=== PATIENT | female | born 1940 | race Caucasian/White ===

== ENCOUNTER 2019-03-11 09:30 | Inpatient (IN) | payer MEDICARE, SELFPAY ==
[2019-03-11] VITALS (9 sets, daily range): BP systolic 105–166; BP diastolic 61–98; PULSE 59–101; RESP 16–24; TEMP 36.4–37; O2SAT 90–96; BMI 37.5
--- NOTE | 2019-03-11 10:07 | ECG_ITS ---
Measurements Intervals [place] Rate: 59 P: TN: 0 QRS: -75 QRSD: 154 T: 108 QT: 486 QTc: 485 ELECTRONIC VENTRICULAR PACEMAKER ABNORMAL RHYTHM ECG INTERPRETATION BASED ON A DEFAULT AGE OF 40 YEARS Compared to ECG 12/02/2018 19:50:07 No significant changes Electronically Signed On 03-11-2019 14:29:11 GEOMETRICIAN by Angela Irizarry M.D. [id number]
--- NOTE | 2019-03-11 10:07 | XR_ITS ---
WS: [id number] CHEST XRAY TECHNIQUE: Portable chest. CLINICAL INFORMATION: Shortness of breath and chest pain COMPARISON: FINDINGS: Heart: Normal cardiac silhouette. Single lead cardiac pacer. Lungs: Chronic emphysematous changes. Perihilar interstitial infiltrates likely due to CHF versus pne umonitis. No focal pneumonia. No pleural fluid. Bones: Left rotator cuff anchor. XR/XR chest 1V portable [id number] IMPRESSION: 1. Perihilar interstitial infiltrates either due to CHF versus pneumonitis. 2. No focal pneumonia or pleural fluid.
--- NOTE | 2019-03-11 10:16 | W.ED.CHESTPA ---
HPI - Chest Pain General: Chief Complaint: Chest Pain Stated Complaint: trouble breathing Time Seen by Provider: 03/11/19 10:05 Source: patient and family Mode of arrival: ambulatory Limitations: other History of Present Illness: HPI narrative: 79 yo female presents with L chest pain. pt states this started yesterday. pt has had nausea and vomiting. pt states she has had diarrhea and shortness of breath. pt states this pain is brought on with exertion. pt denies any other symptoms at this time. MD complaint: chest pain Onset (ago): hour(s) Timing of current episode: still present Prior episodes: Yes Onset: during exertion Pain location: left chest Pain radiation: none Severity: moderate Relieving factors: nothing Exacerbating factors: exertion Associated symptoms: Reports nausea, vomiting (Last night) and other (diarrhea) Review of Systems GI: Reports: nausea and vomiting (Last night) PFSH ED PFSH: Statuses (acute, chronic, etc) shown below reflect problem list status as previously entered and may not be historically accurate Social History Smoking and tobacco status: former smoker Course Vital Signs: Vital signs: Vital Signs Temperature 98 F 03/11/19 09:38 Respiratory Rate 24 H 03/11/19 09:38 Blood Pressure 151/98 03/11/19 09:38 Discharge Plan Discharge Prescriptions: No Action Lasix 40 mg Tablet 40 mg PO BID RF: 0 metformin 500 mg Tablet 500 mg PO BID RF: 0 pravastatin 40 mg Tablet 40 mg PO DAILY RF: 0 Plavix 75 mg Tablet 75 mg PO DAILY RF: 0 isosorbide dinitrate 30 mg Tablet 30 mg PO DAILY RF: 0 gabapentin 800 mg Tablet 800 mg PO BID RF: 0 Protonix 40 mg Tablet,Delayed Release (Dr/Ec) 40 mg PO DAILY RF: 0 ferrous sulfate 325 mg (65 mg iron) Tablet 325 mg PO BID RF: 0 Nitrostat 0.4 mg Tablet, Sublingual 0.4 mg SUBLINGUAL Q5M PRN (Reason: Chest Pain) RF: 0 Januvia 50 mg Tablet 50 mg PO DAILY RF: 0 Eliquis 5 mg Tablet 5 mg PO BID RF: 0 Coding Level of Care Code ED Diagnostic Medical Sonographer for Ruth Alfredo
[2019-03-11 10:21] LABS: Add RBC Morph No
[2019-03-11 10:25] LABS: Basophils % 0.4 %; Eosinophils # 0.1 10^3/uL (0.0-0.8); Eosinophils % 1.4 %; Hematocrit 30.5 % (37.0-47.0); Hemoglobin 8.7 g/dL (11.5-15.3); Lymphocytes # 0.8 10^3/uL (0.8-4.8); Lymphocytes % 7.3 %; Mean Corpuscular HGB Conc 28.5 g/dL (30.0-36.0); Mean Corpuscular Hemoglobin 26.9 pg (28.0-34.0); Mean Corpuscular Volume 94.4 fL (81-99); Mean Platelet Volume 9.4 fL (7.4-10.4); Monocytes # 0.4 10^3/uL (0.2-0.9); Monocytes % 3.8 %; Neutrophils # 8.9 10^3/uL (1.8-7.7); Neutrophils % 86.7 %; Nucleated Red Blood Cells % 0 %; Platelet Count 337 10^3/cmm (130-400); Red Blood Count 3.23 10^6/uL (4.1-5.3); Red Cell Distribution Width 16.5 % (12.1-15.1); White Blood Count 10.3 10^3/uL (4.0-10.0)
[2019-03-11 11:02] LABS: Alanine Aminotransferase 5 U/L (0-33); Albumin Level 3.7 g/dL (3.5-5.2); Alkaline Phosphatase 66 IU/L (35-105); Anion Gap 17.8 (5-19); Aspartate Amino Transferase 8 U/L (0-32); Blood Urea Nitrogen 13 mg/dL (8-23); Calcium 9.6 mg/Dl (8.8-10.2); Carbon Dioxide 28 mmol/L (22-29); Chloride 97 mmol/L (98-107); Globulin 3.6 g/dL (1.3-4.6); Glucose 180 mg/dL (74-106); Potassium 3.8 mmol/L (3.5-5.1); Sodium 139 mmol/L (136-145); Total Bilirubin 0.6 mg/dL (0.15-1.2); Total Protein 7.3 g/dL (6.6-8.7)
[2019-03-11 11:03] LABS: Troponin(5th) Baseline 22 ng/mL (0-10)
[2019-03-11] MEDS: cefTRIAXone 1,000 MG in sodium chloride 0.9% (plus) 50 ML 100 MG IV (11:38)
[2019-03-11] MEDS: nitroglycerin 1 gm/inch oint Pkt 0.5 INCH TOPICAL (11:42)
[2019-03-11] MEDS: azithromycin 500 MG in sodium chloride 0.9% 250 ML 250 MG IV (12:02)
--- NOTE | 2019-03-11 12:07 | ECG_ITS ---
Measurements Intervals [place] Rate: 60 P: MT: 0 QRS: -75 QRSD: 145 T: 112 QT: 499 QTc: 499 ELECTRONIC VENTRICULAR PACEMAKER ABNORMAL RHYTHM ECG Compared to ECG 12/02/2018 19:50:07 No significant changes Electronically Signed On 03-11-2019 14:33:52 PLANE TABLEMAN by Angela Irizarry M.D. [id number]
[2019-03-11 12:20] LABS: NT Pro B Type Natriuretic Pept 1569 pg/mL (0-450)
[2019-03-11] MEDS: pantoprazole 40 mg SDV IVP ×2 (12:37→23:45)
[2019-03-11 13:00] LABS: Troponin 5 2HR 19.84 ng/mL (0-10); Troponin 5 2HR Delta -2.16 ABS# (0-10)
--- NOTE | 2019-03-11 14:55 | PM.HP ---
Providers/Chief Complaint Primary Care Provider: Grace Willett Chief Complaint: lower chest pain/trouble breathing History of Present Illness Radha Rose is a 79 year old female with a past medical history of diastolic CHF, chronic atrial fibrillation status post ablation with a pacemaker in place, history of PE on chronic anticoagulation with Eliquis, history of CAD status post stenting x5 on Plavix, history of restrictive lung disease, history of type 2 diabetes mellitus, history of hypertension, diabetic peripheral neuropathy who presents to the emergency room due to complaints of chest pain, shortness of breath, weakness, fatigue, bloody stools. Bloody stools: Patient states that she has a history of bloody stools in the past, had a EGD and a colonoscopy in 2017 which was unremarkable, states that she for the past few days she has been having bloody stools, black stools, has been feeling lightheaded and dizzy at times, is on Plavix for CAD, on Eliquis for atrial fibrillation, denies hemoptysis, denies hematemesis, denies hematuria. Denies history of diverticulosis. Denies a history of peptic ulcer disease. He is on pantoprazole chronically as outpatient. Chest pain: States that this morning she had left-sided chest pain, sharp, lasting 5 minutes, is out of nitroglycerin was unable to take it, nonradiating, associated shortness of breath, no lightheadedness, no dizziness, no nausea, no vomiting, states that she has had chest pain in the past, seems similar, CAD status post ending x5, last stent placed in 2014, by Dr. Mercer, is on Plavix and Imdur. Last follow-up with cardiology was a week ago, by Dr. Booth, developed atrial fibrillation. Shortness of breath: Patient states that she has a chronic history of shortness of breath, shortness of breath at rest and exertion, is chronically on 3 L oxygen at home, recently has been using up to 5 L, recently has been saying that she is short of breath with even minimal exertion, no cough, no fevers, no chills, no nausea, no vomiting, no lightheadedness, no dizziness, no sick contacts, no history of flu exposure, Review of Systems Const: Denies: fever, chills, change in appetite or fatigue Eyes: Denies: change in vision ENMT: Denies: painful swallowing or nasal discharge Card: Reports: chest pain, shortness of breath on exertion and shortness of breath when lying down; Denies: palpitations, lightheadedness or syncope Resp: Reports: shortness of breath; Denies: productive cough, coughing up blood or chest congestion GI: Reports: abdominal pain, blood in stool and black tarry stool; Denies: vomiting blood : Denies: flank pain, difficulty urinating, painful urination, urinary frequency, urinary urgency, urinary hesitancy, urinary dribbling or urinary incontinence Musc: Denies: back pain Skin/Breast: Denies: rash Neuro: Denies: headache Psych: Denies: anxiety or depression Endo: Denies: excessive urination Jaspal/Lymph: Denies: easy bruising or easy bleeding Medications/Allergies Home Medications Medication Instructions Recorded Confirmed Last Taken Type apixaban [Eliquis] 5 mg PO BID 03/11/19 03/11/19 03/11/19 History clopidogrel [Plavix] 75 mg PO DAILY 03/11/19 03/11/19 03/11/19 History ferrous sulfate 325 mg PO BID 03/11/19 03/11/19 03/11/19 History furosemide [Lasix] 40 mg PO BID PRN 03/11/19 03/11/19 03/11/19 History gabapentin 800 mg PO BID 03/11/19 03/11/19 03/11/19 History isosorbide dinitrate 30 mg PO DAILY 03/11/19 03/11/19 03/11/19 History metformin 500 mg PO BID 03/11/19 03/11/19 03/11/19 History nitroglycerin [Nitrostat] 0.4 mg SUBLINGUAL Q5M PRN 03/11/19 03/11/19 Unknown History pantoprazole [Protonix] 40 mg PO DAILY 03/11/19 03/11/19 03/11/19 History pravastatin 40 mg PO DAILY 03/11/19 03/11/19 Unknown History sitagliptin [Januvia] 50 mg PO DAILY 03/11/19 03/11/19 03/11/19 History Allergies Allergy/AdvReac Type Severity Reaction Status Date / Time codeine Allergy ADR-Halluci Verified 03/11/19 09:51 nating Sulfa (Sulfonamide Allergy ALGY-Hives Verified 03/11/19 09:51 Antibiotics) tetanus and diphtheria Allergy ADR-Vomitin Verified 03/11/19 09:51 toxoids g PFSH Acute PFSH: Statuses (acute, chronic, etc) shown below reflect problem list status as previously entered and may not be historically accurate Medical History (Updated 03/11/19 @ 15:02 by Joe Mcgovern MD) Chronic atrial fibrillation (Acute) Diabetic peripheral neuropathy (Acute) Diastolic CHF (Acute) Hypertension (Acute) Pulmonary embolism (Acute) Type 2 diabetes mellitus (Acute) Surgical History (Updated 03/11/19 @ 15:03 by Joe Mcgovern MD) H/O hysterectomy for benign disease (Acute) History of appendectomy (Acute) S/P ablation of atrial fibrillation (Acute) Family History (Updated 03/11/19 @ 15:03 by Joe Mcgovern MD) Mother CAD (coronary artery disease) Social History (Updated 03/11/19 @ 15:04 by Joe Mcgovern MD) Smoking and tobacco status: former smoker Alcohol intake: never Substance/Drug Use: never Household members: family Housing: House Vitals/I&O/Wt Last Vital Signs Temp 98 F 03/11/19 09:38 Pulse 101 H 03/11/19 14:01 Resp 18 03/11/19 14:01 BP 137/92 03/11/19 14:01 Pulse Ox 94 03/11/19 14:01 Weight last 48 hrs Weight 99.337 kg Physical Exam Const: COMMON NORMALS: no apparent distress and no limitations EXAM LIMITATIONS: no altered mental status GENERAL APPEARANCE: cooperative HENMT: COMMON NORMALS: normocephalic HEAD & SCALP: normocephalic MOUTH: oral and palatal mucosa normal Eye: COMMON NORMALS: PERRL and EOMs intact bilaterally Neck/C-Spine: COMMON NORMALS: full ROM THYROID: thyroid normal Lymph: LYMPHATIC: no lymphadenopathy noted Chest: COMMONS NORMALS: inspection of chest normal Resp: COMMON NORMALS: normal respiratory effort, no use of accessory muscles and clear to auscultation bilaterally AUSCULTATION: clear to auscultation bilaterally Cardio: COMMON NORMALS: no JVD, regular rate, regular rhythm, S1 normal heart sound and S2 normal heart sound GI: COMMON NORMALS: normal to inspection, nondistended, normoactive bowel sounds, soft to palpation, no hepatosplenomegaly, no masses and no bruits PALPATION: Yes tender Details: RLQ Back/Pelvis: COMMON NORMALS: no CVA tenderness Extremity: COMMON NORMALS: normal to inspection, full ROM, normal capillary refill, no joint enlargement, no clubbing, cyanosis or edema, no calf tenderness and no pedal edema Neuro: COMMON NORMALS: oriented x3, CN's II-XII intact bilaterally and moves all extremities Psych: COMMON NORMALS: mental status grossly normal and thought process normal Skin: COMMON NORMALS: no rashes or lesions noted Urinary Catheter Management^: Alanis: Cath Placed During This Visit: no Data Labs: Other Labs: All Labs last 24 hrs except CBC/BMP 03/11/19 03/11/19 03/11/19 10:18 10:18 10:18 RBC 3.23 L MCV 94.4 MCH 26.9 L MCHC 28.5 L RDW 16.5 H MPV 9.4 Neut % (Auto) 86.7 Lymph % (Auto) 7.3 [place] % (Auto) 3.8 Eos % (Auto) 1.4 Baso % (Auto) 0.4 Neut # (Auto) 8.9 H Lymph # (Auto) 0.8 [place] # (Auto) 0.4 Eos # (Auto) 0.1 Baso # (Auto) 0.0 Nucleated RBC % (a uto) 0 Nucleated RBCs # 0.0 Calcium 9.6 Total Bilirubin 0.6 AST 8 ALT 5 Alkaline Phosphata se 66 Troponin T Baselin e 22 H Troponin T 120 Min chinik 19.84 H Delta Troponin T -2.16 L NT-Pro-B Natriuret Pep 1569 H Total Protein 7.3 Albumin 3.7 Globulin 3.6 Blood Type Antibody Screen Crossmatch 03/11/19 13:25 RBC MCV MCH MCHC RDW MPV Neut % (Auto) Lymph % (Auto) [place] % (Auto) Eos % (Auto) Baso % (Auto) Neut # (Auto) Lymph # (Auto) [place] # (Auto) Eos # (Auto) Baso # (Auto) Nucleated RBC % (a uto) Nucleated RBCs # Calcium Total Bilirubin AST ALT Alkaline Phosphata se Troponin T Baselin e Troponin T 120 Min [place] Delta Troponin T NT-Pro-B Natriuret Pep Total Protein Albumin Globulin Blood Type O Negative Antibody Screen Negative Crossmatch See Detail A&P Assessment and plan (1) Chest pain: -CAD status post stenting x5 -Initial baseline troponin within normal limits -Initial EKG no acute ST-T wave changes -No active chest pain currently -Telemetry monitoring, unremarkable, paced rhythm Plan: -Monitor EKGs, troponins, telemetry Status: Acute Code(s): R07.9 - Chest pain, unspecified (2) Pneumonia: -Chest x-ray shows bilateral interstitial infiltrates Plan: -Continue azithromycin and Rocephin Status: Acute Code(s): J18.9 - Pneumonia, unspecified organism (3) GI bleed: Hemoglobin today is 8.7, chronic 11-12 Hemoccult positive Having bloody stools Hemodynamic stable Plan: -Monitor hemoglobin, transfuse hemoglobin if less than 8 -Hold anticoagulation and antiplatelet agents -I spoke to Dr. Mitchell, no acute need to do an EGD or colonoscopy, unless acutely bleeding Status: Acute Code(s): K92.2 - Gastrointestinal hemorrhage, unspecified (4) Chronic atrial fibrillation: Status post pacemaker and ablation Plan: -Hold Eliquis Status: Acute Code(s): I48.20 - Chronic atrial fibrillation, unspecified (5) Type 2 diabetes mellitus: Low-dose sliding scale Status: Acute Code(s): E11.9 - Type 2 diabetes mellitus without complications (6) Restrictive lung disease: -Oxygen therapy -Nebulizer treatments Status: Acute Code(s): J98.4 - Other disorders of lung (7) Pulmonary embolism: Discussed risks and benefits of holding Plavix and Eliquis, risk of stroke DC versus risk of GI bleed, currently risk of GI bleed is significantly high, patient is agreeable to hold, understands risks and benefits, agrees to hold and proceed Status: Acute Code(s): I26.99 - Other pulmonary embolism without acute cor pulmonale (8) Diastolic CHF: -Continue Lasix IV 40 twice daily Status: Acute Code(s): I50.30 - Unspecified diastolic (congestive) heart failure (9) Hypertension: Continue home meds Status: Acute Code(s): I10 - Essential (primary) hypertension Attestations Medical Necessity Statement*: Patient requires hospitalization, inpatient, greater than 2 midnights, for pneumonia, diastolic CHF exacerbation, GI bleed Coding Level of Care Code Acute Fibreglass Gun Hand for [facility] Fwd Diagnoses Chest pain R07.9 Pneumonia J18.9 GI bleed K92.2 Chronic atrial fibrillation I48.20 Type 2 diabetes mellitus E11.9 Restrictive lung disease J98.4 Pulmonary embolism I26.99 Diastolic CHF I50.30 Hypertension I10
[2019-03-11 16:48] LABS: Troponin 5 6HR 18.98 ng/L (0-10)
[2019-03-11 16:52] LABS: Troponin 5 6HR Delta 3.02 ng/L (0-12)
[2019-03-11 17:19] LABS: Hematocrit 30.5 % (37.0-47.0); Hemoglobin 8.7 g/dL (11.5-15.3)
[2019-03-11] MEDS: gabapentin 400 mg Capsule 800 MG PO (17:19)
[2019-03-11] MEDS: atorvastatin 40 mg Tablet 20 MG PO (17:20)
[2019-03-11] MEDS: dextrose 5%-sod chloride 0.45% 1,000 ML 50 ML IV (17:20)
[2019-03-11] MEDS: FUROsemide 10 mg/mL SDV 4mL 40 MG IV (17:29)
[2019-03-11 17:42] LABS: Glucose Point of Care 125 mg/dL (70-110)
[2019-03-11] MEDS: morphine 4 mg/mL SDV 1 mL 1 MG IV (18:22)
[2019-03-11 22:16] LABS: Glucose Point of Care 131 mg/dL (70-110)
[2019-03-11 22:29] LABS: Hematocrit 28.6 % (37.0-47.0)
[2019-03-12] VITALS (20 sets, daily range): BP systolic 97–153; BP diastolic 53–74; PULSE 60–75; RESP 15–20; TEMP 36.2–36.7; O2SAT 90–97
[2019-03-12 06:52] LABS: Glucose Point of Care 162 mg/dL (70-110)
[2019-03-12 07:03] LABS: Basophils % 0.3 %; Eosinophils # 0.2 10^3/uL (0.0-0.8); Eosinophils % 1.7 %; Hematocrit 29.4 % (37.0-47.0); Hemoglobin 8.2 g/dL (11.5-15.3); Lymphocytes # 0.9 10^3/uL (0.8-4.8); Lymphocytes % 8.6 %; Mean Corpuscular HGB Conc 27.9 g/dL (30.0-36.0); Mean Corpuscular Hemoglobin 26.5 pg (28.0-34.0); Mean Corpuscular Volume 95.1 fL (81-99); Mean Platelet Volume 9.9 fL (7.4-10.4); Monocytes # 0.6 10^3/uL (0.2-0.9); Monocytes % 5.1 %; Neutrophils # 9.2 10^3/uL (1.8-7.7); Neutrophils % 83.9 %; Nucleated Red Blood Cells % 0 %; Platelet Count 350 10^3/cmm (130-400); Red Blood Count 3.09 10^6/uL (4.1-5.3); Red Cell Distribution Width 16.6 % (12.1-15.1); White Blood Count 10.9 10^3/uL (4.0-10.0)
[2019-03-12 07:13] LABS: Add RBC Morph No; INR 1.56 (0.8-1.2)
[2019-03-12 07:18] LABS: Alanine Aminotransferase 5 U/L (0-33); Alkaline Phosphatase 62 IU/L (35-105); Anion Gap 14.4 (5-19); Aspartate Amino Transferase 10 U/L (0-32); Blood Urea Nitrogen 10 mg/dL (8-23); Calcium 9.5 mg/Dl (8.8-10.2); Carbon Dioxide 29 mmol/L (22-29); Chloride 98 mmol/L (98-107); Globulin 2.4 g/dL (1.3-4.6); Glucose 153 mg/dL (74-106); Magnesium 1.7 mg/dL (1.7-2.3); Phosphorus 3.2 mg/dL (2.5-4.5); Potassium 3.4 mmol/L (3.5-5.1); Sodium 138 mmol/L (136-145); Total Bilirubin 0.6 mg/dL (0.15-1.2); Total Protein 6.4 g/dL (6.6-8.7)
[2019-03-12] MEDS: isosorbide dinitrate 20 mg Tablet 30 MG PO (08:02)
[2019-03-12] MEDS: atorvastatin 40 mg Tablet 20 MG PO (08:02)
[2019-03-12] MEDS: gabapentin 400 mg Capsule 800 MG PO ×2 (08:02→17:17)
[2019-03-12] MEDS: ondansetron 2 mg/ML SDV 2 mL 4 MG IVP ×2 (08:13→17:14)
[2019-03-12] MEDS: FUROsemide 10 mg/mL SDV 4mL 40 MG IV ×2 (08:13→17:13)
[2019-03-12] MEDS: morphine 4 mg/mL SDV 1 mL 1 MG IV ×2 (08:14→17:15)
--- NOTE | 2019-03-12 10:39 | CT_ITS ---
WS: [id number] CT scan of the abdomen and pelvis without Oral and IV contrast. Additional two-dimensional coronal an d sagittal reconstruction was performed. 03/12/2019 Clinical Data: RUQ and RLQ pain Comparison: None. DLP: 1756.[address] scans at [facility] use at least one of these dose optimization techniques: automat ed exposure control; mA and/or kV adjustment per patient size (includes targeted exams where dose is matched to clinical indication); or iterative reconstruction. Findings: The lower lungs show no nodules or masses. There is a moderate right pleural effusion and a very smal l left pleural effusion. Pacemaker wires are within the heart. The liver, spleen, adrenal glands and pancreas are normal. The gallbladder has stones within. The kidneys show no masses or hydronephrosis. There is a 4.61 cm cortical cyst of the left kidney.. The abdominal aorta is dilated to 2.81 cm. This is approximately the same as on the prior study. No a ppendicitis or diverticulitis is seen. No abscess, adenopathy, ascites, mass, obstruction or free air is seen.. The bladder is unremarkable. The uterus is absent. No inguinal hernia is seen. The bones of the lower thorax, lumbar spine, pelvis, and hips show osteoarthritic change of the lower thoracic and all the lumbar vertebral bodies.. CT/CT abdomen pelvis wo con [id number] Impression: 1. Negative for acute abdominal or pelvic abnormalities. 2. Small right pleural effusion and very small left pleural effusion. 3. Cholelithiasis and left renal cyst.. 4. No change in atherosclerotic dilatation of the abdominal aorta.
[2019-03-12] MEDS: cefTRIAXone 1,000 MG in sodium chloride 0.9% (plus) 50 ML 100 MG IV (11:00)
[2019-03-12] MEDS: pantoprazole 40 mg SDV IVP ×2 (11:10→23:55)
[2019-03-12 11:14] LABS: Glucose Point of Care 162 mg/dL (70-110)
--- NOTE | 2019-03-12 12:46 | PC.CHAP ---
Pastoral Care Encounter/Spiritual Assessment Type of Contact [] Declined lens edger visit [] Patient/Family/Request visit [] Outpatient visit [] Follow-up visit [] Physician referral [] Code/Alert [x] Routine visit [] Staff referral [] Actively dying [] Patient sleeping [] Family support [] [] Out of room [] Palliative care [] [] Receiving care in room [] Pre-surgical visit [] Trauma [] Long length of stay [] ICU visit [] Other: Relational/Emotional Strength [x] Patient feels connected with others/family/visitors/staff [] Distress [] Loneliness/isolation [] Abandonment Spirituality of Patient [x] Person of Yolis [] Attends Mandaen of their Yolis [x] Believes in Prayer [] Reads Bible or Zoroastrian materials [] There are Spiritual issues to be addressed Waste [employer]ination Interventions [x] Prayer [x] Active listening [x] Non-anxious presence [x] Spiritual/emotional support [] Crisis/trauma care [] Spiritual counseling [] Bereavement support [] Provided bereavement packet [] Provided Bible/devotional materials [] Provided toy/stuffed animal, coloring book to patient or family member [] Completed spiritual assessment [] Provided Communion [] Anointing/[place] [] Salvation [] Other: Impact on Illness or Injury [] Angry [] Fearful [] Anxious [] Often cries [x] Exhaustion [] Unable to work [] Unable to attend sikh [] Unable to walk/stand [] Unable to read [] Unable to drive [] Unable to eat/drink [] Unable to sleep [] Unable to be with family [] Other: Summary Visited by Waste [employer], patient is waiting for CT Testing and has been here before and is continuing with heart care. Time spent with patient 5 minutes
--- NOTE | 2019-03-12 12:48 | P.PN_ITS ---
Subjective Subjective: Interval history: This morning patient states that her breathing is improved, currently on 4.5 L oxygen, states that she uses 5 L at home, no bloody stools since last night, is quite hungry this morning, no chest pain, no palpitations, no lightheadedness, no dizziness, no nausea, no vomiting, patient got out of bed this morning without assistance, did well according to the , Vitals/I&O/Wt Last Vital Signs Temp 97.8 F 03/12/19 11:18 Pulse 72 03/12/19 11:18 Resp 18 03/12/19 11:18 BP 109/53 03/12/19 11:18 Pulse Ox 93 03/12/19 11:18 03/11/19 03/12/19 03/12/19 22:59 06:59 14:59 Intake Total 104 / 104 664.167 / 768.167 435.833 / 435.833 Output Total 1508 / 1508 550 / 550 Balance -1404 / -1404 664.167 / -739.833 -114.167 / -114.167 Weight last 48 hrs Weight 100.38 kg Weight 103.963 kg Weight 99.337 kg Physical Exam Const: COMMON NORMALS: no apparent distress, oriented x3 and well nourished HENMT: COMMON NORMALS: normocephalic HEAD & SCALP: normocephalic Neck/C-Spine: COMMON NORMALS: no JVD Lymph: LYMPHATIC: no lymphadenopathy noted Resp: COMMON NORMALS: normal respiratory effort, no retractions, no use of accessory muscles, clear to auscultation bilaterally and percussion normal AUSCULTATION: clear to auscultation bilaterally PERCUSSION: percussion normal Cardio: COMMON NORMALS: no JVD, regular rate, regular rhythm, S1 normal heart sound, S2 normal heart sound, no clicks, no murmurs and no rub RATE: regular rate RHYTHM: regular rhythm HEART SOUNDS: S1 normal and S2 normal GI: COMMON NORMALS: normal to inspection, nondistended, normoactive bowel sounds, soft to palpation, no masses and no bruits PALPATION: Yes soft, No firm, No tender, No guarding, No rigid, No hepatosplenomegaly, No splenomegaly and Yes other (Right upper quadrant tenderness, right lower quadrant tenderness to palpation) : COMMON NORMALS: Yes no CVA tenderness BLADDER/KIDNEY EXAM: Yes catheter in place and Yes no CVA tenderness Back/Pelvis: COMMON NORMALS: no CVA tenderness Extremity: COMMON NORMALS: no clubbing, cyanosis or edema and no pedal edema Neuro: COMMON NORMALS: oriented x3 Psych: COMMON NORMALS: mental status grossly normal Urinary Catheter Management^: Alanis: Cath Placed During This Visit: no A&P Assessment and plan (1) Chest pain: -CAD status post stenting x5 -Initial baseline troponin within normal limits -Initial EKG no acute ST-T wave changes -No active chest pain currently -Telemetry monitoring, unremarkable, paced rhythm Plan: -Monitor EKGs, troponins, telemetry Status: Acute Code(s): R07.9 - Chest pain, unspecified (2) Pneumonia: -Chest x-ray shows bilateral interstitial infiltrates Plan: -Continue azithromycin and Rocephin Status: Acute Code(s): J18.9 - Pneumonia, unspecified organism (3) GI bleed: Hemoglobin today is 8.0, chronic 11-12 Hemoccult positive Last bloody stool was last night Hemodynamic stable Plan: -Monitor hemoglobin, will transfuse 1 unit of PRBC, recheck hemoglobin later on tonight -Hold anticoagulation and antiplatelet agents -I spoke to Dr. Mitchell, no acute need to do an EGD or colonoscopy, unless acutely bleeding Status: Acute Code(s): K92.2 - Gastrointestinal hemorrhage, unspecified (4) Hypertension: Continue home meds Status: Acute Code(s): I10 - Essential (primary) hypertension (5) Chronic atrial fibrillation: Status post pacemaker and ablation Plan: -Hold Eliquis Status: Acute Code(s): I48.20 - Chronic atrial fibrillation, unspecified (6) Type 2 diabetes mellitus: Low-dose sliding scale Status: Acute Code(s): E11.9 - Type 2 diabetes mellitus without complications (7) Restrictive lung disease: -Oxygen therapy -Nebulizer treatments Status: Acute Code(s): J98.4 - Other disorders of lung (8) Pulmonary embolism: Discussed risks and benefits of holding Plavix and Eliquis, risk of stroke VT versus risk of GI bleed, currently risk of GI bleed is significantly high, patient is agreeable to hold, understands risks and benefits, agrees to hold and proceed Status: Acute Code(s): I26.99 - Other pulmonary embolism without acute cor pulmonale (9) Diastolic CHF: -Continue Lasix IV 40 twice daily Status: Acute Code(s): I50.30 - Unspecified diastolic (congestive) heart failure Attestations Medical Necessity Statement*: Requires continued mild hospitalization for pneumonia, GI bleed Coding Level of Care Code Acute Offender Employment Specialist for [facility] Fwd Diagnoses Chest pain R07.9 Pneumonia J18.9 GI bleed K92.2 Hypertension I10 Chronic atrial fibrillation I48.20 Type 2 diabetes mellitus E11.9 Restrictive lung disease J98.4 Pulmonary embolism I26.99 Diastolic CHF I50.30
--- NOTE | 2019-03-12 12:50 | PC.NURSE ---
Blood started by Sade Mackay RN
--- NOTE | 2019-03-12 13:46 | PC.NURSE ---
Patient took sponge bath earlier this am.
[2019-03-12 17:00] LABS: Glucose Point of Care 120 mg/dL (70-110)
[2019-03-12] MEDS: azithromycin 500 MG in sodium chloride 0.9% 250 ML 250 MG IV (17:12)
--- NOTE | 2019-03-12 18:49 | PC.PT ---
PT note; patient and spouse declined physical therapy intervention at this time, patient just seen by occupational therapist, and reports patient transfers out of bed and into chair with standby assistance, patient spouse states she helps her as needed, patient declines attempted ambulation or standing activity at this time, and patient and spouse feel they are able to continue independently without PT intervention at this time; occupational therapist did instructed patient in proper breathing techniques and home exercise program appropriate this patient; no further PT attempts to be made at this time, per patient and spouse requests.
[2019-03-12 20:07] LABS: Hematocrit 30.5 % (37.0-47.0); Hemoglobin 8.6 g/dL (11.5-15.3)
[2019-03-12 21:02] LABS: Glucose Point of Care 118 mg/dL (70-110)
[2019-03-12] MEDS: ipratropium-albuterol 3 mL Neb INHALATION (22:43)
[2019-03-13] VITALS (11 sets, daily range): BP systolic 94–156; BP diastolic 51–78; PULSE 60–87; RESP 16–20; TEMP 36.4–36.9; O2SAT 91–97; BMI 39.1
[2019-03-13 06:08] LABS: Basophils % 0.5 %; Eosinophils # 0.3 10^3/uL (0.0-0.8); Eosinophils % 3.2 %; Hemoglobin 9.1 g/dL (11.5-15.3); Lymphocytes % 11.5 %; Mean Corpuscular HGB Conc 28.4 g/dL (30.0-36.0); Mean Corpuscular Hemoglobin 27.7 pg (28.0-34.0); Mean Corpuscular Volume 97.3 fL (81-99); Mean Platelet Volume 9.5 fL (7.4-10.4); Monocytes # 0.6 10^3/uL (0.2-0.9); Monocytes % 6.4 %; Neutrophils # 6.8 10^3/uL (1.8-7.7); Neutrophils % 77.9 %; Nucleated Red Blood Cells % 0 %; Platelet Count 310 10^3/cmm (130-400); Red Blood Count 3.29 10^6/uL (4.1-5.3); Red Cell Distribution Width 17.3 % (12.1-15.1); White Blood Count 8.7 10^3/uL (4.0-10.0)
[2019-03-13 06:40] LABS: Alanine Aminotransferase 5 U/L (0-33); Albumin Level 3.8 g/dL (3.5-5.2); Alkaline Phosphatase 65 IU/L (35-105); Anion Gap 15.4 (5-19); Aspartate Amino Transferase 9 U/L (0-32); Blood Urea Nitrogen 8 mg/dL (8-23); Calcium 9.2 mg/Dl (8.8-10.2); Carbon Dioxide 30 mmol/L (22-29); Chloride 101 mmol/L (98-107); Globulin 2.5 g/dL (1.3-4.6); Glucose 140 mg/dL (74-106); Magnesium 1.8 mg/dL (1.7-2.3); Phosphorus 3.5 mg/dL (2.5-4.5); Potassium 3.4 mmol/L (3.5-5.1); Sodium 143 mmol/L (136-145); Total Bilirubin 0.7 mg/dL (0.15-1.2); Total Protein 6.3 g/dL (6.6-8.7)
[2019-03-13 07:00] LABS: Glucose Point of Care 140 mg/dL (70-110)
[2019-03-13] MEDS: atorvastatin 40 mg Tablet 20 MG PO (08:41)
[2019-03-13] MEDS: gabapentin 400 mg Capsule 800 MG PO ×2 (08:42→18:05)
[2019-03-13] MEDS: isosorbide dinitrate 20 mg Tablet 30 MG PO (08:43)
[2019-03-13] MEDS: FUROsemide 10 mg/mL SDV 4mL 40 MG IV ×2 (08:43→18:05)
[2019-03-13] MEDS: cefTRIAXone 1,000 mg SDV 1000 MG (11:00)
--- NOTE | 2019-03-13 11:34 | PM.PN ---
Subjective Subjective: Interval history: This morning patient states that her breathing has improved, was up into a chair yesterday, was ambulating with a walker without any significant symptomatology, was transfused 1 unit PRBC, states her breathing is improved, but did have one black bowel movement last night, none since then, still on a clear liquid diet, no abdominal pain, her CT of the abdomen had no acute findings Vitals/I&O/Wt Last Vital Signs Temp 97.6 F 03/13/19 07:40 Pulse 62 03/13/19 07:59 Resp 16 03/13/19 07:59 BP 109/64 03/13/19 07:40 Pulse Ox 95 03/13/19 07:59 03/12/19 03/13/19 03/13/19 22:59 06:59 14:59 Intake Total 924 / 2339.833 240 / 240 Output Total 300 / 850 300 / 1150 Balance 624 / 1489.833 -300 / 1189.833 240 / 240 Weight last 48 hrs Weight 100.38 kg Weight 103.963 kg Physical Exam Const: COMMON NORMALS: no apparent distress, oriented x3, no limitations and well nourished EXAM LIMITATIONS: no altered mental status GENERAL APPEARANCE: cooperative Eye: COMMON NORMALS: PERRL and EOMs intact bilaterally PUPIL: Yes PERRL Neck/C-Spine: COMMON NORMALS: no JVD Lymph: LYMPHATIC: no lymphadenopathy noted Chest: COMMONS NORMALS: inspection of chest normal Resp: COMMON NORMALS: normal respiratory effort, no retractions, no use of accessory muscles, clear to auscultation bilaterally and percussion normal AUSCULTATION: clear to auscultation bilaterally PERCUSSION: percussion normal Cardio: COMMON NORMALS: no JVD, regular rate, regular rhythm, S1 normal heart sound, S2 normal heart sound, no clicks, no murmurs and no rub RATE: regular rate RHYTHM: regular rhythm HEART SOUNDS: S1 normal and S2 normal GI: COMMON NORMALS: normal to inspection, nondistended, normoactive bowel sounds, soft to palpation, no hepatosplenomegaly, no masses and no bruits PALPATION: Yes soft, No firm, No tender, No guarding, No rigid, Yes no hepatosplenomegaly, No hepatosplenomegaly, No splenomegaly and Yes other (Right upper quadrant tenderness, right lower quadrant tenderness to palpation) Extremity: COMMON NORMALS: normal to inspection, full ROM, normal capillary refill, no joint enlargement, no clubbing, cyanosis or edema, no calf tenderness and no pedal edema Neuro: COMMON NORMALS: oriented x3 Urinary Catheter Management^: Alanis: Cath Placed During This Visit: no A&P Assessment and plan (1) Chest pain: -CAD status post stenting x5 -Initial baseline troponin within normal limits -Initial EKG no acute ST-T wave changes -No active chest pain currently -Telemetry monitoring, unremarkable, paced rhythm Plan: - telemetry Status: Acute Code(s): R07.9 - Chest pain, unspecified (2) Pneumonia: -Chest x-ray shows bilateral interstitial infiltrates Plan: -Continue azithromycin and Rocephin Status: Acute Code(s): J18.9 - Pneumonia, unspecified organism (3) GI bleed: Hemoglobin today is 9.1, status post 1 unit PRBC, chronic 11-12 Hemoccult positive Last black stool Hemodynamic stable Plan: -Monitor hemoglobin -Hold anticoagulation and antiplatelet agents -I spoke to Dr. Mitchell, no acute need to do an EGD or colonoscopy, unless acutely bleeding -On IV Protonix, 40 twice daily -Will add Carafate Status: Acute Code(s): K92.2 - Gastrointestinal hemorrhage, unspecified (4) Hypertension: Continue home meds Status: Acute Code(s): I10 - Essential (primary) hypertension (5) Chronic atrial fibrillation: Status post pacemaker and ablation Plan: -Hold Eliquis Status: Acute Code(s): I48.20 - Chronic atrial fibrillation, unspecified (6) Type 2 diabetes mellitus: Low-dose sliding scale Status: Acute Code(s): E11.9 - Type 2 diabetes mellitus without complications (7) Restrictive lung disease: -Oxygen therapy -Nebulizer treatments Status: Acute Code(s): J98.4 - Other disorders of lung (8) Pulmonary embolism: Discussed risks and benefits of holding Plavix and Eliquis, risk of stroke [place] versus risk of GI bleed, currently risk of GI bleed is significantly high, patient is agreeable to hold, understands risks and benefits, agrees to hold and proceed Status: Acute Code(s): I26.99 - Other pulmonary embolism without acute cor pulmonale (9) Diastolic CHF: -Continue Lasix IV 40 twice daily Status: Acute Code(s): I50.30 - Unspecified diastolic (congestive) heart failure Attestations Medical Necessity Statement*: Patient requires hospitalization, for GI bleed, pneumonia Coding Level of Care Code Acute 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
[2019-03-13] MEDS: pantoprazole 40 mg SDV IVP (11:55)
[2019-03-13] MEDS: cefTRIAXone 1,000 MG in sodium chloride 0.9% (plus) 50 ML 100 MG IV (12:11)
[2019-03-13 12:12] LABS: Glucose Point of Care 138 mg/dL (70-110)
[2019-03-13] MEDS: azithromycin 500 MG in sodium chloride 0.9% 250 ML 250 MG IV (14:57)
[2019-03-13] MEDS: sucralfate 1 gm Tablet PO (16:44)
[2019-03-13 16:52] LABS: Basophils % 0.2 %; Eosinophils # 0.3 10^3/uL (0.0-0.8); Eosinophils % 3.2 %; Hematocrit 29.1 % (37.0-47.0); Hemoglobin 8.1 g/dL (11.5-15.3); Lymphocytes # 1.2 10^3/uL (0.8-4.8); Mean Corpuscular HGB Conc 27.8 g/dL (30.0-36.0); Mean Corpuscular Hemoglobin 26.5 pg (28.0-34.0); Mean Corpuscular Volume 95.1 fL (81-99); Mean Platelet Volume 9.8 fL (7.4-10.4); Monocytes # 0.7 10^3/uL (0.2-0.9); Monocytes % 8.3 %; Neutrophils % 73.1 %; Nucleated Red Blood Cells % 0 %; Platelet Count 289 10^3/cmm (130-400); Red Blood Count 3.06 10^6/uL (4.1-5.3); Red Cell Distribution Width 16.8 % (12.1-15.1); White Blood Count 8.2 10^3/uL (4.0-10.0)
--- NOTE | 2019-03-13 18:42 | CTR_ITS ---
PROCEDURE INFORMATION: Exam: CT Head Without Contrast Exam date and time: 03/13/2019 8:04 PM Age: 79 years old Clinical indication: Injury or trauma; Fall; Additional info: Fall in bathroom TECHNIQUE: Imaging protocol: Computed tomography of the head without contrast. Total DLP: 785.71 mGy-cm Radiation optimization: All CT scans at this facility use at least one of these dose optimization techniques: automated exposure control; mA and/or kV adjustment per patient size (includes targeted exams where dose is matched to clinical indication); or iterative reconstruction. COMPARISON: CT head wo con* [id number] 12/03/2018 9:01 AM FINDINGS: Brain: Unchanged periventricular low-density compatible with small-vessel disease changes. No hemorrhage. No mass effect. No acute edema. Ventricles: Normal. No ventriculomegaly. Bones/joints: Unremarkable. No acute fracture. Sinuses: Visualized sinuses are unremarkable. No fluid levels. Mastoid air cells: Visualized mastoid air cells are well aerated. Soft tissues: Unremarkable. CT/CT head wo con* [id number] IMPRESSION: No acute intracranial abnormality. Radiation Dose CTDIVOL = (mGy): DLP = 785.71 (mGy-cm)
--- NOTE | 2019-03-13 18:47 | XRR_ITS ---
PROCEDURE INFORMATION: Exam: XR Pelvis Exam date and time: 03/13/2019 8:37 PM Age: 79 years old Clinical indication: Injury or trauma; Fall; Initial encounter; Blunt trauma (contusions or hematomas); Bilateral; Pelvic region; Additional info: Fall in bathroom TECHNIQUE: Imaging protocol: XR pelvis. Views: 1 or 2 view. COMPARISON: CT abdomen pelvis wo con [id number] 03/12/2019 11:54 AM FINDINGS: Bones/joints: Moderate to severe degenerative changes in the lower lumbar spine, sacroiliac joints and hip joints are noted. The bone density is appropriate. No acute fracture or dislocation. No bony destructive changes. Soft tissues: No foreign body. No gas in the soft tissues. Other findings: No periosteal reaction. No osteomyelitis. XR/XR pelvis 1-2V* [id number] IMPRESSION: No acute bony abnormality.
[2019-03-13 19:01] LABS: Glucose Point of Care 120 mg/dL (70-110)
[2019-03-13 19:01] LABS: Glucose Point of Care 158 mg/dL (70-110)
[2019-03-14] VITALS (7 sets, daily range): BP systolic 108–127; BP diastolic 62–70; PULSE 59–87; RESP 16–18; TEMP 36.4–37.1; O2SAT 91–100; BMI 39.1
[2019-03-14] MEDS: pantoprazole 40 mg SDV IVP ×3 (02:46→23:27)
[2019-03-14 05:42] LABS: Glucose Point of Care 144 mg/dL (70-110)
[2019-03-14 05:54] LABS: Basophils # 0.1 10^3/uL (0.0-0.1); Basophils % 0.6 %; Eosinophils # 0.2 10^3/uL (0.0-0.8); Eosinophils % 1.9 %; Hematocrit 30.5 % (37.0-47.0); Hemoglobin 8.7 g/dL (11.5-15.3); Lymphocytes # 1.3 10^3/uL (0.8-4.8); Lymphocytes % 15.5 %; Mean Corpuscular HGB Conc 28.5 g/dL (30.0-36.0); Mean Corpuscular Hemoglobin 26.8 pg (28.0-34.0); Mean Corpuscular Volume 93.8 fL (81-99); Mean Platelet Volume 9.7 fL (7.4-10.4); Monocytes # 0.6 10^3/uL (0.2-0.9); Monocytes % 7.5 %; Neutrophils # 6.2 10^3/uL (1.8-7.7); Neutrophils % 74.3 %; Nucleated Red Blood Cells % 0 %; Platelet Count 318 10^3/cmm (130-400); Red Blood Count 3.25 10^6/uL (4.1-5.3); Red Cell Distribution Width 16.4 % (12.1-15.1); White Blood Count 8.4 10^3/uL (4.0-10.0)
[2019-03-14] MEDS: sucralfate 1 gm Tablet PO ×2 (06:03→17:06)
[2019-03-14 06:51] LABS: Alanine Aminotransferase < 5 U/L (0-33); Albumin Level 3.8 g/dL (3.5-5.2); Alkaline Phosphatase 63 IU/L (35-105); Anion Gap 17.2 (5-19); Aspartate Amino Transferase 10 U/L (0-32); Blood Urea Nitrogen 4 mg/dL (8-23); Carbon Dioxide 29 mmol/L (22-29); Chloride 97 mmol/L (98-107); Globulin 2.4 g/dL (1.3-4.6); Glucose 137 mg/dL (74-106); Magnesium 1.8 mg/dL (1.7-2.3); Potassium 3.2 mmol/L (3.5-5.1); Sodium 140 mmol/L (136-145); Total Bilirubin 0.6 mg/dL (0.15-1.2); Total Protein 6.2 g/dL (6.6-8.7)
[2019-03-14 07:51] LABS: Glucose Point of Care 137 mg/dL (70-110)
[2019-03-14] MEDS: isosorbide dinitrate 20 mg Tablet 30 MG PO (08:12)
[2019-03-14] MEDS: gabapentin 400 mg Capsule 800 MG PO ×2 (08:12→17:06)
[2019-03-14] MEDS: atorvastatin 40 mg Tablet 20 MG PO (08:12)
[2019-03-14] MEDS: FUROsemide 10 mg/mL SDV 4mL 40 MG IV ×2 (08:53→17:19)
--- NOTE | 2019-03-14 10:21 | PC.SOCIAL ---
Pg 2 IMM Explained to pt & family Pg 2 IMM. Pt verbally understands & signed. Provided pt a copy & left on bedside table. Signed, dated, & timed, then placed in chart.
[2019-03-14] MEDS: cefTRIAXone 1,000 MG in sodium chloride 0.9% (plus) 50 ML 100 MG IV (11:24)
[2019-03-14 12:03] LABS: Glucose Point of Care 148 mg/dL (70-110)
[2019-03-14] MEDS: azithromycin 500 MG in sodium chloride 0.9% 250 ML 250 MG IV (14:58)
[2019-03-14 17:03] LABS: Basophils % 0.5 %; Eosinophils # 0.2 10^3/uL (0.0-0.8); Eosinophils % 2.4 %; Hematocrit 29.5 % (37.0-47.0); Hemoglobin 8.2 g/dL (11.5-15.3); Lymphocytes # 1.2 10^3/uL (0.8-4.8); Lymphocytes % 14.5 %; Mean Corpuscular HGB Conc 27.8 g/dL (30.0-36.0); Mean Corpuscular Hemoglobin 26.6 pg (28.0-34.0); Mean Corpuscular Volume 95.8 fL (81-99); Mean Platelet Volume 10.1 fL (7.4-10.4); Monocytes # 0.7 10^3/uL (0.2-0.9); Monocytes % 8.6 %; Neutrophils # 5.9 10^3/uL (1.8-7.7); Neutrophils % 73.6 %; Nucleated Red Blood Cells % 0 %; Platelet Count 239 10^3/cmm (130-400); Red Blood Count 3.08 10^6/uL (4.1-5.3); Red Cell Distribution Width 16.3 % (12.1-15.1)
[2019-03-14] MEDS: magnesium citrate Btl 296 mL PO ×2 (17:06→23:27)
--- NOTE | 2019-03-14 17:18 | PM.PN ---
Subjective Subjective: Interval history: Yesterday evening, patient fell off the toilet, no head trauma, CT head negative, pelvic x-ray unremarkable, patient has no episodes of confusion overnight, has no pain complaints overnight, no bruising, patient does state that she had 2 black bowel movements, her hemoglobin is 8.7, no lightheadedness, no dizziness, no pain with ambulation, her breathing has improved with her pneumonia, patient is fearful of going home given her hemoglobin being this low and having black bowel movements Vitals/I&O/Wt Last Vital Signs Temp 98.4 F 03/14/19 15:28 Pulse 71 03/14/19 15:28 Resp 18 03/14/19 15:28 BP 110/62 03/14/19 15:28 Pulse Ox 100 03/14/19 15:28 03/14/19 03/14/19 03/14/19 06:59 14:59 22:59 Intake Total 240 / 240 Output Total 575 / 1575 200 / 200 Balance -575 / -135 240 / 240 -200 / 40 Weight last 48 hrs Weight 103.419 kg Weight 103.419 kg Physical Exam Const: COMMON NORMALS: no apparent distress, oriented x3, no limitations and well nourished EXAM LIMITATIONS: no altered mental status GENERAL APPEARANCE: cooperative Neck/C-Spine: COMMON NORMALS: no JVD Chest: COMMONS NORMALS: inspection of chest normal Resp: COMMON NORMALS: normal respiratory effort, no retractions, no use of accessory muscles, clear to auscultation bilaterally and percussion normal AUSCULTATION: clear to auscultation bilaterally PERCUSSION: percussion normal Cardio: COMMON NORMALS: no JVD, regular rate, regular rhythm, S1 normal heart sound, S2 normal heart sound, no clicks, no murmurs and no rub RATE: regular rate RHYTHM: regular rhythm HEART SOUNDS: S1 normal and S2 normal GI: COMMON NORMALS: normal to inspection, nondistended, normoactive bowel sounds, soft to palpation, no hepatosplenomegaly, no masses and no bruits PALPATION: Yes soft, No firm, No tender, No guarding, No rigid, Yes no hepatosplenomegaly, No hepatosplenomegaly, No splenomegaly and Yes other (Right upper quadrant tenderness, right lower quadrant tenderness to palpation) Extremity: COMMON NORMALS: normal to inspection, full ROM, normal capillary refill, no joint enlargement, no clubbing, cyanosis or edema, no calf tenderness and no pedal edema Neuro: COMMON NORMALS: oriented x3 Urinary Catheter Management^: Alanis: Cath Placed During This Visit: no A&P Assessment and plan (1) GI bleed: Hemoglobin today is 8.7, status post 1 unit PRBC, chronic 11-12 Hemoccult positive Continues to have black stools Hemodynamic stable Plan: -Monitor hemoglobin -Hold anticoagulation and antiplatelet agents -I spoke to Dr. Mitchell, n.p.o. midnight, EGD tomorrow morning -On IV Protonix, 40 twice daily - Carafate Status: Acute Code(s): K92.2 - Gastrointestinal hemorrhage, unspecified (2) Pneumonia: -Chest x-ray shows bilateral interstitial infiltrates Plan: -Continue azithromycin and Rocephin Status: Acute Code(s): J18.9 - Pneumonia, unspecified organism (3) Chest pain: -CAD status post stenting x5 -Initial baseline troponin within normal limits -Initial EKG no acute ST-T wave changes -No active chest pain currently -Telemetry monitoring, unremarkable, paced rhythm Plan: - telemetry Status: Acute Code(s): R07.9 - Chest pain, unspecified (4) Hypertension: Continue home meds Status: Acute Code(s): I10 - Essential (primary) hypertension (5) Chronic atrial fibrillation: Status post pacemaker and ablation Plan: -Hold Eliquis Status: Acute Code(s): I48.20 - Chronic atrial fibrillation, unspecified (6) Type 2 diabetes mellitus: Low-dose sliding scale Status: Acute Code(s): E11.9 - Type 2 diabetes mellitus without complications (7) Restrictive lung disease: -Oxygen therapy -Nebulizer treatments Status: Acute Code(s): J98.4 - Other disorders of lung (8) Pulmonary embolism: Discussed risks and benefits of holding Plavix and Eliquis, risk of stroke [place] versus risk of GI bleed, currently risk of GI bleed is significantly high, patient is agreeable to hold, understands risks and benefits, agrees to hold and proceed Status: Acute Code(s): I26.99 - Other pulmonary embolism without acute cor pulmonale (9) Diastolic CHF: -Continue Lasix IV 40 twice daily Status: Acute Code(s): I50.30 - Unspecified diastolic (congestive) heart failure Attestations Medical Necessity Statement*: Patient requires continued hospitalization for GI bleed, pneumonia Coding Level of Care Code Acute 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
[2019-03-14 17:24] LABS: Glucose Point of Care 136 mg/dL (70-110)
[2019-03-14] MEDS: bisacodyl 5 mg Tablet 40 MG PO (19:44)
[2019-03-14 20:12] LABS: Slide Review Slide Review Perform
[2019-03-14 21:48] LABS: Glucose Point of Care 134 mg/dL (70-110)
[2019-03-15] VITALS (16 sets, daily range): BP systolic 108–141; BP diastolic 58–73; PULSE 67–102; RESP 16–22; TEMP 36.2–37.6; O2SAT 92–100
[2019-03-15] MEDS: sodium chloride 0.9% 100 ML 150 ML (01:47)
[2019-03-15 05:49] LABS: Basophils % 0.4 %; Eosinophils # 0.1 10^3/uL (0.0-0.8); Eosinophils % 1.1 %; Hematocrit 34.5 % (37.0-47.0); Lymphocytes # 1.2 10^3/uL (0.8-4.8); Lymphocytes % 10.7 %; Mean Corpuscular Hemoglobin 26.8 pg (28.0-34.0); Mean Corpuscular Volume 92.5 fL (81-99); Mean Platelet Volume 9.3 fL (7.4-10.4); Monocytes # 0.9 10^3/uL (0.2-0.9); Monocytes % 8.1 %; Neutrophils # 8.7 10^3/uL (1.8-7.7); Neutrophils % 79.4 %; Nucleated Red Blood Cells % 0 %; Platelet Count 282 10^3/cmm (130-400); Red Blood Count 3.73 10^6/uL (4.1-5.3); Red Cell Distribution Width 15.9 % (12.1-15.1); White Blood Count 10.9 10^3/uL (4.0-10.0)
[2019-03-15 06:05] LABS: Alanine Aminotransferase 6 U/L (0-33); Albumin Level 3.5 g/dL (3.5-5.2); Alkaline Phosphatase 70 IU/L (35-105); Anion Gap 10.7 (5-19); Aspartate Amino Transferase 11 U/L (0-32); Blood Urea Nitrogen 4 mg/dL (8-23); Carbon Dioxide 35 mmol/L (22-29); Chloride 97 mmol/L (98-107); Globulin 3.3 g/dL (1.3-4.6); Glucose 148 mg/dL (74-106); Sodium 140 mmol/L (136-145); Total Bilirubin 0.8 mg/dL (0.15-1.2); Total Protein 6.8 g/dL (6.6-8.7)
[2019-03-15 06:08] LABS: Potassium 2.7 mmol/L (3.5-5.1)
[2019-03-15] MEDS: sucralfate 1 gm Tablet PO ×2 (06:44→17:37)
[2019-03-15 06:55] LABS: Glucose Point of Care 143 mg/dL (70-110)
[2019-03-15] MEDS: potassium chloride premix 40 MEQ/100 ML PREMIX 25 MEQ IV (07:30)
[2019-03-15] MEDS: lidocaine 1% INJ 20 mL 5 ML IV (07:30)
--- NOTE | 2019-03-15 07:51 | ANES.PREANES ---
Pre-Anesthetic Assessment Pre-Anesthetic Assessment: Height/Weight: Height 1.63 m Weight 103.419 kg Temp Pulse Resp BP Pulse Ox 98.0 F 67 17 133/73 97 03/15/19 04:29 03/15/19 04:29 03/15/19 04:29 03/15/19 04:29 03/15/19 04:29 Proposed Procedure: Operation Date: 03/15/19 08:00 Proposed Procedures p EGD(Not Applicable) - Darryl Mitchell MD s Colonoscopy(Not Applicable) - Darryl Mitchell MD Operation Date: 03/15/19 08:40 Proposed Procedures p EGD(Not Applicable) - aDrryl Mitchell MD s Colonoscopy(Not Applicable) - Darryl Mitchell MD Social: Social History: Tobacco and No alcohol Exam: Pre-Anes Outpt Exam: alert, oriented x 3, clear to auscultation bilaterally and regular rate & rhythm Airway: Submandibular: WNL Cervical ROM: WNL MP: 2 Dentition: False Pulmonary: Pulmonary: COPD CV/HEM: CV/HEM: Afib, Arrythmia, CAD, CHF, HTN and NV Comments: pacemaker Metabolic: Metabolic: DM Anesthetic Plan: ASA status: IV Anesthesia: Anesthesia Evaluation and MAC Meds/Allergies Current Medications: Current Medications Generic Name Dose Route Start Last Admin Trade Name Freq PRN Reason Stop Dose Admin Albuterol/Ipratrop ium 3 ml 03/11/19 18:43 03/12/19 22:43 Duoneb INHALATION 3 ml Q6H.RESPIRATORY P RN Administration SHORTNESS OF MEE TH Atorvastatin Calci um 20 mg 03/11/19 17:00 03/14/19 08:12 Lipitor PO 20 mg DAILY UZAIR Administration Furosemide 40 mg 03/11/19 18:00 03/14/19 17:19 Lasix IV 40 mg BID UZAIR Administration Gabapentin 800 mg 03/11/19 18:00 03/14/19 17:06 Neurontin PO 800 mg BID UZAIR Administration Ceftriaxone Sodium 1,000 mg/ 50 mls @ 100 mls/ hr 03/11/19 11:30 03/14/19 11:54 Sodium Chloride IV Infused Q24H UZAIR Infusion Protocol Azithromycin 500 m g/ Sodium 250 mls @ 250 mls /hr 03/12/19 15:00 03/14/19 15:58 Chloride IV Infused Q24H UZAIR Infusion Protocol Potassium Chloride 40 meq in 100 mls @ 25 mls/hr 03/15/19 06:45 03/15/19 07:30 K-Garcia IV 03/15/19 14:44 25 mls/hr Q4H UZAIR Administration Insulin Aspart 0 unit 03/11/19 18:00 03/15/19 07:26 Novolog SUBCUT Not Given TIDWM UZAIR Protocol Isosorbide Dinitra te 30 mg 03/12/19 09:00 03/14/19 08:12 Isordil PO 30 mg DAILY UZAIR Administration Morphine Sulfate 1 mg 03/11/19 16:25 03/12/19 17:15 Morphine IV 1 mg Q4H PRN Administration SEVERE PAIN Ondansetron HCl 4 mg 03/11/19 16:25 03/12/19 17:14 Zofran IVP 4 mg Q8H PRN Administration vomiting, or N/V if npo Pantoprazole Sodiu m 40 mg 03/11/19 23:00 03/14/19 23:27 Protonix IVP 40 mg Q12H UZAIR Administration Sucralfate 1 gm 03/13/19 17:00 03/15/19 06:44 Carafate PO 1 gm BIDAC UZAIR Administration PFSH Anesthesia PFSH: Medical History (Updated 03/15/19 @ 08:06 by Darryl Mitchell MD) Chronic atrial fibrillation (Acute) Congestive heart failure (Acute) Diabetes (Acute) Diabetic peripheral neuropathy (Acute) Diastolic CHF (Acute) Hypertension (Acute) Pulmonary embolism (Acute) Type 2 diabetes mellitus (Acute) Surgical History (Updated 03/15/19 @ 08:06 by Darryl Mitchell MD) H/O hysterectomy for benign disease (Acute) H/O: hysterectomy (Acute) History of appendectomy (Acute) History of coronary artery stent placement (Acute) History of thoracentesis (Acute) S/P ablation of atrial fibrillation (Acute) Family History Mother CAD (coronary artery disease) Social History Smoking and tobacco status: former smoker Alcohol intake: never Substance/Drug Use: never Household members: family Housing: House Data Anesthesia Labs: Other Labs: Laboratory Results - last 48 hr 03/11/19 03/13/19 03/13/19 13:25 11:48 14:10 WBC RBC Hgb Hct MCV MCH MCHC RDW Plt Count MPV Neut % (Auto) Lymph % (Auto) [place] % (Auto) Eos % (Auto) Baso % (Auto) Neut # (Auto) Lymph # (Auto) [place] # (Auto) Eos # (Auto) Baso # (Auto) Nucleated RBC % (a uto) Nucleated RBCs # Sodium Potassium Chloride Carbon Dioxide Anion Gap BUN Creatinine Glucose POC Glucose 138 158 Calcium Phosphorus Magnesium Total Bilirubin AST ALT Alkaline Phosphata se Total Protein Albumin Globulin Blood Type Antibody Screen Crossmatch See Detail 03/13/19 03/13/19 03/14/19 15:40 17:05 05:17 WBC 8.2 RBC 3.06 L Hgb 8.1 L Hct 29.1 L MCV 95.1 MCH 26.5 L MCHC 27.8 L RDW 16.8 H Plt Count 289 MPV 9.8 Neut % (Auto) 73.1 Lymph % (Auto) 15.0 [place] % (Auto) 8.3 Eos % (Auto) 3.2 Baso % (Auto) 0.2 Neut # (Auto) 6.0 Lymph # (Auto) 1.2 [place] # (Auto) 0.7 Eos # (Auto) 0.3 Baso # (Auto) 0.0 Nucleated RBC % (a uto) 0 Nucleated RBCs # 0.0 Sodium Potassium Chloride Carbon Dioxide Anion Gap BUN Creatinine Glucose POC Glucose 120 144 Calcium Phosphorus Magnesium Total Bilirubin AST ALT Alkaline Phosphata se Total Protein Albumin Globulin Blood Type Antibody Screen Crossmatch 03/14/19 03/14/19 03/14/19 05:29 05:29 06:53 WBC 8.4 RBC 3.25 L Hgb 8.7 L Hct 30.5 L MCV 93.8 MCH 26.8 L MCHC 28.5 L RDW 16.4 H Plt Count 318 MPV 9.7 Neut % (Auto) 74.3 Lymph % (Auto) 15.5 [place] % (Auto) 7.5 Eos % (Auto) 1.9 Baso % (Auto) 0.6 Neut # (Auto) 6.2 Lymph # (Auto) 1.3 [place] # (Auto) 0.6 Eos # (Auto) 0.2 Baso # (Auto) 0.1 Nucleated RBC % (a uto) 0 Nucleated RBCs # 0.0 Sodium 140 Potassium 3.2 L Chloride 97 L Carbon Dioxide 29 Anion Gap 17.2 BUN 4 L Creatinine 0.7 Glucose 137 H POC Glucose 137 Calcium 9.0 Phosphorus 3.0 Magnesium 1.8 Total Bilirubin 0.6 AST 10 ALT < 5 Alkaline Phosphata se 63 Total Protein 6.2 L Albumin 3.8 Globulin 2.4 Blood Type Antibody Screen Crossmatch 03/14/19 03/14/19 03/14/19 11:18 16:53 17:15 WBC 8.0 RBC 3.08 L Hgb 8.2 L Hct 29.5 L MCV 95.8 MCH 26.6 L MCHC 27.8 L RDW 16.3 H Plt Count 239 MPV 10.1 Neut % (Auto) 73.6 Lymph % (Auto) 14.5 [place] % (Auto) 8.6 Eos % (Auto) 2.4 Baso % (Auto) 0.5 Neut # (Auto) 5.9 Lymph # (Auto) 1.2 [place] # (Auto) 0.7 Eos # (Auto) 0.2 Baso # (Auto) 0.0 Nucleated RBC % (a uto) 0 Nucleated RBCs # 0.0 Sodium Potassium Chloride Carbon Dioxide Anion Gap BUN Creatinine Glucose POC Glucose 148 136 Calcium Phosphorus Magnesium Total Bilirubin AST ALT Alkaline Phosphata se Total Protein Albumin Globulin Blood Type Antibody Screen Crossmatch 03/14/19 03/14/19 03/15/19 21:43 22:20 05:36 WBC 10.9 H RBC 3.73 L Hgb 10.0 L Hct 34.5 L MCV 92.5 MCH 26.8 L MCHC 29.0 L RDW 15.9 H Plt Count 282 MPV 9.3 Neut % (Auto) 79.4 Lymph % (Auto) 10.7 [place] % (Auto) 8.1 Eos % (Auto) 1.1 Baso % (Auto) 0.4 Neut # (Auto) 8.7 H Lymph # (Auto) 1.2 [place] # (Auto) 0.9 Eos # (Auto) 0.1 Baso # (Auto) 0.0 Nucleated RBC % (a uto) 0 Nucleated RBCs # 0.0 Sodium Potassium Chloride Carbon Dioxide Anion Gap BUN Creatinine Glucose POC Glucose 134 Calcium Phosphorus Magnesium Total Bilirubin AST ALT Alkaline Phosphata se Total Protein Albumin Globulin Blood Type O Negative Antibody Screen Negative Crossmatch See Detail 03/15/19 03/15/19 05:36 06:38 WBC RBC Hgb Hct MCV MCH MCHC RDW Plt Count MPV Neut % (Auto) Lymph % (Auto) [place] % (Auto) Eos % (Auto) Baso % (Auto) Neut # (Auto) Lymph # (Auto) [place] # (Auto) Eos # (Auto) Baso # (Auto) Nucleated RBC % (a uto) Nucleated RBCs # Sodium 140 Potassium 2.7 L* Chloride 97 L Carbon Dioxide 35 H Anion Gap 10.7 BUN 4 L Creatinine 0.6 Glucose 148 H POC Glucose 143 Calcium 9.0 Phosphorus Magnesium Total Bilirubin 0.8 AST 11 ALT 6 Alkaline Phosphata se 70 Total Protein 6.8 Albumin 3.5 Globulin 3.3 Blood Type Antibody Screen Crossmatch Cardiac Studies: No Data to Display
--- NOTE | 2019-03-15 08:01 | P.CONIM_ITS ---
Providers/Reason For Consult Consulting Physican/Specialty*: Dr Mcgovern Reason for Consult*: Melena anemia Attending Physician: Joe Mcgovern MD Primary Care Provider: Grace Willett History of Present Illness History of Present Illness Radha Rose is a 79 year old female with multiple comorbidities who was recently admitted to the hospital with shortness of breath and bloody stools. Patient states that she has had intermittent episodes of black stools but over the last few days she has had persistent black stools. Patient denies any abdominal pain, nausea vomiting or constipation. No fresh blood per rectum. She had an EGD and colonoscopy in 2017 which was apparently normal. Patient is on Protonix. Patient was diagnosed with pneumonia and she is now back to her 4 L of oxygen but she continues to have black stools and drop in hemoglobin requiring transfusion. Patient is on Eliquis and Plavix Review of Systems Const: Denies: fever, chills, change in weight or fatigue Eyes: Denies: change in vision ENMT: Denies: painful swallowing Card: Denies: chest pain Resp: Denies: shortness of breath GI: Denies: abdominal pain : Denies: painful urination Skin/Breast: Denies: rash Neuro: Denies: seizure-like activity Jaspal/Lymph: Denies: easy bruising Meds/Allergies Home Medications and Allergies Home Medications Medication Instructions Recorded Confirmed Type apixaban [Eliquis] 5 mg PO BID 03/11/19 03/11/19 History clopidogrel [Plavix] 75 mg PO DAILY 03/11/19 03/11/19 History ferrous sulfate 325 mg PO BID 03/11/19 03/11/19 History furosemide [Lasix] 40 mg PO BID PRN 03/11/19 03/11/19 History gabapentin 800 mg PO BID 03/11/19 03/11/19 History isosorbide dinitrate 30 mg PO DAILY 03/11/19 03/11/19 History metformin 500 mg PO BID 03/11/19 03/11/19 History nitroglycerin [Nitrostat] 0.4 mg SUBLINGUAL Q5M PRN 03/11/19 03/11/19 History pantoprazole [Protonix] 40 mg PO DAILY 03/11/19 03/11/19 History pravastatin 40 mg PO DAILY 03/11/19 03/11/19 History sitagliptin [Januvia] 50 mg PO DAILY 03/11/19 03/11/19 History Allergies Allergy/AdvReac Type Severity Reaction Status Date / Time codeine Allergy ADR-Halluci Verified 03/11/19 09:51 nating Sulfa (Sulfonamide Allergy ALGY-Hives Verified 03/11/19 09:51 Antibiotics) tetanus and diphtheria Allergy ADR-Vomitin Verified 03/11/19 09:51 toxoids g Current Medications Current Medications Generic Name Dose Route Start Last Admin Trade Name Freq PRN Reason Stop Dose Admin Albuterol/Ipratropium 3 ml 03/11/19 18:43 03/12/19 22:43 Duoneb INHALATION 3 ml Q6H.RESPIRATORY PRN Administration SHORTNESS OF BREATH Atorvastatin Calcium 20 mg 03/11/19 17:00 03/14/19 08:12 Lipitor PO 20 mg DAILY UZAIR Administration Furosemide 40 mg 03/11/19 18:00 03/14/19 17:19 Lasix IV 40 mg BID UZAIR Administration Gabapentin 800 mg 03/11/19 18:00 03/14/19 17:06 Neurontin PO 800 mg BID UZAIR Administration Ceftriaxone Sodium 1,000 mg/ 50 mls @ 100 mls/hr 03/11/19 11:30 03/14/19 11:54 Sodium Chloride IV Infused Q24H UZAIR Infusion Protocol Azithromycin 500 mg/ Sodium 250 mls @ 250 mls/hr 03/12/19 15:00 03/14/19 15:58 Chloride IV Infused Q24H UZAIR Infusion Protocol Potassium Chloride 40 meq in 100 mls @ 25 mls/hr 03/15/19 06:45 03/15/19 07:30 K-Garcia IV 03/15/19 14:44 25 mls/hr Q4H UZAIR Administration Insulin Aspart 0 unit 03/11/19 18:00 03/15/19 07:26 Novolog SUBCUT Not Given TID[facility] Protocol Isosorbide Dinitrate 30 mg 03/12/19 09:00 03/14/19 08:12 Isordil PO 30 mg DAILY UZAIR Administration Morphine Sulfate 1 mg 03/11/19 16:25 03/12/19 17:15 Morphine IV 1 mg Q4H PRN Administration SEVERE PAIN Ondansetron HCl 4 mg 03/11/19 16:25 03/12/19 17:14 Zofran IVP 4 mg Q8H PRN Administration vomiting, or N/V if npo Pantoprazole Sodium 40 mg 03/11/19 23:00 03/14/19 23:27 Protonix IVP 40 mg Q12H UZAIR Administration Sucralfate 1 gm 03/13/19 17:00 03/15/19 06:44 Carafate PO 1 gm BIDAC UZAIR Administration PFSH Acute PFSH: Statuses (acute, chronic, etc) shown below reflect problem list status as previously entered and may not be historically accurate Medical History Chronic atrial fibrillation (Acute) Diabetic peripheral neuropathy (Acute) Diastolic CHF (Acute) Hypertension (Acute) Pulmonary embolism (Acute) Type 2 diabetes mellitus (Acute) Surgical History H/O hysterectomy for benign disease (Acute) History of appendectomy (Acute) S/P ablation of atrial fibrillation (Acute) Family History Mother CAD (coronary artery disease) Social History Smoking and tobacco status: former smoker Alcohol intake: never Substance/Drug Use: never Household members: family Housing: House Vitals/I&O/Wt Last Vital Signs Temp 97.7 F 03/15/19 07:54 Pulse 72 03/15/19 07:54 Resp 18 03/15/19 07:54 BP 125/60 03/15/19 07:54 Pulse Ox 97 03/15/19 07:54 03/14/19 03/15/19 03/15/19 22:59 06:59 14:59 Intake Total 970 / 2070 810 / 2070 Output Total 800 / 800 Balance 170 / 1270 810 / 1270 Weight last 48 hrs Weight 228 lb Weight 228 lb Physical Exam Narrative: EXAM NARRATIVE: HEENT: Normocephalic Eye: Sclera /conjunctiva normal Respiratory and chest: Bilateral clear breath sounds on auscultation, patient is on oxygen Cardiovascular: Normal S1 and S2 heart sounds Abdomen: Soft to palpation Neurological: Oriented to place person and time Skin: Intact, no lesions appreciated on gross exam Urinary Catheter Management^: Alanis: Cath Placed During This Visit: no A&P Assessment and plan (1) GI bleed: 79-year-old female with black stools and anemia currently on Eliquis and Plavix requiring blood transfusion. Patient is currently hemodynamically stable Plan for EGD/colonoscopy under [facility] Procedure, risks, benefits and alternatives have been discussed with the patient who wishes to proceed with surgery. Status: Acute Code(s): K92.2 - Gastrointestinal hemorrhage, unspecified Consult Attestations Medical Necessity Statement: Anemia requiring blood transfusions and planned EGD and colonoscopy Coding Level of Care Code Acute Returned Telephone Equipment Appraiser for [facility] Fwd Diagnoses GI bleed K92.2
--- NOTE | 2019-03-15 10:03 | PC.NURSE ---
K Garcia Second bag of KCL ordered in error. Physician gave verbal order to only administer 40 MeQ, RBVO. Second K Garcia non-administered.
[2019-03-15] MEDS: sodium chloride 0.9% 1,000 ML 30 ML IV (11:11)
--- NOTE | 2019-03-15 12:49 | SUR.OPER ---
DISPOSABLE PENTAX BUTTONS X 2 ITEM #[id number] WITH ONE TIME USE ADAPTORS ON BOTH
[2019-03-15 12:50] LABS: Glucose Point of Care 137 mg/dL (70-110)
[2019-03-15] MEDS: pantoprazole 40 mg SDV IVP ×2 (13:13→23:43)
--- NOTE | 2019-03-15 13:18 | XRR_ITS ---
PROCEDURE INFORMATION: Exam: XR Left Foot Exam date and time: 03/15/2019 1:20 PM Age: 79 years old Clinical indication: Injury or trauma; Fall; Initial encounter; Abrasion; Foot; Left TECHNIQUE: Imaging protocol: XR Left foot. Views: 1 or 2 views. COMPARISON: No relevant prior studies available. FINDINGS: Bones/joints: No acute fracture evident. Mild osteoarthritis first MTP joint. Small heel spurs. Soft tissues: Normal. XR/XR foot LT 2V [id number] IMPRESSION: No acute findings.
--- NOTE | 2019-03-15 13:18 | XRR_ITS ---
PROCEDURE INFORMATION: Exam: XR Right Foot Exam date and time: 03/15/2019 1:20 PM Age: 79 years old Clinical indication: Injury or trauma; Fall; Initial encounter; Blunt trauma; Foot; Right TECHNIQUE: Imaging protocol: XR Right foot. Views: 1 or 2 views. COMPARISON: No relevant prior studies available. FINDINGS: Bones/joints: Bones display areas of patchy demineralization. No acute fracture evident. Osteoarthritis, most pronounced big toe. Posterior heel spur. Soft tissues: Normal. XR/XR foot RT 2V [id number] IMPRESSION: No acute findings. Degenerative changes.
--- NOTE | 2019-03-15 15:00 | PM.PN ---
Subjective Subjective: Interval history: This morning, patient states that she had 1 black bowel movement yesterday evening, is ready for EGD, has no significant complaints Vitals/I&O/Wt Last Vital Signs Temp 98.6 F 03/15/19 12:41 Pulse 102 H 03/15/19 12:41 Resp 22 H 03/15/19 12:41 BP 108/68 03/15/19 12:41 Pulse Ox 98 03/15/19 12:41 03/15/19 03/15/19 03/15/19 06:59 14:59 22:59 Intake Total 810 / 2070 329.167 / 329.167 Balance 810 / 1270 329.167 / 329.167 Weight last 48 hrs Weight 104.19 kg Weight 103.419 kg Physical Exam Const: COMMON NORMALS: no apparent distress, oriented x3, no limitations and well nourished EXAM LIMITATIONS: no altered mental status GENERAL APPEARANCE: cooperative Neck/C-Spine: COMMON NORMALS: no JVD Lymph: LYMPHATIC: no lymphadenopathy noted Chest: COMMONS NORMALS: inspection of chest normal Resp: COMMON NORMALS: normal respiratory effort, no retractions, no use of accessory muscles, clear to auscultation bilaterally and percussion normal AUSCULTATION: clear to auscultation bilaterally PERCUSSION: percussion normal Cardio: COMMON NORMALS: no JVD, regular rate, regular rhythm, S1 normal heart sound, S2 normal heart sound, no clicks, no murmurs and no rub RATE: regular rate RHYTHM: regular rhythm HEART SOUNDS: S1 normal and S2 normal Neuro: COMMON NORMALS: oriented x3, CN's II-XII intact bilaterally and moves all extremities Urinary Catheter Management^: Alanis: Cath Placed During This Visit: no A&P Assessment and plan (1) GI bleed: Hemoglobin today is 10, status post 2 unit PRBC, chronic 11-12 Hemoccult positive Continues to have black stools Hemodynamic stable Plan: -Monitor hemoglobin -Hold anticoagulation and antiplatelet agents -Will have EGD today -On IV Protonix, 40 twice daily - Carafate Status: Acute Code(s): K92.2 - Gastrointestinal hemorrhage, unspecified (2) Pneumonia: -Chest x-ray shows bilateral interstitial infiltrates Plan: -Continue azithromycin and Rocephin Status: Acute Code(s): J18.9 - Pneumonia, unspecified organism (3) Chest pain: -CAD status post stenting x5 -Initial baseline troponin within normal limits -Initial EKG no acute ST-T wave changes -No active chest pain currently -Telemetry monitoring, unremarkable, paced rhythm Plan: - telemetry Status: Acute Code(s): R07.9 - Chest pain, unspecified (4) Hypertension: Continue home meds Status: Acute Code(s): I10 - Essential (primary) hypertension (5) Chronic atrial fibrillation: Status post pacemaker and ablation Plan: -Hold Eliquis Status: Acute Code(s): I48.20 - Chronic atrial fibrillation, unspecified (6) Type 2 diabetes mellitus: Low-dose sliding scale Status: Acute Code(s): E11.9 - Type 2 diabetes mellitus without complications (7) Restrictive lung disease: -Oxygen therapy -Nebulizer treatments Status: Acute Code(s): J98.4 - Other disorders of lung (8) Pulmonary embolism: Discussed risks and benefits of holding Plavix and Eliquis, risk of stroke CA versus risk of GI bleed, currently risk of GI bleed is significantly high, patient is agreeable to hold, understands risks and benefits, agrees to hold and proceed Status: Acute Code(s): I26.99 - Other pulmonary embolism without acute cor pulmonale (9) Diastolic CHF: -Continue Lasix IV 40 twice daily Status: Acute Code(s): I50.30 - Unspecified diastolic (congestive) heart failure Attestations Medical Necessity Statement*: Patient requires continued hospitalization, for GI bleed Coding Level of Care Code Acute Title Curator for [facility] Fw Diagnoses GI bleed K92.2 Pneumonia J18.9 Chest pain R07.9 Hypertension I10 Chronic atrial fibrillation I48.20 Type 2 diabetes mellitus E11.9 Restrictive lung disease J98.4 Pulmonary embolism I26.99 Diastolic CHF I50.30
[2019-03-15] MEDS: azithromycin 500 MG in sodium chloride 0.9% 250 ML 250 MG IV (15:29)
[2019-03-15 16:18] LABS: Glucose Point of Care 159 mg/dL (70-110)
[2019-03-15] MEDS: gabapentin 400 mg Capsule 800 MG PO (17:37)
[2019-03-15 21:48] LABS: Glucose Point of Care 124 mg/dL (70-110)
[2019-03-16] VITALS (10 sets, daily range): BP systolic 96–125; BP diastolic 54–75; PULSE 61–81; RESP 16–18; TEMP 36.3–37.3; O2SAT 95–99
[2019-03-16 06:10] LABS: Basophils % 0.2 %; Eosinophils # 0.2 10^3/uL (0.0-0.8); Eosinophils % 1.7 %; Hematocrit 34.2 % (37.0-47.0); Lymphocytes # 0.8 10^3/uL (0.8-4.8); Lymphocytes % 6.2 %; Mean Corpuscular HGB Conc 29.2 g/dL (30.0-36.0); Mean Corpuscular Hemoglobin 27.2 pg (28.0-34.0); Mean Corpuscular Volume 93.2 fL (81-99); Mean Platelet Volume 9.8 fL (7.4-10.4); Monocytes % 8.5 %; Neutrophils # 10.1 10^3/uL (1.8-7.7); Neutrophils % 83.2 %; Nucleated Red Blood Cells % 0 %; Platelet Count 262 10^3/cmm (130-400); Red Blood Count 3.67 10^6/uL (4.1-5.3); Red Cell Distribution Width 15.9 % (12.1-15.1); White Blood Count 12.2 10^3/uL (4.0-10.0)
[2019-03-16 06:32] LABS: Alanine Aminotransferase < 5 U/L (0-33); Albumin Level 3.4 g/dL (3.5-5.2); Alkaline Phosphatase 71 IU/L (35-105); Anion Gap 13.1 (5-19); Aspartate Amino Transferase 8 U/L (0-32); Blood Urea Nitrogen 7 mg/dL (8-23); Calcium 9.5 mg/Dl (8.8-10.2); Carbon Dioxide 33 mmol/L (22-29); Chloride 97 mmol/L (98-107); Globulin 3.3 g/dL (1.3-4.6); Glucose 152 mg/dL (74-106); Potassium 3.1 mmol/L (3.5-5.1); Sodium 140 mmol/L (136-145); Total Protein 6.7 g/dL (6.6-8.7)
[2019-03-16] MEDS: sucralfate 1 gm Tablet PO ×2 (06:40→18:05)
[2019-03-16] MEDS: ipratropium-albuterol 3 mL Neb INHALATION (07:29)
[2019-03-16 07:48] LABS: Glucose Point of Care 143 mg/dL (70-110)
[2019-03-16] MEDS: gabapentin 400 mg Capsule 800 MG PO ×2 (08:11→18:05)
[2019-03-16] MEDS: isosorbide dinitrate 20 mg Tablet 30 MG PO (08:11)
[2019-03-16] MEDS: atorvastatin 40 mg Tablet 20 MG PO (08:12)
--- NOTE | 2019-03-16 10:30 | PC.SOCIAL ---
IMM Updated Page 2 of IMM updated and given to patient. Initialed, dated, and timed a placed back in chart.
[2019-03-16] MEDS: pantoprazole 40 mg SDV IVP (11:43)
[2019-03-16 11:46] LABS: Glucose Point of Care 154 mg/dL (70-110)
[2019-03-16] MEDS: cefTRIAXone 1,000 MG in sodium chloride 0.9% (plus) 50 ML 100 MG IV (11:50)
--- NOTE | 2019-03-16 14:12 | PC.NURSE ---
ot will be helping the patient with her bathing needs today
--- NOTE | 2019-03-16 14:34 | PC.CHAP ---
Addendum entered by Genaro Sy 03/16/19 14:44: Visited by Dam Worker Genaro Sy Original Note: Pastoral Care Encounter/Spiritual Assessment Type of Contact [] Declined terrazzo worker visit [] Patient/Family/Request visit [] Outpatient visit [] Follow-up visit [] Physician referral [] Code/Alert [x] Routine visit [] Staff referral [] Actively dying [] Patient sleeping [] Family support [] [] Out of room [] Palliative care [] [] Receiving care in room [] Pre-surgical visit [] Trauma [x] Long length of stay [] ICU visit [] Other: Relational/Emotional Strength [x] Patient feels connected with others/family/visitors/staff [] Distress [] Loneliness/isolation [] Abandonment Spirituality of Patient [x] Person of Yolis [] Attends Oriental Orthodox of their Yolis [x] Believes in Prayer [] Reads Bible or Jew materials [] There are Spiritual issues to be addressed Dam Worker Interventions [x] Prayer [x] Active listening [x] Non-anxious presence [x] Spiritual/emotional support [] Crisis/trauma care [] Spiritual counseling [] Bereavement support [] Provided bereavement packet [] Provided Bible/devotional materials [] Provided toy/stuffed animal, coloring book to patient or family member [x] Completed spiritual assessment [] Provided Communion [] Anointing/[place] [] Salvation [] Other: Impact on Illness or Injury [] Angry [] Fearful [] Anxious [] Often cries [] Exhaustion [] Unable to work [] Unable to attend buddhist [] Unable to walk/stand [] Unable to read [] Unable to drive [] Unable to eat/drink [] Unable to sleep [] Unable to be with family [] Other: Summary Dam Worker visited with patient and then prayed with her. Time spent with patient 6 minutes
[2019-03-16 17:03] LABS: Glucose Point of Care 134 mg/dL (70-110)
[2019-03-16] MEDS: FUROsemide 40 mg Tablet PO (18:04)
[2019-03-16] MEDS: pantoprazole DR 40 mg Tablet PO (18:05)
--- NOTE | 2019-03-16 19:54 | P.PN_ITS ---
Subjective Subjective: Interval history: Patient states that she is working better with physical therapy, wants to go to long term, denies black stools, denies bloody stools, no lightheadedness, no dizziness, did get out of bed this morning, denies shortness of breath Vitals/I&O/Wt Last Vital Signs Temp 99.1 F 03/16/19 19:46 Pulse 78 03/16/19 19:46 Resp 18 03/16/19 19:46 BP 105/54 03/16/19 19:46 Pulse Ox 99 03/16/19 19:46 03/16/19 03/16/19 03/16/19 06:59 14:59 22:59 Intake Total 360 / 360 240 / 600 Balance 360 / 360 240 / 600 Weight last 48 hrs Weight 104.184 kg Weight 104.19 kg Physical Exam Const: COMMON NORMALS: no apparent distress, oriented x3, no limitations and well nourished EXAM LIMITATIONS: no altered mental status GENERAL ALFONSO EARANCE: cooperative Neck/C-Spine: COMMON NORMALS: no JVD Lymph: LYMPHATIC: no lymphadenopathy noted Resp: COMMON NORMALS: normal respiratory effort, no retractions, no use of accessory muscles, clear to auscultation bilaterally and percussion normal AUSCULTATION: clear to auscultation bilaterally PERCUSSION: percussion normal Cardio: COMMON NORMALS: no JVD, regular rate, regular rhythm, S1 normal heart sound, S2 normal heart sound, no clicks, no murmurs and no rub RATE: regular rate RHYTHM: regular rhythm HEART SOUNDS: S1 normal and S2 normal GI: COMMON NORMALS: normal to inspection, nondistended, normoactive bowel sounds, soft to palpation, no hepatosplenomegaly, no masses and no bruits PALPATION: Yes soft, No firm, No tender, No guarding, No rigid, Yes no hepatosplenomegaly, No hepatosplenomegaly and No splenomegaly Extremity: COMMON NORMALS: normal to inspection, full ROM, normal capillary refill, no joint enlargement, no clubbing, cyanosis or edema, no calf tenderness and no pedal edema Neuro: COMMON NORMALS: oriented x3, CN's II-XII intact bilaterally and moves all extremities Urinary Catheter Management^: Alanis: Cath Placed During This Visit: no A&P Assessment and plan (1) GI bleed: Hemoglobin today is 10, status post 2 unit PRBC, chronic 11-12 Hemoccult positive EGD showed a duodenal ulcer, biopsies taken, Dr. Mitchell recommends no anticoagulation or antiplatelet therapy Hemodynamic stable Plan: -Monitor hemoglobin -Hold anticoagulation and antiplatelet agents -On Protonix, 40 twice daily - Carafate Status: Acute Code(s): K92.2 - Gastrointestinal hemorrhage, unspecified (2) Pneumonia: Clinically doing well, on her home 4 to 5 L, off antibiotics Status: Acute Code(s): J18.9 - Pneumonia, unspecified organism (3) Chest pain: -CAD status post stenting x5 -Initial baseline troponin within normal limits -Initial EKG no acute ST-T wave changes -No active chest pain currently -Telemetry monitoring, unremarkable, paced rhythm Plan: - telemetry Status: Acute Code(s): R07.9 - Chest pain, unspecified (4) Hypertension: Continue home meds Status: Acute Code(s): I10 - Essential (primary) hypertension (5) Chronic atrial fibrillation: Status post pacemaker and ablation Plan: -Hold Eliquis Status: Acute Code(s): I48.20 - Chronic atrial fibrillation, unspecified (6) Type 2 diabetes mellitus: Low-dose sliding scale Status: Acute Code(s): E11.9 - Type 2 diabetes mellitus without complications (7) Restrictive lung disease: -Oxygen therapy -Nebulizer treatments Status: Acute Code(s): J98.4 - Other disorders of lung (8) Pulmonary embolism: Discussed risks and benefits of holding Plavix and Eliquis, risk of stroke [place] versus risk of GI bleed, currently risk of GI bleed is significantly high, patient is agreeable to hold, understands risks and benefits, agrees to hold and proceed Status: Acute Code(s): I26.99 - Other pulmonary embolism without acute cor pulmonale (9) Diastolic CHF: -Continue Lasix IV 40 twice daily Status: Acute Code(s): I50.30 - Unspecified diastolic (congestive) heart failure Attestations Medical Necessity Statement*: Patient requires continued hospitalization, for GI bleed, awaiting long term placement Coding Level of Care Code Acute Outside Property Agent for [facility] Fw Diagnoses GI bleed K92.2 Pneumonia J18.9 Chest pain R07.9 Hypertension I10 Chronic atrial fibrillation I48.20 Type 2 diabetes mellitus E11.9 Restrictive lung disease J98.4 Pulmonary embolism I26.99 Diastolic CHF I50.30
[2019-03-16 21:21] LABS: Glucose Point of Care 179 mg/dL (70-110)
[2019-03-17] VITALS (9 sets, daily range): BP systolic 122–133; BP diastolic 60–76; PULSE 74–80; RESP 16–20; TEMP 36.4–36.8; O2SAT 93–99; BMI 39.4
[2019-03-17 05:34] LABS: Basophils % 0.2 %; Eosinophils # 0.3 10^3/uL (0.0-0.8); Eosinophils % 2.7 %; Hematocrit 33.4 % (37.0-47.0); Hemoglobin 9.6 g/dL (11.5-15.3); Lymphocytes # 0.7 10^3/uL (0.8-4.8); Lymphocytes % 7.4 %; Mean Corpuscular HGB Conc 28.7 g/dL (30.0-36.0); Mean Corpuscular Hemoglobin 27.7 pg (28.0-34.0); Mean Corpuscular Volume 96.5 fL (81-99); Monocytes # 0.7 10^3/uL (0.2-0.9); Monocytes % 7.2 %; Neutrophils # 7.7 10^3/uL (1.8-7.7); Neutrophils % 82.1 %; Nucleated Red Blood Cells % 0 %; Platelet Count 234 10^3/cmm (130-400); Red Blood Count 3.46 10^6/uL (4.1-5.3); Red Cell Distribution Width 15.5 % (12.1-15.1); White Blood Count 9.3 10^3/uL (4.0-10.0)
[2019-03-17 05:54] LABS: Alanine Aminotransferase < 5 U/L (0-33); Alkaline Phosphatase 59 IU/L (35-105); Anion Gap 12.5 (5-19); Aspartate Amino Transferase 8 U/L (0-32); Blood Urea Nitrogen 9 mg/dL (8-23); Calcium 9.3 mg/Dl (8.8-10.2); Carbon Dioxide 33 mmol/L (22-29); Chloride 98 mmol/L (98-107); Glucose 163 mg/dL (74-106); Potassium 3.5 mmol/L (3.5-5.1); Sodium 140 mmol/L (136-145); Total Bilirubin 0.7 mg/dL (0.15-1.2)
[2019-03-17] MEDS: sucralfate 1 gm Tablet PO (06:22)
[2019-03-17 07:15] LABS: Glucose Point of Care 133 mg/dL (70-110)
[2019-03-17] MEDS: FUROsemide 40 mg Tablet PO (08:23)
[2019-03-17] MEDS: gabapentin 400 mg Capsule 800 MG PO (08:23)
[2019-03-17] MEDS: pantoprazole DR 40 mg Tablet PO (08:23)
[2019-03-17] MEDS: atorvastatin 40 mg Tablet 20 MG PO (08:23)
[2019-03-17] MEDS: isosorbide dinitrate 20 mg Tablet 30 MG PO (08:23)
[2019-03-17] MEDS: ipratropium-albuterol 3 mL Neb INHALATION (08:29)
[2019-03-17 11:37] LABS: Glucose Point of Care 211 mg/dL (70-110)
--- NOTE | 2019-03-17 12:19 | PC.OT ---
OT note: Pt reported she is discharging today and is waiting on discharge paperwork. She declined OT at this time.
--- NOTE | 2019-03-17 13:43 | PM.DCS ---
Discharge Providers Date of Admission: 03/11/19 15:31 Date of Discharge: 03/17/19 Attending Provider at Admission: Joe Mcgovern MD Attending Provider at Discharge: Joe Mcgovern MD Primary Care Provider: Grace Willett Diagnoses at Discharge Discharge Diagnosis (1) GI bleed: Status: Acute (2) Pneumonia: Status: Acute (3) Chest pain: Status: Acute (4) Hypertension: Status: Acute (5) Chronic atrial fibrillation: Status: Acute (6) Type 2 diabetes mellitus: Status: Acute (7) Restrictive lung disease: Status: Acute (8) Pulmonary embolism: Status: Acute (9) Diastolic CHF: Status: Acute Reason for Visit Reason for Visit: Reason For Visit: lower chest pain/trouble breathing Hospital Course Discharge Summary: Radha Rose is a 79 year old female with a past medical history of diastolic CHF, chronic atrial fibrillation status post ablation with a pacemaker in place, history of PE on chronic anticoagulation with Eliquis, history of CAD status post stenting x5 on Plavix, history of restrictive lung disease, history of type 2 diabetes mellitus, history of hypertension, diabetic peripheral neuropathy who presents to the emergency room due to complaints of chest pain, shortness of breath, weakness, fatigue, bloody stools. Patient was admitted for GI bleed, started on IV fluids, IV Protonix, bowel rest, Eliquis and Plavix were held, hemoglobin as low as 8, status post 2 units PRBC, had a EGD with Dr. Mitchell which showed a duodenal ulcer. Colonoscopy by Dr. Mitchell showed a colonic polyp. Patient is to follow-up with Dr. Mitchell in 2 weeks for biopsy results. Given patient's high risk of bleeding, on Eliquis and Plavix were held. I had an extensive discussion with patient and about the risks and benefits of anticoagulation antiplatelet therapy with GI bleeds. Risk of continuing medication includes life-threatening GI bleed. Risk of holding medications include myocardial infarct and stroke and pulmonary embolism. However, given her duodenal ulcer, and that she is status post units PRBC, and her chronic weakness fatigue and tiredness, and low hemoglobin she has a high risk of recurrent GI bleed. Patient voiced understanding, all questions answered, understands risks and benefits, agrees to hold Eliquis and Plavix. I advised patient that she will have to have a discussion with her primary care provider and cardiology in 1 to 2 weeks about reinstituting the medications. I would definitely not recommend Plavix. Aspirin 81 mg would be a good long-term option. However, reinstituting Eliquis with her low hemoglobins, fatigue, makes me very worried about hemorrhagic GI bleed. Can consider IVC filter placement to decrease the risk of pulmonary embolism. Patient was also admitted for pneumonia, received antibiotics, did clinically well, resumed her home 4 to 5 L oxygen, was discharged home with home health care. Patient also had respiratory failure secondary to CHF exacerbation, received Lasix therapy as inpatient, her respiratory status significantly improved, was discharged on Lasix po 40 twice daily,with repeat blood work for monitoring renal function in 1 week. Physical Exam Const: COMMON NORMALS: no apparent distress, oriented x3, no limitations and well nourished EXAM LIMITATIONS: no altered mental status GENERAL APPEARANCE: cooperative Neck/C-Spine: COMMON NORMALS: no JVD Chest: COMMONS NORMALS: inspection of chest normal Resp: COMMON NORMALS: normal respiratory effort, no retractions, no use of accessory muscles, clear to auscultation bilaterally and percussion normal AUSCULTATION: clear to auscultation bilaterally PERCUSSION: percussion normal Cardio: COMMON NORMALS: no JVD, regular rate, regular rhythm, S1 normal heart sound, S2 normal heart sound, no clicks, no murmurs and no rub RATE: regular rate RHYTHM: regular rhythm HEART SOUNDS: S1 normal and S2 normal GI: COMMON NORMALS: normal to inspection, nondistended, normoactive bowel sounds, soft to palpation, no hepatosplenomegaly, no masses and no bruits PALPATION: Yes soft, No firm, No tender, No guarding, No rigid, Yes no hepatosplenomegaly, No hepatosplenomegaly and No splenomegaly Neuro: COMMON NORMALS: oriented x3 Urinary Catheter Management^: Alanis: Cath Placed During This Visit: no Discharge Data Data Completed and Pending: Completed Studies During Hospitalization Category Date Time Status CT abdomen pelvis wo con 70746 Rout ine Cat Scan 03/12/19 10:[address] head wo con* 7 0450 Routine Cat Scan 03/13/19 18:42 Completed XR chest 1V antony ble 53226 Urgent Exams 03/11/19 10:07 Completed XR foot LT 2V 736 20 Stat Exams 03/15/19 13:18 Completed XR foot RT 2V 736 20 Stat Exams 03/15/19 13:18 Completed XR pelvis 1-2V* 7 2170 Routine Exams 03/13/19 18:47 Completed Pathology: Surgic al [PTH] Routine Pth 03/15/19 12:35 Completed Pending at discharge Category Date Time Status Occult Blood Stoo l Stat Lab 03/11/19 11:34 Ordered Labs from last 24 hours 03/17/19 03/17/19 03/17/19 11:22 06:41 05:03 WBC RBC Hgb Hct MCV MCH MCHC RDW Plt Count MPV Neut % (Auto) Lymph % (Auto) [place] % (Auto) Eos % (Auto) Baso % (Auto) Neut # (Auto) Lymph # (Auto) [place] # (Auto) Eos # (Auto) Baso # (Auto) Nucleated RBC % (a uto) Nucleated RBCs # Sodium 140 Potassium 3.5 Chloride 98 Carbon Dioxide 33 H Anion Gap 12.5 BUN 9 Creatinine 0.6 Glucose 163 H POC Glucose 211 133 Calcium 9.3 Total Bilirubin 0.7 AST 8 ALT < 5 Alkaline Phosphata se 59 Total Protein 6.0 L Albumin 3.0 L Globulin 3.0 03/17/19 03/16/19 03/16/19 05:03 21:17 16:54 WBC 9.3 RBC 3.46 L Hgb 9.6 L Hct 33.4 L MCV 96.5 MCH 27.7 L MCHC 28.7 L RDW 15.5 H Plt Count 234 MPV 10.0 Neut % (Auto) 82.1 Lymph % (Auto) 7.4 [place] % (Auto) 7.2 Eos % (Auto) 2.7 Baso % (Auto) 0.2 Neut # (Auto) 7.7 Lymph # (Auto) 0.7 L [place] # (Auto) 0.7 Eos # (Auto) 0.3 Baso # (Auto) 0.0 Nucleated RBC % (a uto) 0 Nucleated RBCs # 0.0 Sodium Potassium Chloride Carbon Dioxide Anion Gap BUN Creatinine Glucose POC Glucose 179 134 Calcium Total Bilirubin AST ALT Alkaline Phosphata se Total Protein Albumin Globulin Vitals: Last Vital Signs Temp 97.9 F 03/17/19 12:00 Pulse 74 03/17/19 12:00 Resp 20 H 03/17/19 12:00 BP 129/68 03/17/19 12:00 Pulse Ox 99 03/17/19 12:00 Discharge Plan Discharge Patient Disposition: Home Health Service Condition: Stable Prescriptions: New sucralfate 1 gram Tablet 1 g PO BIDAC 30 Days Qty: 60 RF: 0 potassium chloride 20 mEq tablet extended release 40 meq PO DAILY 30 Days Qty: 60 RF: 0 Continued pravastatin 40 mg Tablet 40 mg PO DAILY 30 Days Qty: 30 RF: 0 isosorbide dinitrate 30 mg Tablet 30 mg PO DAILY 30 Days Qty: 30 RF: 0 gabapentin 800 mg Tablet 800 mg PO BID 30 Days Qty: 60 RF: 0 ferrous sulfate 325 mg (65 mg iron) Tablet 325 mg PO BID 30 Days Qty: 60 RF: 0 Nitrostat 0.4 mg Tablet, Sublingual 0.4 mg SUBLINGUAL Q5M PRN (Reason: Chest Pain) 5 Days Qty: 3 RF: 0 Januvia 50 mg Tablet 50 mg PO DAILY 30 Days Qty: 30 RF: 0 metformin 500 mg Tablet 500 mg PO BID 30 Days Qty: 60 RF: 0 Changed Lasix 40 mg Tablet 40 mg PO BID 30 Days Qty: 60 RF: 0 pantoprazole [Protonix] 40 mg Tablet,Delayed Release (Dr/Ec) 40 mg PO BIDWM 30 Days Qty: 60 RF: 0 Discontinued clopidogrel [Plavix] 75 mg Tablet 75 mg PO DAILY RF: 0 Eliquis 5 mg Tablet 5 mg PO BID RF: 0 Discharge Orders: Discharge Order (Routine); Ordered 03/17/19 Ordered By: Joe Mcgovern Other Ambulatory Orders: Complete Blood Count w/Auto (Routine) Timeframe: 1 Week Location: Determined by Patient Ordered By: Joe Mcgovern Referrals: MICAH [Other] Grace Willett [Primary Care Provider] - Darryl Mitchell MD [Physician] - 2 weeks Van Law MD [Physician] - (follow up 1-2 weeks) Discharge Diet: Cardiac Discharge Activity: Resume usual activity Patient Instructions: Sucralfate (By mouth), Potassium Chloride (By mouth), Peptic Ulcer (DC), Peptic Ulcer (GEN) Activity Restrictions/Additional Instructions: -For your GI bleed and duodenal ulcer, avoid NSAIDs and anti-inflammatory medications -Please continue to hold Eliquis and Plavix, follow-up with cardiology and primary care in 1 to 2 weeks for decisions to resume. I would definitely not recommend Plavix, potentially aspirin 81 mg -If you have worsening shortness of breath please come back to the emergency room -Please monitor for black stools, recheck hemoglobin in 1 week, if you have worsening black stools, bloody stools, lightheadedness, dizziness, come back to the emergency room Discharge Attestations Time Spent in Discharge Care*: greater than 30 min Quality Metrics Clinical Quality Measures During this hospital stay, did patient experience: None Coding Level of Care Code Acute Tailor Apprentice for g Fwd Diagnoses GI bleed K92.2 Pneumonia J18.9 Chest pain R07.9 Hypertension I10 Chronic atrial fibrillation I48.20 Type 2 diabetes mellitus E11.9 Restrictive lung disease J98.4 Pulmonary embolism I26.99 Diastolic CHF I50.30
== END 2019-03-17 16:09 | disposition home health service (06) | DRG 193 ==
LOC: ER 11:16 → MEDSURG 15:58
PROVIDERS: Physician Assistant; Surgery; Admitting Provider Family Medicine; Emergency Provider Family Medicine; PCP Nurse Practitioner Family; Visit Provider Family Medicine
PROC: 0DJ08ZZ Inspection of Upper Intestinal Tract, Via Natural or Artificial Opening Endoscopic (ICD-10-PCS; CPT 43235; principal; 2019-03-15 11:00)
PROC: 0DJD8ZZ Inspection of Lower Intestinal Tract, Via Natural or Artificial Opening Endoscopic (ICD-10-PCS; CPT 45378; 2019-03-15 11:00)
DX: J18.9 Pneumonia, unspecified organism (principal); I50.31 Acute diastolic (congestive) heart failure; I26.99 Other pulmonary embolism without acute cor pulmonale; K92.2 Gastrointestinal hemorrhage, unspecified; I48.20 Chronic atrial fibrillation, unspecified; I27.82 Chronic pulmonary embolism; I11.0 Hypertensive heart disease with heart failure; Z95.0 Presence of cardiac pacemaker; Z86.711 Personal history of pulmonary embolism; Z79.01 Long term (current) use of anticoagulants; I25.10 Atherosclerotic heart disease of native coronary artery without angina pectoris; Z95.5 Presence of coronary angioplasty implant and graft; E11.42 Type 2 diabetes mellitus with diabetic polyneuropathy; Z79.02 Long term (current) use of antithrombotics/antiplatelets; Z79.84 Long term (current) use of oral hypoglycemic drugs
CPT/HCPCS: 36415; 36416; 51702; 70450; 71045; 72170; 73620; 74176; 80053; 82270; 82962; 83735; 83880; 84100; 84484; 85014; 85018; 85025; 85610; 86850; 86900; 88305; 93005; 94640; 94664; 96372; 96375; 97110; 97116; 97161; 97166; 97530; 97535; 99282; C9113; J0456; J0696; J1815; J1940; J2001; J2270; J2405; J2704; J3480; J7030; J7050; J7799; P9016; P9058

== ENCOUNTER → 2019-04-07 14:07 | Outpatient (BNVA) | payer MEDICARE, SELFPAY | PROVIDERS: PCP Nurse Practitioner Family; Visit Provider Nurse Practitioner Family | DX: I50.32 Chronic diastolic (congestive) heart failure (principal); D50.0 Iron deficiency anemia secondary to blood loss (chronic); I48.20 Chronic atrial fibrillation, unspecified | CPT/HCPCS: 80048; 85025 ==

== ENCOUNTER 2019-07-27 06:00 | Outpatient (RCR) | payer MEDICARE, SELFPAY | END 2019-08-09 23:59 | disposition home or self-care (01) | LOC: SPT 06:00 | PROVIDERS: PCP Nurse Practitioner Family; Referring Provider Internal Medicine Critical Care Medicine; Visit Provider Internal Medicine Critical Care Medicine | DX: R26.89 Other abnormalities of gait and mobility (principal) | CPT/HCPCS: 97110; 97162 ==

== ENCOUNTER 2019-08-10 06:00 | Outpatient (RCR) | payer MEDICARE, SELFPAY | END 2019-09-08 23:59 | disposition home or self-care (01) | LOC: SPT 06:00 | PROVIDERS: PCP Nurse Practitioner Family; Visit Provider Internal Medicine Critical Care Medicine | DX: R26.89 Other abnormalities of gait and mobility (principal) | CPT/HCPCS: 97110; 97530 ==

== ENCOUNTER 2019-08-31 09:43 | Emergency (ER) | payer MEDICARE, SELFPAY ==
[2019-08-31 09:47] VITALS: BP 128/65; PULSE 61; RESP 18; TEMP 36.2; O2SAT 96; BMI 35.2
--- NOTE | 2019-08-31 09:58 | XR_ITS ---
WS: [id number] PORTABLE CHEST HISTORY: dyspnea/cough COMPARISON: 03/11/2019 LEFT subclavian pacer. Chronic emphysema with no pneumonia. Normal vasculature. No pleural effusion or pneumothorax. Cardiac size: Normal. Mediastinum/Aorta: Mild atherosclerosis aorta. Prior LEFT rotator cuff repair, single anchor. XR/XR chest 1V portable [id number] IMPRESSION: Chronic emphysema with no acute cardiopulmonary disease.
--- NOTE | 2019-08-31 09:58 | ECG_ITS ---
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 Measurements Intervals [place] Rate: 63 P: [place]: -1 QRS: -73 QRSD: 151 T: 92 QT: 509 QTc: 524 Interpretive Statements ELECTRONIC VENTRICULAR PACEMAKER Compared to ECG 03/11/2019 12:33:23 No significant changes Electronically Signed On 08-31-2019 18:28:19 CDT by Angela Irizarry M.D. [id number]
[2019-08-31 10:01] LABS: Glucose Point of Care 432 mg/dL (70-110)
[2019-08-31 10:09] LABS: Basophils # 0.1 10^3/uL (0.0-0.1); Basophils % 0.3 %; Eosinophils # 0.1 10^3/uL (0.0-0.8); Eosinophils % 0.8 %; Hematocrit 38.1 % (37.0-47.0); Hemoglobin 11.6 g/dL (11.5-15.3); Lymphocytes # 1.2 10^3/uL (0.8-4.8); Lymphocytes % 7.8 %; Mean Corpuscular HGB Conc 30.4 g/dL (30.0-36.0); Mean Corpuscular Hemoglobin 29.3 pg (28.0-34.0); Mean Corpuscular Volume 96.2 fL (81-99); Mean Platelet Volume 10.1 fL (7.4-10.4); Monocytes # 0.7 10^3/uL (0.2-0.9); Monocytes % 4.7 %; Neutrophils # 13.6 10^3/uL (1.8-7.7); Neutrophils % 85.9 %; Nucleated Red Blood Cells % 0 %; Platelet Count 329 10^3/cmm (130-400); Red Blood Count 3.96 10^6/uL (4.1-5.3); White Blood Count 15.8 10^3/uL (4.0-10.0)
[2019-08-31 10:14] LABS: Ketone (Acetest) Serum Negative (Negative)
[2019-08-31 10:22] VITALS: BP 99/53; PULSE 63; RESP 16; O2SAT 98
[2019-08-31 10:30] VITALS: BP 106/64; PULSE 61; RESP 16; O2SAT 97
--- NOTE | 2019-08-31 10:31 | W.ED.GENADLT ---
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 She denies having any chest pain through any of this. She was previously on Eliquis but she has been changed to just taking aspirin now. Onset (ago): day(s) Relieving factors: none Exacerbating factors: none Associated symptoms: Reports nausea and palpitations; Deny chest pain, dyspnea, malaise, rash or vomiting Review of Systems Const: Denies: fever(s), chills, body aches, change in appetite, fatigue or malaise ENMT: Denies: throat pain, ear or mastoid pain, nasal discharge or nasal congestion Card: Reports: palpitations, irregular heart rhythm and orthopnea; Denies: chest pain, edema or dyspnea on exertion Resp: Denies: dyspnea, productive cough or non-productive cough GI: Reports: nausea; Denies: abdominal pain, vomiting, hematemesis, coffee ground emesis, diarrhea, constipation, bloating, hematochezia or melena : Denies: flank pain, difficulty voiding, dysuria, urinary frequency or urinary urgency Skin/Breast: Denies: rash or pruritus PFSH ED PFSH: Medical History Chronic atrial fibrillation Diabetic peripheral neuropathy Diastolic CHF History of colon polyps Pulmonary embolism Type 2 diabetes mellitus without use of insulin Surgical History H/O hysterectomy for benign disease H/O: hysterectomy History of appendectomy History of coronary artery stent placement History of esophagogastroduodenoscopy (EGD) 03/15/2019: EGD with biopsy Findings: Duodenal ulceration, most likely source of her bleed History of thoracentesis S/P ablation of atrial fibrillation Status post colonoscopy with polypectomy 03/15/2019: Colonoscopy with polypectomy Findings: 2 cm sessile polyp in ascending colon removed with cold biopsy forceps Moderate diverticulosis sigmoid colon Grade 4 hemorrhoids Family History Mother CAD (coronary artery disease) Family/Other Cancer Father Chronic kidney disease (CKD) Brother Dementia Diabetes Family history of premature coronary artery disease Hypertension Sister Hypertension Social History Smoking and tobacco status: former smoker Quit status (tobacco): has quit using tobacco Year quit tobacco: 2013 - PPD x 55 Years Alcohol intake: never Lives independently: Yes Household members: spouse Housing: House Marital status: Current occupational status: retired History of recent travel: No Current gender identity: Female Physical Exam Const: COMMON NORMALS: no acute distress GENERAL APPEARANCE: cooperative and comfortable ORIENTATION/CONSCIOUSNESS: Yes awake, Yes oriented to person, Yes oriented to place and Yes oriented to time HENMT: COMMON NORMALS: normocephalic, atraumatic, hearing grossly normal bilaterally, external ears normal, EAC's normal, TM's normal bilaterally, Normal nasal mucous membranes and turbinates present, moist oral mucous membranes and oropharynx normal HEAD & SCALP: normocephalic and atraumatic NOSE: Normal nasal mucous membranes and turbinates present EXTERNAL EAR: Yes external ears normal EXTERNAL AUDITORY CANAL: EAC's normal TYMPANIC MEMBRANE: TM's normal bilaterally Eye: COMMON NORMALS: Equal, round and reactive pupils present, EOMs intact bilaterally, conjunctivae normal and no scleral icterus CONJUNCTIVA: Yes conjunctivae normal PUPIL: Yes Equal, round and reactive pupils present Neck/C-Spine: COMMON NORMALS: full ROM, no lymphadenopathy, supple and no JVD Lymph: LYMPHATIC: no lymphadenopathy noted and no lymphedema noted Resp: COMMON NORMALS: normal respiratory effort, No retractions, No use of accessory muscles and clear to auscultation bilaterally AUSCULTATION: clear to auscultation bilaterally Cardio: COMMON NORMALS: no JVD, regular rhythm (paced) and No murmurs present (Cardio) RATE: bradycardic RHYTHM: regular rhythm (paced) GI: COMMON NORMALS: Soft to palpation and No hepatosplenomegaly present AUSCULTATION: Yes normoactive bowel sounds PALPATION: Yes Soft to palpation, No Tenderness to palpation present (GI), No Guarding due to palpation present (GI) and Yes No hepatosplenomegaly present Extremity: COMMON NORMALS: normal to inspection, capillary refill normal, no clubbing, cyanosis or edema, no calf tenderness and no pedal edema Neuro: SENSORIUM/ORIENTATION: Yes oriented to person, Yes oriented to place and Yes oriented to time Skin: COMMON NORMALS: no rashes or lesions noted GENERAL SKIN EXAM: no rashes or lesions noted Course Vital Signs: Vital signs: Vital Signs Temperature 97.2 F L 08/31/19 09:47 Pulse Rate 60 08/31/19 11:00 Respiratory Rate 16 08/31/19 11:00 Blood Pressure 102/63 08/31/19 11:00 Pulse Oximetry 96 08/31/19 11:00 MDM - General Adult MDM Narrative: Medical decision making narrative: Patient is feeling much better blood sugar has improved we will can go ahead and discharge her home with plans to get a Holter monitor to monitor for breakthrough on her A. fib with aVR she should follow-up with her primary care doctor sometime within the next week to reevaluate her blood sugar control Lab Data: Labs: Lab Results 08/31/19 08/31/19 08/31/19 Range/Units 09:53 09:57 09:57 WBC 15.8 H (4.0-10.0) 10^3/ uL RBC 3.96 L (4.1-5.3) 10^6/u L Hgb 11.6 (11.5-15.3) g/dL Hct 38.1 (37.0-47.0) % MCV 96.2 (81-99) fL MCH 29.3 (28.0-34.0) pg MCHC 30.4 (30.0-36.0) g/dL RDW 15.0 (12.1-15.1) % Plt Count 329 (130-400) 10^3/c mm MPV 10.1 (7.4-10.4) fL Neut % (Auto) 85.9 % Lymph % (Auto) 7.8 % [place] % (Auto) 4.7 % Eos % (Auto) 0.8 % Baso % (Auto) 0.3 % Neut # (Auto) 13.6 H (1.8-7.7) 10^3/u L Lymph # (Auto) 1.2 (0.8-4.8) 10^3/u L [place] # (Auto) 0.7 (0.2-0.9) 10^3/u L Eos # (Auto) 0.1 (0.0-0.8) 10^3/u L Baso # (Auto) 0.1 (0.0-0.1) 10^3/u L Nucleated RBC % (a uto) 0 % Nucleated RBCs # 0.0 /100WBC Sodium 133 L (136-145) mmol/L Potassium 4.7 (3.5-5.1) mmol/L Chloride 95 L (98-107) mmol/L Carbon Dioxide 23 (22-29) mmol/L Anion Gap 19.7 H (5-19) BUN 19 (8-23) mg/dL Creatinine 0.8 (0.5-0.9) mg/dL Glucose 469 H (65-115) mg/dL POC Glucose 432 (70-110) mg/dL Calculated Osmolal ity 293 (285-295) mOsm/k g Calcium 9.6 (8.5-10.5) mg/dL Total Bilirubin 0.5 (0.15-1.2) mg/dL AST 14 (0-32) U/L ALT 9 (0-33) U/L Alkaline Phosphata se 69 (35-105) IU/L Creatine Kinase 19 L (26-192) U/L Troponin T Baselin e (0-10) ng/L Troponin T 120 Min [place] (0-10) ng/L Delta Troponin T (0-10) ABS# Total Protein 7.0 (6.6-8.7) g/dL Albumin 3.8 (3.5-5.2) g/dL Globulin 3.2 (1.3-4.6) g/dL Urine Color (Yellow) Urine Appearance (CLEAR) Urine pH (5-7) Ur Specific Gravit y (1.005-1.030) Urine Protein (Negative) Urine Glucose (UA) (Normal) Urine Ketones (Negative) Urine Blood (Negative) Urine Nitrate (Negative) Urine Bilirubin (NEGATIVE) Urine Urobilinogen (Negative) mg/dL Ur Leukocyte Grace ase (Negative) Serum Ketones (Negative) 08/31/19 08/31/19 08/31/19 Range/Units 09:57 09:57 10:53 WBC (4.0-10.0) 10^3/ uL RBC (4.1-5.3) 10^6/u L Hgb (11.5-15.3) g/dL Hct (37.0-47.0) % MCV (81-99) fL MCH (28.0-34.0) pg MCHC (30.0-36.0) g/dL RDW (12.1-15.1) % Plt Count (130-400) 10^3/c mm MPV (7.4-10.4) fL Neut % (Auto) % Lymph % (Auto) % [place] % (Auto) % Eos % (Auto) % Baso % (Auto) % Neut # (Auto) (1.8-7.7) 10^3/u L Lymph # (Auto) (0.8-4.8) 10^3/u L [place] # (Auto) (0.2-0.9) 10^3/u L Eos # (Auto) (0.0-0.8) 10^3/u L Baso # (Auto) (0.0-0.1) 10^3/u L Nucleated RBC % (a uto) % Nucleated RBCs # /100WBC Sodium (136-145) mmol/L Potassium (3.5-5.1) mmol/L Chloride (98-107) mmol/L Carbon Dioxide (22-29) mmol/L Anion Gap (5-19) BUN (8-23) mg/dL Creatinine (0.5-0.9) mg/dL Glucose (65-115) mg/dL POC Glucose (70-110) mg/dL Calculated Osmolal ity (285-295) mOsm/k g Calcium (8.5-10.5) mg/dL Total Bilirubin (0.15-1.2) mg/dL AST (0-32) U/L ALT (0-33) U/L Alkaline Phosphata se (35-105) IU/L Creatine Kinase (26-192) U/L Troponin T Baselin e 18 H (0-10) ng/L Troponin T 120 Min [place] (0-10) ng/L Delta Troponin T (0-10) ABS# Total Protein (6.6-8.7) g/dL Albumin (3.5-5.2) g/dL Globulin (1.3-4.6) g/dL Urine Color Yellow (Yellow) Urine Appearance Clear (CLEAR) Urine pH 5 (5-7) Ur Specific Gravit y 1.020 (1.005-1.030) Urine Protein Neg (Negative) Urine Glucose (UA) 4+ H (Normal) Urine Ketones Negative (Negative) Urine Blood Neg (Negative) Urine Nitrate Negative (Negative) Urine Bilirubin Neg (NEGATIVE) Urine Urobilinogen Neg (Negative) mg/dL Ur Leukocyte Grace ase Negative (Negative) Serum Ketones Negative (Negative) 08/31/19 08/31/19 08/31/19 Range/Units 11:27 11:59 13:30 WBC (4.0-10.0) 10^3/ uL RBC (4.1-5.3) 10^6/u L Hgb (11.5-15.3) g/dL Hct (37.0-47.0) % MCV (81-99) fL MCH (28.0-34.0) pg MCHC (30.0-36.0) g/dL RDW (12.1-15.1) % Plt Count (130-400) 10^3/c mm MPV (7.4-10.4) fL Neut % (Auto) % Lymph % (Auto) % [place] % (Auto) % Eos % (Auto) % Baso % (Auto) % Neut # (Auto) (1.8-7.7) 10^3/u L Lymph # (Auto) (0.8-4.8) 10^3/u L [place] # (Auto) (0.2-0.9) 10^3/u L Eos # (Auto) (0.0-0.8) 10^3/u L Baso # (Auto) (0.0-0.1) 10^3/u L Nucleated RBC % (a uto) % Nucleated RBCs # /100WBC Sodium (136-145) mmol/L Potassium (3.5-5.1) mmol/L Chloride (98-107) mmol/L Carbon Dioxide (22-29) mmol/L Anion Gap (5-19) BUN (8-23) mg/dL Creatinine (0.5-0.9) mg/dL Glucose (65-115) mg/dL POC Glucose 349 253 (70-110) mg/dL Calculated Osmolal ity (285-295) mOsm/k g Calcium (8.5-10.5) mg/dL Total Bilirubin (0.15-1.2) mg/dL AST (0-32) U/L ALT (0-33) U/L Alkaline Phosphata se (35-105) IU/L Creatine Kinase (26-192) U/L Troponin T Baselin e (0-10) ng/L Troponin T 120 Min [place] 16.66 H (0-10) ng/L Delta Troponin T -1.34 L (0-10) ABS# Total Protein (6.6-8.7) g/dL Albumin (3.5-5.2) g/dL Globulin (1.3-4.6) g/dL Urine Color (Yellow) Urine Appearance (CLEAR) Urine pH (5-7) Ur Specific Gravit y (1.005-1.030) Urine Protein (Negative) Urine Glucose (UA) (Normal) Urine Ketones (Negative) Urine Blood (Negative) Urine Nitrate (Negative) Urine Bilirubin (NEGATIVE) Urine Urobilinogen (Negative) mg/dL Ur Leukocyte Grace ase (Negative) Serum Ketones (Negative) EKG Data^: EKG 1: EKG interpretation date: 08/31/19 Interpretation: Paced Computer generated interpretation: Chest X-Ray 08/31/19 09:58 IMPRESSION: Chronic emphysema with no acute cardiopulmonary disease. Pacemaker function: normal pacer function Discharge Plan Discharge Patient Disposition: Home, Self-Care Clinical Impression: Chronic atrial fibrillation, Diastolic CHF, Restrictive lung disease, Type 2 diabetes mellitus Condition: Stable Prescriptions: No Action gabapentin 800 mg tablet 600 mg PO BID RF: 0 ferrous sulfate 325 mg (65 mg iron) tablet 325 mg PO BID RF: 0 Protonix 40 mg tablet,delayed release (DR/EC) 40 mg PO BID RF: 0 potassium chloride 10 mEq capsule, extended release 10 meq PO DAILY RF: 0 ascorbate calcium (vitamin C) 500 mg tablet 500 mg PO BID RF: 0 Anoro Ellipta 62.5-25 mcg/actuation blister with device 1 inh INHALATION Q24H 90 Days Qty: 60 RF: 3 sotalol 120 mg tablet 120 mg PO BID RF: 0 Lasix 40 mg tablet 40 mg PO BID 90 Days Qty: 180 RF: 3 isosorbide dinitrate 30 mg tablet 30 mg PO DAILY Qty: 30 RF: 6 metformin 500 mg Tablet 500 mg PO BID 30 Days Qty: 60 RF: 0 pravastatin 40 mg Tablet 40 mg PO DAILY 30 Days Qty: 30 RF: 0 nitroglycerin [Nitrostat] 0.4 mg Tablet, Sublingual 0.4 mg SUBLINGUAL Q5M PRN (Reason: Chest Pain) 5 Days Qty: 3 RF: 0 Januvia 50 mg Tablet 50 mg PO DAILY 30 Days Qty: 30 RF: 0 aspirin 81 mg Tablet,Chewable 81 mg PO BID RF: 0 Vitamin D3 25 mcg (1,000 unit) Capsule 25 mcg PO DAILY RF: 0 Aldactone 25 mg tablet 12.5 mg PO DAILY RF: 0 Referrals: Grace Willett FNP [Primary Care Provider] - Discharge Diet: Usual diet Discharge Activity: Resume usual activity Activity Restrictions/Additional Instructions: Follow-up with your primary care doctor within 1 week. Case management will call to put you on a 24-hour Holter monitor Discharge Date/Time: 08/31/19 14:14 Coding Level of Care Code ED Dividend Deposit Voucher Clerk for Ruth Fwstephanie Exam Comprehensive
[2019-08-31 10:33] LABS: Alanine Aminotransferase 9 U/L (0-33); Albumin Level 3.8 g/dL (3.5-5.2); Alkaline Phosphatase 69 IU/L (35-105); Anion Gap 19.7 (5-19); Aspartate Amino Transferase 14 U/L (0-32); Blood Urea Nitrogen 19 mg/dL (8-23); Calcium 9.6 mg/dL (8.5-10.5); Carbon Dioxide 23 mmol/L (22-29); Chloride 95 mmol/L (98-107); Creatine Phosphokinase 19 U/L (26-192); Globulin 3.2 g/dL (1.3-4.6); Glucose 469 mg/dL (65-115); Osmolality Calculated 293 mOsm/kg (285-295); Potassium 4.7 mmol/L (3.5-5.1); Sodium 133 mmol/L (136-145); Total Bilirubin 0.5 mg/dL (0.15-1.2)
--- NOTE | 2019-08-31 10:33 | PC.NURSE ---
Patient up to bedside commode for urine collection. Patient unable to urinate. MD aware.
[2019-08-31 10:35] LABS: Troponin(5th) Baseline 18 ng/L (0-10)
[2019-08-31] MEDS: insulin regular-human 100 units/1 mL 10 UNIT IVP ×2 (10:41→12:24)
[2019-08-31 11:00] VITALS: BP 102/63; PULSE 60; RESP 16; O2SAT 96
[2019-08-31 11:30] LABS: Glucose Point of Care 349 mg/dL (70-110)
[2019-08-31 12:23] LABS: Troponin 5 2HR 16.66 ng/L (0-10)
[2019-08-31 12:46] LABS: Troponin 5 2HR Delta -1.34 ABS# (0-10)
[2019-08-31 13:14] LABS: Add Urine Microscopic? NO
[2019-08-31] MEDS: sodium chloride 0.9% 500 ML 999 ML IV (13:18)
[2019-08-31 13:21] LABS: Bilirubin Urine Neg (NEGATIVE); Blood Urine Neg (Negative); Glucose Urine UA 4+ (Normal); Ketones Urine Negative (Negative); Leukocyte Esterase Urine Negative (Negative); Nitrate Urine Negative (Negative); Protein Urine Neg (Negative); Urine Appearance Clear (CLEAR); Urine Color Yellow (Yellow); Urobilinogen Urine Neg (Negative); pH Urine 5 (5-7)
[2019-08-31 13:45] LABS: Glucose Point of Care 253 mg/dL (70-110)
[2019-08-31 14:13] VITALS: BP 109/56; PULSE 62; RESP 16; O2SAT 96
--- NOTE | 2019-08-31 15:58 | ECG_ITS ---
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 Measurements Intervals [place] Rate: 61 P: [place]: -1 QRS: -76 QRSD: 150 T: 89 QT: 509 QTc: 515 Interpretive Statements ELECTRONIC VENTRICULAR PACEMAKER WITH OCCASIONAL PVC'S Compared to ECG 08/31/2019 10:15:22 No significant changes Electronically Signed On 08-31-2019 18:37:37 CDT by Angela Irizarry M.D. [id number]
--- NOTE | 2019-09-01 15:33 | DCPLANNER ---
crm campaign manager had message to schedule a follow up appointment for a 24 hour halter monitor. crm campaign manager faxed order to [facility], will call for appointment information.
--- NOTE | 2019-09-03 08:44 | DCPLANNER ---
Patient has a follow up appointment for Saturday, September 07, 2019 at 1:00 with [facility] for a halter monitor. Clinic will call patient with appointment information.
--- NOTE | 2019-09-09 14:53 | DCPLANNER ---
Patient did attend appointment scheduled for 09.07.19 with [facility].
== END 2019-08-31 14:14 | disposition home or self-care (01) ==
PROVIDERS: Emergency Provider Family Medicine; PCP Nurse Practitioner Family
DX: E11.42 Type 2 diabetes mellitus with diabetic polyneuropathy (principal); I48.20 Chronic atrial fibrillation, unspecified; I11.0 Hypertensive heart disease with heart failure; I50.30 Unspecified diastolic (congestive) heart failure; J98.4 Other disorders of lung; Z79.82 Long term (current) use of aspirin; Z87.891 Personal history of nicotine dependence
CPT/HCPCS: 12345; 36415; 36416; 51701; 71045; 80053; 81003; 82009; 82550; 82962; 84484; 85025; 93005; 96361; 96374; 96375; 96376; 99283; 99284; J1815; J7040

== ENCOUNTER 2019-08-31 18:23 | Observation (INO) | payer MEDICARE, SELFPAY ==
[2019-08-31 18:35] VITALS: BP 141/52; PULSE 61; RESP 16; TEMP 36.4; O2SAT 95; BMI 35.0
--- NOTE | 2019-08-31 18:39 | XR_ITS ---
WS: [id number] PORTABLE CHEST HISTORY: Elevated blood sugar COMPARISON: 08/31/2019 Mild hyperinflation of the lungs. Increasing interstitial thickening over the lower lung hernandez is pr obably artifactual and related to soft tissue. No pneumonia. No pleural effusion or pneumothorax. Cardiac size: Moderately enlarged cardiac silhouette. Mediastinum/Aorta: Mild atherosclerosis aorta. Single lead LEFT subclavian pacer. Single anchor LEFT humeral head. XR/XR chest 1V portable [id number] IMPRESSION: Chronic emphysema and mild cardiomegaly. No pneumonia.
--- NOTE | 2019-08-31 18:39 | CTR_ITS ---
PROCEDURE INFORMATION: Exam: CT Abdomen And Pelvis With Contrast Exam date and time: 08/31/2019 7:31 PM Age: 79 years old Clinical indication: Abdominal pain; Localized; Left lower quadrant (llq); Prior surgery; Surgery type: Hyst, appy TECHNIQUE: Imaging protocol: Computed tomography of the abdomen and pelvis with intravenous contrast. Radiation optimization: All CT scans at this facility use at least one of these dose optimization techniques: automated exposure control; mA and/or kV adjustment per patient size (includes targeted exams where dose is matched to clinical indication); or iterative reconstruction. Contrast material: OMNI 300; Contrast volume: 95 ml; Contrast route: INTRAVENOUS (IV); COMPARISON: No relevant prior studies available. RADIATION DOSE METRICS: Total DLP (mGy-cm): 1572.28 FINDINGS: Lungs: The Limited assessment lung bases reveals pulmonary fibrosis. Coronary artery disease. Pacemaker. Liver: Rare hepatic calcified granuloma. Mild hepatomegaly. Liver otherwise unremarkable. Gallbladder and bile ducts: Cholelithiasis with at least 2 gallstones identified the largest measuring 22 mm maximum diameter. No visible intra or extrahepatic biliary ectasia. Pancreas: Unremarkable. No ductal dilation. Spleen: Rare splenic calcified granuloma. Small splenic cyst inferior segment measuring 11 mm probable old injury site. Doubt of clinical significance. Adrenals: Unremarkable. No mass. Kidneys and ureters: Simple cortical cyst equator left kidney measuring 46 mm in maximum diameter noted on CT report of 03/12/2019. Second smaller cortical cyst inferior pole left kidney cyst measuring 7 mm. No follow-up recommended. No hydronephrosis or perinephric fluid bilaterally. Right kidney unremarkable. No visible nephrolithiasis. Stomach and bowel: Diverticulosis coli without visible evidence for acute diverticulitis. Nonobstructive bowel pattern. No visible evidence of adynamic or reactive ileus. Appendix: Status post appendectomy. Intraperitoneal space: Unremarkable. No free air. No significant fluid collection. 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 Advanced arterial sclerotic disease. Lymph nodes: Unremarkable. No enlarged lymph nodes. Bladder: Unremarkable as visualized. Reproductive: Status post hysterectomy. Bones/joints: Age-appropriate degenerative disease of the spine. Degenerative disc disease most advanced L5/S1. Osteopenia. Soft tissues: Unremarkable. Other findings: Obesity. CT/CT abdomen pelvis w con* [id number] IMPRESSION: 1. Currently no visible evidence of acute abdominal or pelvic pathologic process. 2. Cholelithiasis. 3. Diverticulosis coli without visible evidence of acute diverticulitis. 4. 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 Radiation Dose CTDIVOL = (mGy): DLP = 1572.28 (mGy-cm)
--- NOTE | 2019-08-31 18:40 | ECG_ITS ---
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 Measurements Intervals [place] Rate: 61 P: MO: -1 QRS: -74 QRSD: 154 T: 91 QT: 497 QTc: 503 Interpretive Statements ELECTRONIC VENTRICULAR PACEMAKER WITH OCCASIONAL PVC Compared to ECG 08/31/2019 11:58:53 No significant changes Electronically Signed On 08-31-2019 19:02:06 CDT by Angela Irizarry M.D. [id number]
[2019-08-31 18:48] LABS: Glucose Point of Care 327 mg/dL (70-110)
--- NOTE | 2019-08-31 19:10 | W.ED.GENADLT ---
HPI - General Adult General: Chief complaint: General Medical Stated complaint: high bs Time Seen by Provider: 08/31/19 18:33 Source: patient Mode of arrival: ambulatory Limitations: no limitations History of Present Illness: HPI narrative: Ms. Rose is a nice 79-year-old female who comes in secondary to her blood sugar being high. The patient was here earlier in the day for a complaint of generalized weakness, please see that note for her findings from her earlier visit. Patient states since going home her blood sugar has gone high again. The only associated symptom she has with this is generalized weakness and nausea. Patient denies any chest pain, shortness of breath, fever or other complaints. Patient does have a history of melanotic stool is being worked up as an outpatient. She was taken off Eliquis for her chronic atrial fibrillation and placed on aspirin only. Associated symptoms: Reports nausea; Deny chest pain, confusion, diaphoresis, dyspnea, headache(s), malaise, rash, palpitations, syncope or vomiting Review of Systems Const: Denies: fever(s), chills, body aches, fatigue, malaise or diaphoresis Eyes: Denies: change in vision, blurry vision, blind spots, photophobia, eye discharge or eye redness ENMT: Denies: throat pain, odynophagia, hoarseness, swelling of lips/tongue, oral sores, ear or mastoid pain, ear discharge, change in hearing or nasal discharge Card: Denies: chest pain, palpitations, irregular heart rhythm, edema, lightheadedness, syncope, pre-syncope, dyspnea on exertion or orthopnea Resp: Denies: dyspnea, productive cough, non-productive cough, wheezing, hemoptysis or chest congestion GI: Reports: abdominal pain and nausea; Denies: vomiting, hematemesis, coffee ground emesis, heartburn, diarrhea, constipation, GI cramping, hematochezia or melena : Denies: flank pain, dysuria, urinary frequency, urinary urgency or hematuria Musc: Denies: neck pain, back pain, extremity pain, extremity swelling, joint pain, joint swelling, joint redness, joint warmth or joint stiffness Skin/Breast: Denies: rash, pruritus, erythema, skin tenderness or jaundice Neuro: Denies: headache(s), numbness in extremities, weakness in extremities, sensory changes, lack of coordination, difficulty walking, dizziness, vertigo, confusion, Slurred speech present or seizure-like activity Jaspal/Lymph: Denies: easy bruising, easy bleeding, petechiae, purpura or enlarged lymph nodes All/Imm: Denies: urticaria, throat swelling, tongue swelling, facial swelling or acute wheezing PFSH ED PFSH: Medical History (Updated 08/31/19 @ 21:12 by Emma Jim) Chronic atrial fibrillation Diabetic peripheral neuropathy Diastolic CHF History of colon polyps Pulmonary embolism Type 2 diabetes mellitus without use of insulin Surgical History H/O hysterectomy for benign disease H/O: hysterectomy History of appendectomy History of coronary artery stent placement History of esophagogastroduodenoscopy (EGD) 03/15/2019: EGD with biopsy Findings: Duodenal ulceration, most likely source of her bleed History of thoracentesis S/P ablation of atrial fibrillation Status post colonoscopy with polypectomy 03/15/2019: Colonoscopy with polypectomy Findings: 2 cm sessile polyp in ascending colon removed with cold biopsy forceps Moderate diverticulosis sigmoid colon Grade 4 hemorrhoids Family History Mother CAD (coronary artery disease) Family/Other Cancer Father Chronic kidney disease (CKD) Brother Dementia Diabetes Family history of premature coronary artery disease Hypertension Sister Hypertension Social History Smoking and tobacco status: former smoker Quit status (tobacco): has quit using tobacco Year quit tobacco: 2013 PPD x 55 Years Alcohol intake: never Lives independently: Yes Household members: spouse Housing: House Marital status: Current occupational status: retired History of recent travel: No Current gender identity: Female Physical Exam Const: COMMON NORMALS: no acute distress, patient oriented x3, no limitations, healthy appearing and well nourished GENERAL APPEARANCE: cooperative, well kempt and well developed HENMT: COMMON NORMALS: normocephalic, atraumatic, external ears normal, EAC's normal and Normal external nose present HEAD & SCALP: normal to inspection, normocephalic and atraumatic FACE & SINUS: normal facial exam and face symmetric NOSE: Normal external nose present and Normal nares present EXTERNAL EAR: Yes external ears normal EXTERNAL AUDITORY CANAL: EAC's normal MOUTH: Normal oral and palatal mucosa present, lip normal and tongue normal Eye: COMMON NORMALS: Equal, round and reactive pupils present and conjunctivae normal GENERAL EYE: appearance normal, both eyes and all related structures ALIGNMENT: Yes alignment normal PERIORBITAL: periorbital findings normal EYELID: eyelids normal CONJUNCTIVA: Yes conjunctivae normal SCLERA: sclerae normal PUPIL: Yes Equal, round and reactive pupils present Neck/C-Spine: COMMON NORMALS: full ROM, no lymphadenopathy, supple, no meningeal signs and no JVD GENERAL: Yes normal visual inspection and Yes trachea midline Chest: COMMONS NORMALS: normal inspection of the chest and normal palpation of entire chest wall Resp: COMMON NORMALS: normal respiratory effort, No retractions and No use of accessory muscles EFFORT & INSPECTION: Yes able to speak in complete sentences and Yes symmetric chest movement AUSCULTATION: no crackles, no rales, no rhonchi and no wheezes Cardio: COMMON NORMALS: no JVD, regular rate, regular rhythm, S1 normal heart sound present and S2 normal heart sound present RATE: regular rate RHYTHM: regular rhythm HEART SOUNDS: S1 normal heart sound present, S2 normal heart sound present, no click, no gallops, no murmurs, no rubs and abnormal split S2 GI: COMMON NORMALS: Soft to palpation and No hepatosplenomegaly present PALPATION: Yes Soft to palpation, Yes Tenderness to palpation present (GI) Details: RLQ and RUQ, No Guarding due to palpation present (GI), No Rigid due to palpation, Yes No hepatosplenomegaly present, No Hernia present, No Palpable mass present and No Pulsatile mass present : COMMON NORMALS: Yes no CVA tenderness BLADDER/KIDNEY EXAM: Yes no CVA tenderness EXTERNAL FEMALE EXAM: No Hernia present Back/Pelvis: COMMON NORMALS: no CVA tenderness, thoracic and lumbar spine normal to inspection, no thoracic nor lumbar tenderness and thoraco-lumbar ROM normal Extremity: COMMON NORMALS: normal to inspection, full ROM, capillary refill normal, no joint enlargement, no clubbing, cyanosis or edema and no calf tenderness Neuro: COMMON NORMALS: patient oriented x3, CN's II-XII intact bilaterally, moves all extremities, no focal motor deficits and no sensory deficits noted MENINGEAL SIGNS: Yes no meningeal signs SPEECH: speech normal Psych: COMMON NORMALS: mental status grossly normal, Normal thought process present, cooperative, normal affect, speech normal and activity/motor behavior normal APPEARANCE: Yes well kempt SPEECH: Yes normal speech THOUGHT PROCESS: Normal thought process present Skin: COMMON NORMALS: no rashes or lesions noted, turgor normal, no jaundice, no petechiae and no mottling GENERAL SKIN EXAM: no rashes or lesions noted and turgor normal Course Vital Signs: Vital signs: Vital Signs Temperature 97.5 F L 08/31/19 18:35 Pulse Rate 58 L 08/31/19 20:35 Respiratory Rate 18 08/31/19 20:35 Blood Pressure 124/58 08/31/19 20:35 Pulse Oximetry 95 08/31/19 20:35 MDM - General Adult MDM Narrative: Medical decision making narrative: Arrival -patient arrives with elevated blood sugar. She has on exam some right-sided abdominal pain. I will go and image her abdomen and work her up for her generalized weakness. I will compare her values from earlier today as well. Differential is considerable including infectious etiologies, cardiac etiologies, intra-abdominal problems, electrolyte problems as well as many others. Patient is currently stable but we will initiate a broad work-up as the patient is a return visit to the ER. Admission -the patient is not orthostatic and is not vomited here. Nonetheless she feels too weak and nauseated to go home as she is scared that her blood sugar will elevate again. As she is a return visit with continued symptoms I have reviewed the case with Dr. Jain, he is agreeable to admission for pancreatitis, intractable nausea and dehydration. Lab Data: Labs: Lab Results 08/31/19 08/31/19 08/31/19 Range/Units 18:40 19:00 19:30 WBC 13.5 H (4.0-10.0) 10^3/ uL RBC 3.88 L (4.1-5.3) 10^6/u L Hgb 11.5 (11.5-15.3) g/dL Hct 36.5 L (37.0-47.0) % MCV 94.1 (81-99) fL MCH 29.6 (28.0-34.0) pg MCHC 31.5 (30.0-36.0) g/dL RDW 15.0 (12.1-15.1) % Plt Count 315 (130-400) 10^3/c mm MPV 9.8 (7.4-10.4) fL Neut % (Auto) 82.7 % Lymph % (Auto) 10.4 % Bremer % (Auto) 5.7 % Eos % (Auto) 0.6 % Baso % (Auto) 0.3 % Neut # (Auto) 11.1 H (1.8-7.7) 10^3/u L Lymph # (Auto) 1.4 (0.8-4.8) 10^3/u L Bremer # (Auto) 0.8 (0.2-0.9) 10^3/u L Eos # (Auto) 0.1 (0.0-0.8) 10^3/u L Baso # (Auto) 0.0 (0.0-0.1) 10^3/u L Nucleated RBC % (a uto) 0 % Nucleated RBCs # 0.0 /100WBC Specimen Type Arterial Sample Site Radial, left ABG pH 7.50 H (7.35-7.45) ABG pCO2 34.3 L (35-45) mmHg ABG pO2 98.3 (80.0-100.0) mmH g ABG HCO3 26.6 H (22-26) mmol/L ABG Base Excess 3.5 H (-2.0-2.0) mmol/ L Mitchell Test Pos Hematocrit 37.4 (37-47) % O2 Delivery Device Nc O2 Liters/Min 4.0 % Extension Work Director ID ellpe Sodium (136-145) mmol/L Potassium (3.5-5.1) mmol/L Chloride (98-107) mmol/L Carbon Dioxide (22-29) mmol/L Anion Gap (5-19) BUN (8-23) mg/dL Creatinine (0.5-0.9) mg/dL Glucose (65-115) mg/dL POC Glucose 327 (70-110) mg/dL Calculated Osmolal ity (285-295) mOsm/k g Calcium (8.5-10.5) mg/dL Magnesium (1.7-2.3) mg/dL Total Bilirubin (0.15-1.2) mg/dL AST (0-32) U/L ALT (0-33) U/L Alkaline Phosphata se (35-105) IU/L Troponin T Baselin e (0-10) ng/L Total Protein (6.6-8.7) g/dL Albumin (3.5-5.2) g/dL Globulin (1.3-4.6) g/dL Lipase (13-60) U/L Serum Ketones (Negative) 08/31/19 08/31/19 08/31/19 Range/Units 19:30 19:30 19:30 WBC (4.0-10.0) 10^3/ uL RBC (4.1-5.3) 10^6/u L Hgb (11.5-15.3) g/dL Hct (37.0-47.0) % MCV (81-99) fL MCH (28.0-34.0) pg MCHC (30.0-36.0) g/dL RDW (12.1-15.1) % Plt Count (130-400) 10^3/c mm MPV (7.4-10.4) fL Neut % (Auto) % Lymph % (Auto) % Bremer % (Auto) % Eos % (Auto) % Baso % (Auto) % Neut # (Auto) (1.8-7.7) 10^3/u L Lymph # (Auto) (0.8-4.8) 10^3/u L Bremer # (Auto) (0.2-0.9) 10^3/u L Eos # (Auto) (0.0-0.8) 10^3/u L Baso # (Auto) (0.0-0.1) 10^3/u L Nucleated RBC % (a uto) % Nucleated RBCs # /100WBC Specimen Type Sample Site ABG pH (7.35-7.45) ABG pCO2 (35-45) mmHg ABG pO2 (80.0-100.0) mmH g ABG HCO3 (22-26) mmol/L ABG Base Excess (-2.0-2.0) mmol/ L Mitchell Test Hematocrit (37-47) % O2 Delivery Device O2 Liters/Min % Extension Work Director ID Sodium 137 (136-145) mmol/L Potassium 4.4 (3.5-5.1) mmol/L Chloride 98 (98-107) mmol/L Carbon Dioxide 25 (22-29) mmol/L Anion Gap 18.4 (5-19) BUN 18 (8-23) mg/dL Creatinine 0.9 (0.5-0.9) mg/dL Glucose 317 H (65-115) mg/dL POC Glucose (70-110) mg/dL Calculated Osmolal ity 293 (285-295) mOsm/k g Calcium 9.7 (8.5-10.5) mg/dL Magnesium 1.6 L (1.7-2.3) mg/dL Total Bilirubin 0.4 (0.15-1.2) mg/dL AST 14 (0-32) U/L ALT 9 (0-33) U/L Alkaline Phosphata se 65 (35-105) IU/L Troponin T Baselin e 19 H (0-10) ng/L Total Protein 7.0 (6.6-8.7) g/dL Albumin 3.9 (3.5-5.2) g/dL Globulin 3.1 (1.3-4.6) g/dL Lipase 618 H (13-60) U/L Serum Ketones Negative (Negative) 08/31/19 Range/Units 20:42 WBC (4.0-10.0) 10^3/ uL RBC (4.1-5.3) 10^6/u L Hgb (11.5-15.3) g/dL Hct (37.0-47.0) % MCV (81-99) fL MCH (28.0-34.0) pg MCHC (30.0-36.0) g/dL RDW (12.1-15.1) % Plt Count (130-400) 10^3/c mm MPV (7.4-10.4) fL Neut % (Auto) % Lymph % (Auto) % Bremer % (Auto) % Eos % (Auto) % Baso % (Auto) % Neut # (Auto) (1.8-7.7) 10^3/u L Lymph # (Auto) (0.8-4.8) 10^3/u L Bremer # (Auto) (0.2-0.9) 10^3/u L Eos # (Auto) (0.0-0.8) 10^3/u L Baso # (Auto) (0.0-0.1) 10^3/u L Nucleated RBC % (a uto) % Nucleated RBCs # /100WBC Specimen Type Sample Site ABG pH (7.35-7.45) ABG pCO2 (35-45) mmHg ABG pO2 (80.0-100.0) mmH g ABG HCO3 (22-26) mmol/L ABG Base Excess (-2.0-2.0) mmol/ L Mitchell Test Hematocrit (37-47) % O2 Delivery Device O2 Liters/Min % Extension Work Director ID Sodium (136-145) mmol/L Potassium (3.5-5.1) mmol/L Chloride (98-107) mmol/L Carbon Dioxide (22-29) mmol/L Anion Gap (5-19) BUN (8-23) mg/dL Creatinine (0.5-0.9) mg/dL Glucose (65-115) mg/dL POC Glucose 286 (70-110) mg/dL Calculated Osmolal ity (285-295) mOsm/k g Calcium (8.5-10.5) mg/dL Magnesium (1.7-2.3) mg/dL Total Bilirubin (0.15-1.2) mg/dL AST (0-32) U/L ALT (0-33) U/L Alkaline Phosphata se (35-105) IU/L Troponin T Baselin e (0-10) ng/L Total Protein (6.6-8.7) g/dL Albumin (3.5-5.2) g/dL Globulin (1.3-4.6) g/dL Lipase (13-60) U/L Serum Ketones (Negative) Imaging Data^: CXR: Attestation: I personally reviewed and interpreted this imaging study as follows: My impression: Cardiomegaly with bilateral pleural effusions left greater than right. EKG Data^: EKG 1: Attestation: I personally reviewed and interpreted this EKG as follows: EKG interpretation date: 08/31/19 EKG interpretation time: 19:07 Interpretation: Ventricular paced rhythm at 61 beats a minute, 100% capture, PVCs. Computer generated interpretation: Abdomen/Pelvis CT 08/31/19 18:39 IMPRESSION: 1. Currently no visible evidence of acute abdominal or pelvic pathologic process. 2. Cholelithiasis. 3. Diverticulosis coli without visible evidence of acute diverticulitis. 4. 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 Radiation Dose CTDIVOL = (mGy): DLP = 1572.28 (mGy-cm) Discharge Plan Discharge Patient Disposition: Placed in Observation Clinical Impression: Acute pancreatitis, Acute hyperglycemia Condition: Stable Prescriptions: No Action gabapentin 800 mg tablet 600 mg PO BID RF: 0 ferrous sulfate 325 mg (65 mg iron) tablet 325 mg PO BID RF: 0 Protonix 40 mg tablet,delayed release (DR/EC) 40 mg PO BID RF: 0 potassium chloride 10 mEq capsule, extended release 10 meq PO DAILY RF: 0 ascorbate calcium (vitamin C) 500 mg tablet 500 mg PO BID RF: 0 sotalol 120 mg tablet 120 mg PO BID RF: 0 Lasix 40 mg tablet 40 mg PO BID 90 Days Qty: 180 RF: 3 isosorbide dinitrate 30 mg tablet 30 mg PO DAILY Qty: 30 RF: 6 metformin 500 mg Tablet 500 mg PO BID 30 Days Qty: 60 RF: 0 pravastatin 40 mg Tablet 40 mg PO DAILY 30 Days Qty: 30 RF: 0 nitroglycerin [Nitrostat] 0.4 mg Tablet, Sublingual 0.4 mg SUBLINGUAL Q5M PRN (Reason: Chest Pain) 5 Days Qty: 3 RF: 0 Januvia 50 mg Tablet 50 mg PO DAILY 30 Days Qty: 30 RF: 0 aspirin 81 mg Tablet,Chewable 81 mg PO BID RF: 0 cholecalciferol (vitamin D3) [Vitamin D3] 25 mcg (1,000 unit) Capsule 25 mcg PO DAILY RF: 0 spironolactone [Aldactone] 25 mg tablet 12.5 mg PO DAILY RF: 0 Eliquis 5 mg Tablet 5 mg PO BID RF: 0 Referrals: Grace Willett FNP [Primary Care Provider] - Coding Level of Care Code ED Tester Armature Or Fields for Jollyg Fwd Exam Comprehensive
[2019-08-31 19:12] LABS: ABG PCO2 34.3 mmHg (35-45); Arterial Blood Gas Hematocrit 37.4 % (37-47); Base Excess ABG 3.5 mmol/L (-2.0-2.0); Blood Gas Allen Test Pos; Blood Gas Sample Site Radial, left; Blood Gas Sample Type Arterial; HCO3 ABG 26.6 mmol/L (22-26); Oxygen Device NC; PO2 ABG 98.3 mmHg (80.0-100.0)
[2019-08-31] MEDS: sodium chloride 0.9% 1,000 ML 999 ML IV (19:13)
[2019-08-31 19:19] VITALS: BP 141/52; PULSE 60; RESP 16; O2SAT 96
[2019-08-31 19:35] LABS: Basophils % 0.3 %; Eosinophils # 0.1 10^3/uL (0.0-0.8); Eosinophils % 0.6 %; Hematocrit 36.5 % (37.0-47.0); Hemoglobin 11.5 g/dL (11.5-15.3); Lymphocytes # 1.4 10^3/uL (0.8-4.8); Lymphocytes % 10.4 %; Mean Corpuscular HGB Conc 31.5 g/dL (30.0-36.0); Mean Corpuscular Hemoglobin 29.6 pg (28.0-34.0); Mean Corpuscular Volume 94.1 fL (81-99); Mean Platelet Volume 9.8 fL (7.4-10.4); Monocytes # 0.8 10^3/uL (0.2-0.9); Monocytes % 5.7 %; Neutrophils # 11.1 10^3/uL (1.8-7.7); Neutrophils % 82.7 %; Nucleated Red Blood Cells % 0 %; Platelet Count 315 10^3/cmm (130-400); Red Blood Count 3.88 10^6/uL (4.1-5.3); White Blood Count 13.5 10^3/uL (4.0-10.0)
[2019-08-31] MEDS: iohexol 300 mg/mL 100 mL Btl IV (19:37)
[2019-08-31 19:49] LABS: Ketone (Acetest) Serum Negative (Negative)
[2019-08-31 19:57] LABS: Alanine Aminotransferase 9 U/L (0-33); Albumin Level 3.9 g/dL (3.5-5.2); Alkaline Phosphatase 65 IU/L (35-105); Anion Gap 18.4 (5-19); Aspartate Amino Transferase 14 U/L (0-32); Blood Urea Nitrogen 18 mg/dL (8-23); Calcium 9.7 mg/dL (8.5-10.5); Carbon Dioxide 25 mmol/L (22-29); Chloride 98 mmol/L (98-107); Globulin 3.1 g/dL (1.3-4.6); Glucose 317 mg/dL (65-115); Magnesium 1.6 mg/dL (1.7-2.3); Osmolality Calculated 293 mOsm/kg (285-295); Potassium 4.4 mmol/L (3.5-5.1); Sodium 137 mmol/L (136-145); Total Bilirubin 0.4 mg/dL (0.15-1.2)
[2019-08-31 20:13] LABS: Troponin(5th) Baseline 19 ng/L (0-10)
[2019-08-31] MEDS: magnesium sulfate premix 2 GM/50 ML PIGGYBACK IV (20:32)
[2019-08-31 20:33] LABS: Lipase 618 U/L (13-60)
[2019-08-31 20:35] VITALS: BP 124/58; PULSE 58; RESP 18; O2SAT 95
--- NOTE | 2019-08-31 20:40 | ECG_ITS ---
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 Measurements Intervals [place] Rate: 62 P: ID: -1 QRS: -75 QRSD: 153 T: 91 QT: 501 QTc: 510 Interpretive Statements ELECTRONIC VENTRICULAR PACEMAKER ABNORMAL RHYTHM ECG Compared to ECG 08/31/2019 19:07:49 Ventricular premature complex(es) no longer present Electronically Signed On 09-02-2019 0:03:05 CDT by Kiki Mercer M.D. [id number]
[2019-08-31 20:46] LABS: Glucose Point of Care 286 mg/dL (70-110)
--- NOTE | 2019-08-31 21:21 | P.HP_ITS ---
Providers/Chief Complaint Primary Care Provider: BÁRBARA Ruvalcaba Chief Complaint: high bs History of Present Illness Radha Rose is a 79 year old female who carries history of oxygen dependent restrictive lung disease, uses 4 L of oxygen [id number] with CPAP at night, coronary disease status post 5 stents, chronic atrial fibrillation status post ablation and pacemaker placement, history of PE was on Eliquis until GI bleed currently using aspirin 81 mg twice a day, restrictive lung disease pattern, type 2 diabetes, diastolic congestive heart failure, coming in today with chief complaint of not feeling well. Patient is stating that she is compliant with her medications, she has been taking of Eliquis because of GI bleed now she is on aspirin twice a day, she was in her usual state of health until 2 days ago when she started feeling sick to her stomach. She has been feeling nauseous without any episodes of vomiting. She does not know her last A1c level but her blood sugar level has been high. She does not use insulin. She is denying polyphagia. She has not eaten well in last 48 hours, her sugar has been ranging between 300-400. Today she was seen in the ER and was discharged home once her blood sugar was in low 250s. She went home and rechecked her sugar it kept going up, it was around 400, because of high blood sugar and nausea she decided to come back to the ED for further evaluation. In the ER she was given normal saline, 2 g of magnesium, she complained of right lower quadrant pain, CT abdomen was obtained which was negative for acute pathology, lipase is around 618 without any signs of pancreatitis on CT abdomen, magnesium 1.6 EKG showing paced rhythm, Chest x-ray without acute pathology Review of Systems Const: Reports: chills, body aches, change in appetite, change in weight and fatigue; Denies: fever(s) Eyes: Denies: change in vision ENMT: Denies: throat pain Card: Denies: chest pain or swelling of feet/ankles Resp: Reports: dyspnea; Denies: productive cough or non-productive cough GI: Reports: abdominal pain, nausea and heartburn; Denies: vomiting, diarrhea or constipation : Denies: flank pain Musc: Denies: neck pain Skin/Breast: Denies: rash Neuro: Denies: headache(s) Psych: Reports: anxiety Endo: Reports: polyuria and polydipsia; Denies: cold intolerance Jaspal/Lymph: Denies: easy bruising All/Imm: Denies: urticaria Medications/Allergies Home Medications Medication Instructions Recorded Confirmed Last Taken Type Januvia 50 mg PO DAILY 30 Days #30 tab 03/17/19 08/31/19 08/31/19 Rx metformin 500 mg PO BID 30 Days #60 tab 03/17/19 08/31/19 08/31/19 Rx nitroglycerin [Nitrostat] 0.4 mg SUBLINGUAL Q5M PRN 5 Days 03/17/19 08/31/19 Unknown Rx #3 tab pravastatin 40 mg PO DAILY 30 Days #30 tab 03/17/19 08/31/19 08/31/19 Rx furosemide 40 mg tablet 40 mg PO BID 90 Days #180 tab 06/02/19 08/31/19 08/31/19 Rx ascorbate calcium (vitamin C) 500 500 mg PO BID 06/09/19 08/31/19 08/31/19 History mg tablet ferrous sulfate 325 mg (65 mg 325 mg PO BID 06/17/19 08/31/19 08/31/19 History iron) tablet gabapentin 800 mg tablet 600 mg PO BID tab 06/17/19 08/31/19 08/31/19 History pantoprazole 40 mg tablet,delayed 40 mg PO BID tab 06/17/19 08/31/19 08/31/19 History release potassium chloride 10 mEq 10 meq PO DAILY 06/17/19 08/31/19 08/31/19 History capsule,extended release sotalol 120 mg tablet 120 mg PO BID 07/14/19 08/31/19 08/31/19 History isosorbide dinitrate 30 mg tablet 30 mg PO DAILY #30 tab 07/28/19 08/31/19 08/31/19 Rx apixaban [Eliquis] 5 mg PO BID 08/31/19 08/31/19 08/31/19 History aspirin 81 mg PO BID 08/31/19 08/31/19 08/31/19 History cholecalciferol (vitamin D3) 25 mcg PO DAILY 08/31/19 08/31/19 08/31/19 History [Vitamin D3] spironolactone [Aldactone] 12.5 mg PO DAILY 08/31/19 08/31/19 08/31/19 History Allergies Allergy/AdvReac Type Severity Reaction Status Date / Time aspirin Allergy Stomach Verified 08/31/19 20:09 Cramps codeine Allergy ADR-Halluci Verified 08/31/19 20:09 nating digoxin Allergy BLISERS IN Verified 08/31/19 20:09 MOUTH Sulfa (Sulfonamide Allergy ALGY-Hives Verified 08/31/19 20:09 Antibiotics) tetanus and diphtheria Allergy ADR-Vomitin Verified 08/31/19 20:09 toxoids g PFSH Acute PFSH: Medical History Chronic atrial fibrillation Diabetic peripheral neuropathy Diastolic CHF History of colon polyps Pulmonary embolism Type 2 diabetes mellitus without use of insulin Surgical History H/O hysterectomy for benign disease H/O: hysterectomy History of appendectomy History of coronary artery stent placement History of esophagogastroduodenoscopy (EGD) 03/15/2019: EGD with biopsy Findings: Duodenal ulceration, most likely source of her bleed History of thoracentesis S/P ablation of atrial fibrillation Status post colonoscopy with polypectomy 03/15/2019: Colonoscopy with polypectomy Findings: 2 cm sessile polyp in ascending colon removed with cold biopsy forceps Moderate diverticulosis sigmoid colon Grade 4 hemorrhoids Family History Mother CAD (coronary artery disease) Family/Other Cancer Father Chronic kidney disease (CKD) Brother Dementia Diabetes Family history of premature coronary artery disease Hypertension Sister Hypertension Social History Smoking and tobacco status: former smoker Quit status (tobacco): has quit using tobacco Year quit tobacco: 2013 - PPD x 55 Years Alcohol intake: never Lives independently: Yes Household members: spouse Housing: House Marital status: Current occupational status: retired History of recent travel: No Current gender identity: Female Vitals/I&O/Wt Last Vital Signs Temp 97.5 F L 08/31/19 18:35 Pulse 58 L 08/31/19 20:35 Resp 18 08/31/19 20:35 BP 124/58 08/31/19 20:35 Pulse Ox 95 08/31/19 20:35 Weight last 48 hrs Weight 92.533 kg Physical Exam Narrative: EXAM NARRATIVE: Head to toe examination Obese female in semi-dougherty position saturating well on 4 L nasal cannula Paced rhythm on telemetry No active respiratory Variable S1-S2, paced rhythm Compensated heart failure Abdomen soft nontender mild tenderness on deep palpation right lower quadrant otherwise no rigidity or signs of peritonitis Lungs are clear to auscultation without adventitious sounds Neurologically nonfocal exam Awake alert oriented x3 GCS 15 EOMI, PERRLA Appropriate mood and affect Lower extremity no signs of edema Data : 08/31/19 19:30 08/31/19 19:30 A&P Assessment and plan (1) Poorly controlled type 2 diabetes mellitus: Status: Acute (2) Acute hyperglycemia: Status: Acute (3) Restrictive lung disease: Status: Acute (4) Diastolic CHF: Status: Chronic (5) Sleep apnea: Status: Acute (6) Abnormal serum lipase level: Status: Acute (7) Hypomagnesemia: Status: Acute Additional A&P Information Poorly controlled type 2 diabetes Hyperglycemia without DKA or neurological status change She is [id number] Obtain A1c level Hold metformin and Januvia for at least 48 hours after the contrast Moderate sliding scale with consistent carb diet Continue normal saline just for tonight for her hyperglycemia No active chest pain, no signs of UTI, she is afebrile, Abnormal serum lipase without evidence of pancreatitis on CT abdomen Repeat lipase level in the morning, will check triglyceride levels because of poorly controlled diabetes Restrictive lung disease Currently following up with Dr. Scanlon, will keep her on auto CPAP at night Diastolic congestive heart failure without acute exacerbation Continue home dose of Lasix 40 mg twice a day Hypomagnesemia: Magnesium repleted in the ER Coronary disease status post 5 stents, no active chest pain Chronic A. fib (off anticoagulation) Patient is not using Eliquis because of history of GI bleed currently on aspirin 81 mg twice a day, currently rate controlled DVT prophylaxis: Would use SCDs because of history of GI bleed would avoid anticoagulation Consistent carb Full code Attestations Medical Necessity Statement*: Anticipating discharge in less than 48 hours currently he did admission because of her nausea hyperglycemia and not being able to manage her blood sugar at home This is her second visit to the ED today Time Spent in Patient Care: (>than 50% of time spent in counselling and/or direct pt care on unit) . 60mins Coding Level of Care Code Acute Fitness Club Manager for Chg Fwd Diagnoses Poorly controlled type 2 diabetes mellitus E11.65 Acute hyperglycemia R73.9 Restrictive lung disease J98.4 Diastolic CHF I50.30 Sleep apnea G47.30 Abnormal serum lipase level R74.8 Hypomagnesemia E83.42
[2019-08-31 21:37] LABS: Troponin 5 2HR 17.78 ng/L (0-10)
[2019-08-31 21:39] LABS: Troponin 5 2HR Delta -1.22 ABS# (0-10)
[2019-08-31 22:21] VITALS: BP 123/63; PULSE 59; RESP 18; O2SAT 97
[2019-08-31 22:34] LABS: Glucose Point of Care 275 mg/dL (70-110)
[2019-08-31 23:13] LABS: Glucose Point of Care 261 mg/dL (70-110)
[2019-09-01] VITALS (8 sets, daily range): BP systolic 97–125; BP diastolic 56–81; PULSE 51–78; RESP 18–20; TEMP 36.3–36.8; O2SAT 94–100
[2019-09-01 00:22] LABS: Estmated Average Glucose 212
[2019-09-01 00:23] LABS: Triglycerides 115 mg/dL (0-150)
--- NOTE | 2019-09-01 00:40 | ECG_ITS ---
[facility] Test Date: 2019-09-01 Pat Name: Radha Rose Department: Room: 279 Gender: Female Dianetic Counselor: : 1940 Requested By: Emma Patel Order Number: [id number] Galloway MD: Kiki Merecr M.D. Measurements Intervals Richardson Rate: 64 P: IN: -1 QRS: -70 QRSD: 158 T: 124 QT: 513 QTc: 530 Interpretive Statements ELECTRONIC VENTRICULAR PACEMAKER ABNORMAL RHYTHM ECG Compared to ECG 08/31/2019 20:42:05 No significant changes Electronically Signed On 09-02-2019 0:07:02 CDT by Kiki Mercer M.D. [email or web address]
[2019-09-01 02:46] LABS: Basophils % 0.3 %; Eosinophils # 0.2 10^3/uL (0.0-0.8); Eosinophils % 1.3 %; Lymphocytes # 1.3 10^3/uL (0.8-4.8); Lymphocytes % 10.9 %; Mean Corpuscular HGB Conc 31.4 g/dL (30.0-36.0); Mean Corpuscular Hemoglobin 30.2 pg (28.0-34.0); Mean Corpuscular Volume 96.2 fL (81-99); Mean Platelet Volume 9.8 fL (7.4-10.4); Monocytes # 0.7 10^3/uL (0.2-0.9); Monocytes % 5.6 %; Neutrophils % 81.6 %; Nucleated Red Blood Cells % 0 %; Platelet Count 268 10^3/cmm (130-400); Red Blood Count 3.64 10^6/uL (4.1-5.3); Red Cell Distribution Width 15.1 % (12.1-15.1); White Blood Count 12.2 10^3/uL (4.0-10.0)
[2019-09-01 03:02] LABS: Alanine Aminotransferase 6 U/L (0-33); Albumin Level 3.5 g/dL (3.5-5.2); Alkaline Phosphatase 62 IU/L (35-105); Aspartate Amino Transferase 12 U/L (0-32); Blood Urea Nitrogen 14 mg/dL (8-23); Calcium 8.9 mg/dL (8.5-10.5); Carbon Dioxide 25 mmol/L (22-29); Chloride 97 mmol/L (98-107); Globulin 3.2 g/dL (1.3-4.6); Glucose 299 mg/dL (65-115); Osmolality Calculated 289 mOsm/kg (285-295); Sodium 136 mmol/L (136-145); Total Bilirubin 0.4 mg/dL (0.15-1.2); Total Protein 6.7 g/dL (6.6-8.7)
[2019-09-01 03:38] LABS: Lipase 735 U/L (13-60)
[2019-09-01 06:16] LABS: Glucose Point of Care 318 mg/dL (70-110)
[2019-09-01] MEDS: atorvastatin 40 mg Tablet 20 MG PO (07:34)
[2019-09-01] MEDS: aspirin 81 mg Chew Tablet PO ×2 (07:34→16:59)
[2019-09-01] MEDS: gabapentin 300 mg Capsule 600 MG PO ×2 (07:35→16:59)
[2019-09-01] MEDS: FUROsemide 40 mg Tablet PO ×2 (07:35→16:59)
[2019-09-01] MEDS: pantoprazole DR 40 mg Tablet PO ×2 (07:37→16:59)
[2019-09-01] MEDS: spironolactone 25 mg Tablet 12.5 MG PO (07:37)
[2019-09-01] MEDS: sotalol 80 mg Tablet 120 MG PO ×2 (07:37→16:57)
[2019-09-01] MEDS: potassium chloride ER 10 mEq Tablet PO (07:37)
[2019-09-01] MEDS: isosorbide dinitrate 20 mg Tablet 30 MG PO (07:43)
[2019-09-01 10:39] LABS: Glucose Point of Care 274 mg/dL (70-110)
--- NOTE | 2019-09-01 15:55 | P.PN_ITS ---
Subjective Subjective: Interval history: History and physical reviewed. Patient reports that she feels better than she did. Still some upper abdominal discomfort. However, she is very hungry and wants to eat. Medications: Reviewed: Yes Vitals/I&O/Wt Last Vital Signs Temp 98.0 F 09/01/19 15:45 Pulse 63 09/01/19 15:45 Resp 18 09/01/19 15:45 BP 109/81 09/01/19 15:45 Pulse Ox 97 09/01/19 15:45 09/01/19 09/01/19 09/01/19 06:59 14:59 22:59 Output Total 300 / 300 Balance -300 / -300 Weight last 48 hrs Weight 92.533 kg Physical Exam Narrative: EXAM NARRATIVE: General exam no apparent distress Cardiovascular regular rate and rhythm without murmur Lungs clear no wheezing or crackles Abdomen is soft, tenderness slight in the left upper quadrant. Extremities no cyanosis clubbing or edema Data : 09/01/19 02:30 09/01/19 02:30 A&P Assessment and plan (1) Poorly controlled type 2 diabetes mellitus: Continue Lantus Continue sliding-scale Increase Lantus to 20 units tonight Januvia will be discontinued secondary to episode of pancreatitis Status: Acute (2) Acute hyperglycemia: See above Status: Acute (3) Restrictive lung disease: Followed by pulmonary Status: Acute (4) Diastolic CHF: Compensated currently Status: Chronic (5) Sleep apnea: Status: Acute (6) Abnormal serum lipase level: Repeat tomorrow. No evidence on CT of pancreatitis. Patient may have mild pancreatitis but hungry without nausea or vomiting, so clear liquids will be started Status: Acute (7) Hypomagnesemia: Supplemented Status: Acute Additional A&P Information History of atrial fibrillation. No anticoagulation currently. On aspirin. Past history of GI bleed. DVT prophylaxis with SCDs Full code Attestations Medical Necessity Statement*: Needs continued hospitalization secondary to mild pancreatitis and need to reinstitute diet and close monitoring until tomorrow. Coding Level of Care Code Acute Forest Products Teacher for Chg Fwd Diagnoses Poorly controlled type 2 diabetes mellitus E11.65 Acute hyperglycemia R73.9 Restrictive lung disease J98.4 Diastolic CHF I50.30 Sleep apnea G47.30 Abnormal serum lipase level R74.8 Hypomagnesemia E83.42
[2019-09-01 16:45] LABS: Glucose Point of Care 235 mg/dL (70-110)
[2019-09-01 21:06] LABS: Glucose Point of Care 257 mg/dL (70-110)
[2019-09-01] MEDS: insulin glargine 100 units/1 mL 20 UNIT SUBCUT (21:43)
[2019-09-02 04:00] VITALS: BP 120/65; PULSE 61; RESP 18; TEMP 36.6; O2SAT 95
[2019-09-02 06:11] LABS: Basophils # 0.1 10^3/uL (0.0-0.1); Basophils % 0.5 %; Eosinophils # 0.3 10^3/uL (0.0-0.8); Eosinophils % 2.7 %; Hematocrit 36.1 % (37.0-47.0); Hemoglobin 11.4 g/dL (11.5-15.3); Lymphocytes # 1.3 10^3/uL (0.8-4.8); Lymphocytes % 12.1 %; Mean Corpuscular HGB Conc 31.6 g/dL (30.0-36.0); Mean Corpuscular Hemoglobin 30.6 pg (28.0-34.0); Monocytes # 0.7 10^3/uL (0.2-0.9); Monocytes % 6.8 %; Neutrophils # 8.3 10^3/uL (1.8-7.7); Neutrophils % 77.5 %; Nucleated Red Blood Cells % 0 %; Platelet Count 295 10^3/cmm (130-400); Red Blood Count 3.72 10^6/uL (4.1-5.3); Red Cell Distribution Width 15.3 % (12.1-15.1); White Blood Count 10.7 10^3/uL (4.0-10.0)
[2019-09-02 06:29] LABS: Alanine Aminotransferase 9 U/L (0-33); Albumin Level 3.7 g/dL (3.5-5.2); Alkaline Phosphatase 60 IU/L (35-105); Anion Gap 17.8 (5-19); Aspartate Amino Transferase 16 U/L (0-32); Blood Urea Nitrogen 14 mg/dL (8-23); Calcium 9.1 mg/dL (8.5-10.5); Carbon Dioxide 25 mmol/L (22-29); Chloride 101 mmol/L (98-107); Globulin 2.8 g/dL (1.3-4.6); Glucose 241 mg/dL (65-115); Lipase 297 U/L (13-60); Osmolality Calculated 294 mOsm/kg (285-295); Potassium 3.8 mmol/L (3.5-5.1); Sodium 140 mmol/L (136-145); Total Bilirubin 0.5 mg/dL (0.15-1.2); Total Protein 6.5 g/dL (6.6-8.7)
[2019-09-02 06:42] LABS: Glucose Point of Care 268 mg/dL (70-110)
[2019-09-02 07:57] VITALS: BP 120/74; PULSE 61; RESP 20; O2SAT 91
[2019-09-02] MEDS: aspirin 81 mg Chew Tablet PO (08:44)
[2019-09-02] MEDS: gabapentin 300 mg Capsule 600 MG PO (08:44)
[2019-09-02] MEDS: potassium chloride ER 10 mEq Tablet PO (08:44)
[2019-09-02] MEDS: isosorbide dinitrate 20 mg Tablet 30 MG PO (08:44)
[2019-09-02] MEDS: atorvastatin 40 mg Tablet 20 MG PO (08:45)
[2019-09-02] MEDS: pantoprazole DR 40 mg Tablet PO (08:45)
[2019-09-02] MEDS: FUROsemide 40 mg Tablet PO (08:45)
[2019-09-02] MEDS: spironolactone 25 mg Tablet 12.5 MG PO (08:45)
[2019-09-02] MEDS: sotalol 80 mg Tablet 120 MG PO (08:45)
--- NOTE | 2019-09-02 10:30 | P.DS_ITS ---
Discharge Providers Date of Admission: 08/31/19 21:07 Date of Discharge: September 02, 2019 Attending Provider at Admission: Van Jain MD Attending Provider at Discharge: Hung Sargent MD Primary Care Provider: BÁRBARA Ruvalcaba Diagnoses at Discharge Discharge Diagnosis (1) Poorly controlled type 2 diabetes mellitus: Status: Acute Problem details: Lantus, Humalog initiated (2) Acute hyperglycemia: Status: Acute Problem details: Improved (3) Restrictive lung disease: Status: Acute (4) Diastolic CHF: Status: Chronic (5) Sleep apnea: Status: Acute (6) Abnormal serum lipase level: Status: Acute Problem details: Consistent with mild pancreatitis. Januvia discontinued (7) Hypomagnesemia: Status: Acute Reason for Visit Reason for Visit: high Hospital Course Hospital Course: Radha is a 79-year-old white female who presented to the hospital with nausea, abdominal pain, elevated glucose. She was found to have a elevated lipase, but no evidence of pancreatitis on CT scan. Sliding scale insulin was started, she was made n.p.o., and followed closely. During the time of her hospitalization Lantus was initiated. She required approximately 8 to 10 units on sliding scale with every meal. Lipase decreased during her hospital stay and nausea and abdominal discomfort went away. At discharge she was feeling much better. I will discharge her on Lantus 20 units, 5 units of Humalog with each meal. She will start her metformin tomorrow. Januvia will not be restarted as she likely had mild pancreatitis. She had not been taking her Eliquis, so we will not restart at this time. She will follow-up with her primary care provider in 3 to 5 days. Physical Exam Narrative: EXAM NARRATIVE: General exam no apparent distress Cardiovascular regular in rhythm without murmur Lungs clear Abdomen is soft, positive bowel sounds Extremities no cyanosis clubbing or edema Discharge Data Data Completed and Pending: Completed Studies During Hospitalization Category Date Time Status CT abdomen pelvis w con* [id number] Stat Cat Scan 08/31/19 18:39 Completed XR chest 1V antony ble [id number] Stat Exams 08/31/19 18:39 Completed Labs from last 24 hours 09/02/19 09/02/19 09/02/19 06:37 05:32 05:32 WBC 10.7 H RBC 3.72 L Hgb 11.4 L Hct 36.1 L MCV 97.0 MCH 30.6 MCHC 31.6 RDW 15.3 H Plt Count 295 MPV 10.0 Neut % (Auto) 77.5 Lymph % (Auto) 12.1 [place] % (Auto) 6.8 Eos % (Auto) 2.7 Baso % (Auto) 0.5 Neut # (Auto) 8.3 H Lymph # (Auto) 1.3 [place] # (Auto) 0.7 Eos # (Auto) 0.3 Baso # (Auto) 0.1 Nucleated RBC % (a uto) 0 Nucleated RBCs # 0.0 Sodium 140 Potassium 3.8 Chloride 101 Carbon Dioxide 25 Anion Gap 17.8 BUN 14 Creatinine 0.8 Glucose 241 H POC Glucose 268 Calculated Osmolal ity 294 Calcium 9.1 Total Bilirubin 0.5 AST 16 ALT 9 Alkaline Phosphata se 60 Total Protein 6.5 L Albumin 3.7 Globulin 2.8 Lipase 297 H 09/01/19 09/01/19 09/01/19 21:03 16:38 10:36 WBC RBC Hgb Hct MCV MCH MCHC RDW Plt Count MPV Neut % (Auto) Lymph % (Auto) [place] % (Auto) Eos % (Auto) Baso % (Auto) Neut # (Auto) Lymph # (Auto) [place] # (Auto) Eos # (Auto) Baso # (Auto) Nucleated RBC % (a uto) Nucleated RBCs # Sodium Potassium Chloride Carbon Dioxide Anion Gap BUN Creatinine Glucose POC Glucose 257 235 274 Calculated Osmolal ity Calcium Total Bilirubin AST ALT Alkaline Phosphata se Total Protein Albumin Globulin Lipase Vitals: Last Vital Signs Temp 97.8 F 09/02/19 04:00 Pulse 61 09/02/19 07:57 Resp 20 H 09/02/19 07:57 BP 120/74 09/02/19 07:57 Pulse Ox 91 09/02/19 07:57 Discharge Plan Discharge Patient Disposition: Home, Self-Care Condition: Stable Prescriptions: New Lantus U-100 Insulin 100 unit/mL Solution 20 unit SUBCUT BEDTIME Qty: 1 RF: 0 Humalog KwikPen Insulin 100 unit/mL insulin pen 5 unit SUBCUT TID Qty: 15 RF: 0 Continued gabapentin 800 mg tablet 600 mg PO BID RF: 0 ferrous sulfate 325 mg (65 mg iron) tablet 325 mg PO BID RF: 0 Protonix 40 mg tablet,delayed release (DR/EC) 40 mg PO BID RF: 0 potassium chloride 10 mEq capsule, extended release 10 meq PO DAILY RF: 0 ascorbate calcium (vitamin C) 500 mg tablet 500 mg PO BID RF: 0 sotalol 120 mg tablet 120 mg PO BID RF: 0 Lasix 40 mg tablet 40 mg PO BID 90 Days Qty: 180 RF: 3 isosorbide dinitrate 30 mg tablet 30 mg PO DAILY Qty: 30 RF: 6 metformin 500 mg Tablet 500 mg PO BID 30 Days Qty: 60 RF: 0 pravastatin 40 mg Tablet 40 mg PO DAILY 30 Days Qty: 30 RF: 0 nitroglycerin [Nitrostat] 0.4 mg Tablet, Sublingual 0.4 mg SUBLINGUAL Q5M PRN (Reason: Chest Pain) 5 Days Qty: 3 RF: 0 aspirin 81 mg Tablet,Chewable 81 mg PO BID RF: 0 cholecalciferol (vitamin D3) [Vitamin D3] 25 mcg (1,000 unit) Capsule 25 mcg PO DAILY RF: 0 spironolactone [Aldactone] 25 mg tablet 12.5 mg PO DAILY RF: 0 Discontinued Januvia 50 mg Tablet 50 mg PO DAILY 30 Days Qty: 30 RF: 0 Eliquis 5 mg Tablet 5 mg PO BID RF: 0 Discharge Orders: Discharge Order (Routine); Ordered 09/02/19 Ordered By: Hung Sargent Referrals: Grace Willett FNP [Primary Care Provider] - 09/08/19 11:00 am (`) Discharge Diet: Diabetic and Low Fat Discharge Activity: Increase activity as tolerated Patient Instructions: Type 2 Diabetes, Insulin Glargine (Injection), Pancreatitis (DC), Low Fat Diet (DC), Basic Carbohydrate Counting (DC) Activity Restrictions/Additional Instructions: Do not restart metformin until tomorrow. Take blood sugar 3 times daily before meals and report to your primary care provider Do not restart Januvia Your Eliquis was previously discontinued. Do not restart at this time. Resume your home oxygen Discharge Attestations Time Spent in Discharge Care*: greater than 30 min Quality Metrics Clinical Quality Measures During this hospital stay, did patient experience: None Coding Level of Care Code Acute Power Crane Operator for Chg Fwd Diagnoses Poorly controlled type 2 diabetes mellitus E11.65 Acute hyperglycemia R73.9 Restrictive lung disease J98.4 Diastolic CHF I50.30 Sleep apnea G47.30 Abnormal serum lipase level R74.8 Hypomagnesemia E83.42
[2019-09-02 10:50] LABS: Glucose Point of Care 372 mg/dL (70-110)
[2019-09-02 11:12] VITALS: BP 124/64; PULSE 59; RESP 18; TEMP 36.5; O2SAT 97
[2019-09-02 16:03] VITALS: BP 124/64; PULSE 59; RESP 18; TEMP 36.5; O2SAT 97
== END 2019-09-02 16:04 | disposition home or self-care (01) ==
LOC: ER 21:12 → MEDSURG 21:31
PROVIDERS: Emergency Medicine; Admitting Provider Internal Medicine; PCP Nurse Practitioner Family; Visit Provider Internal Medicine
DX: E11.65 Type 2 diabetes mellitus with hyperglycemia (principal); J98.4 Other disorders of lung; I50.30 Unspecified diastolic (congestive) heart failure; G47.30 Sleep apnea, unspecified; R74.8 Abnormal levels of other serum enzymes; E83.42 Hypomagnesemia; I25.10 Atherosclerotic heart disease of native coronary artery without angina pectoris; Z95.5 Presence of coronary angioplasty implant and graft; I48.91 Unspecified atrial fibrillation; Z79.01 Long term (current) use of anticoagulants; Z99.81 Dependence on supplemental oxygen; Z79.82 Long term (current) use of aspirin; Z79.4 Long term (current) use of insulin; I48.20 Chronic atrial fibrillation, unspecified; Z86.711 Personal history of pulmonary embolism; Z87.891 Personal history of nicotine dependence; E11.42 Type 2 diabetes mellitus with diabetic polyneuropathy; I11.0 Hypertensive heart disease with heart failure
CPT/HCPCS: 12345; 36415; 36416; 36600; 51701; 71045; 74177; 80053; 81003; 82009; 82550; 82803; 82962; 83036; 83690; 83735; 84478; 84484; 85025; 93005; 96361; 96365; 96372; 96374; 96375; 96376; 99283; 99284; 99285; G0378; J1815; J3475; J7030; J7040; Q9967

== ENCOUNTER 2019-09-09 02:43 | Outpatient (RCR) | payer MEDICARE, SELFPAY | END 2019-10-09 23:59 | disposition home or self-care (01) | LOC: SPT 02:43 | PROVIDERS: PCP Nurse Practitioner Family; Visit Provider Internal Medicine Critical Care Medicine | DX: R26.89 Other abnormalities of gait and mobility (principal) | CPT/HCPCS: 97110; 97530 ==

== ENCOUNTER 2019-10-10 06:00 | Outpatient (RCR) | payer MEDICARE, SELFPAY | END 2019-11-09 23:59 | disposition home or self-care (01) | LOC: SPT 06:00 | PROVIDERS: PCP Nurse Practitioner Family; Visit Provider Internal Medicine Critical Care Medicine | DX: R26.89 Other abnormalities of gait and mobility (principal) | CPT/HCPCS: 97110 ==

== ENCOUNTER → 2019-10-16 09:52 | Outpatient (BNVA) | payer MEDICARE, SELFPAY | PROVIDERS: PCP Nurse Practitioner Family; Visit Provider Internal Medicine | DX: E11.65 Type 2 diabetes mellitus with hyperglycemia (principal); E11.59 Type 2 diabetes mellitus with other circulatory complications; I25.10 Atherosclerotic heart disease of native coronary artery without angina pectoris; G47.30 Sleep apnea, unspecified; R74.8 Abnormal levels of other serum enzymes; R10.9 Unspecified abdominal pain | CPT/HCPCS: 82044; 83036; 83690; 99203 ==

== ENCOUNTER 2019-10-16 11:27 | Outpatient (CLI) | payer MEDICARE, SELFPAY ==
[2019-10-16 12:42] LABS: Creatinine Urine, Random 72 mg/dL (28-217)
[2019-10-16 12:43] LABS: Estmated Average Glucose 275; Hemoglobin A1C 11.2 % (4.0-6.0)
[2019-10-16 12:45] LABS: Microalbum Creatinine Ratio Ur 14 mg/dL (0-20); Microalbumin Random Urine < 1 ug/dL (0-20)
[2019-10-16 12:49] LABS: Lipase 1553 U/L (13-60)
== END 2019-10-16 11:28 | disposition home or self-care (01) ==
LOC: LAB 11:33
PROVIDERS: PCP Nurse Practitioner Family; Visit Provider Internal Medicine
DX: E11.59 Type 2 diabetes mellitus with other circulatory complications (principal); E11.65 Type 2 diabetes mellitus with hyperglycemia; G47.30 Sleep apnea, unspecified; I25.10 Atherosclerotic heart disease of native coronary artery without angina pectoris; R74.8 Abnormal levels of other serum enzymes
CPT/HCPCS: 82044; 83036; 83690

== ENCOUNTER 2019-10-16 14:28 | Emergency (ER) | payer MEDICARE, SELFPAY ==
[2019-10-16] VITALS (8 sets, daily range): BP systolic 104–158; BP diastolic 59–88; PULSE 57–78; RESP 14–18; TEMP 36.5; O2SAT 95–98; BMI 35.0
--- NOTE | 2019-10-16 14:40 | W.ED.ABDPA2 ---
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 Patient tells me in August she was hospitalized with a diagnosis of pancreatitis thought to be related to her diabetes. Patient tells me pain afterwards seem to improve however states over the past 3 weeks she has had intermittent abdominal pains worsening over the past week. She describes feelings of nausea without vomiting. She has been seen Dr. Ayala for management of her diabetes. She was taken off of her Januvia and started on Lantus and Humalog. Patient tells me she is still having trouble controlling her sugars and states they often run in the 300s. MD elicited complaint: abdominal pain Pertinent past history: other (pancreatitis ) Onset (ago): week(s) Pain Consistency: intermittent Location: Epigastric, LUQ and RUQ Severity: moderate Quality: cramping and aching Radiation: none Migration to: no migration Associated Symptoms: Reports nausea; Denies change in bowel habits, chills, diarrhea, dysuria, fever(s) and vomiting Review of Systems Const: Denies: fever(s), chills, body aches or fatigue Card: Denies: chest pain Resp: Denies: dyspnea GI: Reports: abdominal pain and nausea; Denies: vomiting, diarrhea or change in bowel habits : Denies: flank pain, difficulty voiding, dysuria, urinary frequency or urinary urgency Musc: Denies: neck pain or back pain Skin/Breast: Denies: rash Neuro: Denies: headache(s) PFS ED PFSH: Medical History (Updated 10/16/19 @ 18:11 by BÁRBARA Francis) Chronic atrial fibrillation Diabetic peripheral neuropathy Diastolic CHF History of colon polyps Pulmonary embolism Type 2 diabetes mellitus without use of insulin Surgical History H/O hysterectomy for benign disease H/O: hysterectomy History of appendectomy History of coronary artery stent placement History of esophagogastroduodenoscopy (EGD) 03/15/2019: EGD with biopsy Findings: Duodenal ulceration, most likely source of her bleed History of thoracentesis S/P ablation of atrial fibrillation Status post colonoscopy with polypectomy 03/15/2019: Colonoscopy with polypectomy Findings: 2 cm sessile polyp in ascending colon removed with cold biopsy forceps Moderate diverticulosis sigmoid colon Grade 4 hemorrhoids Family History Mother CAD (coronary artery disease) Family/Other Cancer Father Chronic kidney disease (CKD) Brother Dementia Diabetes Family history of premature coronary artery disease Hypertension Sister Hypertension Social History Smoking and tobacco status: former smoker Quit status (tobacco): has quit using tobacco Year quit tobacco: 2013 PPD x 55 Years Second hand smoke exposure: No Alcohol intake: never Lives independently: Yes Household members: spouse Housing: House Marital status: Current occupational status: retired History of recent travel: No Current gender identity: Female Physical Exam Const: COMMON NORMALS: no acute distress, patient oriented x3, no limitations and alert HENMT: COMMON NORMALS: normocephalic and atraumatic HEAD & SCALP: normocephalic and atraumatic Resp: COMMON NORMALS: normal respiratory effort and clear to auscultation bilaterally AUSCULTATION: clear to auscultation bilaterally Cardio: COMMON NORMALS: regular rate and regular rhythm RATE: regular rate RHYTHM: regular rhythm GI: COMMON NORMALS: Normal to inspection, nondistended, normoactive bowel sounds present, Soft to palpation, No hepatosplenomegaly present and no masses PALPATION: Yes Soft to palpation, Yes Tenderness to palpation present (GI) (throughout upper abdomen ) and Yes No hepatosplenomegaly present : COMMON NORMALS: Yes no CVA tenderness BLADDER/KIDNEY EXAM: Yes no CVA tenderness Back/Pelvis: COMMON NORMALS: no CVA tenderness Extremity: COMMON NORMALS: normal to inspection Neuro: COMMON NORMALS: patient oriented x3 SENSORIUM/ORIENTATION: Yes alert Skin: COMMON NORMALS: no rashes or lesions noted GENERAL SKIN EXAM: no rashes or lesions noted Course Vital Signs: Vital signs: Vital Signs Temperature 97.7 F 10/16/19 14:35 Pulse Rate 65 10/16/19 20:41 Respiratory Rate 14 10/16/19 20:41 Blood Pressure 150/67 08/07/20 20:41 Pulse Oximetry 96 10/16/19 20:41 MDM - Abdominal Pain MDM Narrative: Medical decision making narrative: Care transferred to BÁRBARA Francis pending results of her gallbladder US and CT abd/pelvis Lab Data: Labs: Lab Results 10/16/19 10/16/19 10/16/19 Range/Units 15:00 15:12 15:12 WBC 13.9 H (4.0-10.0) 10^3/ uL RBC 4.69 (4.1-5.3) 10^6/u L Hgb 13.5 (11.5-15.3) g/dL Hct 43.9 (37.0-47.0) % MCV 93.6 (81-99) fL MCH 28.8 (28.0-34.0) pg MCHC 30.8 (30.0-36.0) g/dL RDW 13.7 (12.1-15.1) % Plt Count 314 (130-400) 10^3/c mm MPV 9.9 (7.4-10.4) fL Neut % (Auto) 75.1 % Lymph % (Auto) 14.8 % Ford % (Auto) 7.0 % Eos % (Auto) 1.9 % Baso % (Auto) 0.6 % Neut # (Auto) 10.44 H (1.8-7.7) 10^3/u L Lymph # (Auto) 2.1 (0.8-4.8) 10^3/u L Ford # (Auto) 1.0 H (0.2-0.9) 10^3/u L Eos # (Auto) 0.3 (0.0-0.8) 10^3/u L Baso # (Auto) 0.1 (0.0-0.1) 10^3/u L Nucleated RBC % (a uto) 0 % Nucleated RBCs # 0.0 /100WBC Specimen Type Sample Site ABG pH (7.35-7.45) ABG pCO2 (35-45) mmHg ABG pO2 (80.0-100.0) mmH g ABG HCO3 (22-26) mmol/L ABG O2 Saturation ABG Base Excess (-2.0-2.0) mmol/ L Mitchell Test A-a O2 Gradient (5-10) mmHg Hematocrit (37-47) % Hgb O2 Saturation (95-100) % Carboxyhemoglobin (0.4-20.1) %THgb Methemoglobin (0.4-1.5) % Total Hemoglobin (12-16) g/dL Ionized Calcium (1.1-1.4) mmol/L O2 Delivery Device O2 Liters/Min % FiO2 % Medical Front Desk Specialist ID Sodium 137 (136-145) mmol/L Potassium 4.2 (3.5-5.1) mmol/L Chloride 99 (98-107) mmol/L Carbon Dioxide 25 (22-29) mmol/L Anion Gap 17.2 (5-19) BUN 20 (8-23) mg/dL Creatinine 1.1 H (0.5-0.9) mg/dL GFR Calculation Not Reportable Glucose 176 H (65-115) mg/dL Calculated Osmolal ity 285 (285-295) mOsm/k g Calcium 9.7 (8.5-10.5) mg/dL Total Bilirubin 0.3 (0.15-1.2) mg/dL AST 15 (0-32) U/L ALT 10 (0-33) U/L Alkaline Phosphata se 85 (35-105) IU/L Total Protein 7.7 (6.6-8.7) g/dL Albumin 4.2 (3.5-5.2) g/dL Globulin 3.5 (1.3-4.6) g/dL Lipase 2793 H (13-60) U/L Urine Color Yellow (Yellow) Urine Appearance Sl hazy (CLEAR) Urine pH 5 (5-7) Ur Specific Gravit y 1.010 (1.005-1.030) Urine Protein Neg (Negative) Urine Glucose (UA) 1+ (Normal) Urine Ketones Negative (Negative) Urine Blood Neg (Negative) Urine Nitrate Negative (Negative) Urine Bilirubin Neg (NEGATIVE) Urine Urobilinogen Norm (Negative) mg/dL Ur Leukocyte Grace ase Trace H (Negative) Urine RBC 0-4 H (0-2) /hpf Urine WBC 25-40 H (0-5) /hpf Ur Squamous Epith Cells 10-15 H (0-5) Amorphous Sediment Not Reportable Urine Bacteria 2+ H (NONE) Urine Yeast 3+ H Serum Ketones (Negative) 08/07/20 08/07/20 Range/Units 15:12 15:39 WBC (4.0-10.0) 10^3/ uL RBC (4.1-5.3) 10^6/u L Hgb (11.5-15.3) g/dL Hct (37.0-47.0) % MCV (81-99) fL MCH (28.0-34.0) pg MCHC (30.0-36.0) g/dL RDW (12.1-15.1) % Plt Count (130-400) 10^3/c mm MPV (7.4-10.4) fL Neut % (Auto) % Lymph % (Auto) % Ford % (Auto) % Eos % (Auto) % Baso % (Auto) % Neut # (Auto) (1.8-7.7) 10^3/u L Lymph # (Auto) (0.8-4.8) 10^3/u L Ford # (Auto) (0.2-0.9) 10^3/u L Eos # (Auto) (0.0-0.8) 10^3/u L Baso # (Auto) (0.0-0.1) 10^3/u L Nucleated RBC % (a uto) % Nucleated RBCs # /100WBC Specimen Type Arterial Sample Site Radial, left ABG pH 7.43 (7.35-7.45) ABG pCO2 35.8 (35-45) mmHg ABG pO2 78.9 L (80.0-100.0) mmH g ABG HCO3 23.8 (22-26) mmol/L ABG O2 Saturation 96.8 ABG Base Excess -0.1 (-2.0-2.0) mmol/ L Mitchell Test Pos A-a O2 Gradient 13.6 H (5-10) mmHg Hematocrit 38.8 (37-47) % Hgb O2 Saturation 94.8 L (95-100) % Carboxyhemoglobin 1.1 (0.4-20.1) %THgb Methemoglobin 0.9 (0.4-1.5) % Total Hemoglobin 12.6 (12-16) g/dL Ionized Calcium 1.2 (1.1-1.4) mmol/L O2 Delivery Device Nc O2 Liters/Min 3.0 % FiO2 32.0 % Medical Front Desk Specialist ID glc Sodium 140.0 (136-145) mmol/L Potassium 3.9 (3.5-5.1) mmol/L Chloride (98-107) mmol/L Carbon Dioxide (22-29) mmol/L Anion Gap (5-19) BUN (8-23) mg/dL Creatinine (0.5-0.9) mg/dL GFR Calculation Glucose 173.0 H (65-115) mg/dL Calculated Osmolal ity (285-295) mOsm/k g Calcium (8.5-10.5) mg/dL Total Bilirubin (0.15-1.2) mg/dL AST (0-32) U/L ALT (0-33) U/L Alkaline Phosphata se (35-105) IU/L Total Protein (6.6-8.7) g/dL Albumin (3.5-5.2) g/dL Globulin (1.3-4.6) g/dL Lipase (13-60) U/L Urine Color (Yellow) Urine Appearance (CLEAR) Urine pH (5-7) Ur Specific Gravit y (1.005-1.030) Urine Protein (Negative) Urine Glucose (UA) (Normal) Urine Ketones (Negative) Urine Blood (Negative) Urine Nitrate (Negative) Urine Bilirubin (NEGATIVE) Urine Urobilinogen (Negative) mg/dL Ur Leukocyte Grace ase (Negative) Urine RBC (0-2) /hpf Urine WBC (0-5) /hpf Ur Squamous Epith Cells (0-5) Amorphous Sediment Urine Bacteria (NONE) Urine Yeast Serum Ketones Negative (Negative) Discharge Plan Discharge Patient Disposition: Xfer Short-Term Hosp Clinical Impression: Common bile duct (CBD) obstruction Condition: Stable Referrals: Grace Willett FNP [Primary Care Provider] - Discharge Date/Time: 10/16/19 20:30 Coding Level of Care Code 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 Fwd Exam Comprehensive Documented by User: BÁRBARA Francis 10/16/19 18:10 HPI - Abdominal Pain General: Chief Complaint: Abdominal Pain Stated Complaint: abd pain Time Seen by Provider: 10/16/19 14:33 PFSH ED PFSH: Medical History (Updated 10/16/19 @ 18:11 by BÁRBARA Francis) Chronic atrial fibrillation Diabetic peripheral neuropathy Diastolic CHF History of colon polyps Pulmonary embolism Type 2 diabetes mellitus without use of insulin Surgical History H/O hysterectomy for benign disease H/O: hysterectomy History of appendectomy History of coronary artery stent placement History of esophagogastroduodenoscopy (EGD) 03/15/2019: EGD with biopsy Findings: Duodenal ulceration, most likely source of her bleed History of thoracentesis S/P ablation of atrial fibrillation Status post colonoscopy with polypectomy 03/15/2019: Colonoscopy with polypectomy Findings: 2 cm sessile polyp in ascending colon removed with cold biopsy forceps Moderate diverticulosis sigmoid colon Grade 4 hemorrhoids Family History Mother CAD (coronary artery disease) Family/Other Cancer Father Chronic kidney disease (CKD) Brother Dementia Diabetes Family history of premature coronary artery disease Hypertension Sister Hypertension Social History Smoking and tobacco status: former smoker Quit status (tobacco): has quit using tobacco Year quit tobacco: 2013 - PPD x 55 Years Second hand smoke exposure: No Alcohol intake: never Lives independently: Yes Household members: spouse Housing: House Marital status: Current occupational status: retired History of recent travel: No Current gender identity: Female Course Vital Signs: Vital signs: Vital Signs Temperature 97.7 F 10/16/19 14:35 Pulse Rate 65 10/16/19 20:41 Respiratory Rate 14 10/16/19 20:41 Blood Pressure 150/67 10/16/19 20:41 Pulse Oximetry 96 10/16/19 20:41 MDM - Abdominal Pain MDM Narrative: Medical decision making narrative: Spoke to [facility] and he said that Dr. Colby a surgeon has accepted the patient on transfer they are waiting for telemetry bed opened up and they will call us and let us know then. Lab Data: Labs: Lab Results 10/16/19 10/16/19 10/16/19 Range/Units 15:00 15:12 15:12 WBC 13.9 H (4.0-10.0) 10^3/ uL RBC 4.69 (4.1-5.3) 10^6/u L Hgb 13.5 (11.5-15.3) g/dL Hct 43.9 (37.0-47.0) % MCV 93.6 (81-99) fL MCH 28.8 (28.0-34.0) pg MCHC 30.8 (30.0-36.0) g/dL RDW 13.7 (12.1-15.1) % Plt Count 314 (130-400) 10^3/c mm MPV 9.9 (7.4-10.4) fL Neut % (Auto) 75.1 % Lymph % (Auto) 14.8 % Ford % (Auto) 7.0 % Eos % (Auto) 1.9 % Baso % (Auto) 0.6 % Neut # (Auto) 10.44 H (1.8-7.7) 10^3/u L Lymph # (Auto) 2.1 (0.8-4.8) 10^3/u L Ford # (Auto) 1.0 H (0.2-0.9) 10^3/u L Eos # (Auto) 0.3 (0.0-0.8) 10^3/u L Baso # (Auto) 0.1 (0.0-0.1) 10^3/u L Nucleated RBC % (a uto) 0 % Nucleated RBCs # 0.0 /100WBC Specimen Type Sample Site ABG pH (7.35-7.45) ABG pCO2 (35-45) mmHg ABG pO2 (80.0-100.0) mmH g ABG HCO3 (22-26) mmol/L ABG O2 Saturation ABG Base Excess (-2.0-2.0) mmol/ L Mitchell Test A-a O2 Gradient (5-10) mmHg Hematocrit (37-47) % Hgb O2 Saturation (95-100) % Carboxyhemoglobin (0.4-20.1) %THgb Methemoglobin (0.4-1.5) % Total Hemoglobin (12-16) g/dL Ionized Calcium (1.1-1.4) mmol/L O2 Delivery Device O2 Liters/Min % FiO2 % Medical Front Desk Specialist ID Sodium 137 (136-145) mmol/L Potassium 4.2 (3.5-5.1) mmol/L Chloride 99 (98-107) mmol/L Carbon Dioxide 25 (22-29) mmol/L Anion Gap 17.2 (5-19) BUN 20 (8-23) mg/dL Creatinine 1.1 H (0.5-0.9) mg/dL GFR Calculation Not Reportable Glucose 176 H (65-115) mg/dL Calculated Osmolal ity 285 (285-295) mOsm/k g Calcium 9.7 (8.5-10.5) mg/dL Total Bilirubin 0.3 (0.15-1.2) mg/dL AST 15 (0-32) U/L ALT 10 (0-33) U/L Alkaline Phosphata se 85 (35-105) IU/L Total Protein 7.7 (6.6-8.7) g/dL Albumin 4.2 (3.5-5.2) g/dL Globulin 3.5 (1.3-4.6) g/dL Lipase 2793 H (13-60) U/L Urine Color Yellow (Yellow) Urine Appearance Sl hazy (CLEAR) Urine pH 5 (5-7) Ur Specific Gravit y 1.010 (1.005-1.030) Urine Protein Neg (Negative) Urine Glucose (UA) 1+ (Normal) Urine Ketones Negative (Negative) Urine Blood Neg (Negative) Urine Nitrate Negative (Negative) Urine Bilirubin Neg (NEGATIVE) Urine Urobilinogen Norm (Negative) mg/dL Ur Leukocyte Grace ase Trace H (Negative) Urine RBC 0-4 H (0-2) /hpf Urine WBC 25-40 H (0-5) /hpf Ur Squamous Epith Cells 10-15 H (0-5) Amorphous Sediment Not Reportable Urine Bacteria 2+ H (NONE) Urine Yeast 3+ H Serum Ketones (Negative) 10/16/19 10/16/19 Range/Units 15:12 15:39 WBC (4.0-10.0) 10^3/ uL RBC (4.1-5.3) 10^6/u L Hgb (11.5-15.3) g/dL Hct (37.0-47.0) % MCV (81-99) fL MCH (28.0-34.0) pg MCHC (30.0-36.0) g/dL RDW (12.1-15.1) % Plt Count (130-400) 10^3/c mm MPV (7.4-10.4) fL Neut % (Auto) % Lymph % (Auto) % Ford % (Auto) % Eos % (Auto) % Baso % (Auto) % Neut # (Auto) (1.8-7.7) 10^3/u L Lymph # (Auto) (0.8-4.8) 10^3/u L Ford # (Auto) (0.2-0.9) 10^3/u L Eos # (Auto) (0.0-0.8) 10^3/u L Baso # (Auto) (0.0-0.1) 10^3/u L Nucleated RBC % (a uto) % Nucleated RBCs # /100WBC Specimen Type Arterial Sample Site Radial, left ABG pH 7.43 (7.35-7.45) ABG pCO2 35.8 (35-45) mmHg ABG pO2 78.9 L (80.0-100.0) mmH g ABG HCO3 23.8 (22-26) mmol/L ABG O2 Saturation 96.8 ABG Base Excess -0.1 (-2.0-2.0) mmol/ L Mitchell Test Pos A-a O2 Gradient 13.6 H (5-10) mmHg Hematocrit 38.8 (37-47) % Hgb O2 Saturation 94.8 L (95-100) % Carboxyhemoglobin 1.1 (0.4-20.1) %THgb Methemoglobin 0.9 (0.4-1.5) % Total Hemoglobin 12.6 (12-16) g/dL Ionized Calcium 1.2 (1.1-1.4) mmol/L O2 Delivery Device Nc O2 Liters/Min 3.0 % FiO2 32.0 % Medical Front Desk Specialist ID glc Sodium 140.0 (136-145) mmol/L Potassium 3.9 (3.5-5.1) mmol/L Chloride (98-107) mmol/L Carbon Dioxide (22-29) mmol/L Anion Gap (5-19) BUN (8-23) mg/dL Creatinine (0.5-0.9) mg/dL GFR Calculation Glucose 173.0 H (65-115) mg/dL Calculated Osmolal ity (285-295) mOsm/k g Calcium (8.5-10.5) mg/dL Total Bilirubin (0.15-1.2) mg/dL AST (0-32) U/L ALT (0-33) U/L Alkaline Phosphata se (35-105) IU/L Total Protein (6.6-8.7) g/dL Albumin (3.5-5.2) g/dL Globulin (1.3-4.6) g/dL Lipase (13-60) U/L Urine Color (Yellow) Urine Appearance (CLEAR) Urine pH (5-7) Ur Specific Gravit y (1.005-1.030) Urine Protein (Negative) Urine Glucose (UA) (Normal) Urine Ketones (Negative) Urine Blood (Negative) Urine Nitrate (Negative) Urine Bilirubin (NEGATIVE) Urine Urobilinogen (Negative) mg/dL Ur Leukocyte Grace ase (Negative) Urine RBC (0-2) /hpf Urine WBC (0-5) /hpf Ur Squamous Epith Cells (0-5) Amorphous Sediment Urine Bacteria (NONE) Urine Yeast Serum Ketones Negative (Negative) Discharge Plan Discharge Patient Disposition: Xfer Short-Term Hosp Clinical Impression: Common bile duct (CBD) obstruction Condition: Stable Referrals: Grace Willett FNP [Primary Care Provider] - Discharge Date/Time: 10/16/19 20:30 Coding Level of Care Code ED Hot Metal Mixer Operator for Chg Fwd Exam Comprehensive
--- NOTE | 2019-10-16 14:52 | CTR_ITS ---
PROCEDURE INFORMATION: Exam: CT Abdomen And Pelvis With Contrast Exam date and time: 10/16/2019 4:03 PM Age: 79 years old Clinical indication: Abdominal pain; Generalized; Prior surgery; Surgery type: Appy, hyst; Additional info: Pain, nausea x 3 weeks, elevated lipase TECHNIQUE: Imaging protocol: Computed tomography of the abdomen and pelvis with intravenous contrast. Radiation optimization: All CT scans at this facility use at least one of these dose optimization techniques: automated exposure control; mA and/or kV adjustment per patient size (includes targeted exams where dose is matched to clinical indication); or iterative reconstruction. Contrast material: VISIPAQUE; Contrast volume: 95 ml; Contrast route: INTRAVENOUS (IV); COMPARISON: CT abdomen pelvis w con* [id number] 08/31/2019 7:28 PM RADIATION DOSE METRICS: Total DLP (mGy-cm): 1518.33 FINDINGS: Lungs: There are mild fibrotic changes at the lung bases. Liver: There is no focal abnormality within the liver. Gallbladder and bile ducts: Multiple calcified gallstones are present. Common bile duct is mildly dilated to 10 mm. Pancreas: The pancreas is normal. The pancreas is normal. Spleen: There is a simple splenic cyst. Adrenals: The adrenal glands are normal. Kidneys and ureters: There is a simple 4.8 cm cyst in the left kidney. The right kidney is normal. There is no evidence of hydronephrosis. There is no evidence of renal or ureteral calcifications. Stomach and bowel: Mild diverticulosis is present in the distal colon. There is no evidence of colitis/diverticulitis. There is no evidence of intestinal obstruction. Appendix: Not identified Intraperitoneal space: There is no evidence of free intraperitoneal fluid. Vasculature: The aorta demonstrates severe atherosclerotic calcification and ectasia. 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 Aneurysm is not changed from 08/31/2019, this is slightly larger than on 04/07/2013 when it measured 27 mm. Lymph nodes: Unremarkable. No enlarged lymph nodes. Bladder: Unremarkable as visualized. Reproductive: There has been a hysterectomy. Bones/joints: There is moderate degenerative change at L5-S1. Soft tissues: Unremarkable. CT/CT abdomen pelvis w con* [id number] IMPRESSION: 1. Cholelithiasis. 2. Abdominal aortic aneurysm as described. 3. No acute finding. 4. No significant change from 08/31/2019 COMMENTS: Consistent with the [employer]'s Incidental Findings Committee white paper (J Am Skye Radiol 2018): Any incidental renal lesion less than 1.0 cm or classified as too small to characterize, or any incidental cystic renal lesion characterized as simple-appearing, is likely benign. No follow-up imaging is recommended for these lesions per consensus recommendations based on imaging criteria. Radiation Dose CTDIVOL = (mGy): DLP = 1518.33 (mGy-cm)
[2019-10-16] MEDS: sodium chloride 0.9% 1,000 ML 500 ML IV (15:18)
[2019-10-16 15:21] LABS: Basophils # 0.1 10^3/uL (0.0-0.1); Basophils % 0.6 %; Eosinophils # 0.3 10^3/uL (0.0-0.8); Eosinophils % 1.9 %; Hematocrit 43.9 % (37.0-47.0); Hemoglobin 13.5 g/dL (11.5-15.3); Lymphocytes # 2.1 10^3/uL (0.8-4.8); Lymphocytes % 14.8 %; Mean Corpuscular HGB Conc 30.8 g/dL (30.0-36.0); Mean Corpuscular Hemoglobin 28.8 pg (28.0-34.0); Mean Corpuscular Volume 93.6 fL (81-99); Mean Platelet Volume 9.9 fL (7.4-10.4); Neutrophils # 10.44 10^3/uL (1.8-7.7); Neutrophils % 75.1 %; Nucleated Red Blood Cells % 0 %; Platelet Count 314 10^3/cmm (130-400); Red Blood Count 4.69 10^6/uL (4.1-5.3); Red Cell Distribution Width 13.7 % (12.1-15.1); White Blood Count 13.9 10^3/uL (4.0-10.0)
[2019-10-16 15:38] LABS: Add Urine Microscopic? YES; Bilirubin Urine Neg (NEGATIVE); Blood Urine Neg (Negative); Glucose Urine UA 1+ (Normal); Ketones Urine Negative (Negative); Leukocyte Esterase Urine Trace (Negative); Nitrate Urine Negative (Negative); Protein Urine Neg (Negative); Urine Appearance SL Hazy (CLEAR); Urine Color Yellow (Yellow); Urobilinogen Urine Norm (Negative); pH Urine 5 (5-7)
[2019-10-16 15:43] LABS: Ketone (Acetest) Serum Negative (Negative)
[2019-10-16 15:51] LABS: Alanine Aminotransferase 10 U/L (0-33); Albumin Level 4.2 g/dL (3.5-5.2); Alkaline Phosphatase 85 IU/L (35-105); Anion Gap 17.2 (5-19); Aspartate Amino Transferase 15 U/L (0-32); Blood Urea Nitrogen 20 mg/dL (8-23); Calcium 9.7 mg/dL (8.5-10.5); Carbon Dioxide 25 mmol/L (22-29); Chloride 99 mmol/L (98-107); Globulin 3.5 g/dL (1.3-4.6); Glucose 176 mg/dL (65-115); Osmolality Calculated 285 mOsm/kg (285-295); Potassium 4.2 mmol/L (3.5-5.1); Sodium 137 mmol/L (136-145); Total Bilirubin 0.3 mg/dL (0.15-1.2); Total Protein 7.7 g/dL (6.6-8.7)
[2019-10-16 15:54] LABS: ABG PCO2 35.8 mmHg (35-45); ABG PH Result 7.43 (7.35-7.45); Alveolar-Arterial Oxygen Gradi 13.6 mmHg (5-10); Arterial Blood Gas Hematocrit 38.8 % (37-47); Base Excess ABG -0.1 mmol/L (-2.0-2.0); Blood Gas Allen Test Pos; Blood Gas Operator Identificat glc; Blood Gas Sample Site Radial, left; Blood Gas Sample Type Arterial; Carboxyhemoglobin 1.1 %THgb (0.4-20.1); HCO3 ABG 23.8 mmol/L (22-26); HGB O2 Sat 94.8 % (95-100); Ionized Calcium Level - ABG 1.2 mmol/L (1.1-1.4); Methemoglobin 0.9 % (0.4-1.5); Oxygen Device NC; Oxygen Saturation ABG 96.8; PO2 ABG 78.9 mmHg (80.0-100.0); Potassium Level - ABG 3.9 mmol/L (3.5-5.0); Total Hemoglobin 12.6 g/dL (12-16)
[2019-10-16 16:00] LABS: Lipase 2793 U/L (13-60)
[2019-10-16 16:07] LABS: Add Urine Culture? No; Bacteria Urine 2+; RBC Urine 0-4 /hpf (0-2); WBC Urine 25-40 /hpf (0-5)
--- NOTE | 2019-10-16 16:14 | USR_ITS ---
PROCEDURE INFORMATION: Exam: US Abdomen; Limited Exam date and time: 10/16/2019 4:46 PM Age: 79 years old Clinical indication: Abdominal pain; Additional info: Upper abdominal pain; Elevated lipase; Known gallstones TECHNIQUE: Imaging protocol: US abdomen. Real time ultrasound with image documentation. Limited exam focused on the region of clinical interest. COMPARISON: CT abdomen pelvis w con* [id number] 10/16/2019 4:13 PM FINDINGS: Liver: Liver is normal size and shows normal uniform echogenicity. There is no focal abnormality within the liver. Gallbladder: There are several gallstones within the gallbladder seen on CT scan. There is no gallbladder wall thickening or pericholecystic fluid. Common bile duct: Distal common bile duct is dilated to 1.3 cm at the level of the pancreatic head. Pancreas: No focal abnormality is seen within the pancreas. Right kidney: No hydronephrosis Aorta: Aorta has a normal diameter. Inferior vena cava: IVC has a normal diameter. US/US gall bladder [id number] IMPRESSION: 1. Cholelithiasis. 2. Mildly dilated common bile duct.
[2019-10-16] MEDS: iodixanol 320 mg/mL 100mL Btl IV (16:20)
--- NOTE | 2019-10-16 19:14 | PC.NURSE ---
pt and spouse informed of updates of care
== END 2019-10-16 20:30 | disposition short-term general hospital (02) ==
PROVIDERS: Physician Assistant; Emergency Provider Nurse Practitioner Family; PCP Nurse Practitioner Family
DX: K83.1 Obstruction of bile duct (principal); Z87.891 Personal history of nicotine dependence; I48.20 Chronic atrial fibrillation, unspecified; E11.42 Type 2 diabetes mellitus with diabetic polyneuropathy; I50.30 Unspecified diastolic (congestive) heart failure
CPT/HCPCS: 12345; 36600; 74177; 76705; 80051; 80053; 81001; 82009; 82810; 83690; 83986; 85025; 96360; 96361; 99283; 99285; J7030; Q9967

== ENCOUNTER → 2019-11-17 13:21 | Outpatient (BNVA) | payer MEDICARE, SELFPAY | PROVIDERS: PCP Nurse Practitioner Family; Visit Provider Internal Medicine | DX: E11.59 Type 2 diabetes mellitus with other circulatory complications (principal); E11.65 Type 2 diabetes mellitus with hyperglycemia; I25.10 Atherosclerotic heart disease of native coronary artery without angina pectoris; K86.1 Other chronic pancreatitis; R10.9 Unspecified abdominal pain | CPT/HCPCS: 99214 ==

== ENCOUNTER 2019-11-18 15:21 | Outpatient (CLI) | payer MEDICARE, SELFPAY ==
--- NOTE | 2019-11-19 07:20 | ONC CON_ITS ---
Dr. Leal New Patient Note Patient: Radha Rose Unit #: [id number]: 1940 Dicatated By: Paul Leal M.D.Date of Visit: Nov 18, 2019 Onc MED New Patient/Consult Referring Physician: Dr. Paul Muñoz Iii, M.D. Chief Complaint: Ampullary carcinoma. History of Present Illness: This is a 79-year-old woman with recently diagnosed ampullary adenocarcinoma. She has multiple medical illnesses including type 2 diabetes, coronary artery disease, and restrictive lung disease. She has associated atrial fibrillation and diastolic congestive heart failure. In August 2019 she was admitted to the hospital, serum lipase greater than 600 U/L. Her CT abdomen/pelvis showed evidence of cholelithiasis but with no evidence of acute abdominal pathologic process. She improved with conservative management. On an outpatient follow-up visit with Dr. Ayala on 10/16/2019 she had continued to complain of abdominal pain. On further evaluation in the emergency room her serum lipase was significantly elevated 2793 U/L. Her CT findings were unchanged. Gallbladder ultrasound showed cholelithiasis with mildly dilated common bile duct. She was transferred to [facility] for admission. On 10/18/2019 she underwent laparoscopic cholecystectomy. Her intraoperative cholangiogram showed evidence of bile duct obstruction due to stone impaction at the ampulla. She then underwent ERCP with biliary sphincterotomy, stone extraction, and placement of a fully covered metal stent. Her duodenoscopy also showed a polypoid nature papilla in the second portion of the duodenum which was estimated 2 cm in diameter. Distal to the major papilla the mucosa appeared ulcerated with adherent mucoid bilious fluid. The ulceration was noted to extend for approximately 2 to 3 cm. The procedure also included biopsies of the ulcerated area and the adenomatous appearing major papilloma. Pathology showed at least focally invasive adenocarcinoma arising in an adenoma. It was noted in the report that there was insufficient material remaining for additional studies. She had consultation with Dr. Muñoz on 11/04/2019. It had previously been noted by Dr. Omer that the lesion was not amenable to endoscopic resection, and the patient was deemed medically unsuitable for a Whipple procedure by Dr. Muñoz. As such, she is seen now to discuss other treatment options. She says she feels pretty good, though she does complain that she has no energy and her activity is very limited. Her ECOG score is 3. She has not had good appetite, and she still gets pain in the right lower quadrant area after eating specific foods come particularly spicy foods. Her weight is down 33 pounds. Her blood sugars are still running high, and she recently had her Levemir dosage increased. She does not have fever or night sweats. She has shortness of breath, and she is on continuous oxygen during the daytime and she is on oxygen and CPAP at night. She does not complain of cough and she has not been having chest pain. She has no other GI or complaints at this time. Both bowel and bladder function are normal. She has some chronic back pain. She does not complain of headache. She has lightheadedness occasionally when she gets up. She does not complain of numbness or tingling, though her records indicate that she does have diabetic neuropathy. She has some depression, but she does not feel that she requires medication for it. Past Medical History: Her medical history includes atrial fibrillation, coronary artery disease, diastolic congestive heart failure, history of colonic polyps, history of GI bleed on Eliquis, history of pulmonary embolism, peripheral neuropathy, restrictive lung disease, and type II diabetes. Past Surgical History: She underwent laparoscopic cholecystectomy followed by ERCP with biliary sphincterotomy, stone extraction, and placement of biliary stent on 10/18/2019. Her other surgical/procedural history includes ablation of atrial fibrillation, appendectomy, carpal tunnel release, coronary angioplasty/stent placement on 3 occasions, hysterectomy/bilateral salpingectomy-oophorectomy, pacemaker placement, repair of diaz injury to the right foot, rotator cuff repair, and EGD and colonoscopy in 2019. Medications: Cholecalciferol 1 Tablet (of 25 mcg ) Oral at bedtime, Clopidogrel Bisulfate 1 Tablet (of 75 mg) Oral daily, Ferrous Sulfate 1 Tablet (of 325 (65 fe) mg) Oral b.i.d., Furosemide 1 Tablet (of 40 mg) Oral b.i.d., Gabapentin (600 mg) Tablet Oral b.i.d., Isosorbide Dinitrate 1 Tablet (of 30 mg) Oral daily, Levemir FlexTouch 34 Units (of 100 Units/mL) Subcutaneous daily, metFORMIN HCl 1 Tablet (of 500 mg) Oral b.i.d., Pantoprazole Sodium 1 Tablet (of 40 mg) Tablet, enteric coated Oral daily, Potassium Chloride ER 1 Tablet (of 10 meq) Capsule, controlled release Oral daily, Pravastatin Sodium 1 Tablet (of 40 mg) Oral at bedtime, Sotalol HCl 1 Tablet (of 120 mg) Oral b.i.d., Spironolactone 0.5 Tablet (of 25 mg) Oral daily, Vitamin C 1 Tablet (of 500 mg) Capsule Oral b.i.d. Allergies: Aspirin Adult, Codeine Sulfate, Digoxin, Sulfa Antibiotics, and Tetanus-Diphtheria Toxoids Td. Social History: Ms. Rose is . She has a history of smoking 1 to 2 packs of cigarettes daily for 55 years. She quit smoking about 10 years ago. She does not drink alcohol. Family History: Father with some type of kidney disease at age 37. Mother with heart disease at age 80. One brother also of heart disease. Two other brothers have diabetes. Review Of Symptoms: Constitutional - She is generally feeling pretty good, though she has no energy and she is mainly sedentary at home. Her appetite is not good. Her weight is down 30+ pounds. No fever, night sweats, or hot flashes. ECOG score is 3, Eyes - No change in vision, ENMT - No hearing loss or tinnitus. No sinus congestion/drainage. She has dry mouth. No mouth sores. No sore throat or difficulty swallowing, Endocrine - Her blood glucose levels have been very high, she is seeing Dr. Ayala. She reports that she increased her insulin yesterday, Hematologic/Lymphatic - She bruises easily, Respiratory - She has shortness of breath with any activity. She was continuous oxygen and uses a CPAP at night. No cough. No pleuritic pain or hemoptysis, Cardiovascular - No angina pain. No palpitations, Gastrointestinal - She still has some pain in the right lower quadrant area, mainly after eating specific foods. No nausea or vomiting. No heartburn or acid reflux. No diarrhea or constipation. No blood in the stool or black stools, Genitourinary (F) - No dysuria or hematuria. No urinary frequency. No urgency or incontinence, Musculoskeletal - She has chronic back pain, Integumentary - No skin complications, Neurologic - No headache. She has occasional dizziness with positional changes. No numbness or tingling. No other focal neurologic symptoms, Psychiatric - No anxiety. She has some depression. No insomnia. Vital Signs: Performed on Nov 18, 2019 16:19: 0, 35.39 (HIGH), 1.98 sq.m, 64 in, 94 % (LOW), 80 /min, 18 /min, 149/79 mm(hg) (HIGH), 98.4 F, and 206.2 lbs (HIGH). Physical Examination: Constitutional - She appears somewhat weak generally but not acutely ill, Eyes - Sclerae nonicteric. Conjunctivae clear, ENMT - No lesions noted in the oral cavity, Neck - No mass or thyromegaly, Hematologic/Lymphatic - No cervical, clavicular, or axillary adenopathy, Respiratory - Lungs are clear with diminished air movement bilaterally, Cardiovascular - Heart rhythm appears to be regular. There is no murmur, gallop, or rub noted, Abdomen - Soft and non-tender. Her incisions appear well healed. Liver and spleen are not enlarged. There is no abdominal mass or ascites noted and there is no inguinal adenopathy, Back/Spine - No spine or CVA tenderness noted, Extremities - Slight edema. Dorsalis pedis pulses are palpable bilaterally, Integumentary - No rashes. No suspicious skin lesions noted, Neurologic - No focal neurologic deficits noted. Impression: 1. 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 She appears to have early stage disease, by clinical evaluation stage IA (T1a, N0, M0), but she was deemed medically unsuitable for resection. 2. She presented with recurrent pancreatitis in association with choledocholithiasis for which she underwent laparoscopic cholecystectomy followed by ERCP with sphincterotomy, stone extraction, and placement of biliary stent on 10/18/2019. Her other medical illnesses include: 3. Type 2 diabetes with peripheral neuropathy. 4. Coronary artery disease with previous angioplasty/stent placement. 5. Atrial fibrillation with prior ablation procedure. 6. She has permanent pacemaker for complete heart block. 7. Diastolic congestive heart failure. 8. Restrictive lung disease, oxygen dependent. 9. History of pulmonary embolism. 10. History of GI bleeding on Eliquis, reportedly due to duodenal ulcer. 11. History of colonic polyps. Plan: The ERCP findings and pathology results were reviewed with the patient. 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 I reviewed other treatment options, which are limited. I would first like to see if she may be a candidate for either SBRT or chemoradiation, though localizing the tumor may be an issue, as it was not identifiable by imaging. The only other options would be palliative chemotherapy alone or symptomatic/supportive care. At this point she is still showing recovery from the pancreatitis and surgery, and at least initially I would like to see if her performance status may improve somewhat with additional time for further recovery. I will check baseline labs tomorrow to include CBC, comprehensive metabolic profile, repeat lipase, and CEA/CA-19-9 levels. I will review the case with the radiation oncologist and will plan follow-up sometime within the next 2 to 4 weeks. In the meantime, she will start additional nutritional support with [employer]. Signed By: Paul Leal M.D. <<Signature on File>>
== END 2019-11-18 15:22 | disposition home or self-care (01) ==
LOC: ONCMED 15:27
PROVIDERS: PCP Nurse Practitioner Family; Visit Provider Internal Medicine Medical Oncology
DX: C24.1 Malignant neoplasm of ampulla of Vater (principal); R63.4 Abnormal weight loss; E11.42 Type 2 diabetes mellitus with diabetic polyneuropathy; I44.2 Atrioventricular block, complete; I25.10 Atherosclerotic heart disease of native coronary artery without angina pectoris; Z95.5 Presence of coronary angioplasty implant and graft; Z95.1 Presence of aortocoronary bypass graft; I50.30 Unspecified diastolic (congestive) heart failure; K85.90 Acute pancreatitis without necrosis or infection, unspecified; Z95.0 Presence of cardiac pacemaker; J98.4 Other disorders of lung; Z99.81 Dependence on supplemental oxygen; Z87.891 Personal history of nicotine dependence; Z86.711 Personal history of pulmonary embolism; Z79.02 Long term (current) use of antithrombotics/antiplatelets; Z79.4 Long term (current) use of insulin
CPT/HCPCS: 99205

== ENCOUNTER 2019-11-19 08:15 | Outpatient (CLI) | payer MEDICARE, SELFPAY ==
[2019-11-19 09:13] LABS: Basophils # 0.1 10^3/uL (0.0-0.1); Basophils % 0.6 %; Eosinophils # 0.3 10^3/uL (0.0-0.8); Eosinophils % 2.1 %; Hematocrit 43.9 % (37.0-47.0); Hemoglobin 13.5 g/dL (11.5-15.3); Lymphocytes # 1.8 10^3/uL (0.8-4.8); Lymphocytes % 14.3 %; Mean Corpuscular HGB Conc 30.8 g/dL (30.0-36.0); Mean Corpuscular Hemoglobin 28.7 pg (28.0-34.0); Mean Corpuscular Volume 93.2 fL (81-99); Mean Platelet Volume 10.5 fL (7.4-10.4); Monocytes # 0.8 10^3/uL (0.2-0.9); Monocytes % 6.5 %; Neutrophils # 9.62 10^3/uL (1.8-7.7); Nucleated Red Blood Cells % 0 %; Platelet Count 255 10^3/cmm (130-400); Red Blood Count 4.71 10^6/uL (4.1-5.3); Red Cell Distribution Width 14.1 % (12.1-15.1); White Blood Count 12.6 10^3/uL (4.0-10.0)
[2019-11-19 09:40] LABS: Cancer Antigen 19 9 26.79 U/mL (0-35); Carcinoembryonic Antigen 1.2 ng/mL (0.0-4.7)
[2019-11-19 09:51] LABS: Alanine Aminotransferase 9 U/L (0-33); Albumin Level 4.1 g/dL (3.5-5.2); Alkaline Phosphatase 73 IU/L (35-105); Anion Gap 18.2 (5-19); Aspartate Amino Transferase 11 U/L (0-32); Blood Urea Nitrogen 21 mg/dL (8-23); Calcium 9.3 mg/dL (8.5-10.5); Carbon Dioxide 27 mmol/L (22-29); Chloride 98 mmol/L (98-107); Globulin 3.7 g/dL (1.3-4.6); Glucose 183 mg/dL (65-115); Osmolality Calculated 289 mOsm/kg (285-295); Potassium 4.2 mmol/L (3.5-5.1); Sodium 139 mmol/L (136-145); Total Bilirubin 0.4 mg/dL (0.15-1.2); Total Protein 7.8 g/dL (6.6-8.7)
[2019-11-19 09:58] LABS: Lipase 1189 U/L (13-60)
== END 2019-11-19 08:16 | disposition home or self-care (01) ==
LOC: ONCMED 09:34
PROVIDERS: PCP Nurse Practitioner Family; Visit Provider Internal Medicine Medical Oncology
DX: C24.1 Malignant neoplasm of ampulla of Vater (principal); K85.90 Acute pancreatitis without necrosis or infection, unspecified
CPT/HCPCS: 80053; 82378; 83690; 85025; 86301

== ENCOUNTER 2019-11-22 08:49 | Outpatient (RCR) | payer MEDICARE, SELFPAY ==
[2019-11-21 09:53] VITALS: BP 103/56; PULSE 67; RESP 18; TEMP 36.3; O2SAT 91
[2019-11-21] MEDS: sodium chloride 0.9% 1,000 ML 999 ML IV (09:59)
[2019-11-22] MEDS: sodium chloride 0.9% 1,000 ML 999 ML IV (09:04)
[2019-11-22 09:05] VITALS: BP 105/57; PULSE 68; RESP 18; TEMP 36.4; O2SAT 93
== END 2019-12-09 23:59 | disposition home or self-care (01) ==
LOC: OPS 08:49
PROVIDERS: PCP Nurse Practitioner Family; Visit Provider Internal Medicine Medical Oncology
DX: C24.1 Malignant neoplasm of ampulla of Vater (principal)
CPT/HCPCS: 96360; J7030

== ENCOUNTER 2019-12-01 05:40 | Outpatient (RCR) | payer MEDICARE, SELFPAY ==
[2019-11-20] MEDS: sodium chloride 0.9% 1,000 ML 999 ML IV (08:30)
--- NOTE | 2019-11-20 09:25 | CT_ITS ---
WS: [id number] CT ABDOMEN PELVIS TECHNIQUE: Contrast-enhanced CT of the abdomen and pelvis with coronal and sagittal reformatted image s. CLINICAL INFORMATION: PANCREATITIS/ELEVATED LIPASE/RE-EVALUATION COMPARISON: CT October 16, 2019 DLP: 1442.[address] scans at [facility] use at least one of these dose optimization techniques: automat ed exposure control; mA and/or kV adjustment per patient size (includes targeted exams where dose is matched to clinical indication); or iterative reconstruction. FINDINGS: Interval postoperative changes cholecystectomy.. Common bile duct stent is new from previous with pne umobilia. No evidence of acute pancreatitis. No peripancreatic inflammatory stranding or edema. No fl uid collections. Left renal cyst measuring 4.6 x 4.0 CCM. Lobulated infrarenal abdominal aortic aneurysm measuring 3.1 x 2.7 cm AP by transverse with left eccentric outpouching unchanged. Small esophageal hiatal hernia. Lung bases are well aerated. Adrenal glands are normal. Renal cortical atrophy. No hydronephrosis. Sigmoid constipation. No periaortic lymphadenopathy. No inguinal or pelvic sidewall lymphadenopathy. CT/CT abdomen pelvis w con* [id number] IMPRESSION: 1. Cholecystectomy changes are new from previous. New common bile duct stent w ith pneumobilia. 2. Pancreas is normal in appearance. No evidence of pancreatitis. No peripancr eatic inflammatory stranding or edema. Minimal prominence of the pancreatic jason t. 3. Left renal cyst 4.6 x 4.0 cm. 4. Lobulated infrarenal abdominal aortic aneurysm measuring 3.1 x 2.7 cm uncha nged. 5. Mild sigmoid constipation.
[2019-11-20] MEDS: iohexol 300 mg/mL 50 mL Btl PO (09:32)
[2019-11-20] MEDS: iohexol 300 mg/mL 100 mL Btl IV (11:10)
[2019-11-23] MEDS: sodium chloride 0.9% 1,000 ML 999 ML IV (10:00)
[2019-11-23 10:12] LABS: Basophils # 0.1 10^3/uL (0.0-0.1); Basophils % 0.4 %; Eosinophils # 0.2 10^3/uL (0.0-0.8); Hematocrit 39.6 % (37.0-47.0); Lymphocytes # 1.4 10^3/uL (0.8-4.8); Lymphocytes % 11.7 %; Mean Corpuscular HGB Conc 30.3 g/dL (30.0-36.0); Mean Corpuscular Hemoglobin 28.9 pg (28.0-34.0); Mean Corpuscular Volume 95.4 fL (81-99); Mean Platelet Volume 10.3 fL (7.4-10.4); Monocytes # 0.6 10^3/uL (0.2-0.9); Monocytes % 4.8 %; Neutrophils # 9.86 10^3/uL (1.8-7.7); Neutrophils % 80.7 %; Nucleated Red Blood Cells % 0 %; Platelet Count 250 10^3/cmm (130-400); Red Blood Count 4.15 10^6/uL (4.1-5.3); Red Cell Distribution Width 14.3 % (12.1-15.1); White Blood Count 12.2 10^3/uL (4.0-10.0)
[2019-11-23 10:28] LABS: Alanine Aminotransferase 8 U/L (0-33); Albumin Level 3.8 g/dL (3.5-5.2); Alkaline Phosphatase 60 IU/L (35-105); Anion Gap 17.3 (5-19); Aspartate Amino Transferase 12 U/L (0-32); Blood Urea Nitrogen 12 mg/dL (8-23); Calcium 8.4 mg/dL (8.5-10.5); Carbon Dioxide 23 mmol/L (22-29); Chloride 105 mmol/L (98-107); Globulin 3.3 g/dL (1.3-4.6); Glucose 153 mg/dL (65-115); Osmolality Calculated 291 mOsm/kg (285-295); Potassium 4.3 mmol/L (3.5-5.1); Sodium 141 mmol/L (136-145); Total Bilirubin 0.6 mg/dL (0.15-1.2); Total Protein 7.1 g/dL (6.6-8.7)
[2019-11-23 10:45] LABS: Lipase 680 U/L (13-60)
--- NOTE | 2019-11-30 13:26 | N.ONRAD NP_ITS ---
Radiation Oncology New Patient Visit Patient: Radha Rose MR#: [id number] : 1940> Age: 79> Sex: Female> Account #: Dictated by: Dr. Carl Gonzalez Date of Service: 11/25/2019 Referring Physician(s) : Dr. Paul Muñoz Iii Diagnosis: T1 ampullary adenocarcinoma arising in the setting of an adenoma vs locally advanced periampullary adenocarcinoma. The patient is not a surgical candidate Purpose of Visit: Discuss the role of radiotherapy with palliative intent. History of Present Illness: The patient is a 79-year-old female with a history of CT imaging demonstrating evidence of cholelithiasis coupled with complaints of abdominal pain. Upon emergency room evaluation, serum lipase was noted to be 2793 U/L and ultrasound of the gallbladder revealed cholelithiasis with a dilated common bile duct. On 10/18/2019 she underwent laparoscopic cholecystectomy and intraoperative cholangiogram revealed evidence of bile duct obstruction due to stone impaction at the ampulla. The patient then underwent ERCP with biliary sphincterotomy, stone extraction and placement of a fully covered metal stent (10/16/2019). Per the operative note, ???the second portion of the duodenum was abnormal with regard to a polypoid major papilla that was approximately 2 cm in diameter. Distal to the major papilla, the mucosa appeared ulcerated with adherent mucoid bilious fluid. This ulceration extended for approximately 2 to 3 cm. Biopsies were obtained of the ulcerated area and the adenomatous appearing major papilla prior to terminating the procedure. [. . . ] A 1 x 6 cm fully covered metal stent was deployed and it was noted that a small black pigmented stone emanated from the biliary tree through the stent. [ . . .] Ulceration distal to this lesion is somewhat concerning for potential neoplasm given the close proximity to the polypoid lesion??? Pathology from the above biopsy revealed focal invasive adenocarcinoma arising in an adenoma. The most recent CT of the abdomen pelvis (11/20/2019) revealed: -) A 5 x 5 hypoattenuating mass at the distal end of the fully covered bile duct metal stent (personally reviewed with Dr. Ang); -) A small subcentimeter indeterminant neighboring lymph node (axial images page 33 of 92) -) Cholecystectomy changes -) A 4.6 x 4 cm left renal cyst -) A 3.1 x 2.7 cm lobulated infrarenal abdominal aortic aneurysm -) Mild sigmoid constipation. It was explained to the patient by Dr Muñoz that she was not a candidate for a Whipple procedure or any definitive surgical resection. In consultation today, the patient reports no current nausea, or abdominal pain. Current Medications: Cholecalciferol, clopidogrel Bisulfate, ferrous Sulfate, furosemide, gabapentin, isosorbide Dinitrate, levemir FlexTouch, metFORMIN HCl, pantoprazole Sodium, potassium Chloride ER, pravastatin Sodium, sotalol HCl, spironolactone, vitamin C. Allergies: Aspirin Adult, Codeine Sulfate, Digoxin, Sulfa Antibiotics and Tetanus-Diphtheria Toxoids Td. Medical History: - Atrial fibrillation, - coronary artery disease, - diastolic congestive heart failure, - history of colonic polyps, - history of GI bleed on Eliquis, - history of pulmonary embolism, - peripheral neuropathy, - restrictive lung disease, - type II diabetes. No history of collagen vascular disease. No previous radiation therapy. Surgical History: Ablation of atrial fibrillation, appendectomy, carpal tunnel release, colon resection, coronary angioplasty/stent placement on 3 occasions, eGD and colonoscopy on 03/15/2019, eRCP with biliary sphincterotomy, stone extraction, and placement of biliary stent on 10/18/2019, hysterectomy/bilateral salpingectomy-oophorectomy, laparoscopic cholecystectomy on 10/18/2019, pacemaker placement in 2007, repair of diaz injury to the right foot and rotator cuff repair. Family History: Father is at age 37. Mother is at age 80 having experienced heart disease. Father with some type of kidney disease at age 37. Mother with heart disease at age 80. One brother also of heart disease. Two other brothers have diabetes. Social History: Last screened on 11/25/2019 - Yes - but has quit for 10 years. Smoked 1.0 pack/day for 51 years (51 pack years). Last screened on 11/18/2019 - Never drank. Patient indicated access to the following support systems: Adequate transportation available for expected visits, Lives in own house, Lives with spouse, significant other, family, or friends, and Supportive family/friends willing to assist with needs. Patient indicated the following nutritional habits: Regular meals. Patient indicated participation in the following forms of activity: Regular exercise. Current Complaints / Review of Systems: Constitutional - Complains of a poor appetite and is on a clear diet. Complains of rigors / chills. Complains of change in weight in which she has lost about 30 lbs. in the last 6 months. Denies fatigue, fever and night sweats. Eyes - Denies blurred vision and double vision. ENMT - Complains of mouth dryness and altered taste. Denies dysphagia, ear pain and stomatitis. Neck - Denies neck pain. Integumentary - Complains of rash on the face and neck that started about a week ago. Breasts - Denies pain. Cardiovascular - Complains of arrhythmias and has history of A-Fib. Has a pacemaker. Denies chest pain and edema. Respiratory - Complains of dyspnea on . Denies cough and wheezing. Gastrointestinal - Complains of intermittent diarrhea. Complains of satiety. Denies abdominal pain, constipation, heartburn / dyspepsia, nausea and vomiting. Genitourinary (F) - Complains of urgency gets up about 2 to 4 times per night. Denies dysuria, frequency, hematuria, vaginal discharge / bleeding and vaginal spotting. Musculoskeletal - Denies bone pain, joint pain and muscle weakness. Neurologic - Complains of intermittent dizziness that occurs upon sitting to standing. Denies headaches. Endocrine - Complains of Type 2 diabetes. Denies thyroid disease. Hematologic/Lymphatic - Denies tender or enlarged lymph nodes.. Vital Signs: Performed on 11/25/2019 2:12 PM BMI - 35.223 kg/m2 (high), Height - 64.00 in, Weight - 205.2 lbs, Temperature - 98.0 f, Pulse - 62, Respiration - 20, O2 Sat - 97 %, Pain - 0 and BP - 104/ 65 mm(hg). Physical Exam: GENERAL:??? The patient is alert, and in no acute distress. HEENT:??? Head is normocephalic. Face is symmetric. External ocular movements are intact. Sclera and conjunctivae are non erythematous. NECK:??? Trachea is midline.??? Thyroid is not enlarged by palpation.??? LYMPH NODES:??? There is no cervical or supraclavicular adenopathy bilaterally. LUNGS:??? Clear to auscultation bilaterally. Respiratory movement is unlabored. HEART:??? Regular rate and rhythm. EXTREMITIES:??? No deformities. NEUROLOGIC:??? Gait and station are normal.??? The patient is well coordinated and strength is equal bilaterally. LEPIDOPTERIST:??? Cranial nerves II-XII are intact and without focal deficits.??? Psych: Affect is normal. Skin: Cursory review of the skin reveals no obvious lesions concerning for malignancy. Performance Status: 2 - Ambulatory/capable of all self-care, unable to perform any work activities. Up and about more than 50% of waking hours. (ECOG) Pathology: Primary, c24.1 - malignant neoplasm of ampulla of vater, Diagnosed 11/18/2019 (active) stage ia, t1a, n0, m0. Lab: Test performed on 11/19/2019 8:15 AM Lipase - 1189 u/l (high), Test performed on 11/23/2019 10:35 AM WBC - 12.2 10^9/l (high), MCHC - 30.3 g/dl (low), Neutrophils (Gran) - 9.86 10^9/l (high), Lymphocytes - 0.1708 10^9/l (low), Monocytes - 0.0732 10^9/l (low) and Calcium - 8.4 mg/dl (low). Imaging: See HPI Impression: The patient is a 79-year-old female with recently diagnosed early stage adenocarcinoma of the ampulla of [place] arising in an adenoma vs a more advanced stage of periampullary adenocarcinoma. The primary treatment for this malignancy is surgical resection. Unfortunately, the patient is not medically suitable for a Whipple procedure or endoscopic resection. I personally reviewed the CT imaging with staff radiologist, Dr Ang, and the tumor is simply too large to be considered for SBRT due to small bowel tolerance. Radiographically, the abnormality measures 5 x 5 cm. Therefore a reasonable palliative radiation therapy regimen would be 45-50.4 Gy in 1.8 Gy fractions. I will discuss this case with Dr. Leal to see if concurrent chemotherapy is appropriate. The evidence for the role of adjuvant concurrent chemoradiation therapy for this malignancy is retrospective at best. And in a retrospective setting, it appears that a survival benefit may be limited to those tumors which have adverse risk factors (advanced T stage, lymph node involvement, grade etc). Since the patient is not an appropriate surgical candidate, palliative treatment options are limited to either chemotherapy alone, concurrent chemoradiation therapy, or lastly radiation therapy alone (questionable benefit). It was explained to the patient that the benefit of radiation therapy would only be for ???potential??? local control and no overall survival benefit. The patient expressed understanding, and desired to proceed with radiation therapy planning. Upon subsequent discussions with Dr. Leal, the patient will be considered for concurrent Xeloda as tolerated. Plan: We will begin palliative radiotherapy planning early next week. Signed by: 11/30/2019 1:26:18 PM <<Signature on File>> Time spent with patient: CPT Code: CPT Code:
--- NOTE | 2019-12-01 | CT_ITS ---
Radiation Therapy Planning CT images; total exam DLP:1389.06 mGy-cm MTDD
== END 2019-12-09 23:59 | disposition home or self-care (01) ==
LOC: ONCMED 05:40
PROVIDERS: Internal Medicine Medical Oncology; PCP Nurse Practitioner Family; Visit Provider Radiology Radiation Oncology
DX: C24.1 Malignant neoplasm of ampulla of Vater (principal); K85.90 Acute pancreatitis without necrosis or infection, unspecified; N28.1 Cyst of kidney, acquired; I71.4 Abdominal aortic aneurysm, without rupture; K59.00 Constipation, unspecified; Z87.891 Personal history of nicotine dependence
CPT/HCPCS: 74177; 77300; 77301; 77334; 77338; 77470; 80053; 83690; 85025; 96360; 99215; J7030; Q9967

== ENCOUNTER 2020-01-08 05:47 | Outpatient (RCR) | payer MEDICARE, SELFPAY ==
[2019-12-16 11:56] LABS: Basophils # 0.1 10^3/uL (0.0-0.1); Basophils % 0.3 %; Eosinophils # 0.3 10^3/uL (0.0-0.8); Hematocrit 43.6 % (37.0-47.0); Hemoglobin 13.3 g/dL (11.5-15.3); Lymphocytes # 2.1 10^3/uL (0.8-4.8); Lymphocytes % 14.4 %; Mean Corpuscular HGB Conc 30.5 g/dL (30.0-36.0); Mean Corpuscular Hemoglobin 29.4 pg (28.0-34.0); Mean Corpuscular Volume 96.2 fL (81-99); Mean Platelet Volume 9.7 fL (7.4-10.4); Monocytes # 0.9 10^3/uL (0.2-0.9); Monocytes % 5.9 %; Neutrophils # 11.27 10^3/uL (1.8-7.7); Neutrophils % 76.9 %; Nucleated Red Blood Cells % 0 %; Platelet Count 295 10^3/cmm (130-400); Red Blood Count 4.53 10^6/uL (4.1-5.3); Red Cell Distribution Width 14.6 % (12.1-15.1); White Blood Count 14.7 10^3/uL (4.0-10.0)
[2019-12-16 12:29] LABS: Alanine Aminotransferase 8 U/L (0-33); Alkaline Phosphatase 87 IU/L (35-105); Anion Gap 16.2 (5-19); Aspartate Amino Transferase 10 U/L (0-32); Blood Urea Nitrogen 17 mg/dL (8-23); Carbon Dioxide 29 mmol/L (22-29); Chloride 102 mmol/L (98-107); Globulin 3.6 g/dL (1.3-4.6); Glucose 69 mg/dL (65-115); Osmolality Calculated 296 mOsm/kg (285-295); Potassium 4.2 mmol/L (3.5-5.1); Sodium 143 mmol/L (136-145); Thyroid Stimulating Hormone 4.39 uIU/mL (0.27-4.20); Total Bilirubin 0.3 mg/dL (0.15-1.2); Total Protein 7.6 g/dL (6.6-8.7)
[2019-12-16 12:53] LABS: Cancer Antigen 19 9 21.12 U/mL (0-35); Carcinoembryonic Antigen 1.9 ng/mL (0.0-4.7)
--- NOTE | 2019-12-20 14:01 | ONC FU_ITS ---
[facility] Patient Note Patient: Radha Rose Unit #: [id number]: 1940 Dictated By: Leatha DubonDate of Visit: Dec 16, 2019 Onc MED Follow-Up/Prog Note Chief Complaint: Ampullary carcinoma. History of Present Illness: Ms Rose is a 79-year-old woman with recently diagnosed ampullary adenocarcinoma. She has multiple medical illnesses including type 2 diabetes, coronary artery disease, and restrictive lung disease. She has associated atrial fibrillation and diastolic congestive heart failure. In August 2019 she was admitted to the hospital, serum lipase greater than 600 U/L. Her CT abdomen/pelvis showed evidence of cholelithiasis but with no evidence of acute abdominal pathologic process. She improved with conservative management. On an outpatient follow-up visit with Dr. Ayala on 10/16/2019 she had continued to complain of abdominal pain. On further evaluation in the emergency room her serum lipase was significantly elevated 2793 U/L. Her CT findings were unchanged. Gallbladder ultrasound showed cholelithiasis with mildly dilated common bile duct. She was transferred to [facility] for admission. On 10/18/2019 she underwent laparoscopic cholecystectomy. Her intraoperative cholangiogram showed evidence of bile duct obstruction due to stone impaction at the ampulla. She then underwent ERCP with biliary sphincterotomy, stone extraction, and placement of a fully covered metal stent. Her duodenoscopy also showed a polypoid nature papilla in the second portion of the duodenum which was estimated 2 cm in diameter. Distal to the major papilla the mucosa appeared ulcerated with adherent mucoid bilious fluid. The ulceration was noted to extend for approximately 2 to 3 cm. The procedure also included biopsies of the ulcerated area and the adenomatous appearing major papilloma. Pathology showed at least focally invasive adenocarcinoma arising in an adenoma. It was noted in the report that there was insufficient material remaining for additional studies. She had consultation with Dr. Muñoz on 11/04/2019. It had previously been noted by Dr. Omer that the lesion was not amenable to endoscopic resection, and the patient was deemed medically unsuitable for a Whipple procedure by Dr. Muñoz. As such, she was seen by Dr Leal to discuss other treatment options. The ERCP findings and pathology results were reviewed with the patient. 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 Dr Leal reviewed other treatment options, which are limited. After consulting with Dr. Gonzalez in radiation oncology, it was felt that she was a candidate for combined chemoradiation. She is here today to begin her treatment with Xeloda and radiation therapy. She has no new concerns today. She denies any fever chills or any signs of infection. Has had no known COVID exposure, symptoms or personal testing since surgery. Overall performance status is unchanged. Remains at a 3. She continues to have intermittent abdominal pain but states is controlled with her pain medication when she takes them. She is also had some intermittent nausea which when she takes nausea medicine that is controlled as well. Her appetite is some better but not great. She is eating and is using Ensure for nutritional supplementation. Past Medical History: Atrial fibrillation Coronary artery disease Diastolic congestive heart failure History of colonic polyps History of GI bleed on Eliquis History of pulmonary embolism Peripheral neuropathy Restrictive lung disease Type II diabetes Past Surgical History: Ablation of atrial fibrillation Appendectomy Carpal tunnel release Colon resection Coronary angioplasty/stent placement on 3 occasions Hysterectomy/bilateral salpingectomy-oophorectomy Repair of diaz injury to the right foot Rotator cuff repair ERCP with biliary sphincterotomy, stone extraction, and placement of biliary stent in 2019 Laparoscopic cholecystectomy in 2019 EGD and colonoscopy in 2019 Pacemaker placement in 2007 Allergies: Aspirin Adult, Codeine Sulfate, Digoxin, Sulfa Antibiotics, and Tetanus-Diphtheria Toxoids Td. Medications: Cholecalciferol 1 Tablet (of 25 mcg ) Oral at bedtime Clopidogrel Bisulfate 1 Tablet (of 75 mg) Oral daily Ferrous Sulfate 1 Tablet (of 325 (65 fe) mg) Oral b.i.d. Furosemide 1 Tablet (of 40 mg) Oral b.i.d. Gabapentin (600 mg) Tablet Oral b.i.d. Isosorbide Dinitrate 1 Tablet (of 30 mg) Oral daily Levemir FlexTouch 34 Units (of 100 Units/mL) Subcutaneous daily metFORMIN HCl 1 Tablet (of 500 mg) Oral b.i.d. Pantoprazole Sodium 1 Tablet (of 40 mg) Tablet, enteric coated Oral daily Potassium Chloride ER 1 Tablet (of 10 meq) Capsule, controlled release Oral daily Pravastatin Sodium 1 Tablet (of 40 mg) Oral at bedtime Sotalol HCl 1 Tablet (of 120 mg) Oral b.i.d. Spironolactone 0.5 Tablet (of 25 mg) Oral daily Vitamin C 1 Tablet (of 500 mg) Capsule Oral b.i.d. Family History: Ms. Rose's mother at age 80: heart disease. Ms. Rose's father at age 37. Father with some type of kidney disease at age 37. Mother with heart disease at age 80. One brother also of heart disease. Two other brothers have diabetes. Social History: Ms. Rose is and she is an unknown. Ms. Rose quit smoking 10 years ago but had smoked 1.0 pack/day for 51 years. She has no history of drinking. Ms. Rose reports the following support systems: lives with spouse, significant other, family, or friends, lives in own house, supportive family/friends willing to assist with needs, and adequate transportation available for expected visits. Her diet consists of regular meals. She indicates her activity level as: regular exercise. She has a history of smoking 1 to 2 packs of cigarettes daily for 55 years. She quit smoking about 10 years ago. She does not drink alcohol. Review Of Symptoms: Constitutional Denies fevers, chills, night sweats. Allergic/Immunologic No reactions. Eyes Denies significant visual changes. No diplopia. No amaurosis. ENMT Denies changes in hearing, sore throat, mouth sores, difficulty or changes in swallowing ability, and/or sinus drainage. Endocrine No diabetes, thyroid disease or hormone replacement. Denies hot flashes or night sweats. Hematologic/Lymphatic Denies easy bruising or bleeding. The patient denies any tender or palpable lymph nodes. Respiratory Denies new or worsening dyspnea on exertion, chest pain, cough or hemoptysis. Denies orthopnea. Cardiovascular Denies anginal chest pain, palpitations or orthopnea. Gastrointestinal Denies worsening nausea. Denies vomiting, diarrhea, GI bleeding, or constipation. Denies change in bowel habits and/or stool color, no heartburn or early satiety. Genitourinary (F) No hematuria, hesitancy, incontinence, vaginal bleeding, discharge or other problems with urination. Musculoskeletal Denies joint pain, swelling or redness. No decreased range of motion. Integumentary Denies chronic rashes, inflammation, ulcerations or skin changes. Neurologic Denies headache, blurred vision, and no areas of focal weakness or numbness. Normal gait. No sensory problems. Psychiatric Denies insomnia, depression, edna or mood swings. Vital Signs: Performed on Dec 16, 2019 09:52 Height - 64.00 in Weight - 206.6 lbs (HIGH) BSA - 1.98 sq.m BMI - 35.46 (HIGH) Temperature - 98.5 F Pulse - 66 /min Respiration - 66 /min (HIGH) BP - 108/64 mm(hg) O2 Sat - 92 % (LOW) Pain - 0,3 - Capable of only limited self-care, confined to bed or chair more than 50% of waking hours. (ECOG) Physical Examination: Constitutional Alert, oriented, no acute distress. Skin pink, warm and dry. Generalized weakness. Head Normocephalic; atraumatic. Eyes Conjunctivae and sclerae are clear and without icterus. Pupils are reactive and equal. ENMT No oral exudates, ulcers, masses, thrush or mucositis. Oropharynx clear. Tongue normal. Hematologic/Lymphatic No petechiae or purpura. No tender or palpable lymph nodes in the cervical or supraclavicular areas. Respiratory Lungs are clear to auscultation without rhonchi or wheezing. Cardiovascular Regular rate and rhythm of heart without murmurs,clicks, gallops or rubs. Abdomen Non-tender, non-distended, no masses or ascites. Good bowel sounds noted in all quads. No guarding or rebound tenderness. No pulsatile masses. Back/Spine Non-tender to palpation. Extremities No visible deformities, no cyanosis, clubbing or edema. Musculoskeletal No tenderness or swelling, normal range of motion without obvious weakness. Integumentary No rashes or lesions. Neurologic No sensory or motor deficits, normal cerebellar function, normal gait. Psychiatric Alert and oriented times three. Coherent speech. Verbalizes understanding of our discussions today. Laboratory:Test performed on Dec 16, 2019 11:42 Sodium 143 mmol/L TSH 4.39 uIU/mL Potassium 4.2 mmol/L Chloride 102 mmol/L CO2 29 mmol/L Anion Gap 16.2 BUN 17 mg/dL Creatinine 0.9 mg/dL Cr Clearance (Est) 77.4400 mL/min Glucose 69 mg/dL Osmolality - Calculated 296 mOsm/kg Calcium 10.0 mg/dL Protein, Total 7.6 g/dL Albumin 4.0 g/dL Globulin 3.6 g/dL Bilirubin, Total 0.3 mg/dL ALT (SGPT) 8 U/L AST (SGOT) 10 U/L Alkaline Phosphatase 87 IU/L WBC 14.7 10 3/uL RBC 4.53 10 6/uL HGB 13.3 g/dL HCT 43.6 % MCV 96.2 fL MCH 29.4 pg MCHC 30.5 g/dL RDW 14.6 % Platelet Count 295 10 3/cmm MPV 9.7 fL Neutrophils 11.27 10 3/uL Lymphocytes 2.1 10 3/uL Monocytes 0.9 10 3/uL Eosinophils 0.3 10 3/uL Basophils 0.1 10 3/uL Neutrophil % 76.9 % Lymphocyte % 14.4 % Monocyte % 5.9 % Eosinophil % 2.0 % Basophils % 0.3 % NRBC % 0 % CA 19-9 21.12 U/mL CEA 1.9 ng/mL Test performed on Nov 23, 2019 09:32 Lipase 680 U/L Impression: 1. 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 She appears to have early stage disease, by clinical evaluation stage IA (T1a, N0, M0), but she was deemed medically unsuitable for resection. 2. She presented with recurrent pancreatitis in association with choledocholithiasis for which she underwent laparoscopic cholecystectomy followed by ERCP with sphincterotomy, stone extraction, and placement of biliary stent on 10/18/2019. Her other medical illnesses include: 3. Type 2 diabetes with peripheral neuropathy. 4. Coronary artery disease with previous angioplasty/stent placement. 5. Atrial fibrillation with prior ablation procedure. 6. She has permanent pacemaker for complete heart block. 7. Diastolic congestive heart failure. 8. Restrictive lung disease, oxygen dependent. 9. History of pulmonary embolism. 10. History of GI bleeding on Eliquis, reportedly due to duodenal ulcer. 11. History of colonic polyps. The ERCP findings and pathology results were reviewed with the patient. 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 Dr Leal reviewed other treatment options, which are limited. After consulting with Dr. Gonzalez in radiation oncology, it was felt that she was a candidate for combined chemoradiation. She is here today to begin her treatment with Xeloda and radiation therapy. Plan: 1. Proceed with Xeloda 1600 mg twice daily Saturday through Saturday with radiation only. 2. Compazine and Ativan as needed at home for antiemetics. 3. Continue nutritional supplementation with Ensure. 4. AVOID GRAPEFRUIT PRODUCTS WITH XELODA. 5. Baseline CBC CMP today. Labs from November 23, 2019 were reviewed in detail discussed with Ms. Rose and her family and a copy was given to them. WBC 12.2, hemoglobin 12 platelets 250,000 creatinine was 0.8 and her LFTs were normal. Her random glucose at that time was 291. 6. We will plan for weekly visits and CBC CMP for Xeloda monitoring. 7. The patient and family were informed of chemotherapy plan and specific drugs were discussed. We also discussed how chemotherapy works and identified common side effects including alopecia; myelosuppression-including neutropenia, anemia, thrombocytopenia; peripheral neuropathy; fatigue; nausea; diarrhea; constipation; bleeding or bruising; skin changes-rash/dryness; mouth sores; drug hypersensitivity/allergic reactions or anaphylaxis and increased risk of blood clots. They have also been informed how to contact the clinic with side effects or symptoms, including but not limited to fever greater than 100.4???, chills, sore throat, bleeding or bruising that is not explained or mouth sores, cough, nasal discharge, diarrhea, constipation, nausea and/or vomiting not relieved with medications on hand at home, as well as any other concern or question they may have. Our hours are 8:00 a.m. to 4:30 p.m. on Saturday through and 8-12:00 on Saturday. However, someone is hospital nurse liaison 24 hours per day and they have been advised to contact the [facility] at if it is after hours. We have also discussed potential long-term side effects of chemotherapy including secondary cancers, infertility, pulmonary complications, cardiac complications, and again peripheral neuropathy. We have discussed that they certainly need to let us know before taking any antioxidants or herbal or further dietary supplements, as we are unsure of how these agents react with chemotherapy and we request that they avoid these products for now. They were informed that it is okay to take multivitamins at normal doses. They verbally state that they understand to take all medications as directed by their healthcare provider unless otherwise indicated. Instructions for oral care with baking soda and salt water rinses as well as a guide for use of [id number] medication were provided with the treatment plan. They have been given a written patient treatment plan, of which a copy is in the chart, as well as specific drug information. They have no questions and verbalized understanding and are willing to proceed with chemotherapy at this time. The majority of this visit was spent in face to face communication with this patient and/or his/her family in regards to plan of care, side effect identification and management. Signed By: Leatha Dubon-, CNP Paul Leal MD <<Signature on File>>
[2019-12-22 12:10] LABS: Basophils # 0.1 10^3/uL (0.0-0.1); Basophils % 0.4 %; Eosinophils # 0.2 10^3/uL (0.0-0.8); Eosinophils % 1.9 %; Hematocrit 41.6 % (37.0-47.0); Hemoglobin 12.7 g/dL (11.5-15.3); Lymphocytes # 1.2 10^3/uL (0.8-4.8); Lymphocytes % 9.4 %; Mean Corpuscular HGB Conc 30.5 g/dL (30.0-36.0); Mean Corpuscular Hemoglobin 29.2 pg (28.0-34.0); Mean Corpuscular Volume 95.6 fL (81-99); Mean Platelet Volume 10.2 fL (7.4-10.4); Monocytes # 0.6 10^3/uL (0.2-0.9); Monocytes % 4.5 %; Neutrophils # 10.41 10^3/uL (1.8-7.7); Neutrophils % 83.3 %; Nucleated Red Blood Cells % 0 %; Platelet Count 302 10^3/cmm (130-400); Red Blood Count 4.35 10^6/uL (4.1-5.3); Red Cell Distribution Width 14.2 % (12.1-15.1); White Blood Count 12.5 10^3/uL (4.0-10.0)
[2019-12-22 12:24] LABS: Alanine Aminotransferase 7 U/L (0-33); Alkaline Phosphatase 68 IU/L (35-105); Anion Gap 18.5 (5-19); Aspartate Amino Transferase 11 U/L (0-32); Blood Urea Nitrogen 20 mg/dL (8-23); Calcium 9.4 mg/dL (8.5-10.5); Carbon Dioxide 25 mmol/L (22-29); Chloride 101 mmol/L (98-107); Globulin 3.4 g/dL (1.3-4.6); Glucose 190 mg/dL (65-115); Osmolality Calculated 298 mOsm/kg (285-295); Potassium 4.5 mmol/L (3.5-5.1); Sodium 140 mmol/L (136-145); Total Bilirubin 0.5 mg/dL (0.15-1.2); Total Protein 7.4 g/dL (6.6-8.7)
--- NOTE | 2019-12-22 15:21 | ONCRAD TMN_ITS ---
Radiation Oncology Weekly Treatment Management Patient: Milton Garcia MR#: [id number] : 1940 Age: 79 Sex: Female Dictated by: Carl Gonzalez Date of Service: 12/22/2019 Referring Physician(s) : Dr. Paul Muñoz Iii Diagnosis: C24.1 - Malignant neoplasm of ampulla of Vater, Diagnosed 11/18/2019 (Active) Stage IA, T1a, N0, M0 Early stage adenocarcinoma of the ampulla of [place] arising in an adenoma vs a more advanced stage of periampullary adenocarcinoma. The primary treatment for this malignancy is surgical resection. Unfortunately, the patient is not medically suitable for a Whipple procedure or endoscopic resection. Treatment Plan: Palliative radiation therapy concurrent with Xeloda to an aggregate dose of 45 Gy/25 fractions. Radi[facility] to date: [facility] Ref. ID: [id number], Energy: 15X, dose/Fx (cGy): 180, #Fx: 5 / 25, Dose Correction (cGy): 0, Total Dose (cGy): 900, Start Date: 12/16/2019, Elapsed Days: 6 Reason for visit: The patient is being seen today as part of their regularly scheduled weekly on treatment visits to assess for acute toxicities from radiotherapy. Interim History: The patient reports persistent abdominal pain unrelieved by [id number] medication. In addition, she has persistent watery diarrhea that is unresponsive to 2 tablets of Imodium per day. Current Medications: Cholecalciferol, clopidogrel Bisulfate, ferrous Sulfate, furosemide, gabapentin, isosorbide Dinitrate, levemir FlexTouch, metFORMIN HCl, pantoprazole Sodium, potassium Chloride ER, pravastatin Sodium, prochlorperazine Maleate, sotalol HCl, spironolactone, vitamin C. Allergies: Aspirin Adult, Codeine Sulfate, Digoxin, Sulfa Antibiotics and Tetanus-Diphtheria Toxoids Td. Current Complaints/Review of Systems: Vital Signs: Physical Exam: Appears stable, no skin erythema or desquamation. Performance Status: 3 - Capable of only limited self-care, confined to bed or chair more than 50% of waking hours. (ECOG) Lab: None pending in Radiation Oncology. Test performed on 11/23/2019 9:32 AM Lipase - 680 u/l (high), Test performed on 12/16/2019 11:42 AM WBC - 14.7 10 3/ul (high), Neutrophils - 11.27 10 3/ul (high), Osmolality - Calculated - 296 mosm/kg (high) and TSH - 4.39 uiu/ml (high). Imaging: Radiation therapy imaging related to accurate target localization (i.e. KV, MV and CBCT) was reviewed. Appropriate changes, if any, were made to ensure treatment accuracy. Plan: The patient is tolerating therapy reasonably well. Radiotherapy will continue as planned. The patient was prescribed [place] 5/325 to be taken every 4 to 6 hours as needed pain. She was also instructed to increase loperamide up to an aggregate of 8 tablets/day as needed to control watery diarrhea. CPT: 35130 Signed by: Dr. Carl Gonzalez 12/22/2019 3:19:23 PM
--- NOTE | 2019-12-27 22:55 | ONC FU_ITS ---
[facility] Patient Note Patient: Radha Rose Unit #: [id number]: 1940 Dictated By: Leatha DubonDate of Visit: Dec 23, 2019 Onc MED Follow-Up/Prog Note Chief Complaint: Ampullary carcinoma. History of Present Illness: Ms Rose is a 79-year-old woman with recently diagnosed ampullary adenocarcinoma. She has multiple medical illnesses including type 2 diabetes, coronary artery disease, and restrictive lung disease. She has associated atrial fibrillation and diastolic congestive heart failure. In August 2019 she was admitted to the hospital, serum lipase greater than 600 U/L. Her CT abdomen/pelvis showed evidence of cholelithiasis but with no evidence of acute abdominal pathologic process. She improved with conservative management. On an outpatient follow-up visit with Dr. Ayala on 10/16/2019 she had continued to complain of abdominal pain. On further evaluation in the emergency room her serum lipase was significantly elevated 2793 U/L. Her CT findings were unchanged. Gallbladder ultrasound showed cholelithiasis with mildly dilated common bile duct. She was transferred to [facility] for admission. On 10/18/2019 she underwent laparoscopic cholecystectomy. Her intraoperative cholangiogram showed evidence of bile duct obstruction due to stone impaction at the ampulla. She then underwent ERCP with biliary sphincterotomy, stone extraction, and placement of a fully covered metal stent. Her duodenoscopy also showed a polypoid nature papilla in the second portion of the duodenum which was estimated 2 cm in diameter. Distal to the major papilla the mucosa appeared ulcerated with adherent mucoid bilious fluid. The ulceration was noted to extend for approximately 2 to 3 cm. The procedure also included biopsies of the ulcerated area and the adenomatous appearing major papilloma. Pathology showed at least focally invasive adenocarcinoma arising in an adenoma. It was noted in the report that there was insufficient material remaining for additional studies. She had consultation with Dr. Muñoz on 11/04/2019. It had previously been noted by Dr. Omer that the lesion was not amenable to endoscopic resection, and the patient was deemed medically unsuitable for a Whipple procedure by Dr. Muñoz. As such, she was seen by Dr Leal to discuss other treatment options. The ERCP findings and pathology results were reviewed with the patient. 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 Dr Leal reviewed other treatment options, which are limited. After consulting with Dr. Gonzalez in radiation oncology, it was felt that she was a candidate for combined chemoradiation. Mrs Rose began her treatment with Xeloda and radiation therapy on 12/15/2019. She has tolerated it well thus far. She has no new concerns today. She denies any fever chills or any signs of infection. She has had no known COVID exposure, symptoms or personal testing since surgery. She continues to have intermittent abdominal pain but states is controlled with her pain medication when she takes them. She states the intermittent nausea is controlled well when she takes nausea medicine. Her appetite is some better but not great. She is eating and is using Ensure for nutritional supplementation. She denies any diarrhea or recurrent abdominal pain. She denies any urinary symptoms. She has had no skin changes. She denies any mouth sores, sore throat or difficulty swallowing. She denies any hand-foot symptoms. Her ECOG is 2. Past Medical History: Atrial fibrillation Coronary artery disease Diastolic congestive heart failure History of colonic polyps History of GI bleed on Eliquis History of pulmonary embolism Peripheral neuropathy Restrictive lung disease Type II diabetes Past Surgical History: Ablation of atrial fibrillation Appendectomy Carpal tunnel release Colon resection Coronary angioplasty/stent placement on 3 occasions Hysterectomy/bilateral salpingectomy-oophorectomy Repair of diaz injury to the right foot Rotator cuff repair ERCP with biliary sphincterotomy, stone extraction, and placement of biliary stent in 2019 Laparoscopic cholecystectomy in 2019 EGD and colonoscopy in 2019 Pacemaker placement in 2007 Allergies: Aspirin Adult, Codeine Sulfate, Digoxin, Sulfa Antibiotics, and Tetanus-Diphtheria Toxoids Td. Medications: Cholecalciferol 1 Tablet (of 25 mcg ) Oral at bedtime Clopidogrel Bisulfate 1 Tablet (of 75 mg) Oral daily Ferrous Sulfate 1 Tablet (of 325 (65 fe) mg) Oral b.i.d. Furosemide 1 Tablet (of 40 mg) Oral b.i.d. Gabapentin (600 mg) Tablet Oral b.i.d. HYDROcodone-Acetaminophen 1 Tablet (of 5-325 mg) Oral q 4 to 6 hours PRN Isosorbide Dinitrate 1 Tablet (of 30 mg) Oral daily Levemir FlexTouch 34 Units (of 100 Units/mL) Subcutaneous daily metFORMIN HCl 1 Tablet (of 500 mg) Oral b.i.d. Pantoprazole Sodium 1 Tablet (of 40 mg) Tablet, enteric coated Oral daily Potassium Chloride ER 1 Tablet (of 10 meq) Capsule, controlled release Oral daily Pravastatin Sodium 1 Tablet (of 40 mg) Oral at bedtime Sotalol HCl 1 Tablet (of 120 mg) Oral b.i.d. Spironolactone 0.5 Tablet (of 25 mg) Oral daily Vitamin C 1 Tablet (of 500 mg) Capsule Oral b.i.d. Family History: Ms. Rose's mother at age 80: heart disease. Ms. Rose's father at age 37. Father with some type of kidney disease at age 37. Mother with heart disease at age 80. One brother also of heart disease. Two other brothers have diabetes. Social History: Ms. Rose is and she is an unknown. Ms. Rose quit smoking 10 years ago but had smoked 1.0 pack/day for 51 years. She has no history of drinking. Ms. Rose reports the following support systems: lives with spouse, significant other, family, or friends, lives in own house, supportive family/friends willing to assist with needs, and adequate transportation available for expected visits. Her diet consists of regular meals. She indicates her activity level as: regular exercise. She has a history of smoking 1 to 2 packs of cigarettes daily for 55 years. She quit smoking about 10 years ago. She does not drink alcohol. Review Of Symptoms: Constitutional Denies fevers, chills, night sweats. Allergic/Immunologic No reactions. Eyes Denies significant visual changes. No diplopia. No amaurosis. ENMT Denies changes in hearing, sore throat, mouth sores, difficulty or changes in swallowing ability, and/or sinus drainage. Endocrine No diabetes, thyroid disease or hormone replacement. Denies hot flashes or night sweats. Hematologic/Lymphatic Denies easy bruising or bleeding. The patient denies any tender or palpable lymph nodes. Respiratory Denies new or worsening dyspnea on exertion, chest pain, cough or hemoptysis. Denies orthopnea. Cardiovascular Denies anginal chest pain, palpitations or orthopnea. Gastrointestinal Denies worsening nausea. Denies vomiting, diarrhea, GI bleeding, or constipation. Denies change in bowel habits and/or stool color, no heartburn or early satiety. Genitourinary (F) No hematuria, hesitancy, incontinence, vaginal bleeding, discharge or other problems with urination. Musculoskeletal Denies joint pain, swelling or redness. No decreased range of motion. Integumentary Denies chronic rashes, inflammation, ulcerations or skin changes. Neurologic Denies headache, blurred vision, and no areas of focal weakness or numbness. Normal gait. No sensory problems. Psychiatric Denies insomnia, depression, edna or mood swings. Vital Signs: Performed on Dec 23, 2019 14:21 Height - 64.00 in Weight - 203.6 lbs (LOW) BSA - 1.97 sq.m BMI - 34.95 (HIGH) Temperature - 97.3 F (LOW) Pulse - 70 /min Respiration - 19 /min BP - 116/78 mm(hg) O2 Sat - 94 % (LOW),2 - Ambulatory/capable of all self-care, unable to perform any work activities. Up and about more than 50% of waking hours. (ECOG) Physical Examination: Constitutional Alert, oriented, no acute distress. Skin pink, warm and dry. Generalized weakness. Head Normocephalic; atraumatic. Eyes Conjunctivae and sclerae are clear and without icterus. Pupils are reactive and equal. ENMT No oral exudates, ulcers, masses, thrush or mucositis. Oropharynx clear. Tongue normal. Hematologic/Lymphatic No petechiae or purpura. No tender or palpable lymph nodes in the cervical or supraclavicular areas. Respiratory Lungs are clear to auscultation without rhonchi or wheezing. Cardiovascular Regular rate and rhythm of heart without murmurs,clicks, gallops or rubs. Abdomen Non-tender, non-distended, no masses or ascites. Good bowel sounds noted in all quads. No guarding or rebound tenderness. No pulsatile masses. Back/Spine Non-tender to palpation. Extremities No visible deformities, no cyanosis, clubbing or edema. Musculoskeletal No tenderness or swelling, normal range of motion without obvious weakness. Integumentary No rashes or lesions. Neurologic No sensory or motor deficits, normal cerebellar function, normal gait. Psychiatric Alert and oriented times three. Coherent speech. Verbalizes understanding of our discussions today. Laboratory:Test performed on Dec 22, 2019 09:30 Glucose 190 mg/dL BUN 20 mg/dL Creatinine 0.8 mg/dL Cr Clearance (Est) 85.86 mL/min Sodium 140 mmol/L Potassium 4.5 mmol/L Chloride 101 mmol/L CO2 25 mmol/L Calcium 9.4 mg/dL Protein, Total 7.4 g/dL Albumin 4.0 g/dL Globulin 3.4 g/dL Bilirubin, Total 0.5 mg/dL Alkaline Phosphatase 68 IU/L AST (SGOT) 11 IU/L ALT (SGPT) 7 IU/L WBC 12.5 10^9/L RBC 4.35 10^12/L HGB 12.7 g/dL HCT 41.6 % MCV 95.6 fl MCH 29.2 pg MCHC 30.5 g/dL RDW 14.2 % Platelet Count 302 10^9/L MPV 10.2 fL Neutrophils (Gran) 10.41 10^9/L Lymphocytes 1.2 10^9/L Monocytes 0.6 10^9/L Eosinophils 0.2 10^9/L Basophils 0.1 10^9/L Manual Lymphocytes 9.4 % Manual Monocytes 4.5 % Manual Eosinophils 1.9 % Manual Basophils 0.4 % NRBCs 0.0 /100 WBC Impression: 1. 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 She appears to have early stage disease, by clinical evaluation stage IA (T1a, N0, M0), but she was deemed medically unsuitable for resection. 2. She presented with recurrent pancreatitis in association with choledocholithiasis for which she underwent laparoscopic cholecystectomy followed by ERCP with sphincterotomy, stone extraction, and placement of biliary stent on 10/18/2019. Her other medical illnesses include: 3. Type 2 diabetes with peripheral neuropathy. 4. Coronary artery disease with previous angioplasty/stent placement. 5. Atrial fibrillation with prior ablation procedure. 6. She has permanent pacemaker for complete heart block. 7. Diastolic congestive heart failure. 8. Restrictive lung disease, oxygen dependent. 9. History of pulmonary embolism. 10. History of GI bleeding on Eliquis, reportedly due to duodenal ulcer. 11. History of colonic polyps. The ERCP findings and pathology results were reviewed with the patient. 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 Dr Leal reviewed other treatment options, which are limited. After consulting with Dr. Gonzalez in radiation oncology, it was felt that she was a candidate for combined chemoradiation. She began her treatment with Xeloda and radiation therapy on 12/15/2019. Plan: 1. Proceed with week 2 Xeloda 1600 mg twice daily Saturday through Saturday with radiation only. 2. Compazine and Ativan as needed at home for antiemetics. 3. Continue nutritional supplementation with Ensure. 4. AVOID GRAPEFRUIT PRODUCTS WITH XELODA. 5. Labs from 12/22/2019 were reviewed in detail and a copy was given to her. WBC 12.5, hemoglobin 12.7, platelets 302,000 ANC is 10,400. Creatinine 0.8 potassium 4.5 random glucose 190 nonfasting. LFTs are normal. 6. We will plan for weekly visits and CBC CMP for Xeloda monitoring. 7. Ms. Rose was encouraged to contact us in interim should questions or problems arise. Signed By: Leatha Dubon-, [facility] Paul Leal MD <<Signature on File>>
--- NOTE | 2019-12-29 16:21 | ONCRAD TMN_ITS ---
Radiation Oncology Weekly Treatment Management Patient: Milton Garcia MR#: [id number] : 1940 Age: 79 Sex: Female Dictated by: Dr. Carl Gonzalez Date of Service: 12/29/2019 Referring Physician(s) : Dr. 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 The primary treatment for this malignancy is surgical resection. Unfortunately, the patient is not medically suitable for a Whipple procedure or endoscopic resection. Treatment Plan: Palliative radiation therapy concurrent with Xeloda to an aggregate dose of 45 Gy/25 fractions. Radiotherapy to date: [facility], [facility], Ref. ID: [id number], Energy: 15X, Dose/Fx (cGy): 180, #Fx: , Dose Correction (cGy): 0, Total Dose (cGy): 1,800, Start Date: 12/16/2019, Elapsed Days: 13 Reason for visit: The patient is being seen today as part of their regularly scheduled weekly on treatment visits to assess for acute toxicities from radiotherapy. Interim History: The patient reports 3 episodes of diarrhea which were ultimately controlled with loperamide. Aside from that, she has no significant complaints. Current Medications: Cholecalciferol, clopidogrel Bisulfate, ferrous Sulfate, furosemide, gabapentin, hYDROcodone-Acetaminophen, isosorbide Dinitrate, levemir FlexTouch, metFORMIN HCl, norco, ondansetron HCl, pantoprazole Sodium, potassium Chloride ER, pravastatin Sodium, prochlorperazine Maleate, sotalol HCl, spironolactone, vitamin C. Allergies: Aspirin Adult, Codeine Sulfate, Digoxin, Sulfa Antibiotics and Tetanus-Diphtheria Toxoids Td. Current Complaints/Review of Systems: Constitutional - Complains of moderate fatigue. Denies lack of appetite, fever, night sweats and change in weight. Gastrointestinal - Complains of abdominal pain that is intermittent located in the right lower quadrant. Complains of intermittent diarrhea which is characterized as loose, watery. Complains of nausea. Complains of vomiting had one epidsode yesterday.. Denies constipation and heartburn / dyspepsia. Genitourinary (F) - Complains of nocturia gets up 3 to 4 times per night. Denies dysuria, frequency and urgency. Vital Signs: Performed on 12/29/2019 2:50 PM BMI - 34.982 kg/m2 (high), Height - 64.00 in, Weight - 203.8 lbs, Temperature - 98.1 f, Pulse - 63, Respiration - 20, O2 Sat - 91 % (low), Pain - 0 and BP - 87/ 57 mm(hg)(low). Physical Exam: Appears stable, no skin erythema or desquamation. Performance Status: 2 - Ambulatory/capable of all self-care, unable to perform any work activities. Up and about more than 50% of waking hours. (ECOG) Lab: None pending in Radiation Oncology. Imaging: Radiation therapy imaging related to accurate target localization (i.e. KV, MV and CBCT) was reviewed. Appropriate changes, if any, were made to ensure treatment accuracy. Plan: The patient is tolerating therapy reasonably well. Radiotherapy will continue as planned. CPT: 55398 Signed by: Dr. Carl Gonzalez 12/29/2019 4:19:10 PM
[2019-12-31 12:40] VITALS: RESP 18
[2019-12-31] MEDS: morphine 4 mg/mL SDV 1 mL IVP (12:40)
[2019-12-31] MEDS: sodium chloride 0.9% 1,000 ML 500 ML IV (12:40)
[2019-12-31 12:57] LABS: Basophils % 0.3 %; Eosinophils # 0.2 10^3/uL (0.0-0.8); Eosinophils % 2.3 %; Hematocrit 39.7 % (37.0-47.0); Hemoglobin 12.3 g/dL (11.5-15.3); Lymphocytes # 1.3 10^3/uL (0.8-4.8); Lymphocytes % 12.2 %; Mean Corpuscular Hemoglobin 29.9 pg (28.0-34.0); Mean Corpuscular Volume 96.4 fL (81-99); Mean Platelet Volume 10.1 fL (7.4-10.4); Monocytes # 0.7 10^3/uL (0.2-0.9); Monocytes % 6.9 %; Neutrophils # 8.01 10^3/uL (1.8-7.7); Nucleated Red Blood Cells % 0 %; Platelet Count 296 10^3/cmm (130-400); Red Blood Count 4.12 10^6/uL (4.1-5.3); Red Cell Distribution Width 15.2 % (12.1-15.1); White Blood Count 10.3 10^3/uL (4.0-10.0)
[2019-12-31 13:53] LABS: Basophils % 0.3 %; Eosinophils # 0.3 10^3/uL (0.0-0.8); Eosinophils % 2.7 %; Hematocrit 36.3 % (37.0-47.0); Hemoglobin 11.4 g/dL (11.5-15.3); Lymphocytes # 1.4 10^3/uL (0.8-4.8); Lymphocytes % 14.7 %; Mean Corpuscular HGB Conc 31.4 g/dL (30.0-36.0); Mean Corpuscular Hemoglobin 30.2 pg (28.0-34.0); Mean Corpuscular Volume 96.3 fL (81-99); Mean Platelet Volume 9.6 fL (7.4-10.4); Monocytes # 0.7 10^3/uL (0.2-0.9); Monocytes % 7.7 %; Neutrophils # 6.97 10^3/uL (1.8-7.7); Neutrophils % 74.1 %; Nucleated Red Blood Cells % 0 %; Platelet Count 254 10^3/cmm (130-400); Red Blood Count 3.77 10^6/uL (4.1-5.3); Red Cell Distribution Width 15.1 % (12.1-15.1); White Blood Count 9.4 10^3/uL (4.0-10.0)
[2019-12-31 14:21] LABS: Alanine Aminotransferase 9 U/L (0-33); Albumin Level 3.6 g/dL (3.5-5.2); Alkaline Phosphatase 58 IU/L (35-105); Anion Gap 13.6 (5-19); Aspartate Amino Transferase 12 U/L (0-32); Blood Urea Nitrogen 23 mg/dL (8-23); Calcium 8.8 mg/dL (8.5-10.5); Carbon Dioxide 30 mmol/L (22-29); Chloride 99 mmol/L (98-107); Glucose 123 mg/dL (65-115); Osmolality Calculated 291 mOsm/kg (285-295); Potassium 4.6 mmol/L (3.5-5.1); Sodium 138 mmol/L (136-145); Total Bilirubin 0.4 mg/dL (0.15-1.2); Total Protein 6.6 g/dL (6.6-8.7)
--- NOTE | 2020-01-02 16:18 | ONC FU_ITS ---
[facility] Patient Note Patient: Radha Rose Unit #: [id number]: 1940 Dictated By: Leatha DubonDate of Visit: Dec 31, 2019 Onc MED Follow-Up/Prog Note Chief Complaint: Ampullary carcinoma. History of Present Illness: Ms Rose is a 79-year-old woman with recently diagnosed ampullary adenocarcinoma. She has multiple medical illnesses including type 2 diabetes, coronary artery disease, and restrictive lung disease. She has associated atrial fibrillation and diastolic congestive heart failure. In August 2019 she was admitted to the hospital, serum lipase greater than 600 U/L. Her CT abdomen/pelvis showed evidence of cholelithiasis but with no evidence of acute abdominal pathologic process. She improved with conservative management. On an outpatient follow-up visit with Dr. Ayala on 10/16/2019 she had continued to complain of abdominal pain. On further evaluation in the emergency room her serum lipase was significantly elevated 2793 U/L. Her CT findings were unchanged. Gallbladder ultrasound showed cholelithiasis with mildly dilated common bile duct. She was transferred to [facility] for admission. On 10/18/2019 she underwent laparoscopic cholecystectomy. Her intraoperative cholangiogram showed evidence of bile duct obstruction due to stone impaction at the ampulla. She then underwent ERCP with biliary sphincterotomy, stone extraction, and placement of a fully covered metal stent. Her duodenoscopy also showed a polypoid nature papilla in the second portion of the duodenum which was estimated 2 cm in diameter. Distal to the major papilla the mucosa appeared ulcerated with adherent mucoid bilious fluid. The ulceration was noted to extend for approximately 2 to 3 cm. The procedure also included biopsies of the ulcerated area and the adenomatous appearing major papilloma. Pathology showed at least focally invasive adenocarcinoma arising in an adenoma. It was noted in the report that there was insufficient material remaining for additional studies. She had consultation with Dr. Muñoz on 11/04/2019. It had previously been noted by Dr. Omer that the lesion was not amenable to endoscopic resection, and the patient was deemed medically unsuitable for a Whipple procedure by Dr. Muñoz. As such, she was seen by Dr Leal to discuss other treatment options. The ERCP findings and pathology results were reviewed with the patient. 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 Dr Leal reviewed other treatment options, which are limited. After consulting with Dr. Gonzalez in radiation oncology, it was felt that she was a candidate for combined chemoradiation. Mrs Rose began her treatment with Xeloda and radiation therapy on 12/15/2019. She has tolerated it well thus far. She denies any fever chills or any signs of infection. She has had no known COVID exposure, symptoms or personal testing since surgery. She presents today with worsening chronic back pain. She states that laying on the radiation table has exacerbated her chronic back pain. She states now she is having pain to the point where her current pain medication is not helping. She is waking up with pain. And the pain medicine seems to be causing some intermittent nausea. She denies any numbness or tingling. She has had no bowel or bladder dysfunction. She denies headaches or vision changes. She states the intermittent abdominal pain is better. Her appetite has declined this week. . She is eating small amounts and is using Ensure for nutritional supplementation. She denies any diarrhea or recurrent abdominal pain. She denies any urinary symptoms. She has had no skin changes. She denies any mouth sores, sore throat or difficulty swallowing. She denies any hand-foot symptoms. Her ECOG is 2. Past Medical History: Atrial fibrillation Coronary artery disease Diastolic congestive heart failure History of colonic polyps History of GI bleed on Eliquis History of pulmonary embolism Peripheral neuropathy Restrictive lung disease Type II diabetes Past Surgical History: Ablation of atrial fibrillation Appendectomy Carpal tunnel release Colon resection Coronary angioplasty/stent placement on 3 occasions Hysterectomy/bilateral salpingectomy-oophorectomy Repair of diaz injury to the right foot Rotator cuff repair ERCP with biliary sphincterotomy, stone extraction, and placement of biliary stent in 2020 Laparoscopic cholecystectomy in 2020 EGD and colonoscopy in 2020 Pacemaker placement in 2007 Allergies: Aspirin Adult, Codeine Sulfate, Digoxin, Sulfa Antibiotics, and Tetanus-Diphtheria Toxoids Td. Medications: Cholecalciferol 1 Tablet (of 25 mcg ) Oral at bedtime Clopidogrel Bisulfate 1 Tablet (of 75 mg) Oral daily Ferrous Sulfate 1 Tablet (of 325 (65 fe) mg) Oral b.i.d. Furosemide 1 Tablet (of 40 mg) Oral b.i.d. Gabapentin (600 mg) Tablet Oral b.i.d. HYDROcodone-Acetaminophen 1 Tablet (of 5-325 mg) Oral q 4 to 6 hours PRN Isosorbide Dinitrate 1 Tablet (of 30 mg) Oral daily Levemir FlexTouch 34 Units (of 100 Units/mL) Subcutaneous daily metFORMIN HCl 1 Tablet (of 500 mg) Oral b.i.d. Pantoprazole Sodium 1 Tablet (of 40 mg) Tablet, enteric coated Oral daily Potassium Chloride ER 1 Tablet (of 10 meq) Capsule, controlled release Oral daily Pravastatin Sodium 1 Tablet (of 40 mg) Oral at bedtime Sotalol HCl 1 Tablet (of 120 mg) Oral b.i.d. Spironolactone 0.5 Tablet (of 25 mg) Oral daily Vitamin C 1 Tablet (of 500 mg) Capsule Oral b.i.d. Family History: Ms. Rose's mother at age 80: heart disease. Ms. Rose's father at age 37. Father with some type of kidney disease at age 37. Mother with heart disease at age 80. One brother also of heart disease. Two other brothers have diabetes. Social History: Ms. Rose is and she is an unknown. Ms. Rose quit smoking 10 years ago but had smoked 1.0 pack/day for 51 years. She has no history of drinking. Ms. Rose reports the following support systems: lives with spouse, significant other, family, or friends, lives in own house, supportive family/friends willing to assist with needs, and adequate transportation available for expected visits. Her diet consists of regular meals. She indicates her activity level as: regular exercise. She has a history of smoking 1 to 2 packs of cigarettes daily for 55 years. She quit smoking about 10 years ago. She does not drink alcohol. Review Of Symptoms: Constitutional Denies fevers, chills, night sweats. Allergic/Immunologic No reactions. Eyes Denies significant visual changes. No diplopia. No amaurosis. ENMT Denies changes in hearing, sore throat, mouth sores, difficulty or changes in swallowing ability, and/or sinus drainage. Endocrine No diabetes, thyroid disease or hormone replacement. Denies hot flashes or night sweats. Hematologic/Lymphatic Denies easy bruising or bleeding. The patient denies any tender or palpable lymph nodes. Respiratory Denies new or worsening dyspnea on exertion, chest pain, cough or hemoptysis. Denies orthopnea. Cardiovascular Denies anginal chest pain, palpitations or orthopnea. Gastrointestinal Denies worsening nausea. Denies vomiting, diarrhea, GI bleeding, or constipation. Denies change in bowel habits and/or stool color, no heartburn or early satiety. Genitourinary (F) No hematuria, hesitancy, incontinence, vaginal bleeding, discharge or other problems with urination. Musculoskeletal pain 10/10 in back from laying on RT table. Integumentary Denies chronic rashes, inflammation, ulcerations or skin changes. Neurologic Denies headache, blurred vision, and no areas of focal weakness or numbness. No sensory problems. States gait is slow due to back pain. Psychiatric Denies insomnia, depression, edna or mood swings. Vital Signs: Performed on Dec 31, 2019 14:10 Height - 64.00 in Temperature - 98.3 F (LOW) Pulse - 62 /min BP - 94/43 mm(hg) O2 Sat - 95 % (LOW) Pain - 8,2 - Ambulatory/capable of all self-care, unable to perform any work activities. Up and about more than 50% of waking hours. (ECOG) Physical Examination: Constitutional Alert, oriented, no acute distress but in obvious pain. Skin pink, warm and dry. Generalized weakness. Head Normocephalic; atraumatic. Eyes Conjunctivae and sclerae are clear and without icterus. Pupils are reactive and equal. ENMT No oral exudates, ulcers, masses, thrush or mucositis. Oropharynx clear. Tongue normal. Hematologic/Lymphatic No petechiae or purpura. No tender or palpable lymph nodes in the cervical or supraclavicular areas. Respiratory Lungs are clear to auscultation without rhonchi or wheezing. Cardiovascular Regular rate and rhythm of heart without murmurs,clicks, gallops or rubs. Abdomen Non-tender, non-distended, no masses or ascites. Good bowel sounds noted in all quads. No guarding or rebound tenderness. No pulsatile masses. Back/Spine Non-tender to palpation. Extremities No visible deformities, no cyanosis, clubbing or edema. Musculoskeletal No tenderness or swelling, normal range of motion without obvious weakness. Integumentary No rashes or lesions. Neurologic No sensory or motor deficits, normal cerebellar function. In wheelchair due to back pain. Psychiatric Alert and oriented times three. Coherent speech. Verbalizes understanding of our discussions today. Laboratory:Test performed on Dec 31, 2019 13:35 Sodium 138 mmol/L Potassium 4.6 mmol/L Chloride 99 mmol/L CO2 30 mmol/L Anion Gap 13.6 BUN 23 mg/dL Creatinine 0.9 mg/dL Cr Clearance (Est) 76.3900 mL/min Glucose 123 mg/dL Osmolality - Calculated 291 mOsm/kg Calcium 8.8 mg/dL Protein, Total 6.6 g/dL Albumin 3.6 g/dL Globulin 3.0 g/dL Bilirubin, Total 0.4 mg/dL ALT (SGPT) 9 U/L AST (SGOT) 12 U/L Alkaline Phosphatase 58 IU/L WBC 9.4 10 3/uL RBC 3.77 10 6/uL HGB 11.4 g/dL HCT 36.3 % MCV 96.3 fL MCH 30.2 pg MCHC 31.4 g/dL RDW 15.1 % Platelet Count 254 10 3/cmm MPV 9.6 fL Neutrophils 6.97 10 3/uL Lymphocytes 1.4 10 3/uL Monocytes 0.7 10 3/uL Eosinophils 0.3 10 3/uL Basophils 0.0 10 3/uL Neutrophil % 74.1 % Lymphocyte % 14.7 % Monocyte % 7.7 % Eosinophil % 2.7 % Basophils % 0.3 % NRBC % 0 % Test performed on Dec 22, 2019 09:30 Manual Lymphocytes 9.4 % Manual Monocytes 4.5 % Manual Eosinophils 1.9 % Manual Basophils 0.4 % NRBCs 0.0 /100 WBC Test performed on Dec 16, 2019 11:42 TSH 4.39 uIU/mL CA 19-9 21.12 U/mL CEA 1.9 ng/mL Test performed on Nov 23, 2019 09:32 Lipase 680 U/L Impression: 1. 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 She appears to have early stage disease, by clinical evaluation stage IA (T1a, N0, M0), but she was deemed medically unsuitable for resection. 2. She presented with recurrent pancreatitis in association with choledocholithiasis for which she underwent laparoscopic cholecystectomy followed by ERCP with sphincterotomy, stone extraction, and placement of biliary stent on 10/18/2019. Her other medical illnesses include: 3. Type 2 diabetes with peripheral neuropathy. 4. Coronary artery disease with previous angioplasty/stent placement. 5. Atrial fibrillation with prior ablation procedure. 6. She has permanent pacemaker for complete heart block. 7. Diastolic congestive heart failure. 8. Restrictive lung disease, oxygen dependent. 9. History of pulmonary embolism. 10. History of GI bleeding on Eliquis, reportedly due to duodenal ulcer. 11. History of colonic polyps. The ERCP findings and pathology results were reviewed with the patient. 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 Dr Leal reviewed other treatment options, which are limited. After consulting with Dr. Gonzalez in radiation oncology, it was felt that she was a candidate for combined chemoradiation. She began her treatment with Xeloda and radiation therapy on 12/15/2019. Ms. Rose presents today in acute pain???exacerbated chronic back pain. She is also dehydrated from lack of sufficient oral intake. Some of this is related to nausea associated with the pain and pain medication. Plan: 1. Proceed with week 2 Xeloda 1600 mg twice daily Saturday through Saturday with radiation only. Hold if diarrhea develops (due to current dehydration). 2. She will have supportive care today with hydration and antiemetics as well as morphine IV for pain alleviation. We will also change her pain medication to MSIR 15 mg 1 or 2 every 6 hours as needed for pain. We will have her try this over the weekend and see how she does. We did discuss side effects of the morphine to include confusion, disorientation, constipation, sedation, respiratory distress, rash amongst others. She denies any allergy to morphine and states that she has had in the past and tolerated it well to her recall 3. Continue nutritional supplementation with Ensure. 4. AVOID GRAPEFRUIT PRODUCTS WITH XELODA. 5. Labs were drawn today as she was being set up for hydration/supportive care. 6. We will plan for weekly visits and CBC CMP for Xeloda monitoring. 7. Ms. Rose was encouraged to contact us in interim should questions or problems arise. Signed By: Leatha Dubon-, [facility] Paul Leal MD <<Signature on File>>
--- NOTE | 2020-01-06 19:35 | ONCRAD TMN_ITS ---
Radiation Oncology Weekly Treatment Management Patient: Radha Rose MR#: [id number] : 1940 Age: 79 Sex: Female Dictated by: Dr. Carl Gonzalez Date of Service: 01/05/2020 Referring Physician(s) : Dr. 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 The primary treatment for this malignancy is surgical resection. Unfortunately, the patient is not medically suitable for a Whipple procedure or endoscopic resection. Treatment Plan: Palliative radiation therapy concurrent with Xeloda to an aggregate dose of 45 Gy/25 fractions. Radiotherapy to date: Course: [facility], Treatment Site: Ampulla 25FX, Ref. ID: [id number], Energy: 15X, Dose/Fx (cGy): 180, #Fx: 15 / 25, Dose Correction (cGy): 0, Total Dose (cGy): 2,700, Start Date: 12/16/2019, Elapsed Days: 20 Reason for visit: The patient is being seen today as part of their regularly scheduled weekly on treatment visits to assess for acute toxicities from radiotherapy. Interim History: The patient reports nausea vomiting and diarrhea, and this is responsive to Imodium and antiemetics. Current Medications: Cholecalciferol, clopidogrel Bisulfate, ferrous Sulfate, furosemide, gabapentin, hYDROcodone-Acetaminophen, isosorbide Dinitrate, levemir FlexTouch, metFORMIN HCl, morphine Sulfate, norco, ondansetron HCl, pantoprazole Sodium, potassium Chloride ER, pravastatin Sodium, prochlorperazine Maleate, sotalol HCl, spironolactone, vitamin C. Allergies: Aspirin Adult, Codeine Sulfate, Digoxin, Sulfa Antibiotics and Tetanus-Diphtheria Toxoids Td. Current Complaints/Review of Systems: Constitutional - Complains of a poor appetite. Complains of moderate fatigue. Denies fever and night sweats. Gastrointestinal - Complains of abdominal pain located in the right lower quadrant. Complains of intermittent diarrhea which is characterized as loose. Complains of nausea. Complains of vomiting. Denies constipation, heartburn / dyspepsia and melena / GI bleeding. Genitourinary (F) - Complains of nocturia gets up about 2 to 6 times per night. Denies dysuria, frequency, hematuria, urgency, vaginal discharge / bleeding and vaginal spotting. Vital Signs: Performed on 01/05/2020 2:22 PM BMI - 34.519 kg/m2 (high), Height - 64.00 in, Weight - 201.1 lbs, Temperature - 98.1 f, Pulse - 60, Respiration - 20, O2 Sat - 90 % (low), Pain - 0 and BP - 114/ 66 mm(hg). Physical Exam: Appears stable, no skin erythema or desquamation. Performance Status: 2 - Ambulatory/capable of all self-care, unable to perform any work activities. Up and about more than 50% of waking hours. (ECOG) Lab: None pending in Radiation Oncology. Test performed on 11/23/2019 9:32 AM Lipase - 680 u/l (high), Test performed on 12/16/2019 11:42 AM TSH - 4.39 uiu/ml (high), Test performed on 12/22/2019 9:30 AM Manual Lymphocytes - 9.4 % (low), Test performed on 12/31/2019 1:35 PM RBC - 3.77 10 6/ul (low), HGB - 11.4 g/dl (low), HCT - 36.3 % (low), CO2 - 30 mmol/l (high) and Glucose - 123 mg/dl (high). Imaging: Radiation therapy imaging related to accurate target localization (i.e. KV, MV and CBCT) was reviewed. Appropriate changes, if any, were made to ensure treatment accuracy. Plan: The patient is tolerating therapy reasonably well. Radiotherapy will continue as planned. CPT: 84436 Signed by: Dr. Carl Gonzalez 01/06/2020 7:34:11 PM
[2020-01-07 12:09] LABS: Basophils % 0.2 %; Eosinophils # 0.2 10^3/uL (0.0-0.8); Eosinophils % 1.7 %; Hemoglobin 11.9 g/dL (11.5-15.3); Lymphocytes % 7.8 %; Mean Corpuscular HGB Conc 31.3 g/dL (30.0-36.0); Mean Corpuscular Hemoglobin 30.3 pg (28.0-34.0); Mean Corpuscular Volume 96.7 fL (81-99); Mean Platelet Volume 9.5 fL (7.4-10.4); Monocytes # 0.8 10^3/uL (0.2-0.9); Monocytes % 6.8 %; Neutrophils # 10.12 10^3/uL (1.8-7.7); Neutrophils % 82.9 %; Nucleated Red Blood Cells % 0.2 %; Platelet Count 184 10^3/cmm (130-400); Red Blood Count 3.93 10^6/uL (4.1-5.3); Red Cell Distribution Width 16.4 % (12.1-15.1); White Blood Count 12.2 10^3/uL (4.0-10.0)
[2020-01-07 12:27] LABS: Alanine Aminotransferase 10 U/L (0-33); Albumin Level 3.6 g/dL (3.5-5.2); Alkaline Phosphatase 65 IU/L (35-105); Anion Gap 15.5 (5-19); Aspartate Amino Transferase 11 U/L (0-32); Blood Urea Nitrogen 16 mg/dL (8-23); Calcium 8.7 mg/dL (8.5-10.5); Carbon Dioxide 26 mmol/L (22-29); Chloride 101 mmol/L (98-107); Globulin 2.7 g/dL (1.3-4.6); Glucose 188 mg/dL (65-115); Osmolality Calculated 292 mOsm/kg (285-295); Potassium 4.5 mmol/L (3.5-5.1); Sodium 138 mmol/L (136-145); Total Bilirubin 0.7 mg/dL (0.15-1.2); Total Protein 6.3 g/dL (6.6-8.7)
[2020-01-07] MEDS: sodium chloride 0.9% 1,000 ML 1000 ML IV (12:39)
--- NOTE | 2020-01-10 10:18 | ONC FU_ITS ---
Dr. Leal Patient Follow-Up Note Patient: Radha Rose Unit #: [id number]: 1940 Dicatated By: Paul Leal M.D.Date of Visit:Jan 07, 2020 Onc Med Follow-up/Prog Note Chief Complaint: Ampullary carcinoma. History of Present Illness: This is a 79-year-old woman with recently diagnosed ampullary adenocarcinoma. In August 2019 she was admitted to the hospital, serum lipase greater than 600 U/L. Her CT abdomen/pelvis showed evidence of cholelithiasis but with no evidence of acute abdominal pathologic process. She improved with conservative management. On an outpatient follow-up visit with Dr. Ayala on 10/16/2019 she had continued to complain of abdominal pain. On further evaluation in the emergency room her serum lipase was significantly elevated 2793 U/L. Her CT findings were unchanged. Gallbladder ultrasound showed cholelithiasis with mildly dilated common bile duct. She was transferred to [facility] for admission. On 10/18/2019 she underwent laparoscopic cholecystectomy. Her intraoperative cholangiogram showed evidence of bile duct obstruction due to stone impaction at the ampulla. She then underwent ERCP with biliary sphincterotomy, stone extraction, and placement of a fully covered metal stent. Her duodenoscopy also showed a polypoid nature papilla in the second portion of the duodenum which was estimated 2 cm in diameter. Distal to the major papilla the mucosa appeared ulcerated with adherent mucoid bilious fluid. The ulceration was noted to extend for approximately 2 to 3 cm. The procedure also included biopsies of the ulcerated area and the adenomatous appearing major papilloma. Pathology showed at least focally invasive adenocarcinoma arising in an adenoma. It was noted in the report that there was insufficient material remaining for additional studies. She had consultation with Dr. Muñoz on 11/04/2019. It had previously been noted by Dr. Omer that the lesion was not amenable to endoscopic resection, and the patient was deemed medically unsuitable for a Whipple procedure by Dr. Muñoz. I had seen her initially on 11/18/2019 for consideration of other treatment options. After reviewing the images with the radiation oncologist, it appeared that the lesion was not amenable to SBRT, but as has her disease did appear to be localized, she was offered the option of undergoing chemoradiation. Her other medical illnesses include type 2 diabetes, coronary artery disease, and restrictive lung disease. She has associated atrial fibrillation and diastolic congestive heart failure. She is oxygen dependent. She has undergone coronary angioplasty/stent placement. She has undergone an ablation procedure for the atrial fibrillation, and she had a permanent pacemaker placed for complete heart block. She has a history of pulmonary embolism, management of which was complicated by development of a bleeding duodenal ulcer while on anticoagulation with apixaban. She has a history of smoking 1 to 2 packs of cigarettes daily for 55 years, but she quit smoking about 10 years ago. INTERIM HISTORY: On 12/16/2019 she began radiation concurrently with Xeloda for chemosensitization. She is seen for a follow-up visit. She has not have much energy, and her activity is limited. ECOG score is 2. She complains that she has no appetite. She has been having a lot of nausea with the treatment, and she has had some vomiting. Her stools are loose, but she is not having actual diarrhea. She does not have fever or night sweats. She has shortness of breath, and she is on continuous oxygen. She does not complain of cough and she has not been having chest pain. She has no complaints. She does complain of back pain. She does not have headache. She has had some dizziness. She has no numbness/paresthesia or other focal neurologic symptoms. She says her face has looked a little red lately. She has had no other skin changes. Medications: Cholecalciferol 1 Tablet (of 25 mcg ) Oral at bedtime, Clopidogrel Bisulfate 1 Tablet (of 75 mg) Oral daily, Ferrous Sulfate 1 Tablet (of 325 (65 fe) mg) Oral b.i.d., Furosemide 1 Tablet (of 40 mg) Oral b.i.d., Gabapentin (600 mg) Tablet Oral b.i.d., HYDROcodone-Acetaminophen 1 Tablet (of 5-325 mg) Oral q 4 to 6 hours PRN, Isosorbide Dinitrate 1 Tablet (of 30 mg) Oral daily, Levemir FlexTouch 34 Units (of 100 Units/mL) Subcutaneous daily, metFORMIN HCl 1 Tablet (of 500 mg) Oral b.i.d., Pantoprazole Sodium 1 Tablet (of 40 mg) Tablet, enteric coated Oral daily, Potassium Chloride ER 1 Tablet (of 10 meq) Capsule, controlled release Oral daily, Pravastatin Sodium 1 Tablet (of 40 mg) Oral at bedtime, Sotalol HCl 1 Tablet (of 120 mg) Oral b.i.d., Spironolactone 0.5 Tablet (of 25 mg) Oral daily, Vitamin C 1 Tablet (of 500 mg) Capsule Oral b.i.d. Allergies: Aspirin Adult, Codeine Sulfate, Digoxin, Sulfa Antibiotics, and Tetanus-Diphtheria Toxoids Td. Review of Systems: Constitutional - She has fatigue and she has limited activity. She complains that she has no appetite. She does not have fever or night sweats. ECOG score is 2, ENMT - No sinus congestion/drainage. She has dry mouth. No sore throat or difficulty swallowing, Hematologic/Lymphatic - She has easy bruising, Respiratory - She has shortness of breath. She is on oxygen. No cough. No pleuritic pain or hemoptysis, Cardiovascular - No angina pain. No palpitations, Gastrointestinal - She is having nausea and she has had some vomiting. No heartburn or acid reflux. Her bowels are loose, which she does not have actual diarrhea. No blood in the stool or black stools, Genitourinary (F) - No dysuria or hematuria. No urinary frequency. No urgency or incontinence, Musculoskeletal - She has back pain, Integumentary - She has noticed that her face has been a little red lately. She has had no other skin changes, Neurologic - No headache. She has had some dizziness. No numbness or tingling. No other focal neurologic symptoms, Psychiatric - No anxiety or depression. No insomnia. Vital Signs: Performed on Jan 07, 2020 11:18 Height - 64.00 in Weight - lbs Temperature - 98.3 F (LOW) Pulse - 61 /min Respiration - 24 /min BP - 99/59 mm(hg) O2 Sat - 92 % (LOW) Pain - 8 Physical Examination: Constitutional - She appears somewhat weak generally, Eyes - Sclerae nonicteric. Conjunctivae clear, ENMT - Her mouth is very dry. There are no lesions noted in the oral cavity, Hematologic/Lymphatic - No cervical, clavicular, or axillary adenopathy, Respiratory - Lungs sound clear with diminished air movement bilaterally, Cardiovascular - Heart rhythm is regular. There is no murmur, gallop, or rub noted, Abdomen - Soft. Liver and spleen are not enlarged. There is no abdominal mass or ascites noted and there is no inguinal adenopathy, Extremities - No edema, Integumentary - There are no changes of hand/foot syndrome, Neurologic - No focal neurologic deficits noted. Lab/Imaging: Test performed on Jan 07, 2020 12:02 Sodium 138 mmol/L Potassium 4.5 mmol/L Chloride 101 mmol/L CO2 26 mmol/L Anion Gap 15.5 BUN 16 mg/dL Creatinine 1.0 mg/dL Cr Clearance (Est) 68.7600 mL/min Glucose 188 mg/dL Osmolality - Calculated 292 mOsm/kg Calcium 8.7 mg/dL Protein, Total 6.3 g/dL Albumin 3.6 g/dL Globulin 2.7 g/dL Bilirubin, Total 0.7 mg/dL ALT (SGPT) 10 U/L AST (SGOT) 11 U/L Alkaline Phosphatase 65 IU/L WBC 12.2 10 3/uL RBC 3.93 10 6/uL HGB 11.9 g/dL HCT 38.0 % MCV 96.7 fL MCH 30.3 pg MCHC 31.3 g/dL RDW 16.4 % Platelet Count 184 10 3/cmm MPV 9.5 fL Neutrophils 10.12 10 3/uL Lymphocytes 1.0 10 3/uL Monocytes 0.8 10 3/uL Eosinophils 0.2 10 3/uL Basophils 0.0 10 3/uL Neutrophil % 82.9 % Lymphocyte % 7.8 % Monocyte % 6.8 % Eosinophil % 1.7 % Basophils % 0.2 % NRBC % 0.2 % Impression: 1. 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 She appears to have early stage disease, by clinical evaluation stage IA (T1a, N0, M0), but she was deemed medically unsuitable for resection. 2. She presented with recurrent pancreatitis in association with choledocholithiasis for which she underwent laparoscopic cholecystectomy followed by ERCP with sphincterotomy, stone extraction, and placement of biliary stent on 10/18/2019. Her other medical illnesses include: 3. Type 2 diabetes with peripheral neuropathy. 4. Coronary artery disease with previous angioplasty/stent placement. 5. Atrial fibrillation with prior ablation procedure. 6. She has permanent pacemaker for complete heart block. 7. Diastolic congestive heart failure. 8. Restrictive lung disease, oxygen dependent. 9. History of pulmonary embolism. 10. History of GI bleeding on Eliquis, reportedly due to duodenal ulcer. 11. History of colonic polyps. With localized unresectable disease, she was offered the option to undergo chemoradiation. On 12/16/2019 she began radiation concurrently with Xeloda for chemosensitization. Thus far the treatment has been tolerable, but she has been having quite a bit of nausea and she also is having loose stools. Her blood counts remain adequate. Plan: She continues Xeloda 1600 mg twice daily on days of radiation. She will be given IV hydration and IV antiemetics today, and I will have her come in for scheduled hydration twice weekly. In addition, I will have her start Compazine 10 mg together with Marinol 5 mg twice daily for the nausea, but that will be subject to verification of insurance coverage. Her blood counts and chemistries will be checked weekly. I will see her for a follow-up visit in 2 weeks, or sooner as needed. Signed By: Paul Leal M.D. <<Signature on File>>
== END 2020-01-09 23:59 | disposition home or self-care (01) ==
LOC: ONCMED 05:47
PROVIDERS: Internal Medicine Medical Oncology; Nurse Practitioner; Absent Provider Radiology Radiation Oncology; PCP Nurse Practitioner Family; Visit Provider Radiology Radiation Oncology
DX: Z51.0 Encounter for antineoplastic radiation therapy (principal); C24.1 Malignant neoplasm of ampulla of Vater; E11.9 Type 2 diabetes mellitus without complications; I25.10 Atherosclerotic heart disease of native coronary artery without angina pectoris; I48.91 Unspecified atrial fibrillation; E11.42 Type 2 diabetes mellitus with diabetic polyneuropathy; I50.9 Heart failure, unspecified; L65.9 Nonscarring hair loss, unspecified; Z51.81 Encounter for therapeutic drug level monitoring; Z79.899 Other long term (current) drug therapy; Z99.81 Dependence on supplemental oxygen; Z86.711 Personal history of pulmonary embolism; Z95.5 Presence of coronary angioplasty implant and graft; Z95.0 Presence of cardiac pacemaker; Z79.02 Long term (current) use of antithrombotics/antiplatelets; Z79.84 Long term (current) use of oral hypoglycemic drugs
CPT/HCPCS: 36415; 77336; 77386; 80053; 82378; 84443; 85025; 86301; 96361; 96365; 96367; 96375; 99214; 99215; J1100; J2270; J2405; J3490; J7030

== ENCOUNTER 2020-02-08 05:16 | Outpatient (RCR) | payer MEDICARE, SELFPAY ==
[2020-01-11] MEDS: sodium chloride 0.9% 1,000 ML 999 ML IV (15:56)
[2020-01-11 15:57] VITALS: RESP 16
[2020-01-11] MEDS: HYDROmorphone 1 mg/mL INJ 1 mL 2 MG IV (15:57)
--- NOTE | 2020-01-12 15:04 | ONCRAD TMN_ITS ---
Radiation Oncology Weekly Treatment Management Patient: Milton Garcia MR#: [id number] : 1940 Age: 79 Sex: Female Dictated by: Dr. Carl Gonzalez Date of Service: 01/12/2020 Referring Physician(s) : Dr. 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 The primary treatment for this malignancy is surgical resection. Unfortunately, the patient is not medically suitable for a Whipple procedure or endoscopic resection. Treatment Plan: Palliative radiation therapy concurrent with Xeloda to an aggregate dose of 45 Gy/25 fractions. [facility]: [facility] Amp[facility], Ref. ID: [id number], Energy: 15X, Dose/Fx (cGy): 180, #Fx: 20 / 25, Dose Correction (cGy): 0, Total Dose (cGy): 3,600, Start Date: 12/16/2019, Elapsed Days: 27 Reason for visit: The patient is being seen today as part of their regularly scheduled weekly on treatment visits to assess for acute toxicities from radiotherapy. Interim History: The patient reports mild fatigue, nausea controlled with existing antiemetics, and early satiety. Current Medications: Cholecalciferol, clopidogrel Bisulfate, ferrous Sulfate, furosemide, gabapentin, hYDROcodone-Acetaminophen, isosorbide Dinitrate, levemir FlexTouch, metFORMIN HCl, morphine Sulfate, norco, oLANZapine, ondansetron HCl, pantoprazole Sodium, potassium Chloride ER, pravastatin Sodium, sotalol HCl, spironolactone, vitamin C. Allergies: Aspirin Adult, Codeine Sulfate, Digoxin, Sulfa Antibiotics and Tetanus-Diphtheria Toxoids Td. Vital Signs: Performed on 01/12/2020 2:27 PM BMI - 35.36 kg/m2 (high), Height - 64.00 in, Weight - 206.0 lbs, Temperature - 98.3 f, Pulse - 60, Respiration - 20, O2 Sat - 94 % (low), Pain - 0 and BP - 119/ 58 mm(hg)(/low). Physical Exam: Lungs are clear to auscultation bilaterally. Performance Status: 2 - Ambulatory/capable of all self-care, unable to perform any work activities. Up and about more than 50% of waking hours. (ECOG) Lab: None pending in Radiation Oncology. Test performed on 11/23/2019 9:32 AM Lipase - 680 u/l (high), Test performed on 12/16/2019 11:42 AM TSH - 4.39 uiu/ml (high), Test performed on 12/22/2019 9:30 AM Manual Lymphocytes - 9.4 % (low), Test performed on 01/07/2020 12:02 PM WBC - 12.2 10 3/ul (high), RBC - 3.93 10 6/ul (low), RDW - 16.4 % (high), Neutrophils - 10.12 10 3/ul (high), Creatinine - 1.0 mg/dl (high), Cr Clearance (Est) - 68.7600 ml/min (low), Glucose - 188 mg/dl (high) and Protein, Total - 6.3 g/dl (low). Imaging: Radiation therapy imaging related to accurate target localization (i.e. KV, MV and CBCT) was reviewed. Appropriate changes, if any, were made to ensure treatment accuracy. Plan: The patient is tolerating therapy reasonably well. Radiotherapy will continue as planned. CPT: 05933 Signed by: Dr. Carl Gonzalez 01/12/2020 3:02:35 PM
[2020-01-13 14:38] LABS: Basophils % 0.2 %; Eosinophils % 0.1 %; Hematocrit 38.6 % (37.0-47.0); Hemoglobin 12.3 g/dL (11.5-15.3); Lymphocytes % 7.5 %; Mean Corpuscular HGB Conc 31.9 g/dL (30.0-36.0); Mean Corpuscular Hemoglobin 31.4 pg (28.0-34.0); Mean Corpuscular Volume 98.5 fL (81-99); Mean Platelet Volume 9.8 fL (7.4-10.4); Monocytes # 0.8 10^3/uL (0.2-0.9); Monocytes % 6.6 %; Neutrophils # 10.84 10^3/uL (1.8-7.7); Neutrophils % 84.9 %; Nucleated Red Blood Cells % 0.2 %; Platelet Count 200 10^3/cmm (130-400); Red Blood Count 3.92 10^6/uL (4.1-5.3); Red Cell Distribution Width 18.3 % (12.1-15.1); White Blood Count 12.8 10^3/uL (4.0-10.0)
[2020-01-13 15:00] LABS: Alanine Aminotransferase 9 U/L (0-33); Albumin Level 3.8 g/dL (3.5-5.2); Alkaline Phosphatase 68 IU/L (35-105); Anion Gap 15.4 (5-19); Aspartate Amino Transferase 11 U/L (0-32); Blood Urea Nitrogen 30 mg/dL (8-23); Calcium 9.6 mg/dL (8.5-10.5); Carbon Dioxide 27 mmol/L (22-29); Chloride 100 mmol/L (98-107); Globulin 2.8 g/dL (1.3-4.6); Glucose 215 mg/dL (65-115); Osmolality Calculated 299 mOsm/kg (285-295); Potassium 4.4 mmol/L (3.5-5.1); Sodium 138 mmol/L (136-145); Total Bilirubin 0.6 mg/dL (0.15-1.2); Total Protein 6.6 g/dL (6.6-8.7)
[2020-01-14] MEDS: sodium chloride 0.9% 1,000 ML 999 ML IV (11:46)
[2020-01-19 15:05] LABS: Basophils % 0.4 %; Eosinophils # 0.3 10^3/uL (0.0-0.8); Eosinophils % 2.8 %; Hematocrit 35.4 % (37.0-47.0); Hemoglobin 11.2 g/dL (11.5-15.3); Lymphocytes # 0.9 10^3/uL (0.8-4.8); Lymphocytes % 8.1 %; Mean Corpuscular HGB Conc 31.6 g/dL (30.0-36.0); Mean Corpuscular Hemoglobin 32.1 pg (28.0-34.0); Mean Corpuscular Volume 101.4 fL (81-99); Mean Platelet Volume 9.7 fL (7.4-10.4); Monocytes # 0.9 10^3/uL (0.2-0.9); Monocytes % 8.2 %; Neutrophils # 8.44 10^3/uL (1.8-7.7); Neutrophils % 79.7 %; Nucleated Red Blood Cells % 0.3 %; Platelet Count 186 10^3/cmm (130-400); Red Blood Count 3.49 10^6/uL (4.1-5.3); Red Cell Distribution Width 19.2 % (12.1-15.1); White Blood Count 10.6 10^3/uL (4.0-10.0)
[2020-01-19] MEDS: sodium chloride 0.9% 500 ML IV (15:15)
[2020-01-19 15:30] LABS: Alanine Aminotransferase 14 U/L (0-33); Albumin Level 3.4 g/dL (3.5-5.2); Alkaline Phosphatase 76 IU/L (35-105); Anion Gap 15.4 (5-19); Aspartate Amino Transferase 17 U/L (0-32); Blood Urea Nitrogen 15 mg/dL (8-23); Calcium 8.3 mg/dL (8.5-10.5); Carbon Dioxide 24 mmol/L (22-29); Chloride 106 mmol/L (98-107); Globulin 2.8 g/dL (1.3-4.6); Glucose 89 mg/dL (65-115); Osmolality Calculated 292 mOsm/kg (285-295); Potassium 4.4 mmol/L (3.5-5.1); Sodium 141 mmol/L (136-145); Total Bilirubin 0.3 mg/dL (0.15-1.2); Total Protein 6.2 g/dL (6.6-8.7)
[2020-01-21 10:26] LABS: Cancer Antigen 19 9 16.65 U/mL (0-35)
[2020-01-21] MEDS: sodium chloride 0.9% 1,000 ML 1000 ML IV (13:15)
[2020-01-25] MEDS: sodium chloride 0.9% 1,000 ML 999 ML IV (11:40)
[2020-01-28] MEDS: sodium chloride 0.9% 1,000 ML 999 ML IV (12:00)
--- NOTE | 2020-01-29 10:32 | ONC FU_ITS ---
[facility] Patient Note Patient: Radha Rose Unit #: [id number]: [id number] Dictated By: Leatha DubonDate of Visit: Jan 21, 2020 Onc MED Follow-Up/Prog Note Chief Complaint: Ampullary carcinoma. History of Present Illness: Mrs Rose is a 79-year-old woman with recently diagnosed ampullary adenocarcinoma. In August 2019 she was admitted to the hospital, serum lipase greater than 600 U/L. Her CT abdomen/pelvis showed evidence of cholelithiasis but with no evidence of acute abdominal pathologic process. She improved with conservative management. On an outpatient follow-up visit with Dr. Ayala on 10/16/2019 she had continued to complain of abdominal pain. On further evaluation in the emergency room her serum lipase was significantly elevated 2793 U/L. Her CT findings were unchanged. Gallbladder ultrasound showed cholelithiasis with mildly dilated common bile duct. She was transferred to [facility] for admission. On 10/18/2019 she underwent laparoscopic cholecystectomy. Her intraoperative cholangiogram showed evidence of bile duct obstruction due to stone impaction at the ampulla. She then underwent ERCP with biliary sphincterotomy, stone extraction, and placement of a fully covered metal stent. Her duodenoscopy also showed a polypoid nature papilla in the second portion of the duodenum which was estimated 2 cm in diameter. Distal to the major papilla the mucosa appeared ulcerated with adherent mucoid bilious fluid. The ulceration was noted to extend for approximately 2 to 3 cm. The procedure also included biopsies of the ulcerated area and the adenomatous appearing major papilloma. Pathology showed at least focally invasive adenocarcinoma arising in an adenoma. It was noted in the report that there was insufficient material remaining for additional studies. She had consultation with Dr. Muñoz on 11/04/2019. It had previously been noted by Dr. Omer that the lesion was not amenable to endoscopic resection, and the patient was deemed medically unsuitable for a Whipple procedure by Dr. Muñoz. I had seen her initially on 11/18/2019 for consideration of other treatment options. After reviewing the images with the radiation oncologist, it appeared that the lesion was not amenable to SBRT, but as has her disease did appear to be localized, she was offered the option of undergoing chemoradiation. Her other medical illnesses include type 2 diabetes, coronary artery disease, and restrictive lung disease. She has associated atrial fibrillation and diastolic congestive heart failure. She is oxygen dependent. She has undergone coronary angioplasty/stent placement. She has undergone an ablation procedure for the atrial fibrillation, and she had a permanent pacemaker placed for complete heart block. She has a history of pulmonary embolism, management of which was complicated by development of a bleeding duodenal ulcer while on anticoagulation with apixaban. She has a history of smoking 1 to 2 packs of cigarettes daily for 55 years, but she quit smoking about 10 years ago. INTERIM HISTORY: On 12/16/2019 she began radiation concurrently with Xeloda for chemosensitization. She is seen for a follow-up visit. She states she is feeling better after finishing radiation on Saturday. She has still been doing IV hydration at least 2 days a week Mondays and we will continue this plan for her recovery. She is aware that she is feeling good and does not feel she needs a fluids that she can cancel her appointments. She denies any fever or chills. She denies any mouth sores, sore throat or difficulty swallowing. She has had no skin changes with the Xeloda. She also completed it when she completed radiation. She states her bowels are normal for her. They have been a little loose at times but overall normal for her. She states her energy is slowly getting better. Her ECOG is 2. Past Medical History: Atrial fibrillation Coronary artery disease Diastolic congestive heart failure History of colonic polyps History of GI bleed on Eliquis History of pulmonary embolism Peripheral neuropathy Restrictive lung disease Type II diabetes Past Surgical History: Ablation of atrial fibrillation Appendectomy Carpal tunnel release Colon resection Coronary angioplasty/stent placement on 3 occasions Hysterectomy/bilateral salpingectomy-oophorectomy Repair of diaz injury to the right foot Rotator cuff repair ERCP with biliary sphincterotomy, stone extraction, and placement of biliary stent in 2020 Laparoscopic cholecystectomy in 2019 EGD and colonoscopy in 2020 Pacemaker placement in 2007 Allergies: Aspirin Adult, Codeine Sulfate, Digoxin, Sulfa Antibiotics, and Tetanus-Diphtheria Toxoids Td. Medications: Cholecalciferol 1 Tablet (of 25 mcg ) Oral at bedtime Clopidogrel Bisulfate 1 Tablet (of 75 mg) Oral daily Ferrous Sulfate 1 Tablet (of 325 (65 fe) mg) Oral b.i.d. Gabapentin (600 mg) Tablet Oral b.i.d. HYDROcodone-Acetaminophen 1 Tablet (of 5-325 mg) Oral q 4 to 6 hours PRN Levemir FlexTouch 34 Units (of 100 Units/mL) Subcutaneous daily metFORMIN HCl 1 Tablet (of 500 mg) Oral b.i.d. Nitroglycerin (0.4 mg) Tablet, sublingual Sublingual Take as Directed Pantoprazole Sodium 1 Tablet (of 40 mg) Tablet, enteric coated Oral daily Potassium Chloride ER 1 Tablet (of 10 meq) Capsule, controlled release Oral daily Pravastatin Sodium 1 Tablet (of 40 mg) Oral at bedtime Sotalol HCl 1 Tablet (of 120 mg) Oral b.i.d. Vitamin C 1 Tablet (of 500 mg) Capsule Oral b.i.d. Family History: Ms. Rose's mother at age 80: heart disease. Ms. Rose's father at age 37. Father with some type of kidney disease at age 37. Mother with heart disease at age 80. One brother also of heart disease. Two other brothers have diabetes. Social History: Ms. Rose is and she is an unknown. Ms. Rose quit smoking 10 years ago but had smoked 1.0 pack/day for 51 years. She has no history of drinking. Ms. Rose reports the following support systems: lives with spouse, significant other, family, or friends, lives in own house, supportive family/friends willing to assist with needs, and adequate transportation available for expected visits. Her diet consists of regular meals. She indicates her activity level as: regular exercise. She has a history of smoking 1 to 2 packs of cigarettes daily for 55 years. She quit smoking about 10 years ago. She does not drink alcohol. Review Of Symptoms: Constitutional Denies fevers, chills, night sweats. Allergic/Immunologic No reactions. Eyes Denies significant visual changes. No diplopia. No amaurosis. ENMT Denies changes in hearing, sore throat, mouth sores, difficulty or changes in swallowing ability, and/or sinus drainage. Endocrine No diabetes, thyroid disease or hormone replacement. Denies hot flashes or night sweats. Hematologic/Lymphatic Denies easy bruising or bleeding. The patient denies any tender or palpable lymph nodes. Respiratory Denies new or worsening dyspnea on exertion, chest pain, cough or hemoptysis. Denies orthopnea. Cardiovascular Denies anginal chest pain, palpitations or orthopnea. Gastrointestinal Denies worsening nausea. Denies vomiting, diarrhea, GI bleeding, or constipation. Denies change in bowel habits and/or stool color, no heartburn or early satiety. Genitourinary (F) No hematuria, hesitancy, incontinence, vaginal bleeding, discharge or other problems with urination. Musculoskeletal Denies joint pain, swelling or redness. No decreased range of motion. Her pain overall is better since completing the radiation. Integumentary Denies chronic rashes, inflammation, ulcerations or skin changes. Neurologic Denies headache, blurred vision, and no areas of focal weakness or numbness. No sensory problems. States gait is slow due to back pain. Psychiatric Denies insomnia, depression, edna or mood swings. Vital Signs: Performed on Jan 21, 2020 12:37 Height - 64.00 in Weight - 204.6 lbs (LOW) BSA - 1.98 sq.m BMI - 35.12 (HIGH) Temperature - 97.9 F (LOW) Pulse - 62 /min Respiration - 20 /min BP - 114/53 mm(hg) O2 Sat - 92 % (LOW) Pain - 0,2 - Ambulatory/capable of all self-care, unable to perform any work activities. Up and about more than 50% of waking hours. (ECOG) Physical Examination: Constitutional Alert, oriented, no acute distress but in obvious pain. Skin pink, warm and dry. Generalized weakness. Head Normocephalic; atraumatic. Eyes Conjunctivae and sclerae are clear and without icterus. Pupils are reactive and equal. Hematologic/Lymphatic No petechiae or purpura. No tender or palpable lymph nodes in the cervical or supraclavicular areas. Respiratory Lungs are clear to auscultation without rhonchi or wheezing. Cardiovascular Regular rate and rhythm of heart without murmurs,clicks, gallops or rubs. Abdomen Non-tender, non-distended, no masses or ascites. Good bowel sounds noted in all quads. No guarding or rebound tenderness. No pulsatile masses. Back/Spine Non-tender to palpation. Extremities No visible deformities, no cyanosis, clubbing or edema. Musculoskeletal No tenderness or swelling, normal range of motion without obvious weakness. Integumentary No rashes or lesions. Neurologic No sensory or motor deficits, normal cerebellar function. Psychiatric Alert and oriented times three. Coherent speech. Verbalizes understanding of our discussions today. Laboratory:Test performed on Jan 07, 2020 12:02 Sodium 138 mmol/L Potassium 4.5 mmol/L Chloride 101 mmol/L CO2 26 mmol/L Anion Gap 15.5 BUN 16 mg/dL Creatinine 1.0 mg/dL Cr Clearance (Est) 68.7600 mL/min Glucose 188 mg/dL Osmolality - Calculated 292 mOsm/kg Calcium 8.7 mg/dL Protein, Total 6.3 g/dL Albumin 3.6 g/dL Globulin 2.7 g/dL Bilirubin, Total 0.7 mg/dL ALT (SGPT) 10 U/L AST (SGOT) 11 U/L Alkaline Phosphatase 65 IU/L WBC 12.2 10 3/uL RBC 3.93 10 6/uL HGB 11.9 g/dL HCT 38.0 % MCV 96.7 fL MCH 30.3 pg MCHC 31.3 g/dL RDW 16.4 % Platelet Count 184 10 3/cmm MPV 9.5 fL Neutrophils 10.12 10 3/uL Lymphocytes 1.0 10 3/uL Monocytes 0.8 10 3/uL Eosinophils 0.2 10 3/uL Basophils 0.0 10 3/uL Neutrophil % 82.9 % Lymphocyte % 7.8 % Monocyte % 6.8 % Eosinophil % 1.7 % Basophils % 0.2 % NRBC % 0.2 % Test performed on Dec 22, 2019 09:30 Manual Lymphocytes 9.4 % Manual Monocytes 4.5 % Manual Eosinophils 1.9 % Manual Basophils 0.4 % NRBCs 0.0 /100 WBC Test performed on Dec 16, 2019 11:42 TSH 4.39 uIU/mL CA 19-9 21.12 U/mL CEA 1.9 ng/mL Test performed on Nov 23, 2019 09:32 Lipase 680 U/L Impression: 1. 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 She appears to have early stage disease, by clinical evaluation stage IA (T1a, N0, M0), but she was deemed medically unsuitable for resection. 2. She presented with recurrent pancreatitis in association with choledocholithiasis for which she underwent laparoscopic cholecystectomy followed by ERCP with sphincterotomy, stone extraction, and placement of biliary stent on 10/18/2019. Her other medical illnesses include: 3. Type 2 diabetes with peripheral neuropathy. 4. Coronary artery disease with previous angioplasty/stent placement. 5. Atrial fibrillation with prior ablation procedure. 6. She has permanent pacemaker for complete heart block. 7. Diastolic congestive heart failure. 8. Restrictive lung disease, oxygen dependent. 9. History of pulmonary embolism. 10. History of GI bleeding on Eliquis, reportedly due to duodenal ulcer. 11. History of colonic polyps. With localized unresectable disease, she was offered the option to undergo chemoradiation. On 12/16/2019 she began radiation concurrently with Xeloda for chemosensitization. Thus far the treatment has been tolerable, but she has been having quite a bit of nausea and she also is having loose stools. Her blood counts remain adequate. Plan: 1. Supportive care as needed continue hydration while recovering. 2. She has now completed her chemoradiation. She is off the Xeloda. 3. She may continue the Compazine and Marinol as needed for nausea and appetite. 4. Labs from 01/19/2020 were reviewed in detail and discussed with Ms. Rose and a copy was given to her. WBC 10.6, hemoglobin 11.2, platelets are 96,000 ANC is 8400. Potassium 4.4 creatinine 1.01 LFTs are normal. Her CA 19 9 is 16.65. 5. We will plan to see her back in 2 weeks with CBC CMP to monitor her recovery. She is due back for follow-up with Dr. Leal in 4 weeks with CBC CMP and CA 19-[address] She will need the CT prior to seeing Dr. Leal. 6. Ms. Rose was encouraged to contact us in interim should questions or problems arise. Signed By: Leatha Dubon-, [facility] Paul Leal MD <<Signature on File>>
[2020-02-01 09:50] LABS: Alanine Aminotransferase 10 U/L (0-33); Albumin Level 3.5 g/dL (3.5-5.2); Alkaline Phosphatase 68 IU/L (35-105); Anion Gap 15.9 (5-19); Aspartate Amino Transferase 14 U/L (0-32); Basophils % 0.4 %; Blood Urea Nitrogen 13 mg/dL (8-23); Calcium 8.7 mg/dL (8.5-10.5); Carbon Dioxide 26 mmol/L (22-29); Chloride 104 mmol/L (98-107); Eosinophils # 0.2 10^3/uL (0.0-0.8); Globulin 2.6 g/dL (1.3-4.6); Glucose 205 mg/dL (65-115); Hematocrit 37.6 % (37.0-47.0); Hemoglobin 11.7 g/dL (11.5-15.3); Lymphocytes # 0.9 10^3/uL (0.8-4.8); Lymphocytes % 8.9 %; Mean Corpuscular HGB Conc 31.1 g/dL (30.0-36.0); Mean Corpuscular Hemoglobin 31.9 pg (28.0-34.0); Mean Corpuscular Volume 102.5 fL (81-99); Mean Platelet Volume 9.9 fL (7.4-10.4); Monocytes # 0.8 10^3/uL (0.2-0.9); Monocytes % 8.8 %; Neutrophils # 7.57 10^3/uL (1.8-7.7); Neutrophils % 79.3 %; Nucleated Red Blood Cells % 0 %; Osmolality Calculated 300 mOsm/kg (285-295); Platelet Count 179 10^3/cmm (130-400); Potassium 3.9 mmol/L (3.5-5.1); Red Blood Count 3.67 10^6/uL (4.1-5.3); Sodium 142 mmol/L (136-145); Total Bilirubin 0.5 mg/dL (0.15-1.2); Total Protein 6.1 g/dL (6.6-8.7); White Blood Count 9.6 10^3/uL (4.0-10.0)
[2020-02-01] MEDS: sodium chloride 0.9% 1,000 ML 999 ML IV (10:47)
--- NOTE | 2020-02-05 14:20 | ONC FU_ITS ---
[facility] Patient Note Patient: Radha Rose Unit #: [id number]: 1940 Dictated By: Leatha DubonDate of Visit: Feb 01, 2020 Onc MED Follow-Up/Prog Note Chief Complaint: Ampullary carcinoma. History of Present Illness: Mrs Rose is a 79-year-old woman with recently diagnosed ampullary adenocarcinoma. In August 2019 she was admitted to the hospital, serum lipase greater than 600 U/L. Her CT abdomen/pelvis showed evidence of cholelithiasis but with no evidence of acute abdominal pathologic process. She improved with conservative management. On an outpatient follow-up visit with Dr. Ayala on 10/16/2019 she had continued to complain of abdominal pain. On further evaluation in the emergency room her serum lipase was significantly elevated 2793 U/L. Her CT findings were unchanged. Gallbladder ultrasound showed cholelithiasis with mildly dilated common bile duct. [facility]. On 10/18/2019 she underwent laparoscopic cholecystectomy. Her intraoperative cholangiogram showed evidence of bile duct obstruction due to stone impaction at the ampulla. She then underwent ERCP with biliary sphincterotomy, stone extraction, and placement of a fully covered metal stent. Her duodenoscopy also showed a polypoid nature papilla in the second portion of the duodenum which was estimated 2 cm in diameter. Distal to the major papilla the mucosa appeared ulcerated with adherent mucoid bilious fluid. The ulceration was noted to extend for approximately 2 to 3 cm. The procedure also included biopsies of the ulcerated area and the adenomatous appearing major papilloma. Pathology showed at least focally invasive adenocarcinoma arising in an adenoma. It was noted in the report that there was insufficient material remaining for additional studies. She had consultation with Dr. Muñoz on 11/04/2019. It had previously been noted by Dr. Omer that the lesion was not amenable to endoscopic resection, and the patient was deemed medically unsuitable for a Whipple procedure by Dr. Muñoz. I had seen her initially on 11/18/2019 for consideration of other treatment options. After reviewing the images with the radiation oncologist, it appeared that the lesion was not amenable to SBRT, but as has her disease did appear to be localized, she was offered the option of undergoing chemoradiation. Her other medical illnesses include type 2 diabetes, coronary artery disease, and restrictive lung disease. She has associated atrial fibrillation and diastolic congestive heart failure. She is oxygen dependent. She has undergone coronary angioplasty/stent placement. She has undergone an ablation procedure for the atrial fibrillation, and she had a permanent pacemaker placed for complete heart block. She has a history of pulmonary embolism, management of which was complicated by development of a bleeding duodenal ulcer while on anticoagulation with apixaban. She has a history of smoking 1 to 2 packs of cigarettes daily for 55 years, but she quit smoking about 10 years ago. INTERIM HISTORY: On 12/16/2019 she began radiation concurrently with Xeloda for chemosensitization. Ms. Rose is here today for follow-up. She states overall she is feeling better she states she is breathing better. Her only complaint is that she is having some right quadrant pain in the lower part of her quadrant. She describes as a sharp poking pain that was bad enough that made me think about calling in . She states this pain has been there since before surgery but is actually a bit worse. She denies any numbness or tingling. She states that her leg does get uncomfortable at times but not consistent. She denies any lower back pain. She denies fever or chills. She states she is eating good. She is accompanied by her . She states her energy has improved as well. She denies any cough. She denies any nausea or vomiting. She has utilize hydration services as needed and is tolerating this well. She states she is eating and drinking better so she hopes to need them less and less. Her ECOG is 2. Past Medical History: Atrial fibrillation Coronary artery disease Diastolic congestive heart failure History of colonic polyps History of GI bleed on Eliquis History of pulmonary embolism Peripheral neuropathy Restrictive lung disease Type II diabetes Past Surgical History: Ablation of atrial fibrillation Appendectomy Carpal tunnel release Colon resection Coronary angioplasty/stent placement on 3 occasions Hysterectomy/bilateral salpingectomy-oophorectomy Repair of diaz injury to the right foot Rotator cuff repair ERCP with biliary sphincterotomy, stone extraction, and placement of biliary stent in 2019 Laparoscopic cholecystectomy in 2019 EGD and colonoscopy in 2019 Pacemaker placement in 2007 Allergies: Aspirin Adult, Codeine Sulfate, Digoxin, Sulfa Antibiotics, and Tetanus-Diphtheria Toxoids Td. Medications: Cholecalciferol 1 Tablet (of 25 mcg ) Oral at bedtime Clopidogrel Bisulfate 1 Tablet (of 75 mg) Oral daily Ferrous Sulfate 1 Tablet (of 325 (65 fe) mg) Oral b.i.d. Gabapentin (600 mg) Tablet Oral b.i.d. HYDROcodone-Acetaminophen 1 Tablet (of 5-325 mg) Oral q 4 to 6 hours PRN Levemir FlexTouch 34 Units (of 100 Units/mL) Subcutaneous daily metFORMIN HCl 1 Tablet (of 500 mg) Oral b.i.d. Nitroglycerin (0.4 mg) Tablet, sublingual Sublingual Take as Directed Pantoprazole Sodium 1 Tablet (of 40 mg) Tablet, enteric coated Oral daily Potassium Chloride ER 1 Tablet (of 10 meq) Capsule, controlled release Oral daily Pravastatin Sodium 1 Tablet (of 40 mg) Oral at bedtime Sotalol HCl 1 Tablet (of 120 mg) Oral b.i.d. Vitamin C 1 Tablet (of 500 mg) Capsule Oral b.i.d. Family History: Ms. Rose's mother at age 80: heart disease. Ms. Rose's father at age 37. Father with some type of kidney disease at age 37. Mother with heart disease at age 80. One brother also of heart disease. Two other brothers have diabetes. Social History: Ms. Rose is and she is an unknown. Ms. Rose quit smoking 10 years ago but had smoked 1.0 pack/day for 51 years. She has no history of drinking. Ms. Rose reports the following support systems: lives with spouse, significant other, family, or friends, lives in own house, supportive family/friends willing to assist with needs, and adequate transportation available for expected visits. Her diet consists of regular meals. She indicates her activity level as: regular exercise. She has a history of smoking 1 to 2 packs of cigarettes daily for 55 years. She quit smoking about 10 years ago. She does not drink alcohol. Review Of Symptoms: Constitutional Denies fevers, chills, night sweats. Allergic/Immunologic No reactions. Eyes Denies significant visual changes. No diplopia. No amaurosis. ENMT Denies changes in hearing, sore throat, mouth sores, difficulty or changes in swallowing ability, and/or sinus drainage. Endocrine No diabetes, thyroid disease or hormone replacement. Denies hot flashes or night sweats. Hematologic/Lymphatic Denies easy bruising or bleeding. The patient denies any tender or palpable lymph nodes. Respiratory Denies new or worsening dyspnea on exertion, chest pain, cough or hemoptysis. Denies orthopnea. Cardiovascular Denies anginal chest pain, palpitations or orthopnea. Gastrointestinal Denies worsening nausea. Denies vomiting, diarrhea, GI bleeding, or constipation. Denies change in bowel habits and/or stool color, no heartburn or early satiety. Genitourinary (F) No hematuria, hesitancy, incontinence, vaginal bleeding, discharge or other problems with urination. Musculoskeletal Denies joint pain, swelling or redness. No decreased range of motion. Her pain overall is better since completing the radiation. Integumentary Denies chronic rashes, inflammation, ulcerations or skin changes. Neurologic Denies headache, blurred vision, and no areas of focal weakness or numbness. No sensory problems. States gait is slow due to back pain. Psychiatric Denies insomnia, depression, edna or mood swings. Vital Signs: Performed on Feb 01, 2020 10:12 Height - 64.00 in Weight - 204.6 lbs BSA - 1.98 sq.m BMI - 35.12 (HIGH) Temperature - 98.2 F (LOW) Pulse - 62 /min Respiration - 20 /min BP - 111/78 mm(hg) O2 Sat - 96 % Pain - 8,2 - Ambulatory/capable of all self-care, unable to perform any work activities. Up and about more than 50% of waking hours. (ECOG) Physical Examination: Constitutional Alert, oriented, no acute distress but in obvious pain. Skin pink, warm and dry. Generalized weakness. Head Normocephalic; atraumatic. Eyes Conjunctivae and sclerae are clear and without icterus. Pupils are reactive and equal. ENMT No oral exudates, ulcers, masses, thrush or mucositis. Oropharynx clear. Tongue normal. Hematologic/Lymphatic No petechiae or purpura. No tender or palpable lymph nodes in the cervical or supraclavicular areas. Respiratory Lungs are clear to auscultation without rhonchi or wheezing. Cardiovascular Regular rate and rhythm of heart without murmurs,clicks, gallops or rubs. Abdomen Right lower quadrant tenderness on light palpation. No masses palpated and no obvious abnormalities. Otherwise non-tender, non-distended, no masses or ascites. Good bowel sounds noted in all quads. No guarding or rebound tenderness. No pulsatile masses. Back/Spine Non-tender to palpation. Extremities No visible deformities, no cyanosis, clubbing or edema. Musculoskeletal No tenderness or swelling, normal range of motion without obvious weakness. Integumentary No rashes or lesions. Neurologic No sensory or motor deficits, normal cerebellar function. Psychiatric Alert and oriented times three. Coherent speech. Verbalizes understanding of our discussions today. Laboratory:Test performed on Feb 01, 2020 09:05 Sodium 142 mmol/L Potassium 3.9 mmol/L Chloride 104 mmol/L CO2 26 mmol/L Anion Gap 15.9 BUN 13 mg/dL Creatinine 0.8 mg/dL Cr Clearance (Est) 86.2800 mL/min Glucose 205 mg/dL Osmolality - Calculated 300 mOsm/kg Calcium 8.7 mg/dL Protein, Total 6.1 g/dL Albumin 3.5 g/dL Globulin 2.6 g/dL Bilirubin, Total 0.5 mg/dL ALT (SGPT) 10 U/L AST (SGOT) 14 U/L Alkaline Phosphatase 68 IU/L WBC 9.6 10 3/uL RBC 3.67 10 6/uL HGB 11.7 g/dL HCT 37.6 % MCV 102.5 fL MCH 31.9 pg MCHC 31.1 g/dL RDW 20.0 % Platelet Count 179 10 3/cmm MPV 9.9 fL Neutrophils 7.57 10 3/uL Lymphocytes 0.9 10 3/uL Monocytes 0.8 10 3/uL Eosinophils 0.2 10 3/uL Basophils 0.0 10 3/uL Neutrophil % 79.3 % Lymphocyte % 8.9 % Monocyte % 8.8 % Eosinophil % 2.0 % Basophils % 0.4 % NRBC % 0 % Test performed on Dec 22, 2019 09:30 Manual Lymphocytes 9.4 % Manual Monocytes 4.5 % Manual Eosinophils 1.9 % Manual Basophils 0.4 % NRBCs 0.0 /100 WBC Test performed on Dec 16, 2019 11:42 TSH 4.39 uIU/mL CA 19-9 21.12 U/mL CEA 1.9 ng/mL Test performed on Nov 23, 2019 09:32 Lipase 680 U/L Impression: 1. 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 She appears to have early stage disease, by clinical evaluation stage IA (T1a, N0, M0), but she was deemed medically unsuitable for resection. 2. She presented with recurrent pancreatitis in association with choledocholithiasis for which she underwent laparoscopic cholecystectomy followed by ERCP with sphincterotomy, stone extraction, and placement of biliary stent on 10/18/2019. Her other medical illnesses include: 3. Type 2 diabetes with peripheral neuropathy. 4. Coronary artery disease with previous angioplasty/stent placement. 5. Atrial fibrillation with prior ablation procedure. 6. She has permanent pacemaker for complete heart block. 7. Diastolic congestive heart failure. 8. Restrictive lung disease, oxygen dependent. 9. History of pulmonary embolism. 10. History of GI bleeding on Eliquis, reportedly due to duodenal ulcer. 11. History of colonic polyps. With localized unresectable disease, she was offered the option to undergo chemoradiation. On 12/16/2019 she began radiation concurrently with Xeloda for chemosensitization. Thus far the treatment has been tolerable, but she had been having quite a bit of nausea and she was having loose stools. Her blood counts remain adequate. She has completed the chemoradiation and she is now off the Xeloda. She is receiving supportive care with IV hydration as needed. Plan: 1. Continue supportive care with hydration as needed. 2. CT of the abdomen pelvis with contrast for follow-up post chemoradiation and new pain in the right lower quadrant. 3. She is utilizing medical marijuana for pain control and she does have MSIR tablets which she states she is taken very few out but they seem to help somewhat with the pain and do not make her as nauseated as [employer] does. 4. Today's labs were reviewed in detail and discussed with Ms. Rose and her and a copy was given to them. WBC 9.6, hemoglobin 11.7 platelets 179,000 ANC is 7570. Potassium 3.9 creatinine 0.8 and LFTs are normal. Her weight is stable at 204.6. 5. We will plan to see her back in 2 weeks as scheduled from 01/21/2020. 6. 6. Ms. Rose was encouraged to contact us in interim should questions or problems arise. Signed By: Leatha Dubon-, AOCNP Paul Leal MD <<Signature on File>>
[2020-02-08] MEDS: sodium chloride 0.9% 1,000 ML 999 ML IV (11:40)
[2020-02-08] MEDS: ondansetron 2 mg/ML SDV 2 mL 8 MG IV (11:50)
== END 2020-02-08 23:59 | disposition home or self-care (01) ==
LOC: ONCMED 05:16
PROVIDERS: Absent Provider Radiology Radiation Oncology; PCP Nurse Practitioner Family; Visit Provider Nurse Practitioner
DX: Z51.0 Encounter for antineoplastic radiation therapy (principal); C24.1 Malignant neoplasm of ampulla of Vater; E11.42 Type 2 diabetes mellitus with diabetic polyneuropathy; I25.10 Atherosclerotic heart disease of native coronary artery without angina pectoris; Z95.5 Presence of coronary angioplasty implant and graft; I48.91 Unspecified atrial fibrillation; Z95.0 Presence of cardiac pacemaker; I50.30 Unspecified diastolic (congestive) heart failure; Z99.81 Dependence on supplemental oxygen; Z86.711 Personal history of pulmonary embolism; Z86.010 Personal history of colon polyps; Z87.11 Personal history of peptic ulcer disease; Z92.21 Personal history of antineoplastic chemotherapy
CPT/HCPCS: 36415; 77336; 77386; 80053; 85025; 86301; 96360; 96361; 96365; 96367; 96375; 99214; J1100; J1170; J2405; J7030; J7040

== ENCOUNTER 2020-02-17 11:40 | Outpatient (CLI) | payer MEDICARE, OTHER, SELFPAY ==
--- NOTE | 2020-02-17 11:54 | XR_ITS ---
WS: [id number] THORACIC SPINE TECHNIQUE: 3 views of the thoracic spine CLINICAL INFORMATION: LOWER BACK PAIN COMPARISON: None. FINDINGS: Osteopenia. Mild thoracic curve. Cholecystectomy clips. Mild thoracic kyphosis. Mild disc space narro wing in the mid thoracic spine. Mild chronic anterior wedging in the mid thoracic spine. No acute faustina earing compression fractures. XR/XR thoracic spine 3V* [id number] IMPRESSION: No acute thoracic spine findings.
--- NOTE | 2020-02-17 11:54 | XR_ITS ---
WS: [id number] LUMBAR SPINE TECHNIQUE: 3 views of the lumbar spine CLINICAL INFORMATION: LOWER BACK PAIN COMPARISON: None. FINDINGS: Osteopenia. Cholecystectomy clips. Biliary stent. Mild spondylitic changes. Pelvic phleboli ths. Mild disc space narrowing throughout the lumbar spine. Advanced facet arthropathy L5-S1. No acut e appearing compression fractures. Aortic calcification. XR/XR lumbar spine 2-3V* [id number] IMPRESSION: Mild spondylitic changes with osteopenia. No acute appearing compression fractu res.
--- NOTE | 2020-02-17 11:54 | XR_ITS ---
WS: [id number] PELVIS TECHNIQUE: 1 view(s) of the pelvis CLINICAL INFORMATION: LOWER BACK PAIN COMPARISON: None. FINDINGS: Osteopenia. Visualized hips are normal in appearance with mild to moderate degenerative arthritis. Pelvic phlebol iths.. Normal acetabulum. Lower lumbar spine is normal. Inferior and superior pubic rami are normal. Normal iliopectineal line. Sacrum is normal in appearance. XR/XR pelvis 1-2V* [id number] IMPRESSION: No acute pelvic findings
--- NOTE | 2020-02-17 11:56 | CT_ITS ---
WS: [id number] CT ABDOMEN PELVIS TECHNIQUE: Contrast-enhanced CT of the abdomen and pelvis with coronal and sagittal reformatted image s. CLINICAL INFORMATION: MALIGNANT NEOPLASM OF AMPULLA OF VATER COMPARISON: CT abdomen pelvis November 20, 2019, 2019, August 31, 2019 DLP: 1176.[address] scans at [facility] use at least one of these dose optimization techniques: automat ed exposure control; mA and/or kV adjustment per patient size (includes targeted exams where dose is matched to clinical indication); or iterative reconstruction. FINDINGS: Mild diffuse fatty infiltration of the liver. Cholecystectomy. Portal vein and splenic vein are patent. Interstitial thickening in the lung bases. Mild fatty atrophy of the pancreas. Common bi le duct stent. Adrenal glands are normal. Stable left renal cyst measuring 4.5 x 4.0 CM. No hydroneph rosis in either kidney. Normal spleen. Small esophageal hiatal hernia. Common bile duct stent is unchanged in position. Small amount of pneumobilia. Increased soft tissue o pacification the proximal and distal aspect of the stent suspicious for partial occlusion. This is ne w from previous. No intrahepatic biliary ductal dilatation. Recommend correlation with liver function tests. Lobulated infrarenal abdominal aortic aneurysm measuring 3.1 x 2.7 Cm. Left eccentric outpouching unc hanged. No abdominal lymphadenopathy. No pelvic or inguinal lymphadenopathy. No evidence of small or large bowel obstruction. No free fluid in the pelvis. CT/CT abdomen pelvis w con* [id number] IMPRESSION: 1. Mild diffuse fatty infiltration liver. Prior cholecystectomy. 2. Increased soft tissue density in the proximal and distal aspect of the comm on bile duct stent suspicious for partial occlusion. Recommend correlation with liver function tests. No intrahepatic biliary ductal dilatation or acute pancr eatitis. 3. Pancreas is normal in appearance. No evidence of acute pancreatitis. 4. Stable left renal cyst. 5. Stable lobulated infrarenal abdominal aortic aneurysm measuring 3.1 x 2.7 c m unchanged.
[2020-02-17] MEDS: iohexol 300 mg/mL 50 mL Btl PO (13:20)
[2020-02-17] MEDS: iohexol 300 mg/mL 100 mL Btl IV (13:50)
== END 2020-02-17 11:41 | disposition home or self-care (01) ==
LOC: RADWPI 11:50
PROVIDERS: PCP Nurse Practitioner Family; Visit Provider Nurse Practitioner
DX: C24.1 Malignant neoplasm of ampulla of Vater (principal); M54.5 Low back pain; K76.0 Fatty (change of) liver, not elsewhere classified; N28.1 Cyst of kidney, acquired; I71.4 Abdominal aortic aneurysm, without rupture
CPT/HCPCS: 72072; 72100; 72170; 74177; Q9967

== ENCOUNTER → 2020-02-29 14:13 | Outpatient (BNVA) | payer MEDICARE, SELFPAY | PROVIDERS: PCP Nurse Practitioner Family; Visit Provider Internal Medicine | DX: E11.59 Type 2 diabetes mellitus with other circulatory complications (principal); I25.10 Atherosclerotic heart disease of native coronary artery without angina pectoris; E11.65 Type 2 diabetes mellitus with hyperglycemia; E78.5 Hyperlipidemia, unspecified; I10 Essential (primary) hypertension; R10.84 Generalized abdominal pain | CPT/HCPCS: 99214 ==

== ENCOUNTER 2020-03-02 14:33 | Outpatient (CLI) | payer MEDICARE, SELFPAY ==
--- NOTE | 2020-03-02 15:00 | USCV_ITS ---
Radha Rose Age: 80 Gender: F : 1940 Exam Date: 03/02/2020 14:57 Ordering Phys: Van Law MD ([email or web address]) Technologist: Ketty Mead [place] [facility] [place]: SOB BP: 130 / 74 HR: 60 Rhythm: Sinus Technical Quality: Adequate MEASUREMENTS (Male / Female) Normal Values 2D ECHO LV Diastolic Diameter PLAX 4.2 cm 4.2 - 5.9 / 3.9 - 5.3 cm LV Systolic Diameter PLAX 3.4 cm LV Chamber Size 3.5 cm IVS Diastolic Thickness 1.5 cm 0.6 - 1.0 / 0.6 - 0.9 cm IVS Systolic Thickness 1.7 cm LVPW Diastolic Thickness 1.3 cm 0.6 - 1.0 / 0.6 - 0.9 cm LVPW Systolic Thickness 1.4 cm RV Chamber Size 3.1 cm LVOT Diameter 2.0 cm LV Ejection Fraction 2D Teich 43.0 % LV Ejection Fraction MOD 2C 69.0 % LV Ejection Fraction 2C AL 69.0 % LA Diameter 4.3 cm LA Width 3.3 cm LA Height 5.5 cm RA Width 4.2 cm RA Height 6.2 cm Aorta at Sinotubular Diameter 2.9 cm M-MODE LV Diastolic Diameter MM 4.6 cm 4.2 - 5.9 / 3.9 - 5.3 cm LV Systolic Diameter MM 2.9 cm LV Ejection Fraction MM Teich 66.5 % IVS Diastolic Thickness MM 0.9 cm 0.6 - 1.0 / 0.6 - 0.9 cm IVS Systolic Thickness MM 1.4 cm LVPW Diastolic Thickness MM 1.3 cm 0.6 - 1.0 / 0.6 - 0.9 cm LVPW Systolic Thickness MM 1.9 cm RV Diastolic Diameter MM 2.1 cm Aortic Annulus Diameter 3.2 cm LA Ao Ratio MM 1.4 MV E Point Septal Separation 0.2 cm DOPPLER AV Peak Velocity 113.0 cm/s LVOT Peak Velocity 90.0 cm/s AV Area Cont Eq vti 2.6 cm squared AV Area Cont Eq pk 2.6 cm squared MV Area PHT 2.5 cm squared MV E' Velocity 63.0 cm/s Mitral E to MV E' Ratio 8.7 Mitral E to LV E' Lateral Ratio 7.7 Mitral E to LV E' Septal Ratio 10.0 TR Peak Velocity 274.4 cm/s TR Peak Gradient 30.1 mmHg TR Mean Velocity 220.8 cm/s TR Mean Gradient 21.5 mmHg TR Velocity Time Integral 80.3 cm TV Peak E Velocity 79.0 cm/s Right Atrial Pressure 3.0 mmHg Pulmonary Artery Systolic Pressu 33.1 mmHg PV Peak Velocity 62.0 cm/s RV Acceleration Time 0.1 s RV Ejection Time 0.3 s RV AcT/ET 0.3 FINDINGS Left Ventricle Normal left ventricular cavity size and systolic function. Increased left ventricular wall thickness. Moderate concentric left ventricular hypertrophy. Left ventricular ejection fraction is estimated at 60 %. No regional wall motion abnormalities. Abnormal diastolic function. Right Ventricle Normal right ventricular size and systolic function. Right ventricular systolic pressure 41 mmHg. Pacemaker wire visualized in the right ventricle. Right Atrium Mildly increased right atrial size. Left Atrium Moderately increased left atrial size. Mitral Valve Mild mitral annular calcification. No mitral valve stenosis. Trace mitral valve regurgitation. Aortic Valve Structurally normal trileaflet aortic valve. No aortic valve stenosis. No aortic valve regurgitation. Tricuspid Valve Structurally normal tricuspid valve. Trace to mild tricuspid valve regurgitation. Pulmonic Valve Pulmonic valve not well visualized. Trace pulmonary valve regurgitation. Pericardium No pericardial effusion. Aorta Normal-sized aortic root. CONCLUSIONS 1. This is a technically difficult study. 2. Normal left ventricular cavity size and systolic function. Moderate concentric left ventricular hypertrophy. Left ventricular ejection fraction is estimated at 60 %. No regional wall motion abnormalities. Abnormal diastolic function. 3. Normal right ventricular size and systolic function. 4. Mild pulmonary hypertension with pulmonary artery pressure estimated at 41 mmHg. 5. Trace to mild tricuspid valve regurgitation. 6. When compared to previous echocardiogram dated 06/25/2018, there has been no significant change. Angela Irizarry MD (Electronically Signed) Final Date: 07 March 2020 17:52 S
== END 2020-03-02 14:34 | disposition home or self-care (01) ==
PROVIDERS: PCP Nurse Practitioner Family; Visit Provider Internal Medicine Cardiovascular Disease
DX: R06.02 Shortness of breath (principal); I27.0 Primary pulmonary hypertension; I07.1 Rheumatic tricuspid insufficiency
CPT/HCPCS: 93306

== ENCOUNTER 2020-03-09 20:00 | Outpatient (CLI) | payer MEDICARE, SELFPAY | END 2020-03-09 20:01 | disposition home or self-care (01) | LOC: SLEEP 03-10 10:19 | PROVIDERS: PCP Nurse Practitioner Family; Visit Provider Internal Medicine Critical Care Medicine | DX: G47.30 Sleep apnea, unspecified (principal) | CPT/HCPCS: 95811 ==

== ENCOUNTER 2020-03-10 14:03 | Outpatient (RCR) | payer MEDICARE, SELFPAY ==
[2020-02-11] MEDS: sodium chloride 0.9% 1,000 mL Bolus 999 ML IV (11:30)
[2020-02-11] MEDS: ondansetron 2 mg/ML SDV 2 mL 8 MG IV (12:00)
[2020-02-15] MEDS: ondansetron 2 mg/ML SDV 2 mL 8 MG IV (11:16)
[2020-02-15] MEDS: sodium chloride 0.9% 500 ML 999 ML IV (11:30)
[2020-02-18] MEDS: sodium chloride 0.9% 500 ML IV (11:50)
--- NOTE | 2020-02-19 09:41 | ONCRAD EPV_ITS ---
Radiation Oncology Established Patient Note Patient: Radha Rose MR#: [id number] : 1940 Attending Physician: Marco Lawson M.D. Date of Service: 02/19/2020 Radha Rose returned to my office this morning for routinely scheduled follow-up appointment. She completed abdominal radiotherapy in January for the management of her clinical stage IA (T1aN0) adenocarcinoma of the ampulla of Vater. Daily radiotherapy was administered between the dates of December 16, 2019 through January 19, 2020. ???A prescribed dose of 45 Gy was delivered in 25 fractions encompassing 34 elapsed days. On review of systems, the patient denied any constitutional complaints including unintentional weight loss or fevers of unknown origin. She did report occasional nausea. On physical examination, the patient weighed 204 pounds. The temperature was 98.1???F. Her blood pressure was 105/63 mmHg. The pulse was 67 bpm and respiratory rate was 20 breaths per minute. There is no erythema within the treatment portal hernandez of the abdomen. There was no tenderness to palpation. In summary, the patient returned for a routine post-radiotherapy follow-up. She will continue follow-up with Paul Leal M.D. as scheduled. Signed by: Dr. Marco Lawson 02/19/2020 9:39:19 AM
[2020-02-19 10:47] LABS: Hematocrit 36.2 % (37.0-47.0); Hemoglobin 11.7 g/dL (11.5-15.3); Mean Corpuscular HGB Conc 32.3 g/dL (30.0-36.0); Mean Corpuscular Volume 98.9 fL (81-99); Mean Platelet Volume 10.1 fL (7.4-10.4); Platelet Count 268 10^3/cmm (130-400); Red Blood Count 3.66 10^6/uL (4.1-5.3); Red Cell Distribution Width 16.4 % (12.1-15.1); White Blood Count 15.6 10^3/uL (4.0-10.0)
[2020-02-19 11:05] LABS: Alanine Aminotransferase 10 U/L (0-33); Albumin Level 3.4 g/dL (3.5-5.2); Alkaline Phosphatase 84 IU/L (35-105); Anion Gap 13.9 (5-19); Aspartate Amino Transferase 9 U/L (0-32); Blood Urea Nitrogen 17 mg/dL (8-23); Calcium 9.2 mg/dL (8.5-10.5); Carbon Dioxide 25 mmol/L (22-29); Chloride 103 mmol/L (98-107); Glucose 280 mg/dL (65-115); Lipase 24 U/L (13-60); Osmolality Calculated 298 mOsm/kg (285-295); Potassium 3.9 mmol/L (3.5-5.1); Sodium 138 mmol/L (136-145); Total Bilirubin 0.5 mg/dL (0.15-1.2); Total Protein 6.4 g/dL (6.6-8.7)
[2020-02-19 11:14] LABS: Absolute Eosinophils 0.1 10^3/cmm (0.0-0.7); Absolute Neutrophil 14.7 10^3/cmm (1.4-6.5); Absolute Segmented Neutrophil 13.9 10/cmm (1.6-7.1); Band Neutrophils Absolute 0.8 10^3/cmm (0.0-1.2); Eosinophils 1 %; Lymphocytes 3 %; Monocytes Absolute 0.3 10^3/cmm (0.1-0.6); Platelet Estimate Normal (Normal); Segmented Neutrophils 89 %; Total Cells Counted 100 (0-100)
[2020-02-19 11:42] LABS: Cancer Antigen 19 9 23.09 U/mL (0-35)
[2020-02-23] MEDS: sodium chloride 0.9% 500 ML IV (13:11)
--- NOTE | 2020-02-26 13:38 | ONC FU_ITS ---
Dr. Leal Patient Follow-Up Note Patient: Radha Rose Unit #: [id number]: 1940 Dicatated By: Paul Leal M.D.Date of Visit:Feb 22, 2020 Onc Med Follow-up/Prog Note Chief Complaint: Ampullary carcinoma. History of Present Illness: This is a 79-year-old woman with recently diagnosed ampullary adenocarcinoma. In August 2019 she was admitted to the hospital, serum lipase greater than 600 U/L. Her CT abdomen/pelvis showed evidence of cholelithiasis but with no evidence of acute abdominal pathologic process. She improved with conservative management. On an outpatient follow-up visit with Dr. Ayala on 10/16/2019 she had continued to complain of abdominal pain. On further evaluation in the emergency room her serum lipase was significantly elevated 2793 U/L. Her CT findings were unchanged. Gallbladder ultrasound showed cholelithiasis with mildly dilated common bile duct. She was transferred to [facility] for admission. On 10/18/2019 she underwent laparoscopic cholecystectomy. Her intraoperative cholangiogram showed evidence of bile duct obstruction due to stone impaction at the ampulla. She then underwent ERCP with biliary sphincterotomy, stone extraction, and placement of a fully covered metal stent. Her duodenoscopy also showed a polypoid nature papilla in the second portion of the duodenum which was estimated 2 cm in diameter. Distal to the major papilla the mucosa appeared ulcerated with adherent mucoid bilious fluid. The ulceration was noted to extend for approximately 2 to 3 cm. The procedure also included biopsies of the ulcerated area and the adenomatous appearing major papilloma. Pathology showed at least focally invasive adenocarcinoma arising in an adenoma. It was noted in the report that there was insufficient material remaining for additional studies. She had consultation with Dr. Muoñz on 11/04/2019. It had previously been noted by Dr. Omer that the lesion was not amenable to endoscopic resection, and the patient was deemed medically unsuitable for a Whipple procedure by Dr. Muñoz. I had seen her initially on 11/18/2019 for consideration of other treatment options. After reviewing the images with the radiation oncologist, it appeared that the lesion was not amenable to SBRT, but as has her disease did appear to be localized, she was offered the option of undergoing chemoradiation. Her other medical illnesses include type 2 diabetes, coronary artery disease, and restrictive lung disease. She has associated atrial fibrillation and diastolic congestive heart failure. She is oxygen dependent. She has undergone coronary angioplasty/stent placement. She has undergone an ablation procedure for the atrial fibrillation, and she had a permanent pacemaker placed for complete heart block. She has a history of pulmonary embolism, management of which was complicated by development of a bleeding duodenal ulcer while on anticoagulation with apixaban. She has a history of smoking 1 to 2 packs of cigarettes daily for 55 years, but she quit smoking about 10 years ago. INTERIM HISTORY: On 12/16/2019 she began radiation concurrently with Xeloda for chemosensitization. Her treatment was complicated by persistent nausea and abdominal pain. She completed radiation on 01/19/2020 to a total dose of [address] abdomen/pelvis on 02/17/2020 showed increased soft tissue density in the proximal and distal aspect of the common bile duct stent, suspicious for partial occlusion. There was no evidence of acute pancreatitis. There was no discrete mass appreciated. She is seen for a follow-up visit. Her main complaint is that she continues to have pain in the right lower quadrant area, which she says feels like gas. It is intermittent, occurring about once a week, but when she has the pain it occurs off and on for about a day or so. Her bowel function has been okay. She is having just occasional nausea now. She has very limited activity, but she says her energy is picking up. ECOG score is 3. Her appetite lately has been okay. Her weight has been stable. Her breathing has been pretty good on oxygen. She does not have cough and she does not complain of chest pain. She has no complaints. She does have some back pain, which is chronic. She has no headache and no focal neurologic symptoms. Medications: Cholecalciferol 1 Tablet (of 25 mcg ) Oral at bedtime, Clopidogrel Bisulfate 1 Tablet (of 75 mg) Oral daily, Ferrous Sulfate 1 Tablet (of 325 (65 fe) mg) Oral b.i.d., Gabapentin (600 mg) Tablet Oral b.i.d., HYDROcodone-Acetaminophen 1 Tablet (of 5-325 mg) Oral q 4 to 6 hours PRN, Levemir FlexTouch 34 Units (of 100 Units/mL) Subcutaneous daily, metFORMIN HCl 1 Tablet (of 500 mg) Oral b.i.d., Nitroglycerin (0.4 mg) Tablet, sublingual Sublingual Take as Directed, Pantoprazole Sodium 1 Tablet (of 40 mg) Tablet, enteric coated Oral daily, Potassium Chloride ER 1 Tablet (of 10 meq) Capsule, controlled release Oral daily, Pravastatin Sodium 1 Tablet (of 40 mg) Oral at bedtime, Sotalol HCl 1 Tablet (of 120 mg) Oral b.i.d., Vitamin C 1 Tablet (of 500 mg) Capsule Oral b.i.d. Allergies: Aspirin Adult, Codeine Sulfate, Digoxin, Sulfa Antibiotics, and Tetanus-Diphtheria Toxoids Td. Review of Systems: Constitutional - She remains weak and her energy is still pretty low, but she does feel it has improved some. She remains in a wheelchair and is able to get up and walk short distances. Her appetite is good and her weight is stable. No fever, night sweats, or hot flashes. ECOG score is 3, ENMT - No sinus congestion/drainage. No mouth sores. Her mouth is dry. No sore throat or difficulty swallowing, Hematologic/Lymphatic - No abnormal bruising or bleeding, Respiratory - She gets short of breath with any activity. No cough. No pleuritic pain or hemoptysis. She was continuous oxygen, Cardiovascular - No angina pain. No palpitations, Gastrointestinal - No nausea or vomiting. No heartburn or acid reflux. No diarrhea or constipation. No blood in the stool or black stools. She's having intermittent episodes of pain in her right lower abdomen, described as severe gas-like pain. This occurs once a week. It is relieved but taking Gas-X, Genitourinary (F) - No dysuria or hematuria. No urinary frequency. No urgency or incontinence, Musculoskeletal - She has pain in her pain, Integumentary - No skin complications, Neurologic - No headache or dizziness. No numbness or tingling. No other focal neurologic symptoms, Psychiatric - No anxiety. She is feeling severely depressed. No insomnia. Vital Signs: Performed on Feb 22, 2020 09:26 Height - 64.00 in Weight - 204.2 lbs (HIGH) BSA - 1.97 sq.m BMI - 35.05 (HIGH) Temperature - 98.3 F (LOW) Pulse - 62 /min Respiration - 24 /min BP - 115/59 mm(hg) O2 Sat - 96 % Pain - 6 Physical Examination: Constitutional - She appears somewhat weak generally, Eyes - Sclerae nonicteric. Conjunctivae clear, ENMT - No lesions noted in the oral cavity, Hematologic/Lymphatic - No cervical, clavicular, or axillary adenopathy, Respiratory - Lungs sound clear with diminished air movement bilaterally, Cardiovascular - Heart rhythm is regular. There is no murmur, gallop, or rub noted, Abdomen - Soft. Liver and spleen are not enlarged. There is no abdominal mass or ascites noted and there is no inguinal adenopathy, Extremities - No edema, Neurologic - No focal neurologic deficits noted. Lab/Imaging: CBC shows hemoglobin 11.7 g, white blood cell count 15,600, and platelet count 268,000. Comprehensive metabolic profile shows normal renal function with BUN 17 and creatinine 0.8 mg/dL. Bilirubin and liver enzymes are normal. The serum lipase is normal at 24 U/L. Impression: 1. 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 She appears to have early stage disease, by clinical evaluation stage IA (T1a, N0, M0), but she was deemed medically unsuitable for resection. 2. She presented with recurrent pancreatitis in association with choledocholithiasis for which she underwent laparoscopic cholecystectomy followed by ERCP with sphincterotomy, stone extraction, and placement of biliary stent on 10/18/2019. Her other medical illnesses include: 3. Type 2 diabetes with peripheral neuropathy. 4. Coronary artery disease with previous angioplasty/stent placement. 5. Atrial fibrillation with prior ablation procedure. 6. She has permanent pacemaker for complete heart block. 7. Diastolic congestive heart failure. 8. Restrictive lung disease, oxygen dependent. 9. History of pulmonary embolism. 10. History of GI bleeding on Eliquis, reportedly due to duodenal ulcer. 11. History of colonic polyps. On 12/16/2019 she began radiation concurrently with Xeloda for chemosensitization. Her treatment was complicated by persistent nausea and abdominal pain. She completed radiation on 01/19/2020 to a total dose of [address] abdomen/pelvis on 02/17/2020 showed increased soft tissue density in the proximal and distal aspect of the common bile duct stent, suspicious for partial occlusion. There was no evidence of acute pancreatitis. There was no discrete mass appreciated. Assessment of response to radiation is problematic, as her ampullary cancer was diagnosed by ERCP and it was not clearly evident on imaging. It is encouraging that her serum lipase has normalized. I am uncertain of the significance of the CT findings pertaining to the biliary stent. Overall, this point she does appear to be doing better clinically and by CT scan there is at least no evidence of disease progression. Plan: She will remain on observation/expectant management for the ampullary cancer. I will arrange for follow-up with Dr. Omer regarding management of her biliary stent. I will tentatively plan a follow-up visit in 3 months. Signed By: Paul Leal M.D. <<Signature on File>>
[2020-03-08] MEDS: sodium chloride 0.9% 500 ML IV (14:30)
[2020-03-08 15:19] LABS: Basophils % 0.4 %; Eosinophils # 0.1 10^3/uL (0.0-0.8); Eosinophils % 0.6 %; Hematocrit 40.4 % (37.0-47.0); Hemoglobin 12.9 g/dL (11.5-15.3); Lymphocytes # 1.3 10^3/uL (0.8-4.8); Lymphocytes % 13.4 %; Mean Corpuscular HGB Conc 31.9 g/dL (30.0-36.0); Mean Corpuscular Hemoglobin 31.8 pg (28.0-34.0); Mean Corpuscular Volume 99.5 fL (81-99); Mean Platelet Volume 9.8 fL (7.4-10.4); Monocytes # 0.6 10^3/uL (0.2-0.9); Neutrophils % 79.3 %; Nucleated Red Blood Cells % 0 %; Platelet Count 284 10^3/cmm (130-400); Red Blood Count 4.06 10^6/uL (4.1-5.3); White Blood Count 9.6 10^3/uL (4.0-10.0)
[2020-03-08 15:46] LABS: Alanine Aminotransferase 7 U/L (0-33); Albumin Level 3.7 g/dL (3.5-5.2); Alkaline Phosphatase 72 IU/L (35-105); Aspartate Amino Transferase 13 U/L (0-32); Blood Urea Nitrogen 12 mg/dL (8-23); Calcium 9.3 mg/dL (8.5-10.5); Carbon Dioxide 30 mmol/L (22-29); Chloride 99 mmol/L (98-107); Globulin 3.4 g/dL (1.3-4.6); Glucose 130 mg/dL (65-115); Lipase 14 U/L (13-60); Osmolality Calculated 296 mOsm/kg (285-295); Sodium 142 mmol/L (136-145); Total Bilirubin 0.5 mg/dL (0.15-1.2); Total Protein 7.1 g/dL (6.6-8.7)
[2020-03-08 16:04] LABS: Anion Gap 16.9 (5-19); Potassium 3.9 mmol/L (3.5-5.1)
[2020-03-10] MEDS: sodium chloride 0.9% 500 ML IV (14:40)
[2020-03-10] MEDS: dexamethasone 10 mg/mL INJ IV (14:40)
== END 2020-03-10 23:59 | disposition home or self-care (01) ==
LOC: ONCMED 14:03
PROVIDERS: Nurse Practitioner; Absent Provider Radiology Radiation Oncology; PCP Nurse Practitioner Family; Visit Provider Internal Medicine Medical Oncology
DX: C24.1 Malignant neoplasm of ampulla of Vater (principal); E11.42 Type 2 diabetes mellitus with diabetic polyneuropathy; I25.10 Atherosclerotic heart disease of native coronary artery without angina pectoris; I48.91 Unspecified atrial fibrillation; I50.30 Unspecified diastolic (congestive) heart failure; J98.4 Other disorders of lung; Z90.49 Acquired absence of other specified parts of digestive tract; Z95.0 Presence of cardiac pacemaker; Z95.5 Presence of coronary angioplasty implant and graft; Z95.1 Presence of aortocoronary bypass graft; Z86.711 Personal history of pulmonary embolism; Z79.01 Long term (current) use of anticoagulants; Z92.3 Personal history of irradiation
CPT/HCPCS: 36415; 80053; 83690; 85007; 85025; 85027; 86301; 96360; 96361; 96365; 96375; 99214; J1100; J2405; J7030; J7040

== ENCOUNTER 2020-04-07 05:36 | Outpatient (RCR) | payer MEDICARE, SELFPAY ==
[2020-03-21] MEDS: sodium chloride 0.9% 500 ML IV (14:00)
[2020-03-24] MEDS: sodium chloride 0.9% 500 ML IV (14:20)
[2020-03-28] MEDS: sodium chloride 0.9% 500 ML IV (14:15)
[2020-03-31] MEDS: sodium chloride 0.9% 1,000 mL Bolus 999 ML IV (14:15)
[2020-04-04] MEDS: sodium chloride 0.9% 500 ML 999 ML IV (14:00)
[2020-04-07] MEDS: sodium chloride 0.9% 500 ML 999 ML IV (14:40)
== END 2020-04-10 23:59 | disposition home or self-care (01) ==
LOC: ONCMED 05:36
PROVIDERS: Absent Provider Radiology Radiation Oncology; PCP Nurse Practitioner Family; Visit Provider Internal Medicine Medical Oncology
DX: C24.1 Malignant neoplasm of ampulla of Vater (principal); E86.0 Dehydration; I95.9 Hypotension, unspecified
CPT/HCPCS: 96360; J7030; J7040

== ENCOUNTER 2020-05-03 05:26 | Outpatient (RCR) | payer MEDICARE, SELFPAY ==
[2020-04-11] MEDS: sodium chloride 0.9% 500 ML 999 ML IV (14:00)
[2020-04-18] MEDS: sodium chloride 0.9% 500 ML 999 ML IV (11:00)
[2020-04-28] MEDS: sodium chloride 0.9% 500 ML 999 ML IV (11:00)
[2020-05-02] MEDS: sodium chloride 0.9% 500 ML 999 ML IV (11:30)
[2020-05-02 11:53] LABS: Basophils # 0.1 10^3/uL (0.0-0.1); Basophils % 0.6 %; Eosinophils # 0.1 10^3/uL (0.0-0.8); Eosinophils % 1.4 %; Hematocrit 36.2 % (37.0-47.0); Hemoglobin 11.2 g/dL (11.5-15.3); Lymphocytes % 10.1 %; Mean Corpuscular HGB Conc 30.9 g/dL (30.0-36.0); Mean Corpuscular Hemoglobin 29.8 pg (28.0-34.0); Mean Corpuscular Volume 96.3 fL (81-99); Mean Platelet Volume 9.6 fL (7.4-10.4); Monocytes # 0.4 10^3/uL (0.2-0.9); Monocytes % 3.9 %; Neutrophils % 83.4 %; Nucleated Red Blood Cells % 0 %; Platelet Count 266 10^3/cmm (130-400); Red Blood Count 3.76 10^6/uL (4.1-5.3); Red Cell Distribution Width 13.2 % (12.1-15.1); White Blood Count 9.8 10^3/uL (4.0-10.0)
[2020-05-02 12:09] LABS: Alanine Aminotransferase < 5 U/L (0-33); Albumin Level 3.4 g/dL (3.5-5.2); Alkaline Phosphatase 70 IU/L (35-105); Anion Gap 15.9 (5-19); Aspartate Amino Transferase 7 U/L (0-32); Blood Urea Nitrogen 12 mg/dL (8-23); Calcium 8.4 mg/dL (8.5-10.5); Carbon Dioxide 27 mmol/L (22-29); Chloride 99 mmol/L (98-107); Globulin 3.5 g/dL (1.3-4.6); Glucose 155 mg/dL (65-115); Lipase 15 U/L (13-60); Osmolality Calculated 289 mOsm/kg (285-295); Potassium 3.9 mmol/L (3.5-5.1); Sodium 138 mmol/L (136-145); Total Bilirubin 0.5 mg/dL (0.15-1.2); Total Protein 6.9 g/dL (6.6-8.7)
--- NOTE | 2020-05-07 09:21 | ONC FU_ITS ---
Dr. Leal Patient Follow-Up Note Patient: Radha Rose Unit #: [id number]: 1940 Dicatated By: Paul Leal M.D.Date of Visit:May 03, 2020 Onc Med Follow-up/Prog Note Chief Complaint: Ampullary carcinoma. History of Present Illness: This is a 80 year-old woman with recently diagnosed ampullary adenocarcinoma. In August 2019 she was admitted to the hospital, serum lipase greater than 600 U/L. Her CT abdomen/pelvis showed evidence of cholelithiasis but with no evidence of acute abdominal pathologic process. She improved with conservative management. On an outpatient follow-up visit with Dr. Ayala on 10/16/2019 she had continued to complain of abdominal pain. On further evaluation in the emergency room her serum lipase was significantly elevated 2793 U/L. Her CT findings were unchanged. Gallbladder ultrasound showed cholelithiasis with mildly dilated common bile duct. She was transferred to [facility] for admission. On 10/18/2019 she underwent laparoscopic cholecystectomy. Her intraoperative cholangiogram showed evidence of bile duct obstruction due to stone impaction at the ampulla. She then underwent ERCP with biliary sphincterotomy, stone extraction, and placement of a fully covered metal stent. Her duodenoscopy also showed a polypoid nature papilla in the second portion of the duodenum which was estimated 2 cm in diameter. Distal to the major papilla the mucosa appeared ulcerated with adherent mucoid bilious fluid. The ulceration was noted to extend for approximately 2 to 3 cm. The procedure also included biopsies of the ulcerated area and the adenomatous appearing major papilloma. Pathology showed at least focally invasive adenocarcinoma arising in an adenoma. It was noted in the report that there was insufficient material remaining for additional studies. She had consultation with Dr. Muñoz on 11/04/2019. It had previously been noted by Dr. Omer that the lesion was not amenable to endoscopic resection, and the patient was deemed medically unsuitable for a Whipple procedure by Dr. Muñoz. I had seen her initially on 11/18/2019 for consideration of other treatment options. After reviewing the images with the radiation oncologist, it appeared that the lesion was not amenable to SBRT, but as has her disease did appear to be localized, she was offered the option of undergoing chemoradiation. On 12/16/2019 she began radiation concurrently with Xeloda for chemosensitization. Her treatment was complicated by persistent nausea and abdominal pain. She completed radiation on 01/19/2020 to a total dose of [address] abdomen/pelvis on 02/17/2020 showed increased soft tissue density in the proximal and distal aspect of the common bile duct stent, suspicious for partial occlusion. There was no evidence of acute pancreatitis. There was no discrete mass appreciated. She then had follow-up with Dr. Omer for the biliary stent management. She continued on observation/expectant management for the ampullary carcinoma. Her other medical illnesses include type 2 diabetes, coronary artery disease, and restrictive lung disease. She has associated atrial fibrillation and diastolic congestive heart failure. She is oxygen dependent. She has undergone coronary angioplasty/stent placement. She has undergone an ablation procedure for the atrial fibrillation, and she had a permanent pacemaker placed for complete heart block. She has a history of pulmonary embolism, management of which was complicated by development of a bleeding duodenal ulcer while on anticoagulation with apixaban. She has a history of smoking 1 to 2 packs of cigarettes daily for 55 years, but she quit smoking about 10 years ago. She is seen for a follow-up visit. She continues to complain that she has no energy. Her activity remains very limited. She is wondering if some of this may not be due to depression. Her ECOG score is 3. Her appetite has been okay. She has continued weekly hydration, because she does feel better with it. She has not had fever or night sweats. She complains that her mouth is dry. Her breathing is okay on oxygen. She does not complain of cough. She does report having chest pain and she has been taking nitroglycerin 2 or 3 times a day. It is sharp pain in her upper left chest. She does see Dr. Law for her cardiac care. She does not complain of nausea or abdominal pain. She still gets diarrhea if she does not take her antidiarrhea medication. Bladder function has been okay. She has back pain, which she says is pretty bad. She has been having headaches, that is chronic. She also complains of dizziness, and she has neuropathy in her feet. Medications: Cholecalciferol 1 Tablet (of 25 mcg ) Oral at bedtime, Clopidogrel Bisulfate 1 Tablet (of 75 mg) Oral daily, Ferrous Sulfate 1 Tablet (of 325 (65 fe) mg) Oral b.i.d., Gabapentin (600 mg) Tablet Oral b.i.d., HYDROcodone-Acetaminophen 1 Tablet (of 5-325 mg) Oral q 4 to 6 hours PRN, Levemir FlexTouch 34 Units (of 100 Units/mL) Subcutaneous daily, metFORMIN HCl 1 Tablet (of 500 mg) Oral b.i.d., Nitroglycerin (0.4 mg) Tablet, sublingual Sublingual Take as Directed, Pantoprazole Sodium 1 Tablet (of 40 mg) Tablet, enteric coated Oral b.i.d., Potassium Chloride ER 1 Tablet (of 10 meq) Capsule, controlled release Oral daily, Pravastatin Sodium 1 Tablet (of 40 mg) Oral at bedtime, Sotalol HCl 1 Tablet (of 120 mg) Oral b.i.d., Vitamin C 1 Tablet (of 500 mg) Capsule Oral b.i.d. Allergies: Aspirin Adult, Codeine Sulfate, Digoxin, Sulfa Antibiotics, and Tetanus-Diphtheria Toxoids Td. Vital Signs: Performed on May 03, 2020 09:23 Height - 64.00 in Weight - 202.6 lbs (LOW) BSA - 1.97 sq.m BMI - 34.78 (HIGH) Temperature - 98.1 F (LOW) Pulse - 60 /min Respiration - 20 /min BP - 118/57 mm(hg) O2 Sat - 91 % (LOW) Pain - 5 Fatigue - 10 Physical Examination: Constitutional - She appears somewhat weak generally, Eyes - Sclerae nonicteric. Conjunctivae clear, ENMT - No lesions noted in the oral cavity, Hematologic/Lymphatic - No cervical, clavicular, or axillary adenopathy, Respiratory - Lungs sound clear with diminished air movement bilaterally, Cardiovascular - Heart rhythm is regular. There is no murmur, gallop, or rub noted, Abdomen - There is mild abdominal tenderness but the abdomen is soft. Liver and spleen are not enlarged. There is no abdominal mass or ascites noted and there is no inguinal adenopathy, Extremities - No edema, Neurologic - No focal neurologic deficits noted. Lab/Imaging: CBC shows hemoglobin 11.2 g, white blood cell count 9800, and platelet count 266,000. Comprehensive metabolic profile shows stable renal function with BUN 12 and creatinine 0.7 mg/dL. Bilirubin and liver enzymes are normal. Her serum lipase is normal at 15 U/L. Problem List: 1. 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 She had presented with recurrent pancreatitis in association with choledocholithiasis for which she underwent laparoscopic cholecystectomy followed by ERCP with sphincterotomy, stone extraction, and placement of biliary stent on 10/18/2019. She appeared to have early stage disease, by clinical evaluation stage IA (T1a, N0, M0), but she was deemed medically unsuitable for resection. 2. She underwent chemoradiation utilizing Xeloda for chemosensitization. She completed treatment on 01/19/2020 to a total radiation dose of 4500 cGy. 3. Type 2 diabetes with peripheral neuropathy. 4. Coronary artery disease with previous angioplasty/stent placement. 5. Atrial fibrillation with prior ablation procedure. 6. She has permanent pacemaker for complete heart block. 7. Diastolic congestive heart failure. 8. Restrictive lung disease, oxygen dependent. 9. History of pulmonary embolism. 10. History of GI bleeding on Eliquis, reportedly due to duodenal ulcer. 11. History of colonic polyps. Problems Addressed with this Encounter and Plan: 1. 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 She had presented with recurrent pancreatitis in association with choledocholithiasis, for which she underwent laparoscopic cholecystectomy followed by ERCP with sphincterotomy, stone extraction, and placement of biliary stent on 10/18/2019. She appeared to have early stage disease, by clinical evaluation stage IA (T1a, N0, M0), but she was deemed medically unsuitable for resection. She underwent chemoradiation utilizing Xeloda for chemosensitization. She completed treatment on 01/19/2020 to a total radiation dose of 4500 cGy. Assessment of response to radiation was problematic, as her ampullary cancer was diagnosed by ERCP and it was not clearly evident on imaging. Her repeat CT abdomen/pelvis on 02/17/2020 did show increased soft tissue density in the proximal and distal aspect of the common bile duct stent, suspicious for partial occlusion. There was no evidence of acute pancreatitis. There was no discrete mass appreciated. She returned to Dr. Omer for management of her biliary stent. During follow-up she has continued to have very marginal performance status, but there has been no evidence for any further pancreatitis and has been no obvious progression of the ampullary cancer. At this point her clinical status appears stable. She will remain on observation/expectant management for the ampullary cancer. 2. She has significant depression, and at this point she has willing to try medication for it. Since she also has neuropathy, I will have her start duloxetine at 30 mg daily. The dosage can be escalated as necessary, depending on response and tolerance. Signed By: aPul Leal M.D. <<Signature on File>>
== END 2020-05-08 23:59 | disposition home or self-care (01) ==
LOC: ONCMED 05:26
PROVIDERS: Absent Provider Radiology Radiation Oncology; PCP Nurse Practitioner Family; Visit Provider Internal Medicine Medical Oncology
DX: C24.1 Malignant neoplasm of ampulla of Vater (principal); E11.42 Type 2 diabetes mellitus with diabetic polyneuropathy; E11.59 Type 2 diabetes mellitus with other circulatory complications; I25.10 Atherosclerotic heart disease of native coronary artery without angina pectoris; Z95.5 Presence of coronary angioplasty implant and graft; I48.91 Unspecified atrial fibrillation; Z95.0 Presence of cardiac pacemaker; I44.2 Atrioventricular block, complete; I50.30 Unspecified diastolic (congestive) heart failure; Z99.81 Dependence on supplemental oxygen; Z86.711 Personal history of pulmonary embolism; Z86.2 Personal history of diseases of the blood and blood-forming organs and certain disorders involving the immune mechanism; Z86.010 Personal history of colon polyps; Z79.01 Long term (current) use of anticoagulants
CPT/HCPCS: 80053; 83690; 85025; 96360; 99214; J7040

== ENCOUNTER 2020-06-02 10:00 | Outpatient (RCR) | payer MEDICARE, SELFPAY ==
[2020-05-09] MEDS: sodium chloride 0.9% 500 ML 999 ML IV (11:02)
[2020-05-16] MEDS: sodium chloride 0.9% 500 ML 999 ML IV (11:15)
[2020-05-23] MEDS: sodium chloride 0.9% 500 ML 999 ML IV (11:40)
[2020-05-30] MEDS: sodium chloride 0.9% 500 ML 999 ML IV (11:12)
[2020-05-30 12:10] LABS: Basophils # 0.1 10^3/uL (0.0-0.1); Basophils % 0.5 %; Eosinophils # 0.2 10^3/uL (0.0-0.8); Eosinophils % 2.5 %; Hematocrit 38.9 % (37.0-47.0); Hemoglobin 11.9 g/dL (11.5-15.3); Lymphocytes # 1.1 10^3/uL (0.8-4.8); Lymphocytes % 11.7 %; Mean Corpuscular HGB Conc 30.6 g/dL (30.0-36.0); Mean Corpuscular Hemoglobin 29.2 pg (28.0-34.0); Mean Corpuscular Volume 95.6 fL (81-99); Mean Platelet Volume 9.8 fL (7.4-10.4); Monocytes # 0.5 10^3/uL (0.2-0.9); Neutrophils # 7.42 10^3/uL (1.8-7.7); Neutrophils % 79.8 %; Nucleated Red Blood Cells % 0 %; Platelet Count 273 10^3/cmm (130-400); Red Blood Count 4.07 10^6/uL (4.1-5.3); Red Cell Distribution Width 14.4 % (12.1-15.1); White Blood Count 9.3 10^3/uL (4.0-10.0)
[2020-05-30 12:34] LABS: Alanine Aminotransferase 7 U/L (0-33); Albumin Level 3.6 g/dL (3.5-5.2); Alkaline Phosphatase 63 IU/L (35-105); Anion Gap 17.6 (5-19); Aspartate Amino Transferase 11 U/L (0-32); Blood Urea Nitrogen 25 mg/dL (8-23); Calcium 9.2 mg/dL (8.5-10.5); Carbon Dioxide 24 mmol/L (22-29); Chloride 101 mmol/L (98-107); Globulin 3.5 g/dL (1.3-4.6); Glucose 220 mg/dL (65-115); Osmolality Calculated 297 mOsm/kg (285-295); Potassium 4.6 mmol/L (3.5-5.1); Sodium 138 mmol/L (136-145); Total Bilirubin 0.4 mg/dL (0.15-1.2); Total Protein 7.1 g/dL (6.6-8.7)
--- NOTE | 2020-05-31 09:49 | CT_ITS ---
WS: [id number] CT ABDOMEN AND PELVIS WITH CONTRAST HISTORY: AMPULLARY CANCER TECHNIQUE: Imaging performed of the abdomen and pelvis with IV contrast. Single phase imaging of the abdomen. Coronal and sagittal reformats are submitted. All CT scans at [facility] use at least one of these dose optimization techniques: automated exposure control; mA and/or kV adjustment per patient size (includes targeted exams where dose is matched to clinical indication); or iterativ e reconstruction. IV CONTRAST: Omnipaque 300; 95 mL IV. Oral contrast: Yes. DLP: 1657.48 mGy.cm COMPARISON: 02/17/2020 Lower thorax: Chronic emphysematous changes at the lung bases. Mildly enlarged heart. Single lead def ibrillator wires present in the RIGHT heart. Small hiatal hernia. Liver/biliary system: Normal size with hepatic steatosis. No metastatic lesions are appreciated. Ther e is a small amount of pneumobilia centrally. Gallbladder: Status post cholecystectomy. Pancreas: Pancreatic atrophy. Pancreatic duct is not dilated. There is a stent in the common bile jason t as it extends to the pancreatic head. Increased soft tissue within the stent but there is no eviden ce for an obstruction or change from the prior study. Spleen: Normal size spleen with a few cysts. Adrenal glands: Normal. Right kidney: No solid mass or hydronephrosis. Mild thinning of the cortex. Left kidney: Simple cyst upper pole maximum diameter 4.5 cm. No obstruction. Aorta: Extensive atherosclerosis of aorta. 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 Lymphadenopathy: None. Free fluid: None. GI tract: No obstructive pattern. Abdominal wall: Unremarkable abdominal wall. No hernia. Pelvis: Prior hysterectomy. Normally distended bladder. Bones: No osteoblastic or osteolytic bone disease. CT/CT abdomen pelvis w con* [id number] IMPRESSION: 1. Common bile duct stent is similar in appearance to prior studies. There is no intrahepatic bile duct dilatation or pancreatic duct dilatation. 2. Prior cholecystectomy. 3. Stable LEFT renal cyst and splenic cyst. 4. Stable saccular aneurysm distal abdominal aorta with a maximum diameter of 2.9 cm.
[2020-05-31] MEDS: iohexol 300 mg/mL 50 mL Btl PO (10:09)
[2020-05-31] MEDS: iohexol 300 mg/mL 100 mL Btl IV (11:55)
--- NOTE | 2020-06-05 15:29 | ONC FU_ITS ---
Dr. Leal Patient Follow-Up Note Patient: Radha Rose Unit #: [id number]: [id number] Dicatated By: Paul Leal M.D.Date of Visit:Jun 02, 2020 Onc Med Follow-up/Prog Note Chief Complaint: Ampullary carcinoma. History of Present Illness: This is a 80 year-old woman with recently diagnosed ampullary adenocarcinoma. In August 2019 she was admitted to the hospital, serum lipase greater than 600 U/L. Her CT abdomen/pelvis showed evidence of cholelithiasis but with no evidence of acute abdominal pathologic process. She improved with conservative management. On an outpatient follow-up visit with Dr. Ayala on 10/16/2019 she had continued to complain of abdominal pain. On further evaluation in the emergency room her serum lipase was significantly elevated 2793 U/L. Her CT findings were unchanged. Gallbladder ultrasound showed cholelithiasis with mildly dilated common bile duct. She was transferred to [facility] for admission. On 10/18/2019 she underwent laparoscopic cholecystectomy. Her intraoperative cholangiogram showed evidence of bile duct obstruction due to stone impaction at the ampulla. She then underwent ERCP with biliary sphincterotomy, stone extraction, and placement of a fully covered metal stent. Her duodenoscopy also showed a polypoid nature papilla in the second portion of the duodenum which was estimated 2 cm in diameter. Distal to the major papilla the mucosa appeared ulcerated with adherent mucoid bilious fluid. The ulceration was noted to extend for approximately 2 to 3 cm. The procedure also included biopsies of the ulcerated area and the adenomatous appearing major papilloma. Pathology showed at least focally invasive adenocarcinoma arising in an adenoma. It was noted in the report that there was insufficient material remaining for additional studies. She had consultation with Dr. Muñoz on 11/04/2019. It had previously been noted by Dr. Omer that the lesion was not amenable to endoscopic resection, and the patient was deemed medically unsuitable for a Whipple procedure by Dr. Muñoz. I had seen her initially on 11/18/2019 for consideration of other treatment options. After reviewing the images with the radiation oncologist, it appeared that the lesion was not amenable to SBRT, but as has her disease did appear to be localized, she was offered the option of undergoing chemoradiation. On 12/16/2019 she began radiation concurrently with Xeloda for chemosensitization. Her treatment was complicated by persistent nausea and abdominal pain. She completed radiation on 01/19/2020 to a total dose of [address] abdomen/pelvis on 02/17/2020 showed increased soft tissue density in the proximal and distal aspect of the common bile duct stent, suspicious for partial occlusion. There was no evidence of acute pancreatitis. There was no discrete mass appreciated. She then had follow-up with Dr. Omer for the biliary stent management. She continued on observation/expectant management for the ampullary carcinoma. Her other medical illnesses include type 2 diabetes, coronary artery disease, and restrictive lung disease. She has associated atrial fibrillation and diastolic congestive heart failure. She is oxygen dependent. She has undergone coronary angioplasty/stent placement. She has undergone an ablation procedure for the atrial fibrillation, and she had a permanent pacemaker placed for complete heart block. She has a history of pulmonary embolism, management of which was complicated by development of a bleeding duodenal ulcer while on anticoagulation with apixaban. She has a history of smoking 1 to 2 packs of cigarettes daily for 55 years, but she quit smoking about 10 years ago. INTERIM HISTORY: Surveillance CT scan of the abdomen/pelvis on 05/31/2020 showed evidence of stent in the common bile duct extending to the pancreatic head. There was noted to be increased soft tissue within the stent but without evidence for obstruction. There is no evidence for recurrent or metastatic disease. A saccular infrarenal aneurysm appeared unchanged measuring 2.9 x 2.8 cm. She is seen for a follow-up visit. She has been feeling extremely tired. She has been coming in fairly regularly for high rehydration. She is wondering if she may not be fluid overloaded. She has severely limited activity due to her leg weakness, which is chronic. ECOG score is 3. She has good appetite. She has no fever or night sweats. She has shortness of breath. She is on home oxygen and she recently had to increase her flow rate by 1 L. She does not complain of cough. She says she has not had much chest pain. She had some nausea yesterday. She has no other GI or complaints. She has chronic pain in her back and legs. Recently she has had some headaches and she sometimes has dizziness. Medications: Cholecalciferol 1 Tablet (of 25 mcg ) Oral at bedtime, Clopidogrel Bisulfate 1 Tablet (of 75 mg) Oral daily, Ferrous Sulfate 1 Tablet (of 325 (65 fe) mg) Oral b.i.d., Gabapentin (600 mg) Tablet Oral b.i.d., HYDROcodone-Acetaminophen 1 Tablet (of 5-325 mg) Oral q 4 to 6 hours PRN, Levemir FlexTouch 34 Units (of 100 Units/mL) Subcutaneous daily, metFORMIN HCl 1 Tablet (of 500 mg) Oral b.i.d., Nitroglycerin (0.4 mg) Tablet, sublingual Sublingual Take as Directed, Pantoprazole Sodium 1 Tablet (of 40 mg) Tablet, enteric coated Oral b.i.d., Potassium Chloride ER 1 Tablet (of 10 meq) Capsule, controlled release Oral daily, Pravastatin Sodium 1 Tablet (of 40 mg) Oral at bedtime, Sotalol HCl 1 Tablet (of 120 mg) Oral b.i.d., Vitamin C 1 Tablet (of 500 mg) Capsule Oral b.i.d. Allergies: Aspirin Adult, Codeine Sulfate, Digoxin, Sulfa Antibiotics, and Tetanus-Diphtheria Toxoids Td. Vital Signs: Performed on Jun 02, 2020 14:30 Height - 64.00 in Temperature - 98.1 F (LOW) Pulse - 78 /min Respiration - 18 /min BP - 114/50 mm(hg) Pain - 0 Physical Examination: Constitutional - She appears somewhat weak generally, Eyes - Sclerae nonicteric. Conjunctivae clear, ENMT - No lesions noted in the oral cavity, Hematologic/Lymphatic - No cervical, clavicular, or axillary adenopathy, Respiratory - Lungs sound clear with diminished air movement bilaterally, Cardiovascular - Heart rhythm is regular. There is no murmur, gallop, or rub noted, Abdomen - Mildly distended but soft. Liver and spleen are not enlarged. There is no abdominal mass or ascites noted and there is no inguinal adenopathy, Extremities - Slight edema. Her feet are cool to touch, Neurologic - No focal neurologic deficits noted. Lab/Imaging: CBC shows hemoglobin 11.9 g, white blood cell count 9300, and platelet count 273,000. Comprehensive metabolic profile shows elevated BUN at 25 mg/dL with creatinine normal at 0.7 mg/dL. The bilirubin and liver enzymes are normal. Problem List: 1. 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 She had presented with recurrent pancreatitis in association with choledocholithiasis for which she underwent laparoscopic cholecystectomy followed by ERCP with sphincterotomy, stone extraction, and placement of biliary stent on 10/18/2019. She appeared to have early stage disease, by clinical evaluation stage IA (T1a, N0, M0), but she was deemed medically unsuitable for resection. 2. She underwent chemoradiation utilizing Xeloda for chemosensitization. She completed treatment on 01/19/2020 to a total radiation dose of 4500 cGy. 3. Type 2 diabetes with peripheral neuropathy. 4. Coronary artery disease with previous angioplasty/stent placement. 5. Atrial fibrillation with prior ablation procedure. 6. She has permanent pacemaker for complete heart block. 7. Diastolic congestive heart failure. 8. Restrictive lung disease, oxygen dependent. 9. History of pulmonary embolism. 10. History of GI bleeding on Eliquis, reportedly due to duodenal ulcer. 11. History of colonic polyps. Problems Addressed with this Encounter and Plan: 1. 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 She had presented with recurrent pancreatitis in association with choledocholithiasis, for which she underwent laparoscopic cholecystectomy followed by ERCP with sphincterotomy, stone extraction, and placement of biliary stent on 10/18/2019. She appeared to have early stage disease, by clinical evaluation stage IA (T1a, N0, M0), but she was deemed medically unsuitable for resection. She underwent chemoradiation utilizing Xeloda for chemosensitization. She completed treatment on 01/19/2020 to a total radiation dose of 4500 cGy. Assessment of response to radiation is problematic, as her ampullary cancer was diagnosed by ERCP and it was not clearly evident on imaging. Her repeat CT abdomen/pelvis on 02/17/2020 did show increased soft tissue density in the proximal and distal aspect of the common bile duct stent, suspicious for partial occlusion. There was no evidence of acute pancreatitis. There was no discrete mass appreciated. She returned to Dr. Omer for management of her biliary stent. During follow-up she has continued to have very marginal performance status, but there has been no evidence for any further pancreatitis. Her current CT scans show no obvious progression of the ampullary cancer and her overall clinical status appears stable. She will remain on observation/expectant management for the ampullary cancer. I will see her again in 3 months, or sooner as needed. 2. She has significant depression. It has improved somewhat with duloxetine, which she will continue at 30 mg daily. Signed By: Paul Leal M.D. <<Signature on File>>
== END 2020-06-08 23:59 | disposition home or self-care (01) ==
LOC: ONCMED 10:00
PROVIDERS: Absent Provider Radiology Radiation Oncology; PCP Nurse Practitioner Family; Visit Provider Internal Medicine Medical Oncology
DX: C24.1 Malignant neoplasm of ampulla of Vater (principal); B35.1 Tinea unguium; E11.42 Type 2 diabetes mellitus with diabetic polyneuropathy; E11.59 Type 2 diabetes mellitus with other circulatory complications; I25.10 Atherosclerotic heart disease of native coronary artery without angina pectoris; Z95.5 Presence of coronary angioplasty implant and graft; Z95.0 Presence of cardiac pacemaker; Z79.4 Long term (current) use of insulin; I48.91 Unspecified atrial fibrillation; I50.30 Unspecified diastolic (congestive) heart failure; K86.1 Other chronic pancreatitis; Z99.81 Dependence on supplemental oxygen; Z86.010 Personal history of colon polyps; Z86.711 Personal history of pulmonary embolism; Z79.01 Long term (current) use of anticoagulants; Z79.899 Other long term (current) drug therapy
CPT/HCPCS: 74177; 80053; 85025; 96360; 99214; J7040; Q9967

== ENCOUNTER 2020-09-05 08:45 | Outpatient (CLI) | payer MEDICARE, SELFPAY ==
--- NOTE | 2020-09-05 09:42 | CT_ITS ---
WS: [id number] CT ABDOMEN PELVIS TECHNIQUE: Contrast-enhanced CT of the abdomen and pelvis with coronal and sagittal reformatted image s. CLINICAL INFORMATION: AMPULLARY CANCER COMPARISON: CT May 31, 2020 DLP: 1786.[address] scans at [facility] use at least one of these dose optimization techniques: automat ed exposure control; mA and/or kV adjustment per patient size (includes targeted exams where dose is matched to clinical indication); or iterative reconstruction. FINDINGS: Diffuse fatty infiltration of the liver. Hepatomegaly. Cholecystectomy clips. Pneumobilia. Small esop hageal hiatal hernia. Common bile duct stent has been removed from previous. Pneumobilia along the co mmon bile duct. Common bile duct is otherwise normal in appearance. No intrahepatic biliary dilatatio n. Cardiomegaly. Lung bases are well aerated. Adrenal Glands are normal. Normal renal parenchymal enhancement. No hydronephrosis. Left upper pole r enal cyst measuring 4.6 x 4.2 CM. Fatty atrophy of the pancreas. Normal caliber abdominal aorta. Mode rate aortic calcification. Infrarenal abdominal aortic aneurysm measuring with peripheral mural thro mbus. This measures approximately 2.8 x 2.7 cm unchanged from previous. Normal sigmoid colon. No evidence of small or large bowel obstruction. No abdominal or pelvic lymphad enopathy. Disc space narrowing worse L5-S1. Prior hysterectomy. CT/CT abdomen pelvis w con* [id number] IMPRESSION: 1. Common bile duct stent has been removed since the prior examination. Incide ntal pneumobilia. Common bile duct is otherwise normal 2. No evidence of recurrent or progressed disease. No intrahepatic biliary jason t dilatation. 3. Hepatomegaly with diffuse fatty infiltration of the liver. 4. Infrarenal left eccentric saccular aneurysm measuring 2.8 x 2.7 cm is uncha nged with peripheral mural thrombus. 5. Prior cholecystectomy and hysterectomy. 6. Left upper pole renal cyst measuring 4.2 x 4.6 cm.
[2020-09-05 09:57] LABS: Basophils # 0.1 10^3/uL (0.0-0.1); Basophils % 0.4 %; Eosinophils # 0.1 10^3/uL (0.0-0.8); Eosinophils % 1.2 %; Hematocrit 36.7 % (37.0-47.0); Hemoglobin 11.3 g/dL (11.5-15.3); Lymphocytes # 0.9 10^3/uL (0.8-4.8); Mean Corpuscular HGB Conc 30.8 g/dL (30.0-36.0); Mean Corpuscular Hemoglobin 29.7 pg (28.0-34.0); Mean Corpuscular Volume 96.3 fL (81-99); Mean Platelet Volume 9.8 fL (7.4-10.4); Monocytes # 0.6 10^3/uL (0.2-0.9); Monocytes % 5.4 %; Neutrophils # 9.51 10^3/uL (1.8-7.7); Neutrophils % 84.5 %; Nucleated Red Blood Cells % 0 %; Platelet Count 248 10^3/cmm (130-400); Red Blood Count 3.81 10^6/uL (4.1-5.3); Red Cell Distribution Width 15.3 % (12.1-15.1); White Blood Count 11.3 10^3/uL (4.0-10.0)
[2020-09-05] MEDS: iohexol 300 mg/mL 50 mL Btl PO (10:09)
[2020-09-05 10:26] LABS: Carcinoembryonic Antigen 2.1 ng/mL (0.0-4.7)
[2020-09-05 10:47] LABS: Alanine Aminotransferase < 5 U/L (0-33); Albumin Level 3.4 g/dL (3.5-5.2); Alkaline Phosphatase 67 IU/L (35-105); Anion Gap 16.2 (5-19); Aspartate Amino Transferase 10 U/L (0-32); Blood Urea Nitrogen 17 mg/dL (8-23); Calcium 8.2 mg/dL (8.5-10.5); Cancer Antigen 19 9 8.28 U/mL (0-35); Carbon Dioxide 24 mmol/L (22-29); Chloride 103 mmol/L (98-107); Globulin 3.2 g/dL (1.3-4.6); Glucose 208 mg/dL (65-115); Lipase 15 U/L (13-60); Osmolality Calculated 296 mOsm/kg (285-295); Potassium 4.2 mmol/L (3.5-5.1); Sodium 139 mmol/L (136-145); Total Bilirubin 0.4 mg/dL (0.15-1.2); Total Protein 6.6 g/dL (6.6-8.7)
[2020-09-05] MEDS: iohexol 300 mg/mL 100 mL Btl IV (12:31)
== END 2020-09-05 08:46 | disposition home or self-care (01) ==
PROVIDERS: PCP Nurse Practitioner Family; Visit Provider Internal Medicine Medical Oncology
DX: C24.1 Malignant neoplasm of ampulla of Vater (principal); K76.0 Fatty (change of) liver, not elsewhere classified; K44.9 Diaphragmatic hernia without obstruction or gangrene; I70.0 Atherosclerosis of aorta; I72.2 Aneurysm of renal artery; N28.1 Cyst of kidney, acquired; R97.8 Other abnormal tumor markers; Z79.899 Other long term (current) drug therapy
CPT/HCPCS: 36415; 74177; 80053; 82378; 83690; 85025; 86301; Q9967

== ENCOUNTER 2020-09-07 06:22 | Outpatient (CLI) | payer MEDICARE, SELFPAY ==
--- NOTE | 2020-09-07 13:13 | ONC FU_ITS ---
Dr. Leal Patient Follow-Up Note Patient: Radha Rose Unit #: [id number]: [id number] Dicatated By: Paul Leal M.D.Date of Visit:Sep 07, 2020 Onc Med Follow-up/Prog Note Chief Complaint: Ampullary carcinoma. History of Present Illness: This is a 80 year-old woman with recently diagnosed ampullary adenocarcinoma. In August 2019 she was admitted to the hospital, serum lipase greater than 600 U/L. Her CT abdomen/pelvis showed evidence of cholelithiasis but with no evidence of acute abdominal pathologic process. She improved with conservative management. On an outpatient follow-up visit with Dr. Ayala on 10/16/2019 she had continued to complain of abdominal pain. On further evaluation in the emergency room her serum lipase was significantly elevated 2793 U/L. Her CT findings were unchanged. Gallbladder ultrasound showed cholelithiasis with mildly dilated common bile duct. She was transferred to [facility] for admission. On 10/18/2019 she underwent laparoscopic cholecystectomy. Her intraoperative cholangiogram showed evidence of bile duct obstruction due to stone impaction at the ampulla. She then underwent ERCP with biliary sphincterotomy, stone extraction, and placement of a fully covered metal stent. Her duodenoscopy also showed a polypoid nature papilla in the second portion of the duodenum which was estimated 2 cm in diameter. Distal to the major papilla the mucosa appeared ulcerated with adherent mucoid bilious fluid. The ulceration was noted to extend for approximately 2 to 3 cm. The procedure also included biopsies of the ulcerated area and the adenomatous appearing major papilloma. Pathology showed at least focally invasive adenocarcinoma arising in an adenoma. It was noted in the report that there was insufficient material remaining for additional studies. She had consultation with Dr. Muñoz on 11/04/2019. It had previously been noted by Dr. Omer that the lesion was not amenable to endoscopic resection, and the patient was deemed medically unsuitable for a Whipple procedure by Dr. Muñoz. I had seen her initially on 11/18/2019 for consideration of other treatment options. After reviewing the images with the radiation oncologist, it appeared that the lesion was not amenable to SBRT, but as has her disease did appear to be localized, she was offered the option of undergoing chemoradiation. On 12/16/2019 she began radiation concurrently with Xeloda for chemosensitization. Her treatment was complicated by persistent nausea and abdominal pain. She completed radiation on 01/19/2020 to a total dose of [address] abdomen/pelvis on 02/17/2020 showed increased soft tissue density in the proximal and distal aspect of the common bile duct stent, suspicious for partial occlusion. There was no evidence of acute pancreatitis. There was no discrete mass appreciated. She then had follow-up with Dr. Omre for the biliary stent management. She continued on observation/expectant management for the ampullary carcinoma. Her other medical illnesses include type 2 diabetes, coronary artery disease, and restrictive lung disease. She has associated atrial fibrillation and diastolic congestive heart failure. She is oxygen dependent. She has undergone coronary angioplasty/stent placement. She has undergone an ablation procedure for the atrial fibrillation, and she had a permanent pacemaker placed for complete heart block. She has a history of pulmonary embolism, management of which was complicated by development of a bleeding duodenal ulcer while on anticoagulation with apixaban. She has a history of smoking 1 to 2 packs of cigarettes daily for 55 years, but she quit smoking about 10 years ago. INTERIM HISTORY: CT scan of the abdomen/pelvis on 05/31/2020 showed evidence of stent in the common bile duct extending to the pancreatic head. There was noted to be increased soft tissue within the stent but without evidence for obstruction. There is no evidence for recurrent or metastatic disease. A saccular infrarenal aneurysm appeared unchanged measuring 2.9 x 2.8 cm. With those findings she continued expectant management. Her repeat CT abdomen/pelvis on 09/05/2020 showed evidence of hepatomegaly with diffuse fatty infiltration of the liver. There was incidental pneumobilia, but the common bile duct otherwise appeared normal. There was no evidence of recurrent or progressed disease. An infrarenal left eccentric saccular aneurysm measuring 2.8 x 2.7 cm was noted to have peripheral mural thrombus but it appeared unchanged. She is seen for a follow-up visit. She has been feeling pretty good generally. She says she is just tired. She has limited activity, but she is able to do some walking. Her ECOG score is 2. Her appetite is good. She has no fever or night sweats. She has some sinus drainage. She does not complain of cough. Her breathing has been pretty good with oxygen at 2 L/min. She does report having intermittent sharp pleuritic pain in the left chest, but she says it does not last. She tends to have nausea in the mornings, but it goes away. She still has right lower quadrant pain on a daily basis. Bowel and bladder function remain adequate. She has back pain, which is chronic. She does not complain of headache. She does have dizziness. She has no numbness/paresthesia or other focal neurologic symptoms. Medications: Cholecalciferol 1 Tablet (of 25 mcg ) Oral at bedtime, Clopidogrel Bisulfate 1 Tablet (of 75 mg) Oral daily, Ferrous Sulfate 1 Tablet (of 325 (65 fe) mg) Oral b.i.d., Gabapentin (600 mg) Tablet Oral b.i.d., HYDROcodone-Acetaminophen 1 Tablet (of 5-325 mg) Oral q 4 to 6 hours PRN, Levemir FlexTouch 34 Units (of 100 Units/mL) Subcutaneous daily, metFORMIN HCl 1 Tablet (of 500 mg) Oral b.i.d., Nitroglycerin (0.4 mg) Tablet, sublingual Sublingual Take as Directed, Pantoprazole Sodium 1 Tablet (of 40 mg) Tablet, enteric coated Oral b.i.d., Potassium Chloride ER 1 Tablet (of 10 meq) Capsule, controlled release Oral daily, Pravastatin Sodium 1 Tablet (of 40 mg) Oral at bedtime, Sotalol HCl 1 Tablet (of 120 mg) Oral b.i.d., Vitamin C 1 Tablet (of 500 mg) Capsule Oral b.i.d. Allergies: Aspirin Adult, Codeine Sulfate, Digoxin, Sulfa Antibiotics, and Tetanus-Diphtheria Toxoids Td. Vital Signs: Weight is 210 pounds. Blood pressure 107/68, pulse 64, respirations 18, temp 98.2 degrees, and oxygen saturation 94%. Physical Examination: Constitutional - She looks pretty good generally, Eyes - Sclerae nonicteric. Conjunctivae clear, ENMT - No lesions noted in the oral cavity, Hematologic/Lymphatic - No cervical, clavicular, or axillary adenopathy, Respiratory - Lungs sound clear with diminished air movement bilaterally, Cardiovascular - Heart rhythm is regular. There is no murmur, gallop, or rub noted, Abdomen - Mildly distended but soft. Liver and spleen are not enlarged. There is no abdominal mass or ascites noted and there is no inguinal adenopathy, Extremities - Slight edema. Her feet are cool to touch. Dorsalis pedis pulses are palpable bilaterally, Neurologic - No focal neurologic deficits noted. Lab/Imaging: CBC shows hemoglobin 11.3 g, white blood cell count 11,300, and platelet count 248,000. Comprehensive metabolic profile shows stable renal function with BUN 17 and creatinine 0.8 mg/dL. The bilirubin and liver enzymes are normal. Lipase is normal at 15 units/L. Tumor markers remain normal with CEA 2.1 ng/mL and CA 19-9 8.28 U/mL. Problem List: 1. 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 She had presented with recurrent pancreatitis in association with choledocholithiasis for which she underwent laparoscopic cholecystectomy followed by ERCP with sphincterotomy, stone extraction, and placement of biliary stent on 10/18/2019. She appeared to have early stage disease, by clinical evaluation stage IA (T1a, N0, M0), but she was deemed medically unsuitable for resection. 2. She underwent chemoradiation utilizing Xeloda for chemosensitization. She completed treatment on 01/19/2020 to a total radiation dose of 4500 cGy. 3. Type 2 diabetes with peripheral neuropathy. 4. Coronary artery disease with previous angioplasty/stent placement. 5. Atrial fibrillation with prior ablation procedure. 6. She has permanent pacemaker for complete heart block. 7. Diastolic congestive heart failure. 8. Restrictive lung disease, oxygen dependent. 9. History of pulmonary embolism. 10. History of GI bleeding on Eliquis, reportedly due to duodenal ulcer. 11. History of colonic polyps. Problems Addressed with this Encounter and Plan: Patient with adenocarcinoma of the ampulla of Vater arising within an adenoma. She had presented with recurrent pancreatitis in association with choledocholithiasis, for which she underwent laparoscopic cholecystectomy followed by ERCP with sphincterotomy, stone extraction, and placement of biliary stent on 10/18/2019. She appeared to have early stage disease, by clinical evaluation stage IA (T1a, N0, M0), but she was deemed medically unsuitable for resection. She underwent chemoradiation utilizing Xeloda for chemosensitization. She completed treatment on 01/19/2020 to a total radiation dose of 4500 cGy. Assessment of response to radiation has been problematic, as her ampullary cancer was diagnosed by ERCP and it was not clearly evident on imaging. Her repeat CT abdomen/pelvis on 02/17/2020 did show increased soft tissue density in the proximal and distal aspect of the common bile duct stent, suspicious for partial occlusion. There was no evidence of acute pancreatitis. There was no discrete mass appreciated. She returned to Dr. Omer for management of her biliary stent, and it subsequently was removed. During follow-up she has continued to have limited activity, but she is otherwise doing well clinically. Thus far there has been no evidence for recurrent/progression of the ampullary carcinoma. She continues on expectant management. I will see her again in 3 months. Signed By: Paul Leal M.D. <<Signature on File>>
== END 2020-09-07 06:23 | disposition home or self-care (01) ==
LOC: ONCMED 06:26
PROVIDERS: PCP Nurse Practitioner Family; Visit Provider Internal Medicine Medical Oncology
DX: Z08 Encounter for follow-up examination after completed treatment for malignant neoplasm (principal); Z85.068 Personal history of other malignant neoplasm of small intestine; K86.1 Other chronic pancreatitis; K80.50 Calculus of bile duct without cholangitis or cholecystitis without obstruction; E11.42 Type 2 diabetes mellitus with diabetic polyneuropathy; E11.59 Type 2 diabetes mellitus with other circulatory complications; I25.10 Atherosclerotic heart disease of native coronary artery without angina pectoris; I48.91 Unspecified atrial fibrillation; I50.30 Unspecified diastolic (congestive) heart failure; Z99.81 Dependence on supplemental oxygen; Z86.711 Personal history of pulmonary embolism; Z95.5 Presence of coronary angioplasty implant and graft; Z95.0 Presence of cardiac pacemaker; Z86.010 Personal history of colon polyps; Z79.01 Long term (current) use of anticoagulants; Z92.21 Personal history of antineoplastic chemotherapy; Z92.3 Personal history of irradiation
CPT/HCPCS: G0463

== ENCOUNTER 2020-12-08 10:58 | Outpatient (CLI) | payer MEDICARE, SELFPAY ==
[2020-12-08 12:07] LABS: Basophils # 0.1 10^3/uL (0.0-0.1); Basophils % 0.4 %; Eosinophils # 0.1 10^3/uL (0.0-0.8); Eosinophils % 0.8 %; Hematocrit 37.9 % (37.0-47.0); Hemoglobin 11.6 g/dL (11.5-15.3); Lymphocytes # 0.8 10^3/uL (0.8-4.8); Lymphocytes % 6.7 %; Mean Corpuscular HGB Conc 30.6 g/dL (30.0-36.0); Mean Corpuscular Hemoglobin 29.5 pg (28.0-34.0); Mean Corpuscular Volume 96.4 fl (81-99); Mean Platelet Volume 9.9 fL (7.4-10.4); Monocytes # 0.5 10^3/uL (0.2-0.9); Monocytes % 4.3 %; Neutrophils # 10.07 10^3/uL (1.8-7.7); Neutrophils % 87.5 %; Nucleated Red Blood Cells % 0 %; Platelet Count 222 10^3/cmm (130-400); Red Blood Count 3.93 10^6/uL (4.1-5.3); Red Cell Distribution Width 14.9 % (12.1-15.1); White Blood Count 11.5 10^3/uL (4.0-10.0)
[2020-12-08 12:58] LABS: Alanine Aminotransferase 6 U/L (0-33); Albumin Level 3.6 g/dL (3.5-5.2); Alkaline Phosphatase 66 IU/L (35-105); Anion Gap 16.8 (5-19); Aspartate Amino Transferase 11 U/L (0-32); Blood Urea Nitrogen 14 mg/dL (8-23); Calcium 9.1 mg/dL (8.5-10.5); Cancer Antigen 19 9 10.58 U/mL (0-35); Carbon Dioxide 22 mmol/L (22-29); Chloride 105 mmol/L (98-107); Globulin 3.2 g/dL (1.3-4.6); Glucose 131 mg/dL (65-115); Lipase 11 U/L (13-60); Osmolality Calculated 290 mOsm/kg (285-295); Potassium 4.8 mmol/L (3.5-5.1); Sodium 139 mmol/L (136-145); Total Bilirubin 0.4 mg/dL (0.15-1.2); Total Protein 6.8 g/dL (6.6-8.7)
[2020-12-08 13:44] LABS: Carcinoembryonic Antigen 1.4 ng/mL (0.0-4.7)
[2020-12-08 13:57] LABS: Estmated Average Glucose 117; Hemoglobin A1C 5.7 % (4.0-6.0)
--- NOTE | 2020-12-09 07:46 | ONC FU_ITS ---
Dr. Leal Patient Follow-Up Note Patient: Radha Rose Unit #: [id number]: 1940 Dicatated By: Paul Leal M.D.Date of Visit:Dec 08, 2020 Onc Med Follow-up/Prog Note Chief Complaint: Ampullary carcinoma. History of Present Illness: This is a 80 year-old woman with localized ampullary adenocarcinoma. In August 2019 she was admitted to the hospital with pancreatits, serum lipase greater than 600 U/L. Her CT abdomen/pelvis showed evidence of cholelithiasis but with no evidence of acute abdominal pathologic process. She improved with conservative management. On an outpatient follow-up visit with Dr. Ayala on 10/16/2019 she had continued to complain of abdominal pain. On further evaluation in the emergency room her serum lipase was significantly elevated at 2793 U/L. Her CT findings were unchanged. Gallbladder ultrasound showed cholelithiasis with mildly dilated common bile duct. She was transferred to [facility] for admission. On 10/18/2019 she underwent laparoscopic cholecystectomy. Her intraoperative cholangiogram showed evidence of bile duct obstruction due to stone impaction at the ampulla. She then underwent ERCP with biliary sphincterotomy, stone extraction, and placement of a fully covered metal stent. Her duodenoscopy also showed a polypoid nature papilla in the second portion of the duodenum which was estimated at 2 cm in diameter. Distal to the major papilla the mucosa appeared ulcerated with adherent mucoid bilious fluid. The ulceration was noted to extend for approximately 2 to 3 cm. The procedure also included biopsies of the ulcerated area and the adenomatous appearing major papilloma. Pathology showed at least focally invasive adenocarcinoma arising in an adenoma. It was noted in the report that there was insufficient material remaining for additional studies. She had consultation with Dr. Muñoz on 11/04/2019. It had previously been noted by Dr. Omer that the lesion was not amenable to endoscopic resection, and the patient was deemed medically unsuitable for a Whipple procedure by Dr. Muñoz. I had seen her initially on 11/18/2019 for consideration of other treatment options. After reviewing the images with the radiation oncologist, it appeared that the lesion was not amenable to SBRT, but as has her disease did appear to be localized, she was offered the option of undergoing chemoradiation. On 12/16/2019 she began radiation concurrently with Xeloda for chemosensitization. Her treatment was complicated by persistent nausea and abdominal pain. She completed radiation on 01/19/2020 to a total dose of [address] abdomen/pelvis on 02/17/2020 showed increased soft tissue density in the proximal and distal aspect of the common bile duct stent, suspicious for partial occlusion. There was no evidence of acute pancreatitis. There was no discrete mass appreciated. She then had follow-up with Dr. Omer for the biliary stent management. She continued on observation/expectant management for the ampullary carcinoma. Her other medical illnesses include type 2 diabetes, coronary artery disease, and restrictive lung disease. She has associated atrial fibrillation and diastolic congestive heart failure. She is oxygen dependent. She has undergone coronary angioplasty/stent placement. She has undergone an ablation procedure for the atrial fibrillation, and she had a permanent pacemaker placed for complete heart block. She has a history of pulmonary embolism, management of which was complicated by development of a bleeding duodenal ulcer while on anticoagulation with apixaban. She has a history of smoking 1 to 2 packs of cigarettes daily for 55 years, but she quit smoking about 10 years ago. INTERIM HISTORY: CT scan of the abdomen/pelvis on 05/31/2020 showed evidence of stent in the common bile duct extending to the pancreatic head. There was noted to be increased soft tissue within the stent but without evidence for obstruction. There is no evidence for recurrent or metastatic disease. A saccular infrarenal aneurysm appeared unchanged measuring 2.9 x 2.[address] abdomen/pelvis on 09/05/2020 showed evidence of hepatomegaly with diffuse fatty infiltration of the liver. There was incidental pneumobilia, but the common bile duct otherwise appeared normal. There was no evidence of recurrent or progressed disease. 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 With those findings she continued expectant management. She is seen for a follow-up visit. Complains that she has been feeling extremely tired. Her activity remains very limited. She is able to ambulate short distances with a walker. Her ECOG score is 3. Her appetite has been okay. Her son indicates that she snacks a lot. Her weight is down 8 pounds by our scale. She does not have fever or night sweats. She complains of having a runny nose and she recently has developed some cough. She has shortness of breath, and she is on continuous oxygen. She has some chest pain, which she associates with her pacemaker. She complains of having real loose bowel movements, at least twice a day, and they tend to be urgent. She has frequent urination with her diuretic. She had a fall at home earlier this month. X-rays showed no fracture. She has continued to have some neck pain and headache since then. She also has some restless leg symptoms. She has no numbness/paresthesia or other focal neurologic symptoms. Her son indicates that she has been having significant depression. Medications: Cholecalciferol 1 Tablet (of 25 mcg ) Oral at bedtime, Clopidogrel Bisulfate 1 Tablet (of 75 mg) Oral daily, Ferrous Sulfate 1 Tablet (of 325 (65 fe) mg) Oral b.i.d., Gabapentin (600 mg) Tablet Oral b.i.d., HYDROcodone-Acetaminophen 1 Tablet (of 5-325 mg) Oral q 4 to 6 hours PRN, Levemir FlexTouch 34 Units (of 100 Units/mL) Subcutaneous daily, metFORMIN HCl 1 Tablet (of 500 mg) Oral b.i.d., Nitroglycerin (0.4 mg) Tablet, sublingual Sublingual Take as Directed, Pantoprazole Sodium 1 Tablet (of 40 mg) Tablet, enteric coated Oral b.i.d., Potassium Chloride ER 1 Tablet (of 10 meq) Capsule, controlled release Oral daily, Pravastatin Sodium 1 Tablet (of 40 mg) Oral at bedtime, Sotalol HCl 1 Tablet (of 120 mg) Oral b.i.d., Vitamin C 1 Tablet (of 500 mg) Capsule Oral b.i.d. Allergies: Aspirin Adult, Codeine Sulfate, Digoxin, Sulfa Antibiotics, and Tetanus-Diphtheria Toxoids Td. Vital Signs: Performed on Dec 08, 2020 12:54 Height - 64.00 in Weight - 202.6 lbs (LOW) BSA - 1.97 sq.m BMI - 34.78 (HIGH) Temperature - 97.8 F (LOW) Pulse - 64 /min Respiration - 18 /min BP - 116/70 mm(hg) O2 Sat - 87 % (LOW) Pain - 6 Fatigue - 10 Physical Examination: Constitutional - She has limited mobility. She otherwise looks pretty good generally, Eyes - Sclerae nonicteric. Conjunctivae clear, ENMT - No lesions noted in the oral cavity, Hematologic/Lymphatic - No cervical, clavicular, or axillary adenopathy, Respiratory - Lungs show some decrease in air movement bilaterally. There are a few scattered rales present, Cardiovascular - Heart rhythm is regular. There is no murmur, gallop, or rub noted, Abdomen - Mildly distended but soft. Liver and spleen are not enlarged. There is no abdominal mass or ascites noted and there is no inguinal adenopathy, Extremities - No edema, Neurologic - No focal neurologic deficits noted. Lab/Imaging: Test performed on Dec 08, 2020 11:50 Lipase 11 U/L Sodium 139 mmol/L Potassium 4.8 mmol/L Chloride 105 mmol/L Est Avg Glucose (eAG) 117 mg/dL CO2 22 mmol/L Anion Gap 16.8 BUN 14 mg/dL Creatinine 0.6 mg/dL Cr Clearance (Est) 112.9900 mL/min Glucose 131 mg/dL Osmolality - Calculated 290 mOsm/kg Calcium 9.1 mg/dL Protein, Total 6.8 g/dL Albumin 3.6 g/dL Globulin 3.2 g/dL Bilirubin, Total 0.4 mg/dL ALT (SGPT) 6 U/L AST (SGOT) 11 U/L Alkaline Phosphatase 66 IU/L Hemoglobin A1C % 5.7 % WBC 11.5 10 3/uL RBC 3.93 10 6/uL HGB 11.6 g/dL HCT 37.9 % MCV 96.4 fl MCH 29.5 pg MCHC 30.6 g/dL RDW 14.9 % Platelet Count 222 10 3/cmm MPV 9.9 fL Neutrophils 10.07 10 3/uL Lymphocytes 0.8 10 3/uL Monocytes 0.5 10 3/uL Eosinophils 0.1 10 3/uL Basophils 0.1 10 3/uL Neutrophil % 87.5 % Lymphocyte % 6.7 % Monocyte % 4.3 % Eosinophil % 0.8 % Basophils % 0.4 % NRBC % 0 % CA 19-9 10.58 U/mL CEA 1.4 ng/mL Problem List: 1. 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 She had presented with recurrent pancreatitis in association with choledocholithiasis for which she underwent laparoscopic cholecystectomy followed by ERCP with sphincterotomy, stone extraction, and placement of biliary stent on 10/18/2019. She appeared to have early stage disease, by clinical evaluation stage IA (T1a, N0, M0), but she was deemed medically unsuitable for resection. 2. She underwent chemoradiation utilizing Xeloda for chemosensitization. She completed treatment on 01/19/2020 to a total radiation dose of 4500 cGy. 3. Type 2 diabetes with peripheral neuropathy. 4. Coronary artery disease with previous angioplasty/stent placement. 5. Atrial fibrillation with prior ablation procedure. 6. She has permanent pacemaker for complete heart block. 7. Diastolic congestive heart failure. 8. Restrictive lung disease, oxygen dependent. 9. History of pulmonary embolism. 10. History of GI bleeding on Eliquis, reportedly due to duodenal ulcer. 11. History of colonic polyps. Problems Addressed with this Encounter and Plan: 1. 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 She had presented with recurrent pancreatitis in association with choledocholithiasis, for which she underwent laparoscopic cholecystectomy followed by ERCP with sphincterotomy, stone extraction, and placement of biliary stent on 10/18/2019. She appeared to have early stage disease, by clinical evaluation stage IA (T1a, N0, M0), but she was deemed medically unsuitable for resection. She underwent chemoradiation utilizing Xeloda for chemosensitization. She completed treatment on 01/19/2020 to a total radiation dose of 4500 cGy. Assessment of response to radiation has been problematic, as her ampullary cancer was diagnosed by ERCP and it was not clearly evident on imaging. Her repeat CT abdomen/pelvis on 02/17/2020 did show increased soft tissue density in the proximal and distal aspect of the common bile duct stent, suspicious for partial occlusion. There was no evidence of acute pancreatitis. There was no discrete mass appreciated. She returned to Dr. Omer for management of her biliary stent, and it subsequently was removed. During follow-up she has continued to have limited activity, but there has been no recurrence of pancreatitis and there has been no evidence of recurrence/progression of the ampullary carcinoma. She has been having loose stools, and she is advised to stop both her iron supplement and the metformin. I also recommended that she try stopping the gabapentin. With her known history of thromboembolism and with her oxygen saturation being low despite supplemental oxygen, she will be scheduled for a CT pulmonary angiogram. She will have further evaluation as indicated. I will otherwise plan a follow-up visit with restaging CT abdomen/pelvis in 3 months. 2. She has having significant depression. She will be given a prescription for citalopram 20 mg daily. Signed By: Paul Leal M.D. <<Signature on File>>
== END 2020-12-08 10:59 | disposition home or self-care (01) ==
LOC: ONCMED 11:01
PROVIDERS: PCP Nurse Practitioner Family; Visit Provider Internal Medicine Medical Oncology
DX: C24.1 Malignant neoplasm of ampulla of Vater (principal); E11.42 Type 2 diabetes mellitus with diabetic polyneuropathy; E11.59 Type 2 diabetes mellitus with other circulatory complications; I25.10 Atherosclerotic heart disease of native coronary artery without angina pectoris; Z95.5 Presence of coronary angioplasty implant and graft; I48.91 Unspecified atrial fibrillation; Z95.0 Presence of cardiac pacemaker; I50.30 Unspecified diastolic (congestive) heart failure; J44.9 Chronic obstructive pulmonary disease, unspecified; Z99.81 Dependence on supplemental oxygen; Z86.711 Personal history of pulmonary embolism; Z86.2 Personal history of diseases of the blood and blood-forming organs and certain disorders involving the immune mechanism; Z87.11 Personal history of peptic ulcer disease; Z86.010 Personal history of colon polyps; Z79.899 Other long term (current) drug therapy
CPT/HCPCS: 36415; 80053; 82378; 83036; 83690; 85025; 86301; 99214

== ENCOUNTER 2020-12-11 09:00 | Observation (INO) | payer MEDICARE, SELFPAY ==
[2020-12-11 09:06] VITALS: BP 156/79; PULSE 95; RESP 26; TEMP 36.1; O2SAT 82; BMI 35.7
--- NOTE | 2020-12-11 09:11 | CTR_ITS ---
PROCEDURE INFORMATION: Exam: CTA Chest With Contrast Exam date and time: 12/11/2020 9:11 AM Age: 80 years old Clinical indication: Shortness of breath; Additional info: Evaluate for pe TECHNIQUE: Imaging protocol: Computed tomographic angiography of the chest with contrast. 3D rendering (Not supervised by radiologist): MIP and/or 3D reconstructed images were created by the technologist. Radiation optimization: All CT scans at this facility use at least one of these dose optimization techniques: automated exposure control; mA and/or kV adjustment per patient size (includes targeted exams where dose is matched to clinical indication); or iterative reconstruction. Contrast material: OMNI 350; Contrast volume: 65 ml; Contrast route: INTRAVENOUS (IV); COMPARISON: CTA Chest-Pulmonary Emb [id number] 09/19/2018 9:46 AM RADIATION DOSE METRICS: Total DLP (mGy-cm): 434.1 FINDINGS: Tubes, catheters and devices: Left -sided pacemaker. Pulmonary arteries: No pulmonary embolus or aortic dissection. Aorta: Calcification of the thoracic aorta and/or great vessels consistent with atherosclerotic vessel disease. Lungs: See Lymph nodes finding. Pleural spaces: Unremarkable. No pneumothorax. No pleural effusion. Heart: Unremarkable. No cardiomegaly. No pericardial effusion. Lymph nodes: Calcified right hilar nodes and/or mediastinal nodes and/or lung granulomas consistent with old granulomatous disease. Kidneys and ureters: Left renal simple cyst measuring >1.0 cm. Bones/joints: Unremarkable. No acute fracture. Soft tissues: Unremarkable. CT/CT angio chest PE protcl [id number] IMPRESSION: No pulmonary embolus or aortic dissection. COMMENTS: Consistent with the [employer]'s Incidental Findings Committee white paper (J Am Skye Radiol 2018): Any incidental renal lesion less than 1 cm or classified as too small to characterize, or any incidental cystic renal lesion characterized as simple-appearing, is likely benign. No follow-up imaging is recommended for these lesions per consensus recommendations based on imaging criteria. Radiation Dose CTDIVOL = (mGy): DLP = 434.1 (mGy-cm)
--- NOTE | 2020-12-11 09:11 | ECG_ITS ---
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: : 1940 Requested By: Kirsty Abraham Order Number: [id number] Reading MD: ROSE MARY GRIJALVA Measurements Intervals [place] Rate: 62 P: 175 NE: 258 QRS: 68 QRSD: 94 T: -80 QT: 427 QTc: 435 Interpretive Statements ELECTRONIC VENTRICULAR PACEMAKER -- CONTOUR ANALYSIS BASED ON INTRINSIC RHYTHM ST DEVIATION AND MODERATE T-WAVE ABNORMALITY, CONSIDER LATERAL ISCHEMIA [-0.1+ mV T-WAVE IN I/aVL/V5/V6] ST DEVIATION AND MODERATE T-WAVE ABNORMALITY, CONSIDER INFERIOR ISCHEMIA [-0.1+ mV T-WAVE IN II/aVF] Compared to ECG 09/01/2019 00:58:36 T-wave abnormality now present Possible ischemia now present Electronically Signed On 12-12-2020 20:20:42 CDT by ROSE MARY GRIJALVA [email or web address]
[2020-12-11 09:18] VITALS: BP 156/79; PULSE 64; RESP 18; O2SAT 98
[2020-12-11 09:44] LABS: Basophils % 0.4 %; Eosinophils % 0.4 %; Hematocrit 39.5 % (37.0-47.0); Hemoglobin 12.3 g/dL (11.5-15.3); Lymphocytes # 1.1 10^3/uL (0.8-4.8); Lymphocytes % 10.1 %; Mean Corpuscular HGB Conc 31.1 g/dL (30.0-36.0); Mean Corpuscular Hemoglobin 29.1 pg (28.0-34.0); Mean Corpuscular Volume 93.6 fl (81-99); Mean Platelet Volume 9.9 fL (7.4-10.4); Monocytes # 0.6 10^3/uL (0.2-0.9); Monocytes % 5.6 %; Neutrophils # 9.04 10^3/uL (1.8-7.7); Neutrophils % 83.2 %; Nucleated Red Blood Cells % 0.2 %; Platelet Count 262 10^3/cmm (130-400); Red Blood Count 4.22 10^6/uL (4.1-5.3); Red Cell Distribution Width 14.8 % (12.1-15.1); White Blood Count 10.9 10^3/uL (4.0-10.0)
[2020-12-11 10:15] LABS: Troponin(5th) Baseline 25 ng/L (0-10)
[2020-12-11 10:17] LABS: Anion Gap 17.1 (5-19); Blood Urea Nitrogen 12 mg/dL (8-23); Calcium 9.4 mg/dL (8.5-10.5); Carbon Dioxide 28 mmol/L (22-29); Chloride 99 mmol/L (98-107); Glucose 133 mg/dL (65-115); Osmolality Calculated 292 mOsm/kg (285-295); Potassium 4.1 mmol/L (3.5-5.1); Sodium 140 mmol/L (136-145)
[2020-12-11 10:18] LABS: Lactate (Lactic Acid level) 1.5 mmol/L (0.5-2.2)
[2020-12-11 10:19] LABS: SARS Covid-2 Antigen Negative (Negative)
[2020-12-11] MEDS: iohexol 350 mg/mL 100 mL Btl IV (10:33)
[2020-12-11 10:44] LABS: NT Pro B Type Natriuretic Pept 1570 pg/mL (0-450)
--- NOTE | 2020-12-11 11:01 | ED_ITS ---
HPI - General Adult General: Chief complaint: Shortness of Breath/Dyspnea Stated complaint: Trouble breathing Time Seen by Provider: 12/11/20 09:05 History of Present Illness: HPI narrative: Patient is a 80-year-old female with history of diabetes, chronic atrial fibrillation, diastolic heart failure, prior PE on AC, stomach cancer in remission (last round of chemo was > 2 months ago) the emergency room for new onset of hypoxemia. Patient was told to go to the emergency room at the request of Dr. Leal who thinks the patient may have had a blood clot. By the time EMS prescribed, patient was satting at 70% on room air. Patient is O2 sat improved to 90% with 15 L nonrebreather. Patient denies any fever/chills, cough/runny nose, diarrhea, loss of taste, abdominal complaints or other complaints. she had no associated chest pain. Onset: one day ago Duration:1 day Location:home Severity:moderate/severe Review of Systems Narrative: Constitutional: No fever, no chills. HEENT: No vision changes CV: No chest pain, no palpitations PULM: no cough, +dyspnea. GI: No abdominal pain, no N/V/D. : No dysuria MSKEL: No muscle pain SKIN: No new rashes, no lesions. NEURO: No headache, no focal weakness. HEME: No visible bruises PSYCH: Normal mood PFSH ED PFSH: Medical History Chronic atrial fibrillation Diabetic peripheral neuropathy Diastolic CHF History of colon polyps Pancreatic cancer Pulmonary embolism Type 2 diabetes mellitus Surgical History H/O hysterectomy for benign disease H/O: hysterectomy History of appendectomy History of cholecystectomy History of coronary artery stent placement History of esophagogastroduodenoscopy (EGD) 03/15/2019: EGD with biopsy Findings: Duodenal ulceration, most likely source of her bleed History of thoracentesis S/P ablation of atrial fibrillation Status post colonoscopy with polypectomy 03/15/2019: Colonoscopy with polypectomy Findings: 2 cm sessile polyp in ascending colon removed with cold biopsy forceps Moderate diverticulosis sigmoid colon Grade 4 hemorrhoids Family History Mother CAD (coronary artery disease) Family/Other Cancer Father Chronic kidney disease (CKD) Brother Dementia Diabetes Family history of premature coronary artery disease Hypertension Sister Hypertension Social History Quit status (tobacco): has quit using tobacco Year quit tobacco: 2013 - PPD x 55 Years Second hand smoke exposure: No Alcohol intake: never Lives independently: Yes Household members: spouse Housing: House Marital status: Current occupational status: retired History of recent travel: No Current gender identity: Female Female Reproductive History: Date of last menstrual period: 06/02/20 Physical Exam Narrative: EXAM NARRATIVE: Head: Atraumatic Eyes: PERRL, conjunctiva without injection ENT: Mucous membrane moist NECK: Supple, ROM intact LUNGS: +Coarse sounds b/l CV: RRR ABDOMEN: Soft, nontender in all quadrants EXTREMITY: Normal ROM SKIN: No rash or erythema NEURO: Awake and alert, no focal motor deficits PSYCH: Normal mood and affect Course Vital Signs: Vital signs: Vital Signs Temperature 98.7 F 12/12/20 11:29 Pulse Rate 64 12/12/20 11:29 Respiratory Rate 17 12/12/20 11:29 Blood Pressure 141/57 12/12/20 11:29 Pulse Oximetry 90 12/12/20 11:29 MDM - General Adult MDM Narrative: Medical decision making narrative: Patient is 80-year-old female with multiple comorbidities presenting to emergency room for new onset hypoxemia. Patient improved to 90% on 15 L nonrebreather. No increased work of breathing at this time. Count of 10.9. CTA negative for PE.: And proBNP within patient's prior findings. Covid antigen negative, PCR pending Will be admitted to the hospital for evaluation of new hypoxemia. Disposition: Admission for serial observation Lab Data: Labs: Lab Results 12/11/20 12/11/20 12/11/20 09:25 09:25 09:25 WBC 10.9 10^3/uL H 10 ^3/uL (4.0-10.0) RBC 4.22 10^6/uL 10^6 /uL (4.1-5.3) Hgb 12.3 g/dL g/dL (11.5-15.3) Hct 39.5 % % (37.0-47.0) MCV 93.6 fl fl (81-99) MCH 29.1 pg pg (28.0-34.0) MCHC 31.1 g/dL g/dL (30.0-36.0) RDW 14.8 % % (12.1-15.1) Plt Count 262 10^3/cmm 10^3 /cmm (130-400) MPV 9.9 fL fL (7.4-10.4) Neut % (Auto) 83.2 % % Lymph % (Auto) 10.1 % % Porter % (Auto) 5.6 % % Eos % (Auto) 0.4 % % Baso % (Auto) 0.4 % % Neut # (Auto) 9.04 10^3/uL H 10 ^3/uL (1.8-7.7) Lymph # (Auto) 1.1 10^3/uL 10^3/ uL (0.8-4.8) Porter # (Auto) 0.6 10^3/uL 10^3/ uL (0.2-0.9) Eos # (Auto) 0.0 10^3/uL 10^3/ uL (0.0-0.8) Baso # (Auto) 0.0 10^3/uL 10^3/ uL (0.0-0.1) Nucleated RBC % (a uto) 0.2 % % Nucleated RBCs # 0.0 /100WBC /100W BC Specimen Type Sample Site ABG pH ABG pCO2 ABG pO2 ABG HCO3 ABG Base Excess Mitchell Test Hematocrit O2 Delivery Device FiO2 Sweatband Decorating Machine Operator ID Sodium 140 mmol/L mmol/L (136-145) Potassium 4.1 mmol/L mmol/L (3.5-5.1) Chloride 99 mmol/L mmol/L (98-107) Carbon Dioxide 28 mmol/L mmol/L (22-29) Anion Gap 17.1 (5-19) BUN 12 mg/dL mg/dL (8-23) Creatinine 0.8 mg/dL mg/dL (0.5-0.9) GFR Calculation Not Reportable Glucose 133 mg/dL H mg/dL (65-115) Calculated Osmolal ity 292 mOsm/kg mOsm/ kg (285-295) Lactate Calcium 9.4 mg/dL mg/dL (8.5-10.5) Troponin T Baselin e 25 ng/L H ng/L (0-10) NT-Pro-B Natriuret Pep 1570 pg/mL H pg/m L (0-450) Nasal/Oral COVID-1 9 PCR SARS-CoV-2 Ag (Rap id) 12/11/20 12/11/20 12/11/20 09:25 09:26 09:26 WBC RBC Hgb Hct MCV MCH MCHC RDW Plt Count MPV Neut % (Auto) Lymph % (Auto) Porter % (Auto) Eos % (Auto) Baso % (Auto) Neut # (Auto) Lymph # (Auto) Porter # (Auto) Eos # (Auto) Baso # (Auto) Nucleated RBC % (a uto) Nucleated RBCs # Specimen Type Sample Site ABG pH ABG pCO2 ABG pO2 ABG HCO3 ABG Base Excess Mitchell Test Hematocrit O2 Delivery Device FiO2 Sweatband Decorating Machine Operator ID Sodium Potassium Chloride Carbon Dioxide Anion Gap BUN Creatinine GFR Calculation Glucose Calculated Osmolal ity Lactate 1.5 mmol/L mmol/L (0.5-2.2) Calcium Troponin T Baselin e NT-Pro-B Natriuret Pep Nasal/Oral COVID-1 9 PCR Not detected SARS-CoV-2 Ag (Rap id) Negative (Negative) 12/11/20 09:40 WBC RBC Hgb Hct MCV MCH MCHC RDW Plt Count MPV Neut % (Auto) Lymph % (Auto) Porter % (Auto) Eos % (Auto) Baso % (Auto) Neut # (Auto) Lymph # (Auto) Porter # (Auto) Eos # (Auto) Baso # (Auto) Nucleated RBC % (a uto) Nucleated RBCs # Specimen Type Arterial Sample Site Lr ABG pH 7.53 H (7.35-7.45) ABG pCO2 32.3 mmHg L mmHg (35-45) ABG pO2 197.0 mmHg H mmHg (80.0-100.0) ABG HCO3 26.7 mmol/L H mmo l/L (22-26) ABG Base Excess 4.2 mmol/L H mmol /L (-2.0-2.0) Mitchell Test Pos Hematocrit 37.5 % % (37-47) O2 Delivery Device Nrb FiO2 100.0 % % Sweatband Decorating Machine Operator ID Kun Sodium Potassium Chloride Carbon Dioxide Anion Gap BUN Creatinine GFR Calculation Glucose Calculated Osmolal ity Lactate Calcium Troponin T Baselin e NT-Pro-B Natriuret Pep Nasal/Oral COVID-1 9 PCR SARS-CoV-2 Ag (Rap id) Imaging Data^: Other Imaging: Radiologist's impression: [address], [place] [address]FU Scan ReportSigned Patient: Radha Rose #: [id number]: 2Acct#:[id number]/Sex: 80 / FADM Date: 12/11/20Loc: [facility]/Bed: 267-1Attending Dr: Randy Hurtado MD Ordering Provider/Ordering MD: Kirsty Abraham MD Date of Service: 12/11/20 Procedure(s): CT abdomen pelvis wo con [id number] Accession Number(s): [id number] Report Number: [id number] PROCEDURE INFORMATION: Exam: CT Abdomen And Pelvis Without Contrast Exam date and time: 12/11/2020 11:31 AM Age: 80 years old Clinical indication: Abdominal pain; Generalized; Additional info: Abd pain TECHNIQUE: Imaging protocol: Computed tomography of the abdomen and pelvis without contrast. Radiation optimization: All CT scans at this facility use at least one of these dose optimization techniques: automated exposure control; mA and/or kV adjustment per patient size (includes targeted exams where dose is matched to clinical indication); or iterative reconstruction. COMPARISON: CT abdomen pelvis w con* [id number] 09/05/2020 12:28 PM RADIATION DOSE METRICS: Total DLP (mGy-cm): 1609.76 FINDINGS: Liver: Calcified hepatic granulomas. Gallbladder and bile ducts: Surgical clips in the gallbladder fossa consistent with cholecystectomy. Stable cholecystectomy. Left pneumobilia which can be normal following cholecystectomy. Pancreas: Normal. No ductal dilation. Spleen: Calcified splenic granulomas. Adrenal glands: Normal. No mass. Kidneys and ureters: Left renal simple cyst measuring >1.0 cm. 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 Stomach and bowel: Unremarkable. No obstruction. No mucosal thickening. Appendix: No evidence of appendicitis. Intraperitoneal space: Unremarkable. No free air. No significant fluid collection. Vasculature: Calcification of the abdominal aorta and/or iliac arteries consistent with atherosclerotic vessel disease. 3.3 cm saccular infrarenal abdominal aortic aneurysm without rupture. One or more calcified pelvic phleboliths. Lymph nodes: Unremarkable. No enlarged lymph nodes. Urinary bladder: Unremarkable as visualized. Reproductive: Status post hysterectomy. Bones/joints: Unremarkable. No acute fracture. Soft tissues: Unremarkable. CT/CT abdomen pelvis wo con [id number] IMPRESSION: 1. Left pneumobilia which can be normal following cholecystectomy. 2. 3.3 cm saccular infrarenal abdominal aortic aneurysm without rupture. COMMENTS: Consistent with the [employer]'s Incidental Findings Committee white paper (J Am Skye Radiol 2018): Any incidental renal lesion less than 1 cm or classified as too small to characterize, or any incidental cystic renal lesion characterized as simple-appearing, is likely benign. No follow-up imaging is recommended for these lesions per consensus recommendations based on imaging criteria. Radiation Dose CTDIVOL = (mGy): DLP = 1609.76 (mGy-cm) Dictated By:Gelacio Medrano MDSigned By:Gelacio Medrano MDSigned Date/Time:12/11/20 1158DD/ 1156 [facility] [place] [id number] ReportSigned Patient: Radha Rose #: [id number]: 1940cct#:[id number]/Sex: 80 / FADM Date: 12/11/20Loc: [facility]/Bed: 267-1Attending Dr: Randy Hurtado MD Ordering Provider/Ordering MD: Kirsty Abraham MD Date of Service: 12/11/20 Procedure(s): XR chest 1V portable [id number] Accession Number(s): [id number] Report Number: [id number] PROCEDURE INFORMATION: Exam: XR Chest Exam date and time: 12/11/2020 11:05 AM Age: 80 years old Clinical indication: Dyspnea TECHNIQUE: Imaging protocol: XR of the chest. Views: 1 view. COMPARISON: CT angio chest PE protcl [id number] 12/11/2020 10:19 AM FINDINGS: Tubes, catheters and devices: Stable left pacemaker. Lungs: Unremarkable. No consolidation. Pleural spaces: Unremarkable. No pleural effusion. No pneumothorax. Heart/Mediastinum: Unremarkable. No cardiomegaly. Bones/joints: Mild right acromioclavicular arthropathy. Other findings: Stable postoperative changes over the left shoulder. XR/XR chest 1V portable [id number] IMPRESSION: No acute findings. Dictated By:Gelacio Medrano MDSigned By:Gelacio Medrano MDSigned Date/Time:12/11/20 1154DD/ [address] [facility] [place], [place] [address]NA Scan ReportSigned Patient: Radha Rose #: [id number]: [id number]#:[id number]/Sex: 80 / FADM Date: 12/11/20Loc: [facility]/Bed:Attending Dr: Ordering Provider/Ordering MD: Kirsty Abraham MD Date of Service: 12/11/20 Procedure(s): CT angio chest PE protcl [id number] Accession Number(s): [id number] Report Number: [id number] PROCEDURE INFORMATION: Exam: CTA Chest With Contrast Exam date and time: 12/11/2020 9:11 AM Age: 80 years old Clinical indication: Shortness of breath; Additional info: Evaluate for pe TECHNIQUE: Imaging protocol: Computed tomographic angiography of the chest with contrast. 3D rendering (Not supervised by radiologist): MIP and/or 3D reconstructed images were created by the technologist. Radiation optimization: All CT scans at this facility use at least one of these dose optimization techniques: automated exposure control; mA and/or kV adjustment per patient size (includes targeted exams where dose is matched to clinical indication); or iterative reconstruction. Contrast material: OMNI 350; Contrast volume: 65 ml; Contrast route: INTRAVENOUS (IV); COMPARISON: CTA Chest-Pulmonary Emb [id number] 09/19/2018 9:46 AM RADIATION DOSE METRICS: Total DLP (mGy-cm): 434.1 FINDINGS: Tubes, catheters and devices: Left -sided pacemaker. Pulmonary arteries: No pulmonary embolus or aortic dissection. Aorta: Calcification of the thoracic aorta and/or great vessels consistent with atherosclerotic vessel disease. Lungs: See Lymph nodes finding. Pleural spaces: Unremarkable. No pneumothorax. No pleural effusion. Heart: Unremarkable. No cardiomegaly. No pericardial effusion. Lymph nodes: Calcified right hilar nodes and/or mediastinal nodes and/or lung granulomas consistent with old granulomatous disease. Kidneys and ureters: Left renal simple cyst measuring >1.0 cm. Bones/joints: Unremarkable. No acute fracture. Soft tissues: Unremarkable. CT/CT angio chest PE protcl [id number] IMPRESSION: No pulmonary embolus or aortic dissection. COMMENTS: Consistent with the [employer]'s Incidental Findings Committee white paper (J Am Skye Radiol 2018): Any incidental renal lesion less than 1 cm or classified as too small to characterize, or any incidental cystic renal lesion characterized as simple-appearing, is likely benign. No follow-up imaging is recommended for these lesions per consensus recommendations based on imaging criteria. Radiation Dose CTDIVOL = (mGy): DLP = 434.1 (mGy-cm) Dictated By:Gelacio Medrano MDSigned By:Gelacio Medrano MDSigned Date/Time:12/11/20 1119DD/ 1118 Discharge Plan Discharge Patient Disposition: Admitted As Inpatient Admit Provider: Randy Hurtado Clinical Impression: Acute dyspnea, Hypoxemia, Low oxygen saturation Condition: Stable Coding Level of Care Code ED Advertising Sales Associate for Ruth Alfredo
--- NOTE | 2020-12-11 11:05 | XRR_ITS ---
PROCEDURE INFORMATION: Exam: XR Chest Exam date and time: 12/11/2020 11:05 AM Age: 80 years old Clinical indication: Dyspnea TECHNIQUE: Imaging protocol: XR of the chest. Views: 1 view. COMPARISON: CT angio chest PE protcl [id number] 12/11/2020 10:19 AM FINDINGS: Tubes, catheters and devices: Stable left pacemaker. Lungs: Unremarkable. No consolidation. Pleural spaces: Unremarkable. No pleural effusion. No pneumothorax. Heart/Mediastinum: Unremarkable. No cardiomegaly. Bones/joints: Mild right acromioclavicular arthropathy. Other findings: Stable postoperative changes over the left shoulder. XR/XR chest 1V portable [id number] IMPRESSION: No acute findings.
[2020-12-11] MEDS: ondansetron 2 mg/ML SDV 2 mL 4 MG IVP (11:30)
--- NOTE | 2020-12-11 11:31 | CTR_ITS ---
PROCEDURE INFORMATION: Exam: CT Abdomen And Pelvis Without Contrast Exam date and time: 12/11/2020 11:31 AM Age: 80 years old Clinical indication: Abdominal pain; Generalized; Additional info: Abd pain TECHNIQUE: Imaging protocol: Computed tomography of the abdomen and pelvis without contrast. Radiation optimization: All CT scans at this facility use at least one of these dose optimization techniques: automated exposure control; mA and/or kV adjustment per patient size (includes targeted exams where dose is matched to clinical indication); or iterative reconstruction. COMPARISON: CT abdomen pelvis w con* [id number] 09/05/2020 12:28 PM RADIATION DOSE METRICS: Total DLP (mGy-cm): 1609.76 FINDINGS: Liver: Calcified hepatic granulomas. Gallbladder and bile ducts: Surgical clips in the gallbladder fossa consistent with cholecystectomy. Stable cholecystectomy. Left pneumobilia which can be normal following cholecystectomy. Pancreas: Normal. No ductal dilation. Spleen: Calcified splenic granulomas. Adrenal glands: Normal. No mass. Kidneys and ureters: Left renal simple cyst measuring >1.0 cm. 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 Stomach and bowel: Unremarkable. No obstruction. No mucosal thickening. Appendix: No evidence of appendicitis. Intraperitoneal space: Unremarkable. No free air. No significant fluid collection. Vasculature: Calcification of the abdominal aorta and/or iliac arteries consistent with atherosclerotic vessel disease. 3.3 cm saccular infrarenal abdominal aortic aneurysm without rupture. One or more calcified pelvic phleboliths. Lymph nodes: Unremarkable. No enlarged lymph nodes. Urinary bladder: Unremarkable as visualized. Reproductive: Status post hysterectomy. Bones/joints: Unremarkable. No acute fracture. Soft tissues: Unremarkable. CT/CT abdomen pelvis con [id number] IMPRESSION: 1. Left pneumobilia which can be normal following cholecystectomy. 2. 3.3 cm saccular infrarenal abdominal aortic aneurysm without rupture. COMMENTS: Consistent with the [employer]'s Incidental Findings Committee white paper (J Am Skye Radiol 2018): Any incidental renal lesion less than 1 cm or classified as too small to characterize, or any incidental cystic renal lesion characterized as simple-appearing, is likely benign. No follow-up imaging is recommended for these lesions per consensus recommendations based on imaging criteria. Radiation Dose CTDIVOL = (mGy): DLP = 1609.76 (mGy-cm)
--- NOTE | 2020-12-11 11:57 | PC.PHAR ---
PT STATES HER DOCTOR RECENTLY TOOK HER OFF OF FERROUS SULFATE BID, GABAPENTIN 600MG BID, LANTUS 40 U AT BEDTIME, METFORMIN 500MG BID TO TRY AND FIND CAUSE OF DIARRHEA. CITALOPRAM WAS INCREASED TO 20MG DAILY
[2020-12-11 11:59] LABS: ABG PCO2 32.3 mmHg (35-45); ABG PH Result 7.53 (7.35-7.45); Arterial Blood Gas Hematocrit 37.5 % (37-47); Base Excess ABG 4.2 mmol/L (-2.0-2.0); Blood Gas Allen Test Pos; Blood Gas Operator Identificat JC; Blood Gas Sample Site LR; Blood Gas Sample Type Arterial; HCO3 ABG 26.7 mmol/L (22-26); Oxygen Device NRB
[2020-12-11 12:51] VITALS: BP 152/75; PULSE 60; RESP 14; O2SAT 96
--- NOTE | 2020-12-11 13:39 | P.HP_ITS ---
Providers/Chief Complaint Admitting Physician: Randy Hurtado MD Primary Care Provider: BÁRBARA Ruvalcaba Chief Complaint: Trouble breathing History of Present Illness 80 y o F with past medical history of HFpEF ,Ca Stomach has received chemo and radiation 3 months back, chronic atrial fibrillation status post ablation with a pacemaker in place, PE on chronic anticoagulation with Eliquis in past has been taken off by the oncologist CAD status post stenting x5 ,restrictive lung dise ase on 2 L home oxygen, type 2 diabetes mellitus,hypertension, diabetic peripheral neuropathy came into the ER with chief complaint of acute onset of shortness of breath started this morning. As well as right lower quadrant abdominal pain, and nausea, no vomiting. Upon arrival in the ER: She was worked up for above-mentioned complaint. Pertinent imaging study: CTA chest: No pulmonary embolus or aortic dissection. No infiltrate, no pneumothorax , no effusion. CT abdomen and pelvis without contrast;3.3 cm saccular infrarenal abdominal aortic aneurysm without rupture. EKG: Paced rhythm. Pertinent labs: WBC:10.9, H&H:12/39, plt : 262, serum sodium 140 serum potassium 4.1 BUN and serum creatinine 12/0.8 , serum lactic acid: 1.5 , rapid Covid antigen: Negative, Covid PCR : Pending Troponin trend without significant delta, proBNP: 1570 ABG: pH 7.53 , PCO2 , 32, PO2 :197, FiO2 100% Review of Systems Const: Denies: fever(s), chills, body aches or change in appetite Card: Denies: edema, swelling of feet/ankles or orthopnea Resp: Denies: productive cough, wheezing or pain on inspiration GI: Denies: vomiting, diarrhea or constipation : Denies: flank pain Musc: Denies: back pain, extremity pain or extremity swelling Neuro: Denies: headache(s), difficulty walking or confusion Medications/Allergies Home Medications Medication Instructions Recorded Confirmed Last Taken Type pravastatin 40 mg PO DAILY 30 Days #30 tab 03/17/19 12/11/20 12/10/20 Rx pantoprazole 40 mg tablet,delayed 40 mg PO BID tab 06/17/19 12/11/20 12/10/20 History release potassium chloride 10 mEq 10 meq PO DAILY 06/17/19 12/11/20 12/10/20 History capsule,extended release clopidogrel 75 mg tablet 75 mg PO DAILY #90 tab 05/24/20 12/11/20 12/10/20 Rx ipratropium 0.5 mg-albuterol 3 mg 3 ml INHALATION Q6H #360 ml 08/04/20 12/11/20 Unknown Rx (2.5 mg base)/3 mL nebulization soln levothyroxine 25 mcg capsule 25 mcg PO DAILY 08/04/20 12/11/20 12/10/20 History Lasix 40 mg PO DAILY MDD SEE PHARMACY 12/11/20 12/11/20 12/10/20 History COMMENT citalopram 20 mg PO DAILY 12/11/20 12/11/20 12/10/20 History insulin detemir U-100 [Levemir 30 unit SUBCUT DAILY 12/11/20 12/11/20 12/10/20 History Flexpen] nitroglycerin [Nitrostat] 0.4 mg SUBLINGUAL Q5M PRN 12/11/20 12/11/20 Unknown History Allergies Allergy/AdvReac Type Severity Reaction Status Date / Time aspirin Allergy Stomach Verified 12/11/20 09:06 Cramps codeine Allergy ADR-Halluci Verified 12/11/20 09:06 nating digoxin Allergy BLISERS IN Verified 12/11/20 09:06 MOUTH Sulfa (Sulfonamide Allergy ALGY-Hives Verified 12/11/20 09:06 Antibiotics) tetanus and diphtheria Allergy ADR-Vomitin Verified 12/11/20 09:06 toxoids g PFSH Acute PFSH: Medical History Chronic atrial fibrillation Diabetic peripheral neuropathy Diastolic CHF History of colon polyps Pancreatic cancer Pulmonary embolism Type 2 diabetes mellitus Surgical History H/O hysterectomy for benign disease H/O: hysterectomy History of appendectomy History of cholecystectomy History of coronary artery stent placement History of esophagogastroduodenoscopy (EGD) 03/15/2019: EGD with biopsy Findings: Duodenal ulceration, most likely source of her bleed History of thoracentesis S/P ablation of atrial fibrillation Status post colonoscopy with polypectomy 03/15/2019: Colonoscopy with polypectomy Findings: 2 cm sessile polyp in ascending colon removed with cold biopsy forceps Moderate diverticulosis sigmoid colon Grade 4 hemorrhoids Family History Mother CAD (coronary artery disease) Family/Other Cancer Father Chronic kidney disease (CKD) Brother Dementia Diabetes Family history of premature coronary artery disease Hypertension Sister Hypertension Social History Quit status (tobacco): has quit using tobacco Year quit tobacco: 2013 - PPD x 55 Years Second hand smoke exposure: No Alcohol intake: never Lives independently: Yes Household members: spouse Housing: House Marital status: Current occupational status: retired History of recent travel: No Current gender identity: Female Female Reproductive History: Date of last menstrual period: 06/02/20 Vitals/I&O/Wt Last Vital Signs Temp 96.9 F L 12/11/20 09:06 Pulse 60 12/11/20 12:51 Resp 14 12/11/20 12:51 BP 152/75 12/11/20 12:51 Pulse Ox 96 12/11/20 12:51 Weight last 48 hrs Weight 91.626 kg Physical Exam Const: COMMON NORMALS: patient oriented x3 HENMT: COMMON NORMALS: normocephalic and atraumatic Resp: COMMON NORMALS: clear to auscultation bilaterally AUSCULTATION: clear to auscultation bilaterally Cardio: COMMON NORMALS: regular rate, regular rhythm, S1 normal heart sound present, S2 normal heart sound present, No gallops present (Cardio), No murmurs present (Cardio), No rub (Cardio) and Peripheral pulses 2+ throughout RATE: regular rate RHYTHM: regular rhythm HEART SOUNDS: S1 normal heart sound present and S2 normal heart sound present PERIPHERAL PULSES: Peripheral pulses 2+ throughout GI: COMMON NORMALS: Normal to inspection, nondistended, normoactive bowel sounds present, Soft to palpation, non-tender, No hepatosplenomegaly present and no masses AUSCULTATION: Yes normoactive bowel sounds PALPATION: Yes Soft to palpation and Yes No hepatosplenomegaly present RECTAL EXAM: deferred Extremity: COMMON NORMALS: no clubbing, cyanosis or edema and no pedal edema Neuro: COMMON NORMALS: patient oriented x3 Data : 12/11/20 09:25 12/11/20 09:25 A&P Assessment and plan (1) Acute dyspnea: Acute onset of shortness of breath, of unclear etiology, cannot conclusively rule out panic attack. DuoNeb as needed Currently at baseline oxygen requirement ( 2Ls ) Status: Acute (2) Diastolic CHF: Heart failure with preserved ejection fraction: Currently compensated Continue Lasix 40 mg p.o. day Intake output charting Daily weight Status: Chronic Qualifiers: Heart failure chronicity: chronic Qualified Code(s): I50.32 - Chronic diastolic (congestive) heart failure (3) Hypertension: Amlodipine 5 mg p.o. daily Status: Acute Qualifiers: Hypertension type: essential hypertension Qualified Code(s): I10 - Essential (primary) hypertension (4) Chronic atrial fibrillation: History of chronic atrial fibrillation status post ablation and pacemaker placement. Currently she is off anticoagulation. Telemetry Status: Acute (5) Type 2 diabetes mellitus: Low-dose sliding scale insulin Monitor fingerstick glucose Carbohydrate consistent diet Status: Chronic Qualifiers: Diabetes mellitus complication detail: with other circulatory complications Diabetes mellitus complication status: with circulatory complication Diabetes mellitus fdc insulin use: with fdc use Qualified Code(s): E11.59 - Type 2 diabetes mellitus with other circulatory complications; Z79.4 - intermission coordinator (current) use of insulin (6) Pulmonary embolism: History of PE not on anticoagulation right now, as per her oncologist. Status: Acute Qualifiers: Pulmonary embolism type: unspecified Chronicity: chronic Acute cor pulmonale presence: unspecified Qualified Code(s): I27.82 - Chronic pulmonary embolism (7) Abdominal pain: Nonspecific abdominal pain. CT abdomen and pelvis has failed to show any pathology. Pain control Continue to monitor for now Status: Acute Additional A&P Information CODE STATUS: Full code DVT PPX: Lovenox Attestations 2 Medical Necessity Statement*: Patient needs to be in hospital for observation status for monitoring of acute onset of dyspnea. Coding Level of Care Code Acute Court Assistant for [facility] Fwd Exam Detailed Diagnoses Acute dyspnea R06.00 Diastolic CHF I50.32 Heart failure chronicity: chronic Hypertension I10 Hypertension type: essential hypertension Chronic atrial fibrillation I48.20 Type 2 diabetes mellitus E11.59; Z79.4 Diabetes mellitus complication detail: with other circulatory complicatio ns Diabetes mellitus complication status: with circulatory complication Diabetes mellitus terminal operations manager insulin use: with terminal operations manager use Pulmonary embolism I27.82 Pulmonary embolism type: unspecified Chronicity: chronic Acute cor pulmonale presence: unspecified Abdominal pain R10.9
[2020-12-11 13:40] VITALS: BP 147/73; PULSE 59; RESP 16; TEMP 36.6; O2SAT 94
[2020-12-11 15:40] LABS: Troponin 5 6HR 23.51 ng/L (0-10)
[2020-12-11 15:58] LABS: Troponin 5 6HR Delta -1.49 ng/L (0-12)
[2020-12-11 16:00] VITALS: BP 153/78; PULSE 64; RESP 18; TEMP 36.6; O2SAT 78
[2020-12-11 17:11] LABS: Glucose Point of Care 117 mg/dL (70-110)
[2020-12-11] MEDS: enoxaparin 40 mg/0.4 mL Syringe SUBCUT (18:14)
[2020-12-11] MEDS: pantoprazole DR 40 mg Tablet PO (18:15)
[2020-12-11 19:32] VITALS: BP 149/71; PULSE 70; RESP 17; TEMP 36.7; O2SAT 92
[2020-12-11 20:48] LABS: Glucose Point of Care 121 mg/dL (70-110)
[2020-12-12] VITALS: BP 124/73; PULSE 82; RESP 20; TEMP 36.5; O2SAT 92
--- NOTE | 2020-12-12 00:11 | PC.NURSE ---
i reported high reps 20 to nurse
[2020-12-12] MEDS: nitroglycerin 0.4 mg sublingual Tablet SUBLINGUAL ×2 (03:36→03:49)
--- NOTE | 2020-12-12 03:54 | ECG_ITS ---
[facility] Test Date: 2020-12-12 Pat Name: Radha Rose Department: Room: 267 Gender: Female Brand Strategy Manager: : 1940 Requested By: Consuelo Tom Order Number: [id number] Reading MD: ROSE MARY GRIJALVA Measurements Intervals [place] Rate: 60 P: [place]: QRS: -76 QRSD: 142 T: 99 QT: 500 QTc: 502 Interpretive Statements ELECTRONIC VENTRICULAR PACEMAKER ABNORMAL RHYTHM ECG Compared to ECG 12/11/2020 09:33:49 T-wave abnormality no longer present Possible ischemia no longer present Electronically Signed On 12-12-2020 20:20:08 CDT by ROSE MARY GRIJALVA [email or web address]
[2020-12-12 04:00] VITALS: BP 127/66; PULSE 63; RESP 20; TEMP 36.6; O2SAT 92
--- NOTE | 2020-12-12 04:48 | PC.NURSE ---
i reported high reps 20 to nurse
--- NOTE | 2020-12-12 05:28 | PC.NURSE ---
patient had been awake all night, patient granddaughter had been in a car accident yesterday, used bedside commode with 1 staff stand by assist, patient c/o back pain due to bed, sat in recliner with 1 staff assist, @[phone] patient c/o chest pain 7 out of 10, denied radiating anywhere, verbalized nitro helps her when home, bp 135/77, 60, 92%, first dose of nitro administered, after 5 minutes patient verbalized having some relief, agreed to lay down, after 10 minutes from first nitro, second dose administered, bp 110/64, 60, 91%, Dr Tom was notified of chest pain the first time and ordered 12 lead EKG.
[2020-12-12 06:06] LABS: Basophils # 0.1 10^3/uL (0.0-0.1); Basophils % 0.5 %; Eosinophils % 0.3 %; Hematocrit 37.4 % (37.0-47.0); Hemoglobin 11.4 g/dL (11.5-15.3); Lymphocytes # 0.8 10^3/uL (0.8-4.8); Lymphocytes % 8.1 %; Mean Corpuscular HGB Conc 30.5 g/dL (30.0-36.0); Mean Corpuscular Hemoglobin 29.1 pg (28.0-34.0); Mean Corpuscular Volume 95.4 fl (81-99); Mean Platelet Volume 9.7 fL (7.4-10.4); Monocytes # 0.7 10^3/uL (0.2-0.9); Monocytes % 7.3 %; Neutrophils # 8.16 10^3/uL (1.8-7.7); Neutrophils % 83.5 %; Nucleated Red Blood Cells % 0 %; Platelet Count 215 10^3/cmm (130-400); Red Blood Count 3.92 10^6/uL (4.1-5.3); Red Cell Distribution Width 14.9 % (12.1-15.1); White Blood Count 9.8 10^3/uL (4.0-10.0)
[2020-12-12 06:45] LABS: Glucose Point of Care 128 mg/dL (70-110)
[2020-12-12 06:46] LABS: Anion Gap 14.8 (5-19); Blood Urea Nitrogen 15 mg/dL (8-23); Carbon Dioxide 28 mmol/L (22-29); Chloride 101 mmol/L (98-107); Glucose 121 mg/dL (65-115); Osmolality Calculated 292 mOsm/kg (285-295); Potassium 3.8 mmol/L (3.5-5.1); Sodium 140 mmol/L (136-145)
[2020-12-12 07:28] VITALS: BP 144/77; PULSE 64; RESP 17; TEMP 37.1; O2SAT 92
[2020-12-12 08:25] VITALS: PULSE 62; RESP 20; O2SAT 92
[2020-12-12] MEDS: atorvastatin 40 mg Tablet 20 MG PO (09:05)
[2020-12-12] MEDS: levothyroxine 25 mcg Tablet PO (09:05)
[2020-12-12] MEDS: citalopram 20 mg Tablet PO (09:05)
[2020-12-12] MEDS: potassium chloride ER 10 mEq Tablet PO (09:05)
[2020-12-12] MEDS: clopidogrel 75 mg Tablet PO (09:06)
[2020-12-12] MEDS: pantoprazole DR 40 mg Tablet PO (09:06)
[2020-12-12] MEDS: FUROsemide 40 mg Tablet PO (09:06)
[2020-12-12 11:29] VITALS: BP 141/57; PULSE 64; RESP 17; TEMP 37.1; O2SAT 90
[2020-12-12 11:55] LABS: Glucose Point of Care 120 mg/dL (70-110)
[2020-12-12] MEDS: amoxicillin-clav 875-125 mg Tablet 1 TAB PO (12:01)
[2020-12-12 12:38] LABS: Troponin(5th) Baseline 28 ng/L (0-10)
--- NOTE | 2020-12-12 12:43 | PM.DCS ---
Discharge Providers Date of Admission: 12/11/20 11:33 Date of Discharge: December 12, 2020 Attending Provider at Admission: Randy Hurtado MD Attending Provider at Discharge: Joe Mcgovern MD Primary Care Provider: BÁRBARA Ruvalcaba Diagnoses at Discharge Discharge Diagnosis (1) Acute dyspnea: Status: Acute (2) Diastolic CHF: Status: Chronic Qualifiers: Heart failure chronicity: chronic Qualified Code(s): I50.32 - Chronic diastolic (congestive) heart failure (3) Hypertension: Status: Acute Qualifiers: Hypertension type: essential hypertension Qualified Code(s): I10 - Essential (primary) hypertension (4) Chronic atrial fibrillation: Status: Acute (5) Type 2 diabetes mellitus: Status: Chronic Qualifiers: Diabetes mellitus complication detail: with other circulatory complications Diabetes mellitus complication status: with circulatory complication Diabetes mellitus intermodal truck driver insulin use: with custodial use Qualified Code(s): E11.59 - Type 2 diabetes mellitus with other circulatory complications; Z79.4 - penitentiary (current) use of insulin (6) Pulmonary embolism: Status: Acute Qualifiers: Pulmonary embolism type: unspecified Chronicity: chronic Acute cor pulmonale presence: unspecified Qualified Code(s): I27.82 - Chronic pulmonary embolism (7) Abdominal pain: Status: Acute Reason for Visit Reason for Visit: Trouble breathing Hospital Course Hospital Course This is a 72-year-old female with a past medical history of 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, type 2 diabetes mellitus, CAD, history of permanent pacemaker for complete heart block, diastolic CHF, history of atrial fibrillation with prior ablation, nausea candidate for anticoagulation given history of GI bleeding on Eliquis supposedly secondary to GI ulcer, history of pulmonary embolism, restrictive lung disease oxygen dependent 4 L, who presents to [facility] for shortness of breath Patient was admitted to [facility] for shortness of breath, initial CT of the chest did not show radiographic evidence of pulmonary embolism, or aortic dissection, no new infiltrate, no clinical or radiographic evidence of exacerbation of diastolic CHF. Patient was clinically monitored, remained on 4 L, no repeat episodes of shortness of breath, she did have an episode of chest pain overnight requiring 2 nitroglycerin, EKG showed no acute ST-T wave changes, however initial EKG on admission did show ST-T wave changes in inferior and lateral leads, patient's 6-hour troponin 23.51, delta of -1.49, repeat troponin in the morning was 28. She was chest pain-free, no shortness of breath. After discussion with patient, I recommended cardiac work-up including repeat EKG series, troponin series, cardiac echocardiogram as she had chest pain episodes and complaints of shortness of breath. In addition I recommended bilateral lower extremity ultrasounds to evaluate for possible DVTs. I also advised of closer inpatient monitor including telemetry monitoring. I suspect the patient possibly could have had an aspiration event, possible aspiration pneumonia, explaining her shortness of breath, however we would require a speech therapy evaluation. However patient wanted to leave the hospital, declined further testing and interventions. I discussed the risks of leaving the hospital AGAINST MEDICAL ADVICE, risk including but not limited to significant cardiac event, significant embolic event, sepsis, septic shock, and significant morbidity and mortality. She voiced understanding, all questions answered, she left AGAINST MEDICAL ADVICE. I will have patient follow with Dr. Leal, have discharged her on Augmentin, if patient were to have recurrent chest pain or shortness of breath please come back to emergency room Physical Exam Const: COMMON NORMALS: no acute distress and patient oriented x3 Resp: COMMON NORMALS: normal respiratory effort, No retractions, No use of accessory muscles and clear to auscultation bilaterally AUSCULTATION: clear to auscultation bilaterally Cardio: COMMON NORMALS: regular rate, regular rhythm, S1 normal heart sound present and S2 normal heart sound present RATE: regular rate RHYTHM: regular rhythm HEART SOUNDS: S1 normal heart sound present and S2 normal heart sound present GI: COMMON NORMALS: Normal to inspection, nondistended, normoactive bowel sounds present, Soft to palpation and non-tender PALPATION: Yes Soft to palpation Extremity: COMMON NORMALS: no pedal edema Neuro: COMMON NORMALS: patient oriented x3 Psych: COMMON NORMALS: mental status grossly normal Discharge Data Data Completed and Pending: Completed Studies During Hospitalization Category Date Time Status CT abdomen pelvis wo con [id number] Urge nt Cat Scan 12/11/20 11:[address] angio chest PE protcl [id number] Urge nt Cat Scan 12/11/20 09:11 Completed XR chest 1V antony ble [id number] Urgent Exams 12/11/20 11:05 Completed Pending at discharge Category Date Time Status Basic Metabolic P dyana AM LABS Lab 12/13/20 04:00 Ordered Basic Metabolic P dyana AM LABS Lab 12/14/20 04:00 Ordered Complete Blood Co unt w/Auto AM LABS Lab 12/13/20 04:00 Ordered Complete Blood Co unt w/Auto AM LABS Lab 12/14/20 04:00 Ordered Coronavirus Test [facility] Ciara ne Lab 12/11/20 09:26 Received Troponin(5th) 2 H our. Timed Lab 12/12/20 13:40 Ordered Troponin(5th) 6 h our. Timed Lab 12/12/20 17:40 Ordered Troponin(5th) Bas bella Stat Lab 12/12/20 11:40 [place] [id number] Routin e Ultrasound 12/12/20 11:16 Ordered CV. echo complete * [id number] Routine Ultrasound 12/12/20 11:16 Ordered Labs from last 24 hours 12/12/20 12/12/20 12/12/20 11:40 11:34 06:14 WBC RBC Hgb Hct MCV MCH MCHC RDW Plt Count MPV Neut % (Auto) Lymph % (Auto) [place] % (Auto) Eos % (Auto) Baso % (Auto) Neut # (Auto) Lymph # (Auto) [place] # (Auto) Eos # (Auto) Baso # (Auto) Nucleated RBC % (a uto) Nucleated RBCs # Sodium Potassium Chloride Carbon Dioxide Anion Gap BUN Creatinine GFR Calculation Glucose POC Glucose 120 H 128 H Calculated Osmolal ity Calcium Troponin T Baselin e Pending Troponin T 120 Min citizen [place] Troponin T Troponin T Hi Sens 6Hr Troponin T Hi Sens 6Hr Delta Nasal/Oral COVID-1 9 PCR 12/12/20 12/12/20 12/11/20 05:37 05:37 20:44 WBC 9.8 RBC 3.92 L Hgb 11.4 L Hct 37.4 MCV 95.4 MCH 29.1 MCHC 30.5 RDW 14.9 Plt Count 215 MPV 9.7 Neut % (Auto) 83.5 Lymph % (Auto) 8.1 [place] % (Auto) 7.3 Eos % (Auto) 0.3 Baso % (Auto) 0.5 Neut # (Auto) 8.16 H Lymph # (Auto) 0.8 [place] # (Auto) 0.7 Eos # (Auto) 0.0 Baso # (Auto) 0.1 Nucleated RBC % (a uto) 0 Nucleated RBCs # 0.0 Sodium 140 Potassium 3.8 Chloride 101 Carbon Dioxide 28 Anion Gap 14.8 BUN 15 Creatinine 0.6 GFR Calculation Not Reportable Glucose 121 H POC Glucose 121 H Calculated Osmolal ity 292 Calcium 9.0 Troponin T Baselin e Troponin T 120 Min citizen [place] Troponin T Troponin T Hi Sens 6Hr Troponin T Hi Sens 6Hr [place] Nasal/Oral COVID-1 9 PCR 12/11/20 12/11/20 12/11/20 16:59 15:10 11:57 WBC RBC Hgb Hct MCV MCH MCHC RDW Plt Count MPV Neut % (Auto) Lymph % (Auto) [place] % (Auto) Eos % (Auto) Baso % (Auto) Neut # (Auto) Lymph # (Auto) [place] # (Auto) Eos # (Auto) Baso # (Auto) Nucleated RBC % (a uto) Nucleated RBCs # Sodium Potassium Chloride Carbon Dioxide Anion Gap BUN Creatinine GFR Calculation Glucose POC Glucose 117 H Calculated Osmolal ity Calcium Troponin T Baselin e Troponin T 120 Min [place] 23.90 H Delta Troponin T -1.10 L Troponin T Hi Sens 6Hr 23.51 H Troponin T Hi Sens 6Hr Delta -1.49 L Nasal/Oral COVID-1 9 PCR 12/11/20 09:26 WBC RBC Hgb Hct MCV MCH MCHC RDW Plt Count MPV Neut % (Auto) Lymph % (Auto) [place] % (Auto) Eos % (Auto) Baso % (Auto) Neut # (Auto) Lymph # (Auto) [place] # (Auto) Eos # (Auto) Baso # (Auto) Nucleated RBC % (a uto) Nucleated RBCs # Sodium Potassium Chloride Carbon Dioxide Anion Gap BUN Creatinine GFR Calculation Glucose POC Glucose Calculated Osmolal ity Calcium Troponin T Baselin e Troponin T 120 Min citizen [place] Troponin T Troponin T Hi Sens 6Hr Troponin T Hi Sens 6Hr [place] Nasal/Oral COVID-1 9 PCR Pending Vitals: Last Vital Signs Temp 98.7 F 12/12/20 11:29 Pulse 64 12/12/20 11:29 Resp 17 12/12/20 11:29 BP 141/57 12/12/20 11:29 Pulse Ox 90 12/12/20 11:29 Discharge Plan Discharge Patient Disposition: Left Against Medical Advice Condition: Stable Prescriptions: New Augmentin 875-125 mg tablet 1 tab PO BID 7 Days Qty: 14 RF: 0 No Action Protonix 40 mg tablet,delayed release (DR/EC) 40 mg PO BID RF: 0 potassium chloride 10 mEq capsule, extended release 10 meq PO DAILY RF: 0 levothyroxine 25 mcg capsule 25 mcg PO DAILY RF: 0 ipratropium-albuterol 0.5 mg-3 mg(2.5 mg base)/3 mL solution for nebulization 3 ml inhalation Q6H Qty: 360 RF: 3 clopidogrel 75 mg tablet 75 mg PO DAILY Qty: 90 RF: 3 pravastatin 40 mg Tablet 40 mg PO DAILY 30 Days Qty: 30 RF: 0 citalopram 20 mg Tablet 20 mg PO DAILY RF: 0 Nitrostat 0.4 mg Tablet, Sublingual 0.4 mg SUBLINGUAL Q5M PRN (Reason: Chest Pain) RF: 0 Levemir Flexpen 100 unit/mL (3 mL) Insulin Pen 30 unit SUBCUT DAILY RF: 0 Lasix 40 mg tablet 40 mg PO DAILY MDD SEE PHARMACY COMMENT RF: 0 Referrals: Grace Willett FNP [Primary Care Provider] - Discharge Attestations Time Spent in Discharge Care*: less than 30 min Quality Metrics Clinical Quality Measures During this hospital stay, did patient experience: None (Left AGAINST MEDICAL ADVICE could not do cardiac or VTE full work-up) Coding Level of Care Code Acute Chg FW DC note Diagnoses Acute dyspnea R06.00 Diastolic CHF I50.32 Heart failure chronicity: chronic Hypertension I10 Hypertension type: essential hypertension Chronic atrial fibrillation I48.20 Type 2 diabetes mellitus E11.59; Z79.4 Diabetes mellitus complication detail: with other circulatory complications Diabetes mellitus complication status: with circulatory complication Diabetes mellitus intermodal truck driver insulin use: with intermodal truck driver use Pulmonary embolism I27.82 Pulmonary embolism type: unspecified Chronicity: chronic Acute cor pulmonale presence: unspecified Abdominal pain R10.9
[2020-12-12 13:47] LABS: Coronavirus Test Green County Not Detected
--- NOTE | 2020-12-14 08:54 | PC.SOCIAL ---
discharge follow up call, multiple tries to reach patient. message left.
--- NOTE | 2020-12-14 10:11 | PC.SOCIAL ---
discharge follow up call, patient return my call. patient reports yesterday she didn't feel well, no appetite. today she is much better. patient hasn't picked up augmentin from the pharmacy, she will have family pick that up today. patient needs follow up appointment made with Dr. Leal and her pcp. resume writer will make those appointments and contact patient with dates and times.
== END 2020-12-12 12:45 | disposition left against medical advice (07) ==
LOC: ER 11:05 → MEDSURG 11:53
PROVIDERS: Admitting Provider Internal Medicine; Emergency Provider Emergency Medicine; PCP Nurse Practitioner Family; Visit Provider Family Medicine
DX: R06.00 Dyspnea, unspecified (principal); I11.0 Hypertensive heart disease with heart failure; I50.32 Chronic diastolic (congestive) heart failure; I48.20 Chronic atrial fibrillation, unspecified; E11.59 Type 2 diabetes mellitus with other circulatory complications; Z79.4 Long term (current) use of insulin; I27.82 Chronic pulmonary embolism; R10.9 Unspecified abdominal pain; Z85.89 Personal history of malignant neoplasm of other organs and systems; Z92.3 Personal history of irradiation; I25.10 Atherosclerotic heart disease of native coronary artery without angina pectoris; Z82.49 Family history of ischemic heart disease and other diseases of the circulatory system; Z83.3 Family history of diabetes mellitus; Z87.891 Personal history of nicotine dependence
CPT/HCPCS: 36415; 36416; 36600; 71045; 71275; 74176; 80048; 82803; 82962; 83605; 83880; 84484; 85025; 87426; 87635; 93005; 96372; 96374; 99285; G0378; J1650; J2405; Q9967

== ENCOUNTER 2021-01-05 09:28 | Outpatient (CLI) | payer MEDICARE, SELFPAY ==
--- NOTE | 2021-01-05 09:41 | XR_ITS ---
WS: [id number] Exam: XR chest 2V* [id number] Date/Time of Exam: 01/05/2021 9:43 AM Reason For Exam: AMPULLARU CARCINOMA/H/O PE-LOW SPO2 Comparison 12/11/2020. The lungs are fully expanded and clear. Several scattered calcified granulomas noted. No pleural effu sions. Unremarkable cardiomediastinal silhouette. A cardiac pacer superimposes the left chest. An anc horing screw in the left humeral head. XR/XR chest 2V* [id number] IMPRESSION: 1. No acute cardiopulmonary finding. No change.
== END 2021-01-05 09:29 | disposition home or self-care (01) ==
LOC: RAD 09:32
PROVIDERS: PCP Nurse Practitioner Family; Visit Provider Internal Medicine Medical Oncology
DX: C24.1 Malignant neoplasm of ampulla of Vater (principal)
CPT/HCPCS: 71046

== ENCOUNTER 2021-01-16 08:42 | Outpatient (CLI) | payer MEDICARE, SELFPAY ==
[2021-01-16 09:39] LABS: Basophils % 0.2 %; Eosinophils % 0.4 %; Hematocrit 39.1 % (37.0-47.0); Hemoglobin 12.4 g/dL (11.5-15.3); Lymphocytes % 11.2 %; Mean Corpuscular HGB Conc 31.7 g/dL (30.0-36.0); Mean Corpuscular Volume 94.4 fl (81-99); Mean Platelet Volume 9.5 fL (7.4-10.4); Monocytes # 0.5 10^3/uL (0.2-0.9); Monocytes % 5.7 %; Neutrophils # 7.04 10^3/uL (1.8-7.7); Neutrophils % 82.1 %; Nucleated Red Blood Cells % 0 %; Platelet Count 219 10^3/cmm (130-400); Red Blood Count 4.14 10^6/uL (4.1-5.3); Red Cell Distribution Width 14.6 % (12.1-15.1); White Blood Count 8.6 10^3/uL (4.0-10.0)
[2021-01-16 10:01] LABS: Carcinoembryonic Antigen 1.3 ng/mL (0.0-4.7)
[2021-01-16 10:12] LABS: Alanine Aminotransferase < 5 U/L (0-33); Albumin Level 3.5 g/dL (3.5-5.2); Alkaline Phosphatase 53 IU/L (35-105); Anion Gap 16.4 (5-19); Aspartate Amino Transferase 10 U/L (0-32); Blood Urea Nitrogen 9 mg/dL (8-23); Carbon Dioxide 24 mmol/L (22-29); Chloride 101 mmol/L (98-107); Globulin 3.1 g/dL (1.3-4.6); Glucose 119 mg/dL (65-115); Lipase 10 U/L (13-60); Osmolality Calculated 284 mOsm/kg (285-295); Potassium 4.4 mmol/L (3.5-5.1); Sodium 137 mmol/L (136-145); Total Bilirubin 0.5 mg/dL (0.15-1.2); Total Protein 6.6 g/dL (6.6-8.7)
[2021-01-16 10:36] LABS: Cancer Antigen 19 9 9.33 U/mL (0-35); Ferritin 141 ng/mL (15-150); Iron 43 ug/dL (37-145); Percent Saturation 19.4 % (20-50); Total Iron Binding Capacity 221 mcg/dl; Unsaturated Iron Binding 178 ug/dL (112-347)
--- NOTE | 2021-01-16 17:44 | ONC FU_ITS ---
Dr. Leal Patient Follow-Up Note Patient: Radha Rose Unit #: [id number]: 1940 Dicatated By: Paul Leal M.D.Date of Visit:Jan 16, 2021 Onc Med Follow-up/Prog Note Chief Complaint: Ampullary carcinoma. History of Present Illness: This is a 80 year-old woman with localized ampullary adenocarcinoma. In August 2019 she was admitted to the hospital with pancreatits, serum lipase greater than 600 U/L. Her CT abdomen/pelvis showed evidence of cholelithiasis but with no evidence of acute abdominal pathologic process. She improved with conservative management. On an outpatient follow-up visit with Dr. Ayala on 10/16/2019 she had continued to complain of abdominal pain. On further evaluation in the emergency room her serum lipase was significantly elevated at 2793 U/L. Her CT findings were unchanged. Gallbladder ultrasound showed cholelithiasis with mildly dilated common bile duct. She was transferred to [facility] for admission. On 10/18/2019 she underwent laparoscopic cholecystectomy. Her intraoperative cholangiogram showed evidence of bile duct obstruction due to stone impaction at the ampulla. She then underwent ERCP with biliary sphincterotomy, stone extraction, and placement of a fully covered metal stent. Her duodenoscopy also showed a polypoid nature papilla in the second portion of the duodenum which was estimated at 2 cm in diameter. Distal to the major papilla the mucosa appeared ulcerated with adherent mucoid bilious fluid. The ulceration was noted to extend for approximately 2 to 3 cm. The procedure also included biopsies of the ulcerated area and the adenomatous appearing major papilloma. Pathology showed at least focally invasive adenocarcinoma arising in an adenoma. It was noted in the report that there was insufficient material remaining for additional studies. She had consultation with Dr. Muñoz on 11/04/2019. It had previously been noted by Dr. Omer that the lesion was not amenable to endoscopic resection, and the patient was deemed medically unsuitable for a Whipple procedure by Dr. Muñoz. I had seen her initially on 11/18/2019 for consideration of other treatment options. After reviewing the images with the radiation oncologist, it appeared that the lesion was not amenable to SBRT, but as has her disease did appear to be localized, she was offered the option of undergoing chemoradiation. On 12/16/2019 she began radiation concurrently with Xeloda for chemosensitization. Her treatment was complicated by persistent nausea and abdominal pain. She completed radiation on 01/19/2020 to a total dose of [address] abdomen/pelvis on 02/17/2020 showed increased soft tissue density in the proximal and distal aspect of the common bile duct stent, suspicious for partial occlusion. There was no evidence of acute pancreatitis. There was no discrete mass appreciated. She then had follow-up with Dr. Omer for the biliary stent management. She continued on observation/expectant management for the ampullary carcinoma. Her other medical illnesses include type 2 diabetes, coronary artery disease, and restrictive lung disease. She has associated atrial fibrillation and diastolic congestive heart failure. She is oxygen dependent. She has undergone coronary angioplasty/stent placement. She has undergone an ablation procedure for the atrial fibrillation, and she had a permanent pacemaker placed for complete heart block. She has a history of pulmonary embolism, management of which was complicated by development of a bleeding duodenal ulcer while on anticoagulation with apixaban. She has a history of smoking 1 to 2 packs of cigarettes daily for 55 years, but she quit smoking about 10 years ago. INTERIM HISTORY: CT scan of the abdomen/pelvis on 05/31/2020 showed evidence of stent in the common bile duct extending to the pancreatic head. There was noted to be increased soft tissue within the stent but without evidence for obstruction. There is no evidence for recurrent or metastatic disease. A saccular infrarenal aneurysm appeared unchanged measuring 2.9 x 2.[address] abdomen/pelvis on 09/05/2020 showed evidence of hepatomegaly with diffuse fatty infiltration of the liver. There was incidental pneumobilia, but the common bile duct otherwise appeared normal. There was no evidence of recurrent or progressed disease. 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 With those findings she continued expectant management. She is seen for a follow-up visit. On 12/11/2020 she was admitted to the hospital after presenting to the emergency room with abdominal pain. Noncontrast CT of the abdomen/pelvis showed left pneumobilia. There were no other acute findings. An infrarenal abdominal aortic aneurysm measured slightly larger at 3.3 cm compared to 2.8 x 2.7 cm compared to August 2020. At that time she was also complaining of shortness of breath, but she declined to remain in the hospital for further evaluation. She is seen for a follow-up visit. Her main complaint is that she continues to have burning in her stomach. Is actually pain in her right lower quadrant which comes and goes. It does tend to get worse, depending on what she eats. She continues to have very limited activity. ECOG score is 3. Her appetite is not good, but she is eating some. She does not have fever or night sweats. She has clear sinus drainage. She does not complain of cough. She has shortness of breath, and she is on continuous oxygen. She does not complain of chest pain. She does tend to get nausea after eating. Her bowels have fluctuated between diarrhea and constipation, but the diarrhea has not been as bad since she got off the oral iron. Bladder function has been pretty good. She has some pain in her shoulders and in her lower back. She also complains of muscle cramps, and she has numbness in her legs and feet. Medications: Cholecalciferol 1 Tablet (of 25 mcg ) Oral at bedtime, Clopidogrel Bisulfate 1 Tablet (of 75 mg) Oral daily, Ferrous Sulfate 1 Tablet (of 325 (65 fe) mg) Oral b.i.d., Gabapentin (600 mg) Tablet Oral b.i.d., HYDROcodone-Acetaminophen 1 Tablet (of 5-325 mg) Oral q 4 to 6 hours PRN, Levemir FlexTouch 34 Units (of 100 Units/mL) Subcutaneous daily, metFORMIN HCl 1 Tablet (of 500 mg) Oral b.i.d., Nitroglycerin (0.4 mg) Tablet, sublingual Sublingual Take as Directed, Pantoprazole Sodium 1 Tablet (of 40 mg) Tablet, enteric coated Oral b.i.d., Potassium Chloride ER 1 Tablet (of 10 meq) Capsule, controlled release Oral daily, Pravastatin Sodium 1 Tablet (of 40 mg) Oral at bedtime, Sotalol HCl 1 Tablet (of 120 mg) Oral b.i.d., Vitamin C 1 Tablet (of 500 mg) Capsule Oral b.i.d. Allergies: Aspirin Adult, Codeine Sulfate, Digoxin, Sulfa Antibiotics, and Tetanus-Diphtheria Toxoids Td. Vital Signs: Performed on Jan 16, 2021 08:54 Height - 64.00 in Weight - 200 lbs (LOW) BSA - 1.96 sq.m BMI - 34.33 (HIGH) Temperature - 98.2 F (LOW) Pulse - 63 /min Respiration - 18 /min BP - 129/69 mm(hg) O2 Sat - 94 % (LOW) Pain - 0 Fatigue - 8 Physical Examination: Constitutional - She has limited mobility. She otherwise looks pretty good generally, Eyes - Sclerae nonicteric. Conjunctivae clear, ENMT - No lesions noted in the oral cavity, Hematologic/Lymphatic - No cervical, clavicular, or axillary adenopathy, Respiratory - Lungs sound clear with some decrease in air movement bilaterally, Cardiovascular - Heart rhythm is regular. There is no murmur, gallop, or rub noted, Abdomen - Mildly distended but soft. Liver and spleen are not enlarged. There is no abdominal mass or ascites noted and there is no inguinal adenopathy, Extremities - No edema, Neurologic - No focal neurologic deficits noted. Lab/Imaging: Test performed on Jan 16, 2021 09:28 Ferritin 141 ng/mL Iron 43 mcg/dL Lipase 10 U/L Sodium 137 mmol/L Iron Binding Capacity (TIBC) 221 mcg/dl Potassium 4.4 mmol/L % Iron Saturation 19.4 % Chloride 101 mmol/L CO2 24 mmol/L UIBC 178 mcg/dL Anion Gap 16.4 BUN 9 mg/dL Creatinine 0.6 mg/dL Cr Clearance (Est) 112.9900 mL/min Glucose 119 mg/dL Osmolality - Calculated 284 mOsm/kg Calcium 9.0 mg/dL Protein, Total 6.6 g/dL Albumin 3.5 g/dL Globulin 3.1 g/dL Bilirubin, Total 0.5 mg/dL ALT (SGPT) < 5 U/L AST (SGOT) 10 U/L Alkaline Phosphatase 53 IU/L WBC 8.6 10 3/uL RBC 4.14 10 6/uL HGB 12.4 g/dL HCT 39.1 % MCV 94.4 fl MCH 30.0 pg MCHC 31.7 g/dL RDW 14.6 % Platelet Count 219 10 3/cmm MPV 9.5 fL Neutrophils 7.04 10 3/uL Lymphocytes 1.0 10 3/uL Monocytes 0.5 10 3/uL Eosinophils 0.0 10 3/uL Basophils 0.0 10 3/uL Neutrophil % 82.1 % Lymphocyte % 11.2 % Monocyte % 5.7 % Eosinophil % 0.4 % Basophils % 0.2 % NRBC % 0 % CA 19-9 9.33 U/mL CEA 1.3 ng/mL Problem List: 1. 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 She had presented with recurrent pancreatitis in association with choledocholithiasis for which she underwent laparoscopic cholecystectomy followed by ERCP with sphincterotomy, stone extraction, and placement of biliary stent on 10/18/2019. She appeared to have early stage disease, by clinical evaluation stage IA (T1a, N0, M0), but she was deemed medically unsuitable for resection. 2. She underwent chemoradiation utilizing Xeloda for chemosensitization. She completed treatment on 01/19/2020 to a total radiation dose of 4500 cGy. 3. Type 2 diabetes with peripheral neuropathy. 4. Coronary artery disease with previous angioplasty/stent placement. 5. Atrial fibrillation with prior ablation procedure. 6. She has permanent pacemaker for complete heart block. 7. Diastolic congestive heart failure. 8. Restrictive lung disease, oxygen dependent. 9. History of pulmonary embolism. 10. History of GI bleeding on Eliquis, reportedly due to duodenal ulcer. 11. History of colonic polyps. Problems Addressed with this Encounter and Plan: 1. 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 She had presented with recurrent pancreatitis in association with choledocholithiasis, for which she underwent laparoscopic cholecystectomy followed by ERCP with sphincterotomy, stone extraction, and placement of biliary stent on 10/18/2019. She appeared to have early stage disease, by clinical evaluation stage IA (T1a, N0, M0), but she was deemed medically unsuitable for resection. She underwent chemoradiation utilizing Xeloda for chemosensitization. She completed treatment on 01/19/2020 to a total radiation dose of 4500 cGy. Assessment of response to radiation has been problematic, as her ampullary cancer was diagnosed by ERCP and it was not clearly evident on imaging. Her repeat CT abdomen/pelvis on 02/17/2020 did show increased soft tissue density in the proximal and distal aspect of the common bile duct stent, suspicious for partial occlusion. There was no evidence of acute pancreatitis. There was no discrete mass appreciated. She returned to Dr. Omer for management of her biliary stent, and it subsequently was removed. During follow-up she has continued to have limited activity. She also complains of having postprandial nausea and she has had ongoing problems with abdominal pain in the right lower quadrant area. The cause for this is uncertain. However, thus far there has been no recurrence of pancreatitis and there has been no evidence of recurrence/progression of the ampullary carcinoma. As such, she will continue on expectant management. I will see her again in 3 months, or sooner as needed. 2. She has had ongoing problems with muscle cramping and neuropathy pain. She will be given a prescription for gabapentin 600 mg twice daily. Signed By: Paul Leal M.D. <<Signature on File>>
== END 2021-01-16 08:43 | disposition home or self-care (01) ==
LOC: ONCMED 08:44
PROVIDERS: PCP Nurse Practitioner Family; Visit Provider Internal Medicine Medical Oncology
DX: Z08 Encounter for follow-up examination after completed treatment for malignant neoplasm (principal); Z85.068 Personal history of other malignant neoplasm of small intestine; E11.42 Type 2 diabetes mellitus with diabetic polyneuropathy; E11.59 Type 2 diabetes mellitus with other circulatory complications; I25.10 Atherosclerotic heart disease of native coronary artery without angina pectoris; Z95.5 Presence of coronary angioplasty implant and graft; I48.91 Unspecified atrial fibrillation; Z95.0 Presence of cardiac pacemaker; I44.2 Atrioventricular block, complete; I50.30 Unspecified diastolic (congestive) heart failure; Z99.81 Dependence on supplemental oxygen; Z86.711 Personal history of pulmonary embolism; Z86.2 Personal history of diseases of the blood and blood-forming organs and certain disorders involving the immune mechanism; Z86.010 Personal history of colon polyps; Z79.01 Long term (current) use of anticoagulants; Z79.899 Other long term (current) drug therapy; Z92.21 Personal history of antineoplastic chemotherapy; Z92.3 Personal history of irradiation
CPT/HCPCS: 36415; 80053; 82378; 82728; 83540; 83550; 83690; 85025; 86301; 99214

== ENCOUNTER 2021-01-26 11:53 | Outpatient (RCR) | payer MEDICARE, SELFPAY | END 2021-02-07 23:59 | disposition home or self-care (01) | LOC: SPT 11:53 | PROVIDERS: PCP Nurse Practitioner Family; Referring Provider Nurse Practitioner Family; Visit Provider Nurse Practitioner Family | DX: M54.2 Cervicalgia (principal) | CPT/HCPCS: 97110; 97140; 97162 ==

== ENCOUNTER 2021-02-08 06:00 | Outpatient (RCR) | payer MEDICARE, SELFPAY | END 2021-02-14 23:59 | disposition home or self-care (01) | LOC: SPT 06:00 | PROVIDERS: PCP Nurse Practitioner Family; Referring Provider Nurse Practitioner Family; Visit Provider Nurse Practitioner Family | DX: M54.2 Cervicalgia (principal) | CPT/HCPCS: 97110; 97140 ==

== ENCOUNTER 2021-02-15 08:42 | Outpatient (CLI) | payer MEDICARE, SELFPAY ==
--- NOTE | 2021-02-15 | CT_ITS ---
WS: [id number] Exam: CT abdomen pelvis w con* [id number] Date/Time of Exam: 02/15/2021 8:52 AM Reason For Exam: MALIGNANT NEOPLAST DLP: 1098.[address] scans at [facility] use at least one of these dose optimization techniques: automated e xposure control; mA and/or kV adjustment per patient size (includes targeted exams where dose is matc hed to clinical indication); or iterative reconstruction. Compared to the noncontrast study performed 12/11/2020. Chronic changes of the fibrosis and emphysema identified in the lower lung zones. Chronic plaque atel ectasis in the lingula. The gallbladder surgically absent. Pneumobilia is again noted and is unchange d in appearance. No focal hepatic masses or nodules identified. Small hiatal hernia. The spleen and p ancreas are unremarkable. Again noted is a 3 cm saccular aneurysm of the infrarenal abdominal aorta w ith mural thrombus. No sign of the no sign of rupture. The portal vein and IVC are patent. Normal adr enal glands. 5.2 cm left renal cyst noted. The kidneys function normally. No renal obstruction. No ly mphadenopathy. Small bowel loops are not dilated. No free air. Several scattered isolated diverticuli of the colon. The colon is otherwise unremarkable. No sign of acute appendix. No pelvic mass or lymp hadenopathy. Intact urinary bladder. Status post hysterectomy. No significant abdominal wall defect. No destructive bone lesions. CT/CT abdomen pelvis w con* [id number] IMPRESSION: 1. No mass, lymphadenopathy or acute process in the abdomen or pelvis. 2. Chronic pneumobilia unchanged 3. 3 cm saccular aneurysm of the infrarenal abdominal aorta without evidence of rupture. Stable. 4. Other minor findings as above.
[2021-02-15] MEDS: iohexol 300 mg/mL 100 mL Btl IV (12:35)
[2021-02-15] MEDS: iohexol 300 mg/mL 50 mL Btl PO (12:36)
== END 2021-02-15 08:43 | disposition home or self-care (01) ==
PROVIDERS: PCP Nurse Practitioner Family; Visit Provider Internal Medicine Medical Oncology
DX: C24.1 Malignant neoplasm of ampulla of Vater (principal); I71.4 Abdominal aortic aneurysm, without rupture
CPT/HCPCS: 74177; Q9967

== ENCOUNTER 2021-03-29 13:24 | Outpatient (CLI) | payer MEDICARE, SELFPAY ==
[2021-03-29 13:54] LABS: Basophils % 0.4 %; Eosinophils # 0.1 10^3/uL (0.0-0.8); Eosinophils % 0.9 %; Hematocrit 41.1 % (37.0-47.0); Hemoglobin 12.5 g/dL (11.5-15.3); Lymphocytes # 1.5 10^3/uL (0.8-4.8); Lymphocytes % 15.7 %; Mean Corpuscular HGB Conc 30.4 g/dL (30.0-36.0); Mean Corpuscular Hemoglobin 29.6 pg (28.0-34.0); Mean Corpuscular Volume 97.4 fl (81-99); Mean Platelet Volume 9.7 fL (7.4-10.4); Monocytes # 0.5 10^3/uL (0.2-0.9); Monocytes % 5.4 %; Neutrophils # 7.58 10^3/uL (1.8-7.7); Neutrophils % 77.3 %; Nucleated Red Blood Cells % 0 %; Platelet Count 230 10^3/cmm (130-400); Red Blood Count 4.22 10^6/uL (4.1-5.3); Red Cell Distribution Width 13.6 % (12.1-15.1); White Blood Count 9.8 10^3/uL (4.0-10.0)
[2021-03-29 14:19] LABS: Alanine Aminotransferase 8 U/L (0-33); Alkaline Phosphatase 72 IU/L (35-105); Aspartate Amino Transferase 13 U/L (0-32); Blood Urea Nitrogen 17 mg/dL (8-23); Calcium 8.6 mg/dL (8.5-10.5); Cancer Antigen 19 9 13.46 U/mL (0-35); Carbon Dioxide 26 mmol/L (22-29); Chloride 98 mmol/L (98-107); Globulin 3.4 g/dL (1.3-4.6); Glucose 168 mg/dL (65-115); Iron 34 ug/dL (37-145); Osmolality Calculated 291 mOsm/kg (285-295); Percent Saturation 13.8 % (20-50); Sodium 138 mmol/L (136-145); Total Bilirubin 0.3 mg/dL (0.15-1.2); Total Iron Binding Capacity 245 mcg/dl; Total Protein 7.4 g/dL (6.6-8.7); Unsaturated Iron Binding 211 ug/dL (112-347)
[2021-03-29 14:59] LABS: Carcinoembryonic Antigen 1.6 ng/mL (0.0-4.7)
== END 2021-03-29 13:25 | disposition home or self-care (01) ==
LOC: ONCMED 13:29
PROVIDERS: PCP Nurse Practitioner Family; Visit Provider Internal Medicine Medical Oncology
DX: C24.1 Malignant neoplasm of ampulla of Vater (principal); E11.9 Type 2 diabetes mellitus without complications; I25.10 Atherosclerotic heart disease of native coronary artery without angina pectoris; I48.91 Unspecified atrial fibrillation; I50.30 Unspecified diastolic (congestive) heart failure; Z79.01 Long term (current) use of anticoagulants; Z79.899 Other long term (current) drug therapy; Z95.0 Presence of cardiac pacemaker
CPT/HCPCS: 36415; 80053; 82378; 83540; 83550; 85025; 86301

== ENCOUNTER 2021-03-30 06:31 | Outpatient (CLI) | payer MEDICARE, SELFPAY | END 2021-03-30 06:32 | disposition home or self-care (01) | LOC: ONCMED 06:32 | PROVIDERS: PCP Nurse Practitioner Family; Visit Provider Nurse Practitioner Family | DX: Z08 Encounter for follow-up examination after completed treatment for malignant neoplasm (principal); Z85.89 Personal history of malignant neoplasm of other organs and systems; K86.1 Other chronic pancreatitis; K80.50 Calculus of bile duct without cholangitis or cholecystitis without obstruction; E11.42 Type 2 diabetes mellitus with diabetic polyneuropathy; E11.59 Type 2 diabetes mellitus with other circulatory complications; I25.10 Atherosclerotic heart disease of native coronary artery without angina pectoris; Z95.5 Presence of coronary angioplasty implant and graft; I48.91 Unspecified atrial fibrillation; Z95.0 Presence of cardiac pacemaker; I50.30 Unspecified diastolic (congestive) heart failure; J98.4 Other disorders of lung; Z99.81 Dependence on supplemental oxygen; Z86.711 Personal history of pulmonary embolism; Z86.010 Personal history of colon polyps; Z86.2 Personal history of diseases of the blood and blood-forming organs and certain disorders involving the immune mechanism; Z79.01 Long term (current) use of anticoagulants; Z79.899 Other long term (current) drug therapy; Z92.21 Personal history of antineoplastic chemotherapy; Z92.3 Personal history of irradiation | CPT/HCPCS: 99214 ==

== ENCOUNTER → 2021-05-23 15:24 | Outpatient (BNVA) | payer MEDICARE, SELFPAY | PROVIDERS: PCP Nurse Practitioner Family; Visit Provider Internal Medicine Critical Care Medicine | DX: R06.02 Shortness of breath (principal); G47.30 Sleep apnea, unspecified; J44.9 Chronic obstructive pulmonary disease, unspecified; Z87.891 Personal history of nicotine dependence; Z85.07 Personal history of malignant neoplasm of pancreas; I26.99 Other pulmonary embolism without acute cor pulmonale; I50.30 Unspecified diastolic (congestive) heart failure | CPT/HCPCS: 99213 ==

== ENCOUNTER → 2021-05-26 10:30 | Outpatient (BNVA) | payer MEDICARE, SELFPAY | PROVIDERS: PCP Nurse Practitioner Family; Visit Provider Internal Medicine Cardiovascular Disease | DX: Z95.0 Presence of cardiac pacemaker (principal) ==

== ENCOUNTER 2021-07-05 09:46 | Outpatient (CLI) | payer MEDICARE, SELFPAY ==
--- NOTE | 2021-07-05 09:54 | CT_ITS ---
WS: [id number] CT ABDOMEN AND PELVIS WITH CONTRAST HISTORY: AMPULLARY CARCINOMA TECHNIQUE: Imaging performed of the abdomen and pelvis with IV contrast. Single phase imaging of the abdomen. Coronal and sagittal reformats are submitted. All CT scans at [facility] use at [facility] one of these dose optimization techniques: automated exposure control; mA and/or kV adjustment per patient size (includes targeted exams where dose is matched to clinical indication); or iterative re construction. IV CONTRAST: Omnipaque 350; 95 mL IV. Oral contrast: No DLP: 1184.45 mGy.cm COMPARISON: 02/15/2021, 12/11/2020 Lower thorax: Chronic fibrotic changes at the lung bases no mass or pulmonary nodule. Moderate enlarg ement of the heart. Small hiatal hernia. Liver/biliary system: Liver is slightly enlarged. No mass or bile duct dilatation normal portal vein. Gallbladder: Prior cholecystectomy. There is pneumobilia noted which has been present on prior studie s. Pancreas: Mild atrophy. Spleen: Low-attenuation nodules within the spleen are unchanged. Adrenal glands: Normal. Right kidney: Normal size kidney with a few areas of cortical thinning. No mass or obstruction. Left kidney: Normal size kidney with a cyst from the upper pole measuring 5.0 x 5.2 cm. No solid mass . No obstruction. Aorta: Continued moderate atherosclerotic changes within the aorta. Long-term stability of an infrare nal saccular aneurysm. Maximum diameter is 3.2 cm. Mild dilatation of the RIGHT common iliac artery. Heavy calcification continues into the internal iliac arteries. Extensive calcification noted at the origin of the SMA and celiac axis. There is at least a mild to moderate stenosis. Lymphadenopathy: None. Free fluid: None. GI tract: Well-distended stomach with oral contrast. No small bowel obstruction. Mild fecal retention throughout the colon and a few scattered distal diverticula without acute diverticulitis. Appendix h as been removed. Abdominal wall: Unremarkable abdominal wall. No hernia. Pelvis: Prior hysterectomy. Gonadal veins are prominent and calcified as on prior examinations. This is not an acute finding. No free fluid or adenopathy in the pelvis. There is a small amount of thromb us in the RIGHT femoral vein and also the proximal LEFT superficial femoral vein. These are nonocclus stephany and may be chronic. Bones: Mild bilateral SI joint arthritis. Facet joint arthritis in the lower lumbar spine. CT/CT abdomen pelvis w con* [id number] IMPRESSION: 1. No acute abdominal or pelvic abnormalities are identified. 2. Status post cholecystectomy with pneumobilia, no change. 3. Stable infrarenal saccular abdominal aortic aneurysm at 3.2 cm. 4. Small hiatal hernia. 5. Moderate atherosclerosis aorta with calcified plaque at the origins of the SMA and celiac axis. 6. Prior appendectomy and hysterectomy. 7. No adenopathy. 8. Very small amount of thrombus noted in the RIGHT femoral vein and proximal LEFT superficial femoral vein. This very well could be chronic. If patient is h aving acute symptoms of DVT consider follow-up ultrasound lower extremities.
[2021-07-05] MEDS: iohexol 300 mg/mL 50 mL Btl PO (10:58)
[2021-07-05] MEDS: iohexol 300 mg/mL 100 mL Btl IV (12:25)
== END 2021-07-05 09:47 | disposition home or self-care (01) ==
LOC: RAD 09:47
PROVIDERS: PCP Nurse Practitioner Family; Visit Provider Nurse Practitioner Family
DX: C24.1 Malignant neoplasm of ampulla of Vater (principal)
CPT/HCPCS: 74177

== ENCOUNTER 2021-07-11 13:11 | Oncology outpatient (recurring) (ONCR) | payer MEDICARE, SELFPAY ==
--- NOTE | 2021-07-11 13:19 | XRR_ITS ---
PROCEDURE INFORMATION: Exam: XR Chest Exam date and time: 07/11/2021 1:41 PM Age: 81 years old Clinical indication: Shortness of breath. Prior surgery and pacemaker placement. History of stomach cancer. TECHNIQUE: Imaging protocol: XR of the chest. Views: 2 views. COMPARISON: CR XR chest 2V* [id number] 01/05/2021 9:50 AM FINDINGS: Tubes, catheters and devices: A left subclavian pacer is again noted. Lungs: There are patchy, hazy opacities in the mid and lower chest bilaterally that may reflect pneumonia. Pleural spaces: No pleural effusion. No pneumothorax. Heart/Mediastinum: The cardiac silhouette is unchanged. No gross evidence of pneumomediastinum. Bones/joints: No gross fracture. A suture anchor is noted in the proximal left humerus. XR/XR chest 2V* [id number] IMPRESSION: 1. Patchy, hazy opacities in the mid and lower chest bilaterally that may reflect pneumonia. Consider CT chest to better characterize. 2. Similar appearing cardiomegaly.
[2021-07-11 13:20] LABS: Basophils % 0.3 %; Eosinophils # 0.1 10^3/uL (0.0-0.8); Eosinophils % 0.6 %; Hematocrit 39.4 % (37.0-47.0); Hemoglobin 12.1 g/dL (11.5-15.3); Lymphocytes # 0.9 10^3/uL (0.8-4.8); Lymphocytes % 8.2 %; Mean Corpuscular HGB Conc 30.7 g/dL (30.0-36.0); Mean Corpuscular Hemoglobin 30.2 pg (28.0-34.0); Mean Corpuscular Volume 98.3 fl (81-99); Mean Platelet Volume 9.6 fL (7.4-10.4); Monocytes # 0.5 10^3/uL (0.2-0.9); Monocytes % 4.7 %; Neutrophils # 9.73 10^3/uL (1.8-7.7); Neutrophils % 85.8 %; Nucleated Red Blood Cells % 0 %; Platelet Count 260 10^3/cmm (130-400); Red Blood Count 4.01 10^6/uL (4.1-5.3); Red Cell Distribution Width 14.2 % (12.1-15.1); White Blood Count 11.3 10^3/uL (4.0-10.0)
== END 2021-08-08 23:59 | disposition home or self-care (01) ==
PROVIDERS: Nurse Practitioner Family; PCP Nurse Practitioner Family; Visit Provider Internal Medicine Medical Oncology
DX: C24.1 Malignant neoplasm of ampulla of Vater (principal); R06.02 Shortness of breath; Z95.0 Presence of cardiac pacemaker; R91.1 Solitary pulmonary nodule; I51.7 Cardiomegaly
CPT/HCPCS: 36415; 71046; 80053; 82378; 82728; 83540; 83550; 83880; 85025; 86301

== ENCOUNTER 2021-07-13 06:59 | Emergency (ER) | payer MEDICARE, SELFPAY ==
[2021-07-13 07:04] VITALS: BP 133/74; PULSE 62; RESP 20; TEMP 36.4; O2SAT 85; BMI 34.7
[2021-07-13 07:19] VITALS: BP 152/55; PULSE 60; RESP 15; O2SAT 95
--- NOTE | 2021-07-13 07:31 | CT_ITS ---
WS: [id number] CT ABDOMEN PELVIS TECHNIQUE: Contrast-enhanced CT of the abdomen and pelvis with coronal and sagittal reformatted image s. CLINICAL INFORMATION: abd pain COMPARISON: July 05, 2021 DLP: 1662.[address] scans at [facility] use at least one of these dose optimization techniques: automated e xposure control; mA and/or kV adjustment per patient size (includes targeted exams where dose is matc hed to clinical indication); or iterative reconstruction. FINDINGS: Mild interstitial thickening in the lung bases. Diffuse fatty infiltration of the liver. Cholecystect carmelo. Pneumobilia. Normal portal vein and splenic vein. Fatty atrophy of the pancreas. Stable abdomina l aortic pseudoaneurysm measuring 3.0 x 3.2 cm unchanged. Splenic cyst or hemangiomas are unchanged. LEFT renal cyst is unchanged measuring 4.9 x 5.2 CM. No hydronephrosis in either kidney. Adrenal glan ds are normal. Celiac and SMA are patent with moderate stenosis at the origins. Diffuse gastric wall thickening with enhancement extending into the duodenum. Diffuse wall thickening and edema involving the transverse portion of the duodenum extending into the jejunum compatible wit h gastroduodenitis and enteritis. This appears new from previous. In addition, sigmoid colon is decom pressed with submucosal enhancement extending to the rectum. This is likely infectious or inflammator y. No evidence of acute diverticulitis. Prior appendectomy and hysterectomy.No free fluid in the abdomen or pelvis. Gastric space narrowing w orse L5-S1. No other significant changes compared to previous. CT/CT abdomen pelvis w con* [id number] IMPRESSION: 1. Findings compatible with gastroduodenitis and proximal small bowel enteriti s new from previous. 2. Additional submucosal enhancement involving the distal sigmoid colon may be infectious or inflammatory. Sigmoid colon is decompressed. No evidence of dive rticulitis. 3. No other significant changes compared to July 05, 2021. 4. Prior postoperative cholecystectomy with pneumobilia. 5. Stable infrarenal saccular abdominal aortic aneurysm measuring 3.2 CM. 6. Prior appendectomy and hysterectomy.
--- NOTE | 2021-07-13 07:31 | XRR_ITS ---
PROCEDURE INFORMATION: Exam: XR Chest Exam date and time: 07/13/2021 7:37 AM Age: 81 years old Clinical indication: Cough and dyspnea; Prior surgery; Surgery type: Stomach tumor; Patient HX: PT stated that she has pain in the lower right quadrant of abdomen area. Son of PT stated that PT has stomach cancer/tumor and has undergone chemo. No chest complaints; Additional info: Dyspnea/cough TECHNIQUE: Imaging protocol: XR of the chest. Views: 1 view. Total images: 1 COMPARISON: CR XR chest 2V* [id number] 07/11/2021 1:41 PM FINDINGS: Tubes, catheters and devices: A pacemaker device is present, its leads in appropriate position. Lungs: Bilateral pulmonary opacities are again noted and appear unchanged. Pleural spaces: Unremarkable. No pleural effusion. No pneumothorax. Heart/Mediastinum: Heart size is stable when compared to the prior exam. Vasculature: Atherosclerosis is evident. Bones/joints: Osseous structures are unchanged from the prior exam. Soft tissues: Soft tissue anchor in the left humeral head. XR/XR chest 1V portable [id number] IMPRESSION: Bilateral pulmonary opacities are again noted and appear unchanged.
--- NOTE | 2021-07-13 07:32 | USCV_ITS ---
Radha Rose Age: 81 Gender: F : 1940 Exam Date: 07/13/2021 07:48 Ordering Phys: Denis Estrada DO Technologist: Lyle Humphries Exam Location: [facility] [place]_ Indication: DVT noted on CT PROCEDURES: Venous duplex imaging was performed in bilateral lower extremities. The following venous structures were evaluated: common femoral vein, profunda vein, proximal portion of the greater saphenous vein, superficial femoral vein, and the popliteal vein. In addition, the posterior tibial and peroneal trunk were evaluated. Serial compression, augmentation maneuvers, and spectral Doppler flow evaluation were performed. FINDINGS: Normal 2-D Doppler and augmentation and compressibility throughout the lower extremity venous structures. Additional imaging through the proximal calf veins also reveals no thrombus. Limited evaluation of the greater saphenous vein is patent with no thrombus. CONCLUSIONS No DVT bilateral lower extremities. Dr. Phoebe Ang DO (Electronically Signed) Final Date: 13 Jul 2021 10:11 S
--- NOTE | 2021-07-13 07:38 | ED_ITS ---
HPI - Nausea/Vomiting/Diarrhea General: Chief complaint: Nausea/Vomiting/Diarrhea Stated complaint: abdominal pain Time Seen by Provider: 07/13/21 07:00 Source: patient Mode of arrival: ambulatory Limitations: no limitations History of Present Illness: 81-year-old female presents emergency room with complaint of abdominal pain with nausea vomiting, has had difficult time taking in anything p.o. She denies any diarrhea she denies any bowel movements last 24 hours. 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 She denies any hematochezia or melena she denies any dysuria urgency or frequency, No fever sweats or chills patient is on oxygen chronically and is at her baseline. She is not recently changed any medications. She denies shortness of breath or cough at this time. Reviewing her chart she did have a CT several days ago that showed DVT is an incidental finding. She has had a biliary stent placed in the course of her brandi atment for the gastric outlet tumor MD elicited complaint: nausea and vomiting Description of vomiting: food contents and watery Associated nausea: Yes Associated abdominal pain: Yes Location of pain: Epigastric Pain consistency: constant Severity: moderate Quality: cramping Exacerbating factors: eating and vomiting Relieving factors: none Associated symtoms: Reports bloating, anorexia, malaise, nausea and weakness; Denies altered mental status, anxiety, change in vision, chest pain, cough, diaphoresis, decreased urine output, dizziness, dysuria, epistaxis, fatigue, fecal incontinence, fevers/chills, headache(s), myalgias, numbness, palpitations, rash, short of breath, syncope, tenesmus or tinnitus Review of Systems Const: Reports: malaise; Denies: fever(s), chills, fatigue or diaphoresis Eyes: Denies: change in vision ENMT: Denies: throat pain, tinnitus or epistaxis Card: Denies: chest pain, palpitations or syncope Resp: Denies: dyspnea, productive cough or non-productive cough GI: Reports: abdominal pain, nausea, vomiting, bloating and GI cramping; Denies: hematemesis, coffee ground emesis, diarrhea or fecal incontinence : Denies: flank pain, difficulty voiding, dysuria, urinary frequency, urinary urgency or urinary hesitancy Skin/Breast: Denies: rash or pruritus Neuro: Denies: headache(s) or dizziness Psych: Denies: anxiety PFSH ED PFSH: Medical History (Updated 07/13/21 @ 11:01 by Denis Estrada DO) Anemia Bleeding duodenal ulcer Chronic atrial fibrillation Chronic pancreatitis Coronary artery disease due to type 2 diabetes mellitus Diabetic peripheral neuropathy Diastolic CHF History of colon polyps Hypoxemia Nail fungus Pancreatic cancer Pneumonia Restrictive lung disease Sleep apnea Type 2 diabetes mellitus Surgical History (Updated 07/11/21 @ 18:20 by Paul Leal MD) H/O: hysterectomy History of appendectomy History of cholecystectomy History of esophagogastroduodenoscopy (EGD) 03/15/2019: EGD with biopsy Findings: Duodenal ulceration, most likely source of her bleed History of thoracentesis S/P ablation of atrial fibrillation Status post colonoscopy with polypectomy 03/15/2019: Colonoscopy with polypectomy Findings: 2 cm sessile polyp in ascending colon removed with cold biopsy forceps Moderate diverticulosis sigmoid colon Grade 4 hemorrhoids Family History Mother CAD (coronary artery disease) Family/Other Cancer Father Chronic kidney disease (CKD) Brother Dementia Diabetes Family history of premature coronary artery disease Hypertension Sister Hypertension Social History (Updated 07/11/21 @ 12:44 by Sabrina Amezcua LPN) Smoking and tobacco status: former smoker Quit status (tobacco): has quit using tobacco Year quit tobacco: 2013 PPD x 55 Years Second hand smoke exposure: No Alcohol intake: never Lives independently: Yes Household members: spouse Housing: House Marital status: Current occupational status: retired History of recent travel: No Current gender identity: Female Female Reproductive History: Date of last menstrual period: 06/02/20 Physical Exam 2 Const: COMMON NORMALS: no acute distress EXAM LIMITATIONS: no altered mental status GENERAL APPEARANCE: cooperative and comfortable ORIENTATION/CONSCIOUSNESS: Yes awake, Yes oriented to person, Yes oriented to place and Yes oriented to time HENMT: COMMON NORMALS: normocephalic, atraumatic and hearing grossly normal bilaterally HEAD & SCALP: normocephalic and atraumatic Neck/C-Spine: COMMON NORMALS: no JVD Resp: COMMON NORMALS: normal respiratory effort, No retractions, No use of accessory muscles and clear to auscultation bilaterally AUSCULTATION: clear to auscultation bilaterally Cardio: COMMON NORMALS: no JVD, regular rate, regular rhythm and No murmurs present (Cardio) RATE: regular rate RHYTHM: regular rhythm GI: COMMON NORMALS: No hepatosplenomegaly present AUSCULTATION: Yes normoactive bowel sounds PALPATION: Yes Tenderness to palpation present (GI) (Epigastric), No Guarding due to palpation present (GI) and Yes No hepatosplenomegaly present Extremity: COMMON NORMALS: normal to inspection, capillary refill normal, no clubbing, cyanosis or edema, no calf tenderness and no pedal edema Neuro: SENSORIUM/ORIENTATION: Yes oriented to person, Yes oriented to place and Yes oriented to time Skin: COMMON NORMALS: no rashes or lesions noted GENERAL SKIN EXAM: no rashes or lesions noted Course Vital Signs: Vital signs: Vital Signs Temperature 97.5 F L 07/13/21 07:04 Pulse Rate 60 07/13/21 11:27 Respiratory Rate 16 07/13/21 10:30 Blood Pressure 125/53 07/13/21 11:27 Pulse Oximetry 95 07/13/21 11:27 MDM - Nausea/Vomiting/Diarrhea Medical Decision Making Labs and imaging reviewed. Patient is feeling better after fluids and antiemetics. Duodenitis enteritis shown on the CT nothing acute reviewed with the patient she feels comfortable enough to go home we will discharge home GlucoDock 24 to 48 hours antiemetics advance diet as tolerated. Medical Records I reviewed the patient's medical records. Lab Data I reviewed the patient's lab results. : 07/13/21 07:57 07/13/21 07:57 Radiology Impressions Abdomen/Pelvis CT 07/13/21 07:31 IMPRESSION: 1. Findings compatible with gastroduodenitis and proximal small bowel enteritis new from previous. 2. Additional submucosal enhancement involving the distal sigmoid colon may be infectious or inflammatory. Sigmoid colon is decompressed. No evidence of diverticulitis. 3. No other significant changes compared to July 05, 2021. 4. Prior postoperative cholecystectomy with pneumobilia. 5. Stable infrarenal saccular abdominal aortic aneurysm measuring 3.2 CM. 6. Prior appendectomy and hysterectomy. Chest X-Ray 07/13/21 07:31 IMPRESSION: Bilateral pulmonary opacities are again noted and appear unchanged. Laboratory Results WBC 11.8 10^3/uL (4.0-10.0) H 07/13/21 07:57 RBC 4.17 10^6/uL (4.1-5.3) 07/13/21 07:57 Hgb 12.7 g/dL (11.5-15.3) 07/13/21 07:57 Hct 40.4 % (37.0-47.0) 07/13/21 07:57 MCV 96.9 fl (81-99) 07/13/21 07:57 MCH 30.5 pg (28.0-34.0) 07/13/21 07:57 MCHC 31.4 g/dL (30.0-36.0) 07/13/21 07:57 RDW 14.2 % (12.1-15.1) 07/13/21 07:57 Plt Count 261 10^3/cmm (130-400) 07/13/21 07:57 MPV 9.5 fL (7.4-10.4) 07/13/21 07:57 Neut % (Auto) 85.7 % 07/13/21 07:57 Lymph % (Auto) 8.4 % 07/13/21 07:57 [place] % (Auto) 5.0 % 07/13/21 07:57 Eos % (Auto) 0.3 % 07/13/21 07:57 Baso % (Auto) 0.3 % 07/13/21 07:57 Neut # (Auto) 10.12 10^3/uL (1.8-7.7) H 07/13/21 07:57 Lymph # (Auto) 1.0 10^3/uL (0.8-4.8) 07/13/21 07:57 [place] # (Auto) 0.6 10^3/uL (0.2-0.9) 07/13/21 07:57 Eos # (Auto) 0.0 10^3/uL (0.0-0.8) 07/13/21 07:57 Baso # (Auto) 0.0 10^3/uL (0.0-0.1) 07/13/21 07:57 Nucleated RBC % (auto) 0 % 07/13/21 07:57 Nucleated RBCs # 0.0 /100WBC 07/13/21 07:57 Sodium 140 mmol/L (136-145) 07/13/21 07:57 Potassium 4.4 mmol/L (3.5-5.1) 07/13/21 07:57 Chloride 104 mmol/L (98-107) 07/13/21 07:57 Carbon Dioxide 22 mmol/L (22-29) 07/13/21 07:57 Anion Gap 18.4 (5-19) 07/13/21 07:57 BUN 20 mg/dL (8-23) 07/13/21 07:57 Creatinine 0.8 mg/dL (0.5-0.9) 07/13/21 07:57 GFR Calculation Not Reportable 07/13/21 07:57 Glucose 157 mg/dL (65-115) H 07/13/21 07:57 Calculated Osmolality 296 mOsm/kg (285-295) H 07/13/21 07:57 Calcium 9.8 mg/dL (8.5-10.5) 07/13/21 07:57 Total Bilirubin 0.5 mg/dL (0.15-1.2) 07/13/21 07:57 AST 12 U/L (0-32) 07/13/21 07:57 ALT 8 U/L (0-33) 07/13/21 07:57 Alkaline Phosphatase 75 IU/L (35-105) 07/13/21 07:57 Total Protein 7.3 g/dL (6.6-8.7) 07/13/21 07:57 Albumin 4.2 g/dL (3.5-5.2) 07/13/21 07:57 Globulin 3.1 g/dL (1.3-4.6) 07/13/21 07:57 Lipase 16 U/L (13-60) 07/13/21 07:57 Urine Color Yellow (Yellow) 07/13/21 09:23 Urine Appearance Clear (CLEAR) 07/13/21 09:23 Urine pH 6 (5-7) 07/13/21 09:23 Ur Specific [place] 1.020 (1.005-1.030) 07/13/21 09:23 Urine Protein Neg (Negative) 07/13/21 09:23 Urine Glucose (UA) Norm (Normal) 07/13/21 09:23 Urine Ketones Negative (Negative) 07/13/21 09: Urine Blood Neg (Negative) 07/13/21 09:23 Urine Nitrate Negative (Negative) 07/13/21 09:23 Urine Bilirubin Neg (Negative) 07/13/21 09:23 Urine Urobilinogen Norm mg/dL (Negative) 07/13/21 09:23 Ur Leukocyte Esterase Negative (Negative) 07/13/21 09:23 Discharge Plan Discharge Patient Disposition: Home Clinical Impression: Gastroenteritis Condition: Stable Prescriptions: New ondansetron HCl 4 mg tablet 4 mg PO Q6H PRN (Reason: nausea and vomiting) Qty: 20 0RF No Action Protonix 40 mg tablet,delayed release (DR/EC) 40 mg PO BID 0RF levothyroxine 25 mcg capsule 25 mcg PO DAILY 0RF ipratropium-albuterol 0.5 mg-3 mg(2.5 mg base)/3 mL solution for nebulization 3 ml inhalation Q6H Qty: 360 3RF gabapentin 600 mg tablet 600 mg PO BID 0RF clopidogrel 75 mg tablet 75 mg PO DAILY Qty: 90 3RF Lasix 40 mg tablet 40 mg PO DAILY Qty: 90 3RF Nitrostat 0.4 mg tablet, sublingual 0.4 mg SUBLINGUAL Q5M PRN (Reason: Chest Pain) Qty: 25 3RF potassium chloride 10 mEq capsule, extended release 10 meq PO DAILY Qty: 90 3RF pravastatin 40 mg tablet 40 mg PO DAILY Qty: 90 3RF insulin detemir U-100 100 unit/mL (3 mL) insulin pen See Rx Instructions SUBCUT BEDTIME PRN0RF Rx Instructions: 30 to 40 units SUBCUT bedtime PRN; citalopram 20 mg Tablet 20 mg PO DAILY 0RF Discharge Orders: Discharge ED (Routine); Ordered 07/13/21 Ordered By: Denis Estrada Referrals: Grace Willett FNP [Primary Care Provider] - Patient Instructions: Opioid Safety Activity Restrictions/Additional Instructions: Clear liquid diet for 24 to 48 hours and advance as tolerated use antiemetics as needed. Coding Level of Care Code ED Laboratory Aide for Ruth Fwd Exam Comprehensive
[2021-07-13] MEDS: lactated ringers 1,000 ML 999 ML IV (07:54)
[2021-07-13] MEDS: ondansetron 2 mg/ML SDV 2 mL 4 MG IVP (07:59)
[2021-07-13] MEDS: morphine 4 mg/mL SDV 1 mL IVP (07:59)
[2021-07-13 08:04] VITALS: BP 152/55; PULSE 60; RESP 15; O2SAT 94
[2021-07-13 08:06] LABS: Basophils % 0.3 %; Eosinophils % 0.3 %; Hematocrit 40.4 % (37.0-47.0); Hemoglobin 12.7 g/dL (11.5-15.3); Lymphocytes % 8.4 %; Mean Corpuscular HGB Conc 31.4 g/dL (30.0-36.0); Mean Corpuscular Hemoglobin 30.5 pg (28.0-34.0); Mean Corpuscular Volume 96.9 fl (81-99); Mean Platelet Volume 9.5 fL (7.4-10.4); Monocytes # 0.6 10^3/uL (0.2-0.9); Neutrophils # 10.12 10^3/uL (1.8-7.7); Neutrophils % 85.7 %; Nucleated Red Blood Cells % 0 %; Platelet Count 261 10^3/cmm (130-400); Red Blood Count 4.17 10^6/uL (4.1-5.3); Red Cell Distribution Width 14.2 % (12.1-15.1); White Blood Count 11.8 10^3/uL (4.0-10.0)
[2021-07-13 08:22] LABS: Alanine Aminotransferase 8 U/L (0-33); Albumin Level 4.2 g/dL (3.5-5.2); Alkaline Phosphatase 75 IU/L (35-105); Anion Gap 18.4 (5-19); Aspartate Amino Transferase 12 U/L (0-32); Blood Urea Nitrogen 20 mg/dL (8-23); Calcium 9.8 mg/dL (8.5-10.5); Carbon Dioxide 22 mmol/L (22-29); Chloride 104 mmol/L (98-107); Globulin 3.1 g/dL (1.3-4.6); Glucose 157 mg/dL (65-115); Lipase 16 U/L (13-60); Osmolality Calculated 296 mOsm/kg (285-295); Potassium 4.4 mmol/L (3.5-5.1); Sodium 140 mmol/L (136-145); Total Bilirubin 0.5 mg/dL (0.15-1.2); Total Protein 7.3 g/dL (6.6-8.7)
[2021-07-13 09:36] LABS: Add Urine Microscopic? NO; Charge for UA Resulting for Rev
[2021-07-13 09:43] LABS: Bilirubin Urine Neg (Negative); Blood Urine Neg (Negative); Glucose Urine UA Norm (Normal); Ketones Urine Negative (Negative); Leukocyte Esterase Urine Negative (Negative); Nitrate Urine Negative (Negative); Protein Urine Neg (Negative); Urine Appearance Clear (CLEAR); Urine Color Yellow (Yellow); Urobilinogen Urine Norm (Negative); pH Urine 6 (5-7)
[2021-07-13] MEDS: iohexol 350 mg/mL 100 mL Btl IV (10:29)
[2021-07-13 10:30] VITALS: BP 132/54; PULSE 60; RESP 16; O2SAT 96
[2021-07-13 11:27] VITALS: BP 125/53; PULSE 60; O2SAT 95
== END 2021-07-13 11:30 | disposition home or self-care (01) ==
PROVIDERS: Emergency Provider Family Medicine; PCP Nurse Practitioner Family
DX: K52.9 Noninfective gastroenteritis and colitis, unspecified (principal); K29.80 Duodenitis without bleeding; E11.42 Type 2 diabetes mellitus with diabetic polyneuropathy; Z86.718 Personal history of other venous thrombosis and embolism; C16.9 Malignant neoplasm of stomach, unspecified; I25.10 Atherosclerotic heart disease of native coronary artery without angina pectoris; I50.32 Chronic diastolic (congestive) heart failure; Z79.02 Long term (current) use of antithrombotics/antiplatelets; Z79.4 Long term (current) use of insulin; Z87.891 Personal history of nicotine dependence; Z85.07 Personal history of malignant neoplasm of pancreas; Z92.21 Personal history of antineoplastic chemotherapy; Z92.3 Personal history of irradiation
CPT/HCPCS: 71045; 74177; 80053; 81003; 83690; 85025; 93970; 96361; 96374; 96375; 99284; J2270; J2405; Q9967

== ENCOUNTER 2021-08-13 12:32 | Inpatient (IN) | payer MEDICARE, SELFPAY ==
[2021-08-13] VITALS (40 sets, daily range): BP systolic 110–157; BP diastolic 40–88; PULSE 60–68; RESP 12–24; TEMP 36.2–37.2; O2SAT 88–100; BMI 34.0
--- NOTE | 2021-08-13 13:14 | ECG_ITS ---
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 Measurements Intervals [place] Rate: 59 P: MT: QRS: -75 QRSD: 153 T: 105 QT: 471 QTc: 469 Interpretive Statements ELECTRONIC VENTRICULAR PACEMAKER ABNORMAL RHYTHM ECG Compared to ECG 12/12/2020 04:02:58 No significant changes Electronically Signed On 08-14-2021 16:19:46 CDT by Varghese Rivera M.D. [id number]
--- NOTE | 2021-08-13 13:17 | ED_ITS ---
HPI - GI Bleed General: Chief complaint: GI Bleed Stated complaint: Abd Pain, Alot of blood in stool Time Seen by Provider: 08/13/21 13:07 Source: patient Mode of arrival: ambulatory Limitations: no limitations History of Present Illness: 81-year-old female states that she started having lower GI bleeding this morning states that she had a bright red bloody bowel movement. She states she has had this before and she had a scope EGD and a colonoscopy and they were not able to find the source. She denies him being any blood thinners. States that with standing today she has had some dizziness she is normotensive here. Denies any pain or fever. Associated symptoms: Denies abdominal pain, chills, easy bruising, fever(s), headache(s), nausea, rash or vomiting Review of Systems Const: Reports: fatigue; Denies: fever(s), chills, body aches or change in appetite Eyes: Denies: blurry vision or eye discomfort ENMT: Denies: throat pain or dental pain Card: Denies: chest pain Resp: Denies: dyspnea GI: Reports: hematochezia; Denies: abdominal pain, nausea, vomiting or diarrhea : Denies: dysuria Musc: Denies: neck pain or back pain Skin/Breast: Denies: rash Neuro: Denies: headache(s) Psych: Denies: depression Jaspal/Lymph: Denies: easy bruising All/Imm: Denies: urticaria PFSH ED 2 PFSH: Medical History Anemia Bleeding duodenal ulcer Chronic atrial fibrillation Chronic pancreatitis Coronary artery disease due to type 2 diabetes mellitus Diabetic peripheral neuropathy Diastolic CHF History of colon polyps Hypoxemia Nail fungus Pancreatic cancer Pneumonia Restrictive lung disease Sleep apnea Type 2 diabetes mellitus Surgical History H/O: hysterectomy History of appendectomy History of cholecystectomy History of esophagogastroduodenoscopy (EGD) 03/15/2019: EGD with biopsy Findings: Duodenal ulceration, most likely source of her bleed History of thoracentesis S/P ablation of atrial fibrillation Status post colonoscopy with polypectomy 03/15/2019: Colonoscopy with polypectomy Findings: 2 cm sessile polyp in ascending colon removed with cold biopsy forceps Moderate diverticulosis sigmoid colon Grade 4 hemorrhoids Family History Mother CAD (coronary artery disease) Family/Other Cancer Father Chronic kidney disease (CKD) Brother Dementia Diabetes Family history of premature coronary artery disease Hypertension Sister Hypertension Social History Smoking and tobacco status: former smoker Quit status (tobacco): has quit using tobacco Year quit tobacco: 2013 PPD x 55 Years Second hand smoke exposure: No Alcohol intake: never Lives independently: Yes Household members: spouse Housing: House Marital status: Current occupational status: retired History of recent travel: No Current gender identity: Female Female Reproductive History: Date of last menstrual period: 06/02/20 Physical Exam Const: COMMON NORMALS: patient oriented x3 HENMT: COMMON NORMALS: normocephalic and atraumatic HEAD & SCALP: normocephalic and atraumatic Eye: COMMON NORMALS: Equal, round and reactive pupils present and EOMs intact bilaterally PUPIL: Yes Equal, round and reactive pupils present Neck/C-Spine: COMMON NORMALS: full ROM and supple Chest: COMMONS NORMALS: normal inspection of the chest and normal palpation of entire chest wall Resp: COMMON NORMALS: normal respiratory effort, No retractions, No use of accessory muscles and clear to auscultation bilaterally AUSCULTATION: clear to auscultation bilaterally Cardio: COMMON NORMALS: regular rate, regular rhythm and No murmurs present (Cardio) RATE: regular rate RHYTHM: regular rhythm GI: COMMON NORMALS: Normal to inspection, nondistended, normoactive bowel so unds present, Soft to palpation, non-tender and no masses PALPATION: Yes Soft to palpation Extremity: COMMON NORMALS: normal to inspection and full ROM Neuro: COMMON NORMALS: patient oriented x3, moves all extremities and no focal motor deficits Psych: COMMON NORMALS: mental status grossly normal, Normal thought process present and cooperative THOUGHT PROCESS: Normal thought process present Skin: COMMON NORMALS: no rashes or lesions noted and no wounds GENERAL SKIN EXAM: no rashes or lesions noted Course Vital Signs: Vital signs: Vital Signs Temperature 98.2 F 08/13/21 12:59 Pulse Rate 61 08/13/21 13:22 Respiratory Rate 22 H 08/13/21 12:59 Blood Pressure 155/49 08/13/21 13:22 Pulse Oximetry 98 08/13/21 13:22 MDM - GI Bleed Medical Decision Making Patient presents with anemia likely from a GI bleed she has been normotensive here her stool is not dark in nature is more Marone possibly a lower GI bleed spoke to hospitalist will admit to the ICU and transfuse and consult surgery as well. She has been stable while in the ER. Lab Data : 08/13/21 13:10 08/13/21 13:10 Radiology Impressions Abdomen/Pelvis CT 08/13/21 13:17 IMPRESSION: 1. No acute findings. 2. 3.3 cm infrarenal abdominal aortic aneurysm. Follow-up imaging in 3 years is recommended. 3. Incidental findings above. COMMENTS: Consistent with the [employer] [employer]'s Incidental Findings Committee white paper (J Am Skye Radiol 2018): Any incidental renal lesion less than 1 cm or classified as too small to characterize, or any incidental cystic renal lesion characterized as simple-appearing, is likely benign. No follow-up imaging is recommended for these lesions per consensus recommendations based on imaging criteria. Laboratory Results WBC 15.8 10^3/uL (4.0-10.0) H 08/13/21 13:10 RBC 2.14 10^6/uL (4.1-5.3) L 08/13/21 13:10 Hgb 6.5 g/dL (11.5-15.3) L* 08/13/21 13:10 Hct 22.1 % (37.0-47.0) L 08/13/21 13:10 MCV 103.3 fl (81-99) H 08/13/21 13:10 MCH 30.4 pg (28.0-34.0) 08/13/21 13:10 MCHC 29.4 g/dL (30.0-36.0) L 08/13/21 13:10 RDW 16.4 % (12.1-15.1) H 08/13/21 13:10 Plt Count 359 10^3/cmm (130-400) 08/13/21 13:10 MPV 9.6 fL (7.4-10.4) 08/13/21 13:10 Neut % (Auto) 79.1 % 08/13/21 13:10 Lymph % (Auto) 12.7 % 08/13/21 13:10 [place] % (Auto) 7.0 % 08/13/21 13:10 Eos % (Auto) 0.2 % 08/13/21 13:10 Baso % (Auto) 0.3 % 08/13/21 13:10 Neut # (Auto) 12.50 10^3/uL (1.8-7.7) H 08/13/21 13:10 Lymph # (Auto) 2.0 10^3/uL (0.8-4.8) 08/13/21 13:10 [place] # (Auto) 1.1 10^3/uL (0.2-0.9) H 08/13/21 13:10 Eos # (Auto) 0.0 10^3/uL (0.0-0.8) 08/13/21 13:10 Baso # (Auto) 0.0 10^3/uL (0.0-0.1) 08/13/21 13:10 Nucleated RBC % (auto) 0.9 % 08/13/21 13:10 Nucleated RBCs # 0.1 /100WBC 08/13/21 13:10 PT 14.70 SECONDS (12.1-14.9) 08/13/21 13:10 INR 1.12 (0.8-1.2) 08/13/21 13:10 Sodium 133 mmol/L (136-145) L 08/13/21 13:10 Potassium 4.7 mmol/L (3.5-5.1) 08/13/21 13:10 Chloride 96 mmol/L (98-107) L 08/13/21 13:10 Carbon Dioxide 23 mmol/L (22-29) 08/13/21 13:10 Anion Gap 18.7 (5-19) 08/13/21 13:10 BUN 30 mg/dL (8-23) H 08/13/21 13:10 Creatinine 1.0 mg/dL (0.5-0.9) H 08/13/21 13:10 GFR Calculation Not Reportable 08/13/21 13:10 Glucose 213 mg/dL (65-115) H 08/13/21 13:10 Calculated Osmolality 289 mOsm/kg (285-295) 08/13/21 13:10 Calcium 9.0 mg/dL (8.5-10.5) 08/13/21 13:10 Total Bilirubin 0.3 mg/dL (0.15-1.2) 08/13/21 13:10 AST 16 U/L (0-32) 08/13/21 13:10 ALT 11 U/L (0-33) 08/13/21 13:10 Alkaline Phosphatase 68 IU/L (35-105) 08/13/21 13:10 Total Protein 6.5 g/dL (6.6-8.7) L 08/13/21 13:10 Albumin 3.5 g/dL (3.5-5.2) 08/13/21 13:10 Globulin 3.0 g/dL (1.3-4.6) 08/13/21 13:10 Blood Type O Negative 08/13/21 13:10 Rho(D) Type Negative 08/13/21 13:10 Antibody Screen Negative 08/13/21 13:10 Crossmatch See Detail 08/13/21 13:10 EKG Data EKG 1: I personally reviewed and interpreted this EKG as follows: EKG interpretation date: 08/13/21 EKG interpretation time: 13:33 Interpretation: paced hr [address] or t wave abnormalities qrs 153 qtc 470 Critical Care Time Critical Care Time: Critical Care Time: Yes Total Critical Care Time: 36 Attestation: The high probability of a clinically significant, sudden or life threatening deterioration of the patient's gi/vasc system(s) required my full and direct attention, intervention and personal management. The critical care time is as shown. This time is in addition to time spent performing any reported procedures but includes the following: [x] Data and vital sign review and interpretation [x] Patient assessment, examination and intervention [x] Documentation [x] Medication orders and management Discharge Plan Discharge Patient Disposition: Admitted As Inpatient Clinical Impression: Lower gastrointestinal hemorrhage, Anemia Condition: Stable Prescriptions: No Action levothyroxine 25 mcg capsule 25 mcg PO DAILY 0RF ipratropium-albuterol 0.5 mg-3 mg(2.5 mg base)/3 mL solution for nebulization 3 ml inhalation Q6H Qty: 360 3RF clopidogrel 75 mg tablet 75 mg PO DAILY Qty: 90 3RF Lasix 40 mg tablet 40 mg PO DAILY Qty: 90 3RF Nitrostat 0.4 mg tablet, sublingual 0.4 mg SUBLINGUAL Q5M PRN (Reason: Chest Pain) Qty: 25 3RF potassium chloride 10 mEq capsule, extended release 10 meq PO DAILY Qty: 90 3RF pravastatin 40 mg tablet 40 mg PO DAILY Qty: 90 3RF insulin detemir U-100 100 unit/mL (3 mL) insulin pen See Rx Instructions SUBCUT BEDTIME 0RF Rx Instructions: 30 to 40 units SUBCUT bedtime PRN; citalopram 20 mg Tablet 20 mg PO DAILY 0RF ondansetron HCl 4 mg tablet 4 mg PO Q6H PRN (Reason: nausea and vomiting) Qty: 20 0RF Referrals: Grace Willett FNP [Primary Care Provider] - Coding Level of Care Code ED Unit Coordinator for Chg Fwd Exam Comprehensive
--- NOTE | 2021-08-13 13:17 | CTR_ITS ---
PROCEDURE INFORMATION: Exam: CT Abdomen And Pelvis Without Contrast Exam date and time: 08/13/2021 1:42 PM Age: 81 years old Clinical indication: Other: Gi bleed; Prior surgery; Surgery type: Gb, appy, hysto TECHNIQUE: Imaging protocol: Computed tomography of the abdomen and pelvis without contrast. Radiation optimization: All CT scans at this facility use at least one of these dose optimization techniques: automated exposure control; mA and/or kV adjustment per patient size (includes targeted exams where dose is matched to clinical indication); or iterative reconstruction. COMPARISON: CT abdomen pelvis w con* [id number] 07/13/2021 10:17 AM RADIATION DOSE METRICS: Total DLP (mGy-cm): 1723.58 FINDINGS: Lungs: Subpleural reticular opacity in the lung bases suggest chronic interstitial disease. Heart: There is mild cardiac enlargement. There is moderate coronary artery calcification. Liver: The liver is normal. Gallbladder and bile ducts: The gallbladder is absent. There is no intrahepatic or extrahepatic bile duct dilation. There is pneumobilia suggesting prior sphincterotomy. Pancreas: The pancreas is unremarkable. Spleen: The spleen is unremarkable. Adrenal glands: The adrenal glands are unremarkable. Kidneys and ureters: There is a simple cyst in the left kidney. No hydronephrosis or stones on the left. No ureteral dilation. The right kidney and ureter are unremarkable. Stomach and bowel: The stomach is unremarkable. The small bowel is nondilated. There is mild distal descending and sigmoid colonic diverticulosis without evidence of diverticulitis. Appendix: The appendix is absent. Intraperitoneal space: There is no free air or significant intraperitoneal free fluid. Vasculature: There is severe aortic atherosclerotic disease. There is a 3.3 cm saccular aneurysm of the distal aorta similar to the findings on 07/13/2021. Lymph nodes: There is no lymphadenopathy in the retroperitoneum, mesentery, pelvis or inguinal regions. Urinary bladder: The urinary bladder is unremarkable. Reproductive: The uterus is absent. There is no adnexal mass or large cyst. Bones/joints: There is moderate degenerative disease in the lumbar spine. The bony pelvis is intact. Soft tissues: The abdominal wall is intact. CT/CT abdomen pelvis wo con [id number] IMPRESSION: 1. No acute findings. 2. 3.3 cm infrarenal abdominal aortic aneurysm. Follow-up imaging in 3 years is recommended. 3. Incidental findings above. COMMENTS: Consistent with the [place] [employer]'s Incidental Findings Committee white paper (J Am Skye Radiol 2018): Any incidental renal lesion less than 1 cm or classified as too small to characterize, or any incidental cystic renal lesion characterized as simple-appearing, is likely benign. No follow-up imaging is recommended for these lesions per consensus recommendations based on imaging criteria.
[2021-08-13] MEDS: sodium chloride 0.9% 1,000 ML 999 ML IV (13:20)
[2021-08-13 13:43] LABS: Basophils % 0.3 %; Eosinophils % 0.2 %; Hematocrit 22.1 % (37.0-47.0); Lymphocytes % 12.7 %; Mean Corpuscular HGB Conc 29.4 g/dL (30.0-36.0); Mean Corpuscular Hemoglobin 30.4 pg (28.0-34.0); Mean Corpuscular Volume 103.3 fl (81-99); Mean Platelet Volume 9.6 fL (7.4-10.4); Monocytes # 1.1 10^3/uL (0.2-0.9); Neutrophils % 79.1 %; Nucleated Red Blood Cells # 0.1 /100WBC; Nucleated Red Blood Cells % 0.9 %; Platelet Count 359 10^3/cmm (130-400); Red Blood Count 2.14 10^6/uL (4.1-5.3); Red Cell Distribution Width 16.4 % (12.1-15.1); White Blood Count 15.8 10^3/uL (4.0-10.0)
[2021-08-13 13:58] LABS: INR 1.12 (0.8-1.2)
[2021-08-13 14:08] LABS: Alanine Aminotransferase 11 U/L (0-33); Albumin Level 3.5 g/dL (3.5-5.2); Alkaline Phosphatase 68 IU/L (35-105); Anion Gap 18.7 (5-19); Aspartate Amino Transferase 16 U/L (0-32); Blood Urea Nitrogen 30 mg/dL (8-23); Carbon Dioxide 23 mmol/L (22-29); Chloride 96 mmol/L (98-107); Glucose 213 mg/dL (65-115); Osmolality Calculated 289 mOsm/kg (285-295); Potassium 4.7 mmol/L (3.5-5.1); Sodium 133 mmol/L (136-145); Total Bilirubin 0.3 mg/dL (0.15-1.2); Total Protein 6.5 g/dL (6.6-8.7)
[2021-08-13 14:39] LABS: Hemoglobin 6.5 g/dL (11.5-15.3)
--- NOTE | 2021-08-13 15:05 | PC.NURSE ---
Inform Dr. Sabillon of delays with receiving blood from lab. He verbalized understanding no further orders.
[2021-08-13] MEDS: magnesium citrate Btl 296 mL PO (16:01)
[2021-08-13] MEDS: bisacodyl 5 mg Tablet 20 MG PO (16:01)
--- NOTE | 2021-08-13 16:03 | PM.HP ---
Providers/Chief Complaint Primary Care Provider: BÁRBARA Ruvalcaba Chief Complaint: Abd Pain, Alot of blood in stool History of Present Illness Radha Rose is a 81 year old female with past medical history of chronic atrial fibrillation status post ablation and permanent pacemaker, chronic pancreatitis, CAD status post stents, peripheral neuropathy, diastolic CHF, colon polyps, grade 4 hemorrhoids, sleep apnea, PE complicated by development of bleeding from duodenal ulcer while on anticoagulation with apixaban, localized ampullary adenocarcinoma presented to the hospital today for continued dizziness and bloody diarrhea. She states that started about a week ago where she started having nausea after eating and started having bloody bowel movements. She denies a history of hemorrhoids however on her colonoscopy report there is a report of grade 4 hemorrhoids I am not sure if that is accurate or not as patient does not know anything about this. He says she has not been able to keep food down but has not vomited either. She feels nauseous after eating. She states her bowel movements have been very dark and almost maroon color. At 1 point she also described them as black but then said that she is not sure. She says she has been more more dizzy. She does have a history of coronary artery disease and has had 5 stents placed. She had an angiogram within the last year. She is also been having some chest pains on and off that come and go for the last 1 month. She has not had to use any nitro. She says she was to follow-up with Dr. Law but has not seen him recently. 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 He says she has had a EGD and colonoscopy before with some polyps removed but source of bleeding was not isolated. Respiratory choi she feels okay and is on 4 L nasal cannula at home and on the same here. She said she has had a total of 7-8 bloody bowel movements so far. She is a little bit of a poor historian. She is not altered at this time but does seem a little bit confused and answering the questions. She last saw her oncologist in June this year. There has been no evidence of recurrence of ampullary cancer. She is to continue on expectant management. She was asked to resee them in 6 months. History of smoking 1 to 2 packs of cigarettes daily for 55 years and quit 10 years ago. ED course: Blood pressure 1 5549, respiratory 22, pulse 61, temperature 98.2, pulse ox 98% on room air. Patient will be admitted to ICU. General surgery on consult. Medications/Allergies Home Medications Medication Instructions Recorded Confirmed Last Taken Type ipratropium 0.5 mg-albuterol 3 mg 3 ml INHALATION Q6H #360 ml 08/04/20 08/13/21 Unknown Rx (2.5 mg base)/3 mL nebulization soln levothyroxine 25 mcg capsule 25 mcg PO DAILY 08/04/20 08/13/21 08/13/21 History citalopram 20 mg tablet 20 mg PO DAILY 12/11/20 08/13/21 08/13/21 History clopidogrel 75 mg tablet 75 mg PO DAILY #90 tab 02/13/21 08/13/21 08/13/21 Rx furosemide 40 mg tablet (Lasix) 40 mg PO DAILY #90 tab 02/13/21 08/13/21 08/13/21 Rx nitroglycerin 0.4 mg sublingual 0.4 mg SUBLINGUAL Q5M PRN #25 tab 02/13/21 08/13/21 Unknown Rx tablet (Nitrostat) potassium chloride 10 mEq 10 meq PO DAILY #90 cap 02/13/21 08/13/21 08/13/21 Rx capsule,extended release pravastatin 40 mg tablet 40 mg PO DAILY #90 tab 02/13/21 08/13/21 08/12/21 Rx insulin detemir U-100 100 unit/mL See Rx Instructions SUBCUT BEDTIME 07/11/21 08/13/21 08/12/21 History (3 mL) subcutaneous pen ml ondansetron HCl 4 mg tablet 4 mg PO Q6H PRN #20 tab 07/13/21 08/13/21 Unknown Rx Allergies Allergy/AdvReac Type Severity Reaction Status Date / Time aspirin Allergy Stomach Verified 07/11/21 12:41 Cramps codeine Allergy ADR-Halluci Verified 07/11/21 12:41 nating digoxin Allergy BLISERS IN Verified 07/11/21 12:41 MOUTH Sulfa (Sulfonamide Allergy ALGY-Hives Verified 07/11/21 12:41 Antibiotics) tetanus and diphtheria Allergy ADR-Vomitin Verified 07/11/21 12:41 toxoids g PFSH Acute PFSH: Medical History Anemia Bleeding duodenal ulcer Chronic atrial fibrillation Chronic pancreatitis Coronary artery disease due to type 2 diabetes mellitus Diabetic peripheral neuropathy Diastolic CHF History of colon polyps Hypoxemia Nail fungus Pancreatic cancer Pneumonia Restrictive lung disease Sleep apnea Type 2 diabetes mellitus Surgical History H/O: hysterectomy History of appendectomy History of cholecystectomy History of esophagogastroduodenoscopy (EGD) 03/15/2019: EGD with biopsy Findings: Duodenal ulceration, most likely source of her bleed History of thoracentesis S/P ablation of atrial fibrillation Status post colonoscopy with polypectomy 03/15/2019: Colonoscopy with polypectomy Findings: 2 cm sessile polyp in ascending colon removed with cold biopsy forceps Moderate diverticulosis sigmoid colon Grade 4 hemorrhoids Family History Mother CAD (coronary artery disease) Family/Other Cancer Father Chronic kidney disease (CKD) Brother Dementia Diabetes Family history of premature coronary artery disease Hypertension Sister Hypertension Social History Smoking and tobacco status: former smoker Quit status (tobacco): has quit using tobacco Year quit tobacco: 2013 PPD x 55 Years Second hand smoke exposure: No Alcohol intake: never Lives independently: Yes Household members: spouse Housing: House Marital status: Current occupational status: retired History of recent travel: No Current gender identity: Female Female Reproductive History: Date of last menstrual period: 06/02/20 Vitals/I&O/Wt Last Vital Signs Temp 97.1 F L 08/13/21 15:55 Pulse 60 08/13/21 15:55 Resp 21 H 08/13/21 15:55 BP 157/69 08/13/21 15:55 Pulse Ox 98 08/13/21 15:55 08/13/21 08/13/21 08/13/21 06:59 14:59 22:59 Intake Total 1000 / 1000 Balance 1000 / 1000 Weight last 48 hrs Weight 87.09 kg Physical Exam Narrative: General: Alert oriented x3, patient seen laying in bed appearing comfortable on 4 L nasal cannula. HEENT: Normocephalic, atraumatic, EOMI, breathing normally Cardio: Regular rate rhythm, normal S1-S2, no murmurs rubs gallops, muffled heart sounds secondary to body habitus Respiratory: Good bilateral air entry, no wheezes no rhonchi appreciated, clear to auscultation bilaterally GI: Abdomen soft, mildly tender to palpation right lower quadrant, bowel sounds present and normoactive , bowel sounds + Behavior: Appropriate and cooperative Extremities: Pulses 2+, no bilateral lower extremity edema noted., no cyanosis Data : 08/13/21 13:10 08/13/21 13:10 A&P Assessment and plan (1) Lower gastrointestinal hemorrhage: Status: Acute (2) Anemia: Status: Acute (3) Sleep apnea: Status: Acute (4) Restrictive lung disease: Status: Acute (5) Coronary artery disease due to type 2 diabetes mellitus: Status: Acute (6) Urinary retention: Status: Acute (7) Malignant neoplasm of ampulla of Vater: Status: Acute (8) Hyperlipidemia: Status: Acute (9) Hypertension: Status: Acute Qualifiers: Hypertension type: essential hypertension Qualified Code(s): I10 - Essential (primary) hypertension (10) Poorly controlled type 2 diabetes mellitus: Status: Acute (11) Chronic atrial fibrillation: Status: Acute (12) Type 2 diabetes mellitus: Status: Chronic Qualifiers: Diabetes mellitus complication detail: with other circulatory complications Diabetes mellitus complication status: with circulatory complication 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 Keep patient n.p.o. ? General surgery consult. Surgery notified in ER. -Check stool cultures -Recheck CBC after blood transfusion complete ? Hemoglobin goal greater than 9 due to history of coronary disease - Hold of on antibiotics due to bloody diarrhea for now. - Leukocytosis most likely 2/2 to stress response - Zofran for nausea - Protonix 40 IV BID #Intermittent chest pain on left side of chest #Chronic atrial fibrillation status post ablation status post permanent pacemaker #Coronary artery disease status post 5 stent, had angio within 1 year #Hyperlipidemia #Diastolic congestive heart failure -On Lasix 40 twice daily. Recently increased to this dose by oncology when seen in the office. We will hold at this time ? Hold Plavix at this time. She is allergic to aspirin. Hold statin as well. -Check troponins ? EKG shows paced rhythm. Sgarbossa criteria not met #Obstructive sleep apnea #Restrictive lung disease ? Patient has been recommended AVAPS at nighttime. - Continue DuoNeb every 4 hours as needed -Recently saw Dr. Scanlon in May 2021. -Continue nasal cannula. #Depression/anxiety ? Continue citalopram #Hypothyroidism ? 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 - Stable Full code DVT prophylaxis: SCDs Diet: N.p.o. Attestations Medical Necessity Statement*: Requires ICU level care for management of acute GI bleed. Expect greater than 48-hour stay at this time. 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 Supervisor for [facility] Fwd Diagnoses Lower gastrointestinal hemorrhage K92.2 Anemia D64.9 Sleep apnea G47.30 Restrictive lung disease J98.4 Coronary artery disease due to type 2 diabetes mellitus E11.59; I25.10 Urinary retention R33.9 Malignant neoplasm of ampulla of Vater C24.1 Hyperlipidemia E78.5 Hypertension I10 Hypertension type: essential hypertension Poorly controlled type 2 diabetes mellitus E11.65 Chronic atrial fibrillation I48.20 Type 2 diabetes mellitus E11.59; Z79.4 Diabetes mellitus complication detail: with other circulatory complications Diabetes mellitus complication status: with circulatory complication Diabetes mellitus shelter insulin use: with shelter use Diastolic CHF I50.32 Heart failure chronicity: chronic
--- NOTE | 2021-08-13 16:55 | PC.NURSE ---
Pt arrived to ICU from ED. Blood transfusing into left AC without issues. Bruies noted on pt's face. She stated she fell at home with her walker. Pt oriented to room, call light.
[2021-08-13] MEDS: sodium chloride 0.9% 250 ML 100 ML IV (17:07)
--- NOTE | 2021-08-13 17:59 | ECG_ITS ---
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 Measurements Intervals [place] Rate: 63 P: [place]: QRS: -72 QRSD: 157 T: 102 QT: 482 QTc: 494 Interpretive Statements ELECTRONIC VENTRICULAR PACEMAKER ABNORMAL RHYTHM ECG Compared to ECG 08/13/2021 13:33:43 No significant changes Electronically Signed On 08-14-2021 16:20:35 CDT by Varghese Rivera M.D. [id number]
[2021-08-13] MEDS: pantoprazole 40 mg SDV IVP (18:04)
[2021-08-13 18:40] LABS: Troponin(5th) Baseline 34 ng/L (0-10)
--- NOTE | 2021-08-13 19:10 | PC.NURSE ---
Bedside report completed with SONALI Beck.
--- NOTE | 2021-08-13 19:59 | ECG_ITS ---
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 Measurements Intervals [place] Rate: 60 P: [place]: QRS: -65 QRSD: 153 T: 89 QT: 495 QTc: 495 Interpretive Statements ELECTRONIC VENTRICULAR PACEMAKER ABNORMAL RHYTHM ECG Compared to ECG 08/13/2021 18:09:47 No significant changes Electronically Signed On 08-14-2021 16:29:06 CDT by Varghese Rivera M.D. [id number]
[2021-08-13] MEDS: sodium chloride 0.9% 250 ML IV (20:45)
[2021-08-13 20:51] LABS: Troponin 5 2HR 36.93 ng/L (0-10); Troponin 5 2HR Delta 2.93 ABS# (0-10)
--- NOTE | 2021-08-13 21:13 | PC.NURSE ---
Rate increased to 125 mls/hr
--- NOTE | 2021-08-13 22:35 | PC.NURSE ---
Brief removed to prevent skin breakdown.
[2021-08-14] VITALS (40 sets, daily range): BP systolic 103–165; BP diastolic 48–68; PULSE 60–71; RESP 13–60; TEMP 36.5–37.5; O2SAT 95–100
[2021-08-14 00:24] LABS: Troponin 5 6HR 38.45 ng/L (0-10)
[2021-08-14 00:25] LABS: Troponin 5 6HR Delta 4.45 ng/L (0-12)
[2021-08-14] MEDS: acetaminophen 500 mg Tablet PO (02:02)
[2021-08-14] MEDS: morphine 4 mg/mL SDV 1 mL 2 MG IVP ×2 (02:10→14:20)
--- NOTE | 2021-08-14 02:24 | PC.NURSE ---
Pt crying due to back pain. She reports that she has chronic back pain that she controls with Tylenol at home.
[2021-08-14 05:16] LABS: Basophils # 0.1 10^3/uL (0.0-0.1); Basophils % 0.5 %; Eosinophils % 0.4 %; Hematocrit 25.7 % (37.0-47.0); Hemoglobin 8.1 g/dL (11.5-15.3); Lymphocytes % 9.4 %; Mean Corpuscular HGB Conc 31.5 g/dL (30.0-36.0); Mean Corpuscular Hemoglobin 28.9 pg (28.0-34.0); Mean Corpuscular Volume 91.8 fl (81-99); Mean Platelet Volume 9.3 fL (7.4-10.4); Monocytes # 0.7 10^3/uL (0.2-0.9); Monocytes % 6.9 %; Neutrophils # 8.74 10^3/uL (1.8-7.7); Nucleated Red Blood Cells # 0.1 /100WBC; Nucleated Red Blood Cells % 0.8 %; Platelet Count 218 10^3/cmm (130-400); Red Cell Distribution Width 18.2 % (12.1-15.1); White Blood Count 10.7 10^3/uL (4.0-10.0)
[2021-08-14 05:30] LABS: Anion Gap 13.1 (5-19); Blood Urea Nitrogen 24 mg/dL (8-23); Calcium 8.1 mg/dL (8.5-10.5); Carbon Dioxide 24 mmol/L (22-29); Chloride 104 mmol/L (98-107); Glucose 160 mg/dL (65-115); Magnesium 2.1 mg/dL (1.7-2.3); Osmolality Calculated 291 mOsm/kg (285-295); Potassium 4.1 mmol/L (3.5-5.1); Sodium 137 mmol/L (136-145)
--- NOTE | 2021-08-14 06:02 | PC.NURSE ---
Pt knows name, where she's at, month, year. When asked what day it is, pt responded, how the heck should I know, I'm an old lady.
--- NOTE | 2021-08-14 08:02 | ECG_ITS ---
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 Measurements Intervals [place] Rate: 59 P: [place]: QRS: -73 QRSD: 154 T: 97 QT: 488 QTc: 487 Interpretive Statements ELECTRONIC VENTRICULAR PACEMAKER ABNORMAL RHYTHM ECG Compared to ECG 08/13/2021 20:02:38 No significant changes Electronically Signed On 08-14-2021 16:33:46 CDT by Varghese Rivera M.D. [id number]
--- NOTE | 2021-08-14 09:13 | PM.CONSULT ---
Providers/Reason For Consult Consulting Physician/Specialty*: Dr. Arturo Winkler Reason for Consult*: GI bleed Attending Physician: Van Jain MD Primary Care Provider: BÁRBARA Ruvalcaba History of Present Illness History of Present Illness Radha Rose is a 81 year old female who presented to the hospital with dizziness, abdominal pain and maroon stools. 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 She apparently had complete pathologic response to chemotherapy and radiation. For the last 2 weeks she has been having maroon stools. She has had right-sided abdominal pain for over a year, but she reports that this is gotten worse and was associated with chills and nausea. Her pain is located in the right side of her abdomen is sharp and constant. The pain does not radiate. Palpation makes pain worse. Nothing seems to make the pain better. She takes Plavix. Her last dose was yesterday. Denies any other symptoms . Review of Systems General: Reports: 10 or more systems reviewed and unremarkable except in HPI and below Medications/Allergies Home Medications Medication Instructions Recorded Confirmed Last Taken Type ipratropium 0.5 mg-albuterol 3 mg 3 ml INHALATION Q6H #360 ml 08/04/20 08/13/21 Unknown Rx (2.5 mg base)/3 mL nebulization soln levothyroxine 25 mcg capsule 25 mcg PO DAILY 08/04/20 08/13/21 08/13/21 History citalopram 20 mg tablet 20 mg PO DAILY 12/11/20 08/13/21 08/13/21 History clopidogrel 75 mg tablet 75 mg PO DAILY #90 tab 02/13/21 08/13/21 08/13/21 Rx furosemide 40 mg tablet (Lasix) 40 mg PO DAILY #90 tab 02/13/21 08/13/21 08/13/21 Rx nitroglycerin 0.4 mg sublingual 0.4 mg SUBLINGUAL Q5M PRN #25 tab 02/13/21 08/13/21 Unknown Rx tablet (Nitrostat) potassium chloride 10 mEq 10 meq PO DAILY #90 cap 02/13/21 08/13/21 08/13/21 Rx capsule,extended release pravastatin 40 mg tablet 40 mg PO DAILY #90 tab 02/13/21 08/13/21 08/12/21 Rx insulin detemir U-100 100 unit/mL See Rx Instructions SUBCUT BEDTIME 07/11/21 08/13/21 08/12/21 History (3 mL) subcutaneous pen ml ondansetron HCl 4 mg tablet 4 mg PO Q6H PRN #20 tab 07/13/21 08/13/21 Unknown Rx Allergies Allergy/AdvReac Type Severity Reaction Status Date / Time aspirin Allergy Stomach Verified 08/14/21 08:58 Cramps codeine Allergy ADR-Halluci Verified 08/14/21 08:58 nating digoxin Allergy BLISERS IN Verified 08/14/21 08:58 MOUTH Sulfa (Sulfonamide Allergy ALGY-Hives Verified 08/14/21 08:58 Antibiotics) tetanus and diphtheria Allergy ADR-Vomitin Verified 08/14/21 08:58 toxoids g Current Medications Generic Name Dose Route Start Last Admin Trade Name Freq PRN Reason Stop Dose Admin Acetaminophen 500 mg 08/13/21 17:16 08/14/21 02:02 Acetaminophen 500 Mg Tablet PO 500 mg Q4H PRN Administration fever Morphine Sulfate 2 mg 08/13/21 17:16 08/14/21 02:10 Morphine 4 Mg/Ml Sdv 1 Ml IVP 2 mg Q4H PRN Administration SEVERE PAIN Pantoprazole Sodium 40 mg 08/13/21 18:00 08/13/21 18:04 Pantoprazole 40 Mg Sdv IVP 40 mg BID UZAIR Administration PFSH Acute PFSH: Medical History Anemia Bleeding duodenal ulcer Chronic atrial fibrillation Chronic pancreatitis Coronary artery disease due to type 2 diabetes mellitus Diabetic peripheral neuropathy Diastolic CHF History of colon polyps Hypoxemia Nail fungus Pancreatic cancer Pneumonia Restrictive lung disease Sleep apnea Type 2 diabetes mellitus Surgical History H/O: hysterectomy History of appendectomy History of cholecystectomy History of esophagogastroduodenoscopy (EGD) 03/15/2019: EGD with biopsy Findings: Duodenal ulceration, most likely source of her bleed History of thoracentesis S/P ablation of atrial fibrillation Status post colonoscopy with polypectomy 03/15/2019: Colonoscopy with polypectomy Findings: 2 cm sessile polyp in ascending colon removed with cold biopsy forceps Moderate diverticulosis sigmoid colon Grade 4 hemorrhoids Family History Mother CAD (coronary artery disease) Family/Other Cancer Father Chronic kidney disease (CKD) Brother Dementia Diabetes Family history of premature coronary artery disease Hypertension Sister Hypertension Social History Smoking and tobacco status: former smoker Quit status (tobacco): has quit using tobacco Year quit tobacco: 2013 PPD x 55 Years Second hand smoke exposure: No Alcohol intake: never Lives independently: Yes Household members: spouse Housing: House Marital status: Current occupational status: retired History of recent travel: No Current gender identity: Female Female Reproductive History: Date of last menstrual period: 06/02/20 Vitals/I&O/Wt Last Vital Signs Temp 98.5 F 08/14/21 07:30 Pulse 60 08/14/21 08:35 Resp 16 08/14/21 08:35 BP 133/64 08/14/21 08:35 Pulse Ox 97 08/14/21 08:35 08/13/21 08/14/21 08/14/21 22:59 06:59 14:59 Intake Total 1372 / 1372 380 / 1752 Balance 1372 / 1372 380 / 1752 Weight last 48 hrs Weight 197 lb 3.2 oz Weight 192 lb Physical Exam Narrative: General : Patient is well developed , no acute distress, oriented x3 Head : Normal cephalic, a-traumatic. Ears : Pinnae and external canal are normal. Hearing is normal. Eyes : PERRLA, Sclera and injection are normal. No conjunctival discharge. Nose : Mucous membranes are without erythema. Throat : buccal mucosa is normal, gums are without significant recession or hypertrophy. Lungs : Equal chest rise bilaterally, no use of accessory muscles, trachea is midline. Cor : Rate and rhythm are normal. Abdomen : Soft, ND, tender to palpation right upper quadrant and right lower quadrant no g/r/m Extremities : No edema, no cyanosis or clubbing, dorsalis pedis pulses are present bilaterally, non-tender to palpation of calves. Upper extremities are normal bilaterally. Back : non-tender to palpation, no CVA tenderness. Neuro : CN II - XII intact, Upper and lower extremities have equal and full strength Data : 08/14/21 04:32 08/14/21 04:32 A&P Assessment and plan (1) GI bleed: Status: Acute Plan EGD and colonoscopy The risks and benefits of the procedure, including bleeding, infection, intestinal perforation requiring surgery, missed lesion, or explained to the patient. He is understanding of the risks and wishes to proceed. She is still having black tarry stools. She was only given 1 bottle of magnesium citrate yesterday. A complete colonoscopy may not be possible, however I will attempt it. 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
--- NOTE | 2021-08-14 09:17 | PC.NURSE ---
GI lab Procedure: 0917- Patient in care of GI lab nurse, Violeta LYON.
[2021-08-14] MEDS: sodium chloride 0.9% 1,000 ML 30 ML IV (09:28)
--- NOTE | 2021-08-14 09:36 | ANES.PREANE2 ---
Pre-Anesthetic Assessment Height/Weight: Height 1.6 m Weight 89.448 kg Temp Pulse Resp BP Pulse Ox 97.7 F 65 20 H 129/53 97 08/14/21 09:26 08/14/21 09:26 08/14/21 09:26 08/14/21 09:26 08/14/21 09:26 Preop Diagnosis: GI bleed Operation Date: 08/14/21 10:00 Proposed Procedures p EGD(Not Applicable) - Arturo Winkler DO Familial anesthetic complications: none Was Beta Yasmany taken within 24 hours: N/A Was Clonidine taken within 24 hours: N/A Last intake: > 8hrs Social No alcohol and No tobacco Exam alert, oriented x 3, clear to auscultation bilaterally and regular rate & rhythm Airway Mallampati: Class III Dentition: false Pulmonary Sleep Apnea 4 L NC continuously - CV/HEM Atrial Fibrillation, Anemia, Coronary Artery Disease, Congestive Heart Failure and Hypertension Hepatic fatty liver, hx pancreatic cancer Metabolic Diabetes Mellitus, Hyperlipidemia and Morbid Obesity Anesthetic Plan ASA status: 4 Anesthesia: MAC Risk of > 500 ml blood loss (7ml/kg in children): No Medications/Allergies Home Medications Medication Instructions Recorded Confirmed Last Taken Type ipratropium 0.5 mg-albuterol 3 mg 3 ml INHALATION Q6H #360 ml 08/04/20 08/13/21 Unknown Rx (2.5 mg base)/3 mL nebulization soln levothyroxine 25 mcg capsule 25 mcg PO DAILY 08/04/20 08/13/21 08/13/21 History citalopram 20 mg tablet 20 mg PO DAILY 12/11/20 08/13/21 08/13/21 History clopidogrel 75 mg tablet 75 mg PO DAILY #90 tab 02/13/21 08/13/21 08/13/21 Rx furosemide 40 mg tablet (Lasix) 40 mg PO DAILY #90 tab 02/13/21 08/13/21 08/13/21 Rx nitroglycerin 0.4 mg sublingual 0.4 mg SUBLINGUAL Q5M PRN #25 tab 02/13/21 08/13/21 Unknown Rx tablet (Nitrostat) potassium chloride 10 mEq 10 meq PO DAILY #90 cap 02/13/21 08/13/21 08/13/21 Rx capsule,extended release pravastatin 40 mg tablet 40 mg PO DAILY #90 tab 02/13/21 08/13/21 08/12/21 Rx insulin detemir U-100 100 unit/mL See Rx Instructions SUBCUT BEDTIME 07/11/21 08/13/21 08/12/21 History (3 mL) subcutaneous pen ml ondansetron HCl 4 mg tablet 4 mg PO Q6H PRN #20 tab 07/13/21 08/13/21 Unknown Rx Allergies Allergy/AdvReac Type Severity Reaction Status Date / Time aspirin Allergy Stomach Verified 08/14/21 08:58 Cramps codeine Allergy ADR-Halluci Verified 08/14/21 08:58 nating digoxin Allergy BLISERS IN Verified 08/14/21 08:58 MOUTH Sulfa (Sulfonamide Allergy ALGY-Hives Verified 08/14/21 08:58 Antibiotics) tetanus and diphtheria Allergy ADR-Vomitin Verified 08/14/21 08:58 toxoids g Current Medications Generic Name Dose Route Start Last Admin Trade Name Freq PRN Reason Stop Dose Admin Acetaminophen 500 mg 08/13/21 17:16 08/14/21 02:02 Acetaminophen 500 Mg Tablet PO 500 mg Q4H PRN Administration fever Sodium Chloride 1,000 mls @ 30 mls/hr 08/14/21 09:30 08/14/21 09:28 Sodium Chloride 0.9% IV 08/15/21 09:29 30 mls/hr .Q24H UZAIR Administration Morphine Sulfate 2 mg 08/13/21 17:16 08/14/21 02:10 Morphine 4 Mg/Ml Sdv 1 Ml IVP 2 mg Q4H PRN Administration SEVERE PAIN Pantoprazole Sodium 40 mg 08/13/21 18:00 08/13/21 18:04 Pantoprazole 40 Mg Sdv IVP 40 mg BID UZAIR Administration PFSH Anesthesia Medical History Anemia Bleeding duodenal ulcer Chronic atrial fibrillation Chronic pancreatitis Coronary artery disease due to type 2 diabetes mellitus Diabetic peripheral neuropathy Diastolic CHF History of colon polyps Hypoxemia Nail fungus Pancreatic cancer Pneumonia Restrictive lung disease Sleep apnea Type 2 diabetes mellitus Surgical History H/O: hysterectomy History of appendectomy History of cholecystectomy History of esophagogastroduodenoscopy (EGD) 03/15/2019: EGD with biopsy Findings: Duodenal ulceration, most likely source of her bleed History of thoracentesis S/P ablation of atrial fibrillation Status post colonoscopy with polypectomy 03/15/2019: Colonoscopy with polypectomy Findings: 2 cm sessile polyp in ascending colon removed with cold biopsy forceps Moderate diverticulosis sigmoid colon Grade 4 hemorrhoids Family History Mother CAD (coronary artery disease) Family/Other Cancer Father Chronic kidney disease (CKD) Brother Dementia Diabetes Family history of premature coronary artery disease Hypertension Sister Hypertension Social History Smoking and tobacco status: former smoker Quit status (tobacco): has quit using tobacco Year quit tobacco: 2013 PPD x 55 Years Second hand smoke exposure: No Alcohol intake: never Lives independently: Yes Household members: spouse Housing: House Marital status: Current occupational status: retired History of recent travel: No Current gender identity: Female Female Reproductive History Date of last menstrual period: 06/02/20 Data Anesthesia : 08/14/21 04:32 08/14/21 04:32 Short CBC 08/13/21 08/14/21 Range/Units 13:10 04:32 WBC 15.8 H 10.7 H (4.0-10.0) 10^3/uL Hgb 6.5 L* 8.1 L (11.5-15.3) g/dL Hct 22.1 L 25.7 L (37.0-47.0) % MCV 103.3 H 91.8 D (81-99) fl Plt Count 359 218 D (130-400) 10^3/cmm Neut % (Auto) 79.1 82.0 % Neut # (Auto) 12.50 H 8.74 H (1.8-7.7) 10^3/uL BMP 08/13/21 08/14/21 13:10 04:32 Sodium 133 L 137 Potassium 4.7 4.1 Chloride 96 L 104 Carbon Dioxide 23 24 BUN 30 H 24 H Creatinine 1.0 H 0.8 Glucose 213 H 160 H Calcium 9.0 8.1 L Cardiac Enzymes 08/13/21 08/13/21 08/13/21 Range/Units 18:08 20:12 23:55 Troponin T Baseline 34 H (0-10) ng/L Troponin T 120 Minute 36.93 H (0-10) ng/L Delta Troponin T 2.93 (0-10) ABS# Troponin T Hi Sens 6Hr 38.45 H (0-10) ng/L Troponin T Hi Sens 6Hr Delta 4.45 (0-12) ng/L Liver Function 08/13/21 Range/Units 13:10 Total Bilirubin 0.3 (0.15-1.2) mg/dL AST 16 (0-32) U/L ALT 11 (0-33) U/L Alkaline Phosphatase 68 (35-105) IU/L Albumin 3.5 (3.5-5.2) g/dL Blood Bank 08/13/21 13:10 Blood Type O Negative Rho(D) Type Negative Antibody Screen Negative Coags 08/13/21 13:10 PT 14.70 INR 1.12 Cardiac Studies: Echocardiogram Ultrasound 03/02/20 Holter Monitor 09/18/19
--- NOTE | 2021-08-14 10:07 | PC.CHAP ---
Pastoral Care Encounter/Spiritual Assessment Type of Contact [] Declined dba developer visit [] Patient/Family/Request visit [] Outpatient visit [] Follow-up visit [] Physician referral [] Code/Alert [x] Routine visit [] Staff referral [] Actively dying [] Patient sleeping [x] Family support [] [] Out of room [] Palliative care [] [] Receiving care in room [] Pre-surgical visit [] Trauma [] Long length of stay [x] ICU visit [] Other: Relational/Emotional Strength [] Patient feels connected with others/family/visitors/staff [] Distress [] Loneliness/isolation [] Abandonment Spirituality of Patient [] Person of Yolis [] Attends Taoist of their Yolis [] Believes in Prayer [] Reads Bible or Orthodox materials [] There are Spiritual issues to be addressed Filter Plant Operator Interventions [x] Prayer [] Active listening [] Non-anxious presence [] Spiritual/emotional support [] Crisis/trauma care [] Spiritual counseling [] Bereavement support [] Provided bereavement packet [] Provided Bible/devotional materials [] Provided toy/stuffed animal, coloring book to patient or family member [] Provided Communion [] Anointing/[place] [] Salvation [x] Completed spiritual assessment [] Other: Impact on Illness or Injury [] Angry [] Fearful [] Anxious [] Often cries [] Exhaustion [] Unable to work [] Unable to attend judaism [] Unable to walk/stand [] Unable to read [] Unable to drive [] Unable to eat/drink [] Unable to sleep [] Unable to be with family [] Patient intubated [] Other: Summary didn't sleep well at all... rather negative regarding healing Time spent with patient 5 min
--- NOTE | 2021-08-14 10:34 | PC.NURSE ---
This morning patient attempted to utilize bedside commode. Patient became dizzy and requested to return to bed. Patient had large black tarry stool with small blood clots noted. Patient also incontinent of badder with dark yellow urine with a strong odor.
--- NOTE | 2021-08-14 10:55 | PC.NURSE ---
Patient was to have a colonoscopy case was aborted after the procedure was started. Dr. Winkler sates that it will be a Colonoscopy aborted on the documentated
[2021-08-14] MEDS: magnesium citrate Btl 296 mL PO (13:06)
[2021-08-14] MEDS: magnesium citrate Btl 296 mL 592 ML PO (13:22)
--- NOTE | 2021-08-14 13:22 | PM.PN ---
Subjective Subjective: Patient is hemodynamically stable, hemoglobin is 8, this morning she noticed blood clots in her stool, EGD and flexible sigmoidoscopy done, duodenal bulb friable mucosa noted on EGD Patient is stating her previous colonoscopies were unremarkable He was complaining of reproducible left-sided chest pain Vitals/I&O/Wt Last Vital Signs Temp 97.7 F 08/14/21 09:26 Pulse 65 08/14/21 09:26 Resp 20 H 08/14/21 09:26 BP 129/53 08/14/21 09:26 Pulse Ox 97 08/14/21 09:26 08/13/21 08/14/21 08/14/21 22:59 06:59 14:59 Intake Total 1372 / 1372 380 / 1752 112.5 / 112.5 Balance 1372 / 1372 380 / 1752 112.5 / 112.5 Weight last 48 hrs Weight 89.448 kg Weight 87.09 kg Physical Exam Narrative: Patient is doing fine, pleasant cooperative No active chest pain or shortness of breath Saturating well on 4 L nasal cannula Abdomen soft nontender, she has some tenderness in right lower quadrant Reproducible left-sided chest pain EOMI, PERRLA Nonfocal neuro exam Does not look dehydrated Data : 08/14/21 04:32 08/14/21 04:32 A&P Assessment and plan (1) GI bleed: Status: Acute (2) Anemia: Status: Acute (3) Sleep apnea: Status: Acute (4) Restrictive lung disease: Status: Acute (5) Coronary artery disease due to type 2 diabetes mellitus: Status: Acute (6) Malignant neoplasm of ampulla of Vater: Status: Acute (7) Poorly controlled type 2 diabetes mellitus: Status: Acute (8) Chronic atrial fibrillation: Status: Acute (9) Type 2 diabetes mellitus: Status: Chronic Qualifiers: Diabetes mellitus complication detail: with other circulatory complications Diabetes mellitus complication status: with circulatory complication Diabetes mellitus assisted insulin use: with assisted use Qualified Code(s): E11.59 - Type 2 diabetes mellitus with other circulatory complications; Z79.4 - roasterman (current) use of insulin (10) Diastolic CHF: Status: Chronic Qualifiers: Heart failure chronicity: chronic Qualified Code(s): I50.32 - Chronic diastolic (congestive) heart failure Plan Acute normocytic anemia GI blood loss EGD showed duodenal bulb ulcer Clotted blood blood seen in flexible sigmoidoscopy Can follow-up with general surgery for complete colonoscopy outpatient. If her hemoglobin stays stable and dynamically she is fine by tomorrow Restart clear liquid after her scope She can be transferred out of ICU A. fib without RVR Not a candidate of anticoagulation COPD without acute exacerbation Currently doing well on home regimen of 4 L Patient is full code DVT prophylaxis: SCDs Attestations Medical Necessity Statement*: She can transfer out of ICU if stays stable in next few hours Time Spent in Patient Care: 30mins Coding Level of Care Code Acute Skin Washer for Chg Fwd Diagnoses GI bleed K92.2 Anemia D64.9 Sleep apnea G47.30 Restrictive lung disease J98.4 Coronary artery disease due to type 2 diabetes mellitus E11.59; I25.10 Malignant neoplasm of ampulla of Vater C24.1 Poorly controlled type 2 diabetes mellitus E11.65 Chronic atrial fibrillation I48.20 Type 2 diabetes mellitus E11.59; Z79.4 Diabetes mellitus complication detail: with other circulatory complications Diabetes mellitus complication status: with circulatory complication Diabetes mellitus assisted insulin use: with long chain quiller tender use Diastolic CHF I50.32 Heart failure chronicity: chronic
--- NOTE | 2021-08-14 13:23 | PC.NURSE ---
Magnesium Citrate : Total of 592ml of magnesium citrate consumed by patient for GI prep.
[2021-08-14] MEDS: ondansetron 2 mg/ML SDV 2 mL 4 MG IVP (14:01)
--- NOTE | 2021-08-14 14:09 | ANE.PACU2 ---
Inpatient post-anesthesia follow up: Airway intact: Yes Vital signs: Temperature 97.7 F Pulse Rate 65 Respiratory Rate 20 Blood Pressure 129/53 Pulse Oximetry 97 Oxygen Delivery Me thod Nasal Cannula Oxygen Flow Rate 4 Fraction of Inspir ed Oxygen 35 Hydration adequate: Yes Nausea and vomiting: No Pain level: 1 Mental status: Baseline
[2021-08-14] MEDS: pantoprazole 40 mg SDV IVP (14:20)
--- NOTE | 2021-08-14 14:32 | CT_ITS ---
WS: [id number] CT ABDOMEN PELVIS TECHNIQUE: Contrast-enhanced CT of the abdomen and pelvis with coronal and sagittal reformatted image s. CLINICAL INFORMATION: Abdominal pain COMPARISON: None. DLP: 1715.[address] scans at [facility] use at least one of these dose optimization techniques: automated e xposure control; mA and/or kV adjustment per patient size (includes targeted exams where dose is matc hed to clinical indication); or iterative reconstruction. FINDINGS:Mild diffuse fatty infiltration the liver. Normal portal vein and splenic vein. Small esopha geal hiatal hernia. Fluid distended stomach with air-fluid level is new from previous. Fluid extends into the distal esophagus. No evidence of high-grade small or large bowel obstruction. Sigmoid divert iculosis. No evidence of acute diverticulitis. A few air-fluid levels in the transverse colon. Fatty atrophy of the pancreas. Small fat-containing umbilical hernia. Mild rectosigmoid constipation. Disc space narrowing L5-S1. Mild interstitial thickening in the lung bases. Tiny trace of LEFT pleural fluid. Prior postoperative cholecystectomy. Pneumobilia stable from previous. Stable infrarenal saccular abdominal aortic aneur ysm measuring 3.2 CM. Prior appendectomy and hysterectomy. Splenic cyst or hemangiomas are unchanged. LEFT renal cyst measuring 5.0 cm unchanged. No hydronephrosis in either kidney. CT/CT abdomen pelvis w con* [id number] IMPRESSION: 1. Diffuse gastric distention is new from previous with fluid-filled stomach w ith air-fluid level. Fluid extends into the distal esophagus. Recommend correla tion for gastroparesis. 2. No other significant changes from previous. 3. Mild diffuse fatty infiltration of the liver. 4. Prior cholecystectomy with pneumobilia. 5. Mild distal rectosigmoid constipation. 6. Stable saccular infrarenal abdominal aortic aneurysm. 7. Stable prior appendectomy and hysterectomy.
[2021-08-14] MEDS: iohexol 300 mg/mL 100 mL Btl IV (15:21)
[2021-08-14 16:54] LABS: Hematocrit 27.2 % (37.0-47.0); Hemoglobin 8.4 g/dL (11.5-15.3)
[2021-08-14 16:57] LABS: Lactate (Lactic Acid level) 0.9 mmol/L (0.5-2.2)
[2021-08-14 21:00] LABS: Glucose Point of Care 168 mg/dL (70-110)
[2021-08-14] MEDS: simethicone 80 mg Chew PO (21:25)
[2021-08-15] MEDS: pantoprazole 40 mg SDV IVP ×2 (01:21→13:21)
[2021-08-15 04:11] LABS: Basophils % 0.3 %; Eosinophils # 0.1 10^3/uL (0.0-0.8); Eosinophils % 0.5 %; Hematocrit 27.1 % (37.0-47.0); Hemoglobin 8.4 g/dL (11.5-15.3); Lymphocytes # 0.8 10^3/uL (0.8-4.8); Lymphocytes % 8.5 %; Mean Corpuscular Hemoglobin 29.1 pg (28.0-34.0); Mean Corpuscular Volume 93.8 fl (81-99); Mean Platelet Volume 9.7 fL (7.4-10.4); Monocytes # 0.7 10^3/uL (0.2-0.9); Neutrophils # 7.49 10^3/uL (1.8-7.7); Neutrophils % 82.3 %; Nucleated Red Blood Cells # 0.1 /100WBC; Nucleated Red Blood Cells % 0.5 %; Platelet Count 208 10^3/cmm (130-400); Red Blood Count 2.89 10^6/uL (4.1-5.3); Red Cell Distribution Width 18.6 % (12.1-15.1); White Blood Count 9.1 10^3/uL (4.0-10.0)
[2021-08-15 04:36] LABS: Anion Gap 11.7 (5-19); Blood Urea Nitrogen 16 mg/dL (8-23); Calcium 8.2 mg/dL (8.5-10.5); Carbon Dioxide 27 mmol/L (22-29); Chloride 108 mmol/L (98-107); Glucose 139 mg/dL (65-115); Osmolality Calculated 299 mOsm/kg (285-295); Potassium 3.7 mmol/L (3.5-5.1); Sodium 143 mmol/L (136-145)
[2021-08-15 07:30] VITALS: BP 132/57; PULSE 62; RESP 16; O2SAT 96
[2021-08-15 08:00] VITALS: BP 132/57; PULSE 61; RESP 17; O2SAT 98
[2021-08-15] MEDS: levothyroxine 25 mcg Tablet PO (08:49)
[2021-08-15 09:00] VITALS: BP 136/51; PULSE 60; RESP 15; O2SAT 98
--- NOTE | 2021-08-15 09:53 | PC.CHAP ---
Pastoral Care Encounter/Spiritual Assessment Type of Contact [] Declined lead furnace operator visit [] Patient/Family/Request visit [] Outpatient visit [] Follow-up visit [] Physician referral [] Code/Alert [x] Routine visit [] Staff referral [] Actively dying [] Patient sleeping [] Family support [] [] Out of room [] Palliative care [] [] Receiving care in room [] Pre-surgical visit [] Trauma [] Long length of stay [x] ICU visit [] Other: Relational/Emotional Strength [] Patient feels connected with others/family/visitors/staff [] Distress [] Loneliness/isolation [] Abandonment Spirituality of Patient [] Person of Yolis [] Attends Muslim of their [place] [] Believes in Prayer [] Reads Bible or Judaism materials [] There are Spiritual issues to be addressed Vice President Of Instruction Interventions [x] Prayer [x] Active listening [x] Non-anxious presence [x] Spiritual/emotional support [] Crisis/trauma care [] Spiritual counseling [] Bereavement support [] Provided bereavement packet [] Provided Bible/devotional materials [] Provided toy/stuffed animal, coloring book to patient or family member [] Provided Communion [] Anointing/[place] [] Salvation [x] Completed spiritual assessment [] Other: Impact on Illness or Injury [] Angry [] Fearful [] Anxious [] Often cries [] Exhaustion [] Unable to work [] Unable to attend alevism [] Unable to walk/stand [] Unable to read [] Unable to drive [] Unable to eat/drink [] Unable to sleep [] Unable to be with family [] Patient intubated [] Other: Summary patient feeling better today... enjoyed visit Time spent with patient 5 min
--- NOTE | 2021-08-15 11:24 | PM.PN ---
Subjective Subjective: Patient is smiling and in good spirits this morning. She reports that her pain is improved. She is still having somewhat thick dark stools. Her hemoglobin has been stable and she has not required further transfusion in the last 24 hours. Vitals/I&O/Wt Last Vital Signs Temp 97.7 F 08/14/21 09:26 Pulse 60 08/15/21 09:00 Resp 15 08/15/21 09:00 BP 136/51 08/15/21 09:00 Pulse Ox 98 08/15/21 09:00 08/14/21 08/15/21 08/15/21 22:59 06:59 14:59 Intake Total 720 / 720 Output Total 3 / 3 Balance -3 / 109.5 720 / 720 Weight last 48 hrs Weight 198 lb 8 oz Weight 197 lb 3.2 oz Weight 192 lb Physical Exam Narrative: General: No acute distress, awake alert and oriented x3 Abdomen: Soft, nondistended, minimally tender to palpation right abdomen without guarding rebound or masses. Tenderness is mostly resolved Data : 08/15/21 03:03 08/15/21 03:03 A&P Assessment and plan (1) GI bleed: Status: Acute Plan EGD yesterday was within normal limits. I did take a biopsy of her duodenum to look for microscopic evidence of residual tumor, although nothing was seen clinically. Hospitalist will advance her diet today and she will likely be discharged tomorrow. Colonoscopy will be scheduled as an outpatient. Patient appears to no longer be bleeding Attestations Medical Necessity Statement*: Further hospitalization per hospitalist Coding Level of Care Code Acute Process Improvement Engineer for [facility] Diagnoses GI bleed K92.2
--- NOTE | 2021-08-15 11:34 | PC.NURSE ---
Patient appears to be in good spirits today. Frequent stool throughout night which is green in color without visible blood. Patient continues to have small frequent stools this morning, liquid, green, without visible blood. Dr. Ingram spoke with patient at bedside regarding outpatient follow up for colonoscopy. This nurse gave updates to at bedside. brought Power of food service worker hospital paperwork which was added to patients paper chart. did not have any questions when asked by this nurse.
--- NOTE | 2021-08-15 14:38 | P.PN_ITS ---
Subjective Subjective: Hemoglobin stable Plan for outpatient colonoscopy, advance diet today Her stool color changing to brown now Hemodynamically stable Abdominal pain has subsided after passage of excessive gas CT abdomen pelvis is unremarkable Vitals/I&O/Wt Last Vital Signs Temp 97.7 F 08/14/21 09:26 Pulse 60 08/15/21 09:00 Resp 15 08/15/21 09:00 BP 136/51 08/15/21 09:00 Pulse Ox 98 08/15/21 09:00 08/14/21 08/15/21 08/15/21 22:59 06:59 14:59 Intake Total 960 / 960 Output Total 3 Balance -3 / 109.5 960 / 960 Weight last 48 hrs Weight 90.038 kg Weight 89.448 kg Physical Exam Narrative: Patient is laying supine No active chest pain or abdominal pain Tolerating her diet Hemodynamically stable No signs of edema of legs Bowel sounds present Very pleasant and cooperative EOMI, PERRLA Nonfocal neuro exam Looks euvolemic Data : 08/15/21 03:03 08/15/21 03:03 Micro: Microbiology 08/14/21 23:01 Enteric Pathogens (PCR) - Final Stool - Stool Aspirate A&P Assessment and plan (1) GI bleed: Status: Acute (2) Lower gastrointestinal hemorrhage: Status: Acute (3) Anemia: Status: Acute (4) Sleep apnea: Status: Acute Plan Acute blood loss anemia GI blood loss Status post EGD and flexible sigmoidoscopy Duodenal bulb ulcer Biopsy taken Hemoglobin stable Hemodynamically stable She can be transferred to [facility] once we have a bed Planning to discharge her tomorrow if hemoglobin stays stable Sucralfate omeprazole at discharge, colonoscopy outpatient with Dr. Winkler Diet advanced today Chronic A. fib not a candidate of anticoagulation Patient is endorsing weakness and lethargy PT evaluation Attestations Medical Necessity Statement*: Discharge tomorrow Time Spent in Patient Care: 30 Coding Level of Care Code Acute Investigator Utility Bill Complaints for radha Alfredo Diagnoses GI bleed K92.2 Lower gastrointestinal hemorrhage K92.2 Anemia D64.9 Sleep apnea G47.30
[2021-08-15 20:38] LABS: Glucose Point of Care 144 mg/dL (70-110)
[2021-08-15 20:55] VITALS: BP 128/63; PULSE 60; RESP 16; TEMP 36.4; O2SAT 96
[2021-08-15 21:56] VITALS: PULSE 62; RESP 16; O2SAT 97
[2021-08-16] VITALS (8 sets, daily range): BP systolic 116–135; BP diastolic 64–74; PULSE 58–69; RESP 15–18; TEMP 36.5–36.6; O2SAT 96–99
[2021-08-16] MEDS: pantoprazole 40 mg SDV IVP (00:45)
[2021-08-16 04:41] LABS: Glucose Point of Care 121 mg/dL (70-110)
[2021-08-16 06:29] LABS: Basophils % 0.1 %; Eosinophils # 0.1 10^3/uL (0.0-0.8); Eosinophils % 0.8 %; Hematocrit 27.9 % (37.0-47.0); Hemoglobin 8.6 g/dL (11.5-15.3); Lymphocytes # 0.7 10^3/uL (0.8-4.8); Lymphocytes % 7.3 %; Mean Corpuscular HGB Conc 30.8 g/dL (30.0-36.0); Mean Corpuscular Hemoglobin 29.2 pg (28.0-34.0); Mean Corpuscular Volume 94.6 fl (81-99); Mean Platelet Volume 9.5 fL (7.4-10.4); Monocytes # 0.7 10^3/uL (0.2-0.9); Monocytes % 7.7 %; Neutrophils # 7.64 10^3/uL (1.8-7.7); Neutrophils % 83.7 %; Nucleated Red Blood Cells % 0.3 %; Platelet Count 191 10^3/cmm (130-400); Red Blood Count 2.95 10^6/uL (4.1-5.3); Red Cell Distribution Width 18.1 % (12.1-15.1); White Blood Count 9.1 10^3/uL (4.0-10.0)
[2021-08-16 07:08] LABS: Anion Gap 11.7 (5-19); Blood Urea Nitrogen 13 mg/dL (8-23); Calcium 8.3 mg/dL (8.5-10.5); Carbon Dioxide 25 mmol/L (22-29); Chloride 106 mmol/L (98-107); Glucose 106 mg/dL (65-115); Osmolality Calculated 289 mOsm/kg (285-295); Potassium 3.7 mmol/L (3.5-5.1); Sodium 139 mmol/L (136-145)
[2021-08-16] MEDS: levothyroxine 25 mcg Tablet PO (09:08)
[2021-08-16] MEDS: morphine 4 mg/mL SDV 1 mL 2 MG IVP ×2 (09:08→12:08)
[2021-08-16 11:15] LABS: Glucose Point of Care 210 mg/dL (70-110)
--- NOTE | 2021-08-16 12:34 | P.DS_ITS ---
Discharge Providers Date of Admission: 08/13/21 17:16 Date of Discharge: August 16, 2021 Attending Provider at Admission: Van Jain MD Attending Provider at Discharge: Van Jain MD Primary Care Provider: BÁRBARA Ruvalcaba Diagnoses at Discharge Discharge Diagnosis (1) GI bleed: Status: Acute (2) Lower gastrointestinal hemorrhage: Status: Acute (3) Anemia: Status: Acute (4) Sleep apnea: Status: Acute Reason for Visit Reason for Visit: Abd Pain, Alot of blood in stool Hospital Course Hospital Course 81-year-old female who was admitted for management evaluation of active GI bleed, acute normocytic anemia, she was experiencing dark-colored stools with blood clots, EGD and colonoscopy was recommended however because of in appropriate bowel prep we were able to do EGD and flexible sigmoidoscopy. EGD did show duodenitis, biopsies unremarkable no signs of malignancy, rectal vault had blood with clots. She required blood transfusion during hospitalization, her hemoglobin remained stable after her blood transfusion, she was hemodynamically stable as well. Color of her stool changed from dark to somewhat brown. She will see Dr. Winkler outpatient for colonoscopy. Patient has stopped taking iron as per her PCP. I have counseled her not to take ibuprofen, aspirin. Recent iron studies were not remarkable for iron deficiency. PT evaluation was requested because of her weakness and lethargy, the recommended home exercise program. She complained of new abdominal pain after her endoscopy however it subsided after passage of flatus. Likely related to gas inflation during scope. CT abdomen pelvis was unremarkable, no signs of viscus perforation. Physical Exam Narrative: Patient is laying supine No active chest pain or abdominal pain Tolerating her diet Hemodynamically stable No signs of edema of legs Bowel sounds present Very pleasant and cooperative EOMI, PERRLA Nonfocal neuro exam Looks euvolemic Discharge Data Studies Completed and Pending Completed Studies During Hospitalization Category Date Time Status CT abdomen pelvis w con* [id number] Routine Cat Scan 08/14/21 14:[address] abdomen pelvis wo con [id number] Urgent Cat Scan 08/13/21 13:17 Completed Pathology: Surgical [PTH] Routine Pth 08/14/21 10:54 Completed Radiology Impressions Abdomen/Pelvis CT 08/14/21 14:32 IMPRESSION: 1. Diffuse gastric distention is new from previous with fluid-filled stomach with air-fluid level. Fluid extends into the distal esophagus. Recommend correlation for gastroparesis. 2. No other significant changes from previous. 3. Mild diffuse fatty infiltration of the liver. 4. Prior cholecystectomy with pneumobilia. 5. Mild distal rectosigmoid constipation. 6. Stable saccular infrarenal abdominal aortic aneurysm. 7. Stable prior appendectomy and hysterectomy. Laboratory Results WBC 9.1 10^3/uL (4.0-10.0) 08/16/21 06:10 RBC 2.95 10^6/uL (4.1-5.3) L 08/16/21 06:10 Hgb 8.6 g/dL (11.5-15.3) L 08/16/21 06:10 Hct 27.9 % (37.0-47.0) L 08/16/21 06:10 MCV 94.6 fl (81-99) 08/16/21 06:10 MCH 29.2 pg (28.0-34.0) 08/16/21 06:10 MCHC 30.8 g/dL (30.0-36.0) 08/16/21 06:10 RDW 18.1 % (12.1-15.1) H 08/16/21 06:10 Plt Count 191 10^3/cmm (130-400) 08/16/21 06:10 MPV 9.5 fL (7.4-10.4) 08/16/21 06:10 Neut % (Auto) 83.7 % 08/16/21 06:10 Lymph % (Auto) 7.3 % 08/16/21 06:10 [place] % (Auto) 7.7 % 08/16/21 06:10 Eos % (Auto) 0.8 % 08/16/21 06:10 Baso % (Auto) 0.1 % 08/16/21 06:10 Neut # (Auto) 7.64 10^3/uL (1.8-7.7) 08/16/21 06:10 Lymph # (Auto) 0.7 10^3/uL (0.8-4.8) L 08/16/21 06:10 [place] # (Auto) 0.7 10^3/uL (0.2-0.9) 08/16/21 06:10 Eos # (Auto) 0.1 10^3/uL (0.0-0.8) 08/16/21 06:10 Baso # (Auto) 0.0 10^3/uL (0.0-0.1) 08/16/21 06:10 Nucleated RBC % (auto) 0.3 % 08/16/21 06:10 Nucleated RBCs # 0.0 /100WBC 08/16/21 06:10 PT 14.70 SECONDS (12.1-14.9) 08/13/21 13:10 INR 1.12 (0.8-1.2) 08/13/21 13:10 Sodium 139 mmol/L (136-145) 08/16/21 06:10 Potassium 3.7 mmol/L (3.5-5.1) 08/16/21 06:10 Chloride 106 mmol/L (98-107) 08/16/21 06:10 Carbon Dioxide 25 mmol/L (22-29) 08/16/21 06:10 Anion Gap 11.7 (5-19) 08/16/21 06:10 BUN 13 mg/dL (8-23) 08/16/21 06:10 Creatinine 0.6 mg/dL (0.5-0.9) 08/16/21 06:10 GFR Calculation Not Reportable 08/16/21 06:10 Glucose 106 mg/dL (65-115) 08/16/21 06:10 POC Glucose 210 mg/dL (70-110) H 08/16/21 11:03 Calculated Osmolality 289 mOsm/kg (285-295) 08/16/21 06:10 Lactate 0.9 mmol/L (0.5-2.2) 08/14/21 16:10 Calcium 8.3 mg/dL (8.5-10.5) L 08/16/21 06:10 Magnesium 2.1 mg/dL (1.7-2.3) 08/14/21 04:32 Total Bilirubin 0.3 mg/dL (0.15-1.2) 08/13/21 13:10 AST 16 U/L (0-32) 08/13/21 13:10 ALT 11 U/L (0-33) 08/13/21 13:10 Alkaline Phosphatase 68 IU/L (35-105) 08/13/21 13:10 Troponin T Baseline 34 ng/L (0-10) H 08/13/21 18:08 Troponin T 120 Minute 36.93 ng/L (0-10) H 08/13/21 20:12 Delta Troponin T 2.93 ABS# (0-10) 08/13/21 20:12 Troponin T Hi Sens 6Hr 38.45 ng/L (0-10) H 08/13/21 23:55 Troponin T Hi Sens 6Hr Delta 4.45 ng/L (0-12) 08/13/21 23:55 Total Protein 6.5 g/dL (6.6-8.7) L 08/13/21 13:10 Albumin 3.5 g/dL (3.5-5.2) 08/13/21 13:10 Globulin 3.0 g/dL (1.3-4.6) 08/13/21 13:10 Blood Type O Negative 08/13/21 13:10 Rho(D) Type Negative 08/13/21 13:10 Antibody Screen Negative 08/13/21 13:10 Crossmatch See Detail 08/13/21 13:10 Vitals Last Vital Signs Temp 97.7 F 08/16/21 11:58 Pulse 61 08/16/21 11:58 Resp 18 08/16/21 12:08 BP 120/69 08/16/21 11:58 Pulse Ox 96 08/16/21 11:58 Discharge Plan Discharge Patient Disposition: Home Condition: Stable Prescriptions: New omeprazole 20 mg capsule,delayed release(DR/EC) 20 mg PO BID 56 Days Qty: 112 0RF sucralfate 100 mg/mL suspension 1 g PO BID 56 Days Qty: 1120 0RF Continued levothyroxine 25 mcg capsule 25 mcg PO DAILY 0RF ipratropium-albuterol 0.5 mg-3 mg(2.5 mg base)/3 mL solution for nebulization 3 ml inhalation Q6H Qty: 360 3RF clopidogrel 75 mg tablet 75 mg PO DAILY Qty: 90 3RF Lasix 40 mg tablet 40 mg PO DAILY Qty: 90 3RF Nitrostat 0.4 mg tablet, sublingual 0.4 mg SUBLINGUAL Q5M PRN (Reason: Chest Pain) Qty: 25 3RF potassium chloride 10 mEq capsule, extended release 10 meq PO DAILY Qty: 90 3RF pravastatin 40 mg tablet 40 mg PO DAILY Qty: 90 3RF insulin detemir U-100 100 unit/mL (3 mL) insulin pen See Rx Instructions SUBCUT BEDTIME 0RF Rx Instructions: 30 to 40 units SUBCUT bedtime PRN; citalopram 20 mg Tablet 20 mg PO DAILY 0RF ondansetron HCl 4 mg tablet 4 mg PO Q6H PRN (Reason: nausea and vomiting) Qty: 20 0RF Discharge Orders: Discharge Order (Routine); Ordered 08/16/21 Ordered By: Van Jain Referrals: Arturo Winkler DO [Physician] - 1 week Grace Willett FNP [Primary Care Provider] - 2 weeks Discharge Diet: GI Soft Discharge Activity: As per PT/OT instructions Patient Instructions: GI Discharge Instructions, Opioid Safety Discharge Attestations Time Spent in Discharge Care*: less than 30 min Quality Metrics Clinical Quality Measures [ No reported AMI, CVA or VTE this stay] Coding Level of Care Code Acute Chg FW DC note Diagnoses GI bleed K92.2 Lower gastrointestinal hemorrhage K92.2 Anemia D64.9 Sleep apnea G47.30
--- NOTE | 2021-08-16 12:35 | PC.SOCIAL ---
Pg 2 IMM Explained to pt Pg 2 IMM. No questions voiced. Provided pt a copy. Initialed, dated, & timed a copy & placed in chart.
== END 2021-08-16 13:43 | disposition home or self-care (01) | DRG 378 ==
LOC: ER 15:03 → ICU 17:31 → MEDSURG 08-15 19:34
PROVIDERS: Internal Medicine; Surgery; Admitting Provider Internal Medicine; Emergency Provider Emergency Medicine; PCP Nurse Practitioner Family; Visit Provider Internal Medicine
PROC: 0DJ08ZZ Inspection of Upper Intestinal Tract, Via Natural or Artificial Opening Endoscopic (ICD-10-PCS; CPT 43235; principal; 2021-08-14 10:00)
PROC: 0DJD8ZZ Inspection of Lower Intestinal Tract, Via Natural or Artificial Opening Endoscopic (ICD-10-PCS; CPT 45330; 2021-08-14 10:00)
DX: K29.81 Duodenitis with bleeding (principal); I48.20 Chronic atrial fibrillation, unspecified; K86.1 Other chronic pancreatitis; I50.32 Chronic diastolic (congestive) heart failure; D62 Acute posthemorrhagic anemia; Z85.038 Personal history of other malignant neoplasm of large intestine; Z95.0 Presence of cardiac pacemaker; I25.10 Atherosclerotic heart disease of native coronary artery without angina pectoris; Z95.5 Presence of coronary angioplasty implant and graft; E11.42 Type 2 diabetes mellitus with diabetic polyneuropathy; E11.65 Type 2 diabetes mellitus with hyperglycemia; E11.59 Type 2 diabetes mellitus with other circulatory complications; I11.0 Hypertensive heart disease with heart failure; G47.33 Obstructive sleep apnea (adult) (pediatric); Z86.711 Personal history of pulmonary embolism; Z99.81 Dependence on supplemental oxygen; Z87.891 Personal history of nicotine dependence; Z87.01 Personal history of pneumonia (recurrent); E78.5 Hyperlipidemia, unspecified; R33.9 Retention of urine, unspecified; Z79.4 Long term (current) use of insulin; Z79.02 Long term (current) use of antithrombotics/antiplatelets; J44.9 Chronic obstructive pulmonary disease, unspecified; Z92.3 Personal history of irradiation; Z92.21 Personal history of antineoplastic chemotherapy; E03.9 Hypothyroidism, unspecified; F41.8 Other specified anxiety disorders
CPT/HCPCS: 36415; 36416; 36430; 43239; 45330; 74176; 74177; 80048; 80053; 82962; 83605; 83735; 84484; 85014; 85018; 85025; 85610; 86850; 86900; 86920; 87506; 88305; 93005; 96360; 96361; 96372; 97110; 97161; 99285; C9113; J1815; J2270; J2405; J2704; J7030; J7050; P9016; Q9967

== ENCOUNTER → 2021-08-23 09:29 | Outpatient (BNVA) | payer MEDICARE, SELFPAY | PROVIDERS: PCP Nurse Practitioner Family; Visit Provider Surgery | DX: Z09 Encounter for follow-up examination after completed treatment for conditions other than malignant neoplasm (principal); K29.80 Duodenitis without bleeding; W88.8XXA Exposure to other ionizing radiation, initial encounter; R10.9 Unspecified abdominal pain; D64.9 Anemia, unspecified; K92.2 Gastrointestinal hemorrhage, unspecified | CPT/HCPCS: 99214 ==

== ENCOUNTER → 2021-09-26 10:24 | Outpatient (BNVA) | payer MEDICARE, SELFPAY | PROVIDERS: PCP Nurse Practitioner Family; Visit Provider Podiatrist Foot & Ankle Surgery | DX: E11.42 Type 2 diabetes mellitus with diabetic polyneuropathy (principal); L60.3 Nail dystrophy; I73.9 Peripheral vascular disease, unspecified; M20.41 Other hammer toe(s) (acquired), right foot; M20.42 Other hammer toe(s) (acquired), left foot | CPT/HCPCS: 11721 ==

== ENCOUNTER 2021-10-05 09:02 | Day surgery (SDC) | payer MEDICARE, SELFPAY ==
[2021-10-03 09:07] VITALS: BMI 34.3
[2021-10-05 09:31] VITALS: BP 147/85; PULSE 61; RESP 18; TEMP 37; O2SAT 95
[2021-10-05] MEDS: sodium chloride 0.9% 1,000 ML 30 ML IV (09:39)
--- NOTE | 2021-10-05 09:50 | ANES.PREANE2 ---
Pre-Anesthetic Assessment Height/Weight: Height 1.6 m Weight 87.997 kg Temp Pulse Resp BP Pulse Ox O2 Del Method O2 Flow Rate 98.6 F 61 18 147/85 95 4 10/05/21 09:31 10/05/21 09:31 10/05/21 09:31 10/05/21 09:31 10/05/21 09:31 10/05/21 09:31 10/05/21 09:31 Preop Diagnosis: GI bleed Operation Date: 10/05/21 10:45 Proposed Procedures p Colonoscopy 82486,K92.2(Not Applicable) - Arturo Winkler DO Familial anesthetic complications: None Was Beta Yasmany taken within 24 hours: N/A Was Clonidine taken within 24 hours: N/A Last intake: Intake Last Liquid Date 10/04/21 Last Liquid Time 05:00 Last Solid Date 10/03/21 Last Solid Time 20:00 Social No alcohol and No tobacco Exam alert, oriented x 3, clear to auscultation bilaterally and regular rate & rhythm Airway Mallampati: Class II Dentition: full Pulmonary Chronic Obstructive Pulmonary Disease (4 L NC) CV/HEM Atrial Fibrillation and Congestive Heart Failure [employer] Hepatic fatty liver, pancreatic cancer GI Gastroesophageal Reflux Disease gastroparesis Metabolic Diabetes Mellitus, Hyperlipidemia, Morbid Obesity and Thyroid Disease Anesthetic Plan ASA status: 4 Anesthesia: MAC Risk of > 500 ml blood loss (7ml/kg in children): No Medications/Allergies Home Medications Medication Instructions Recorded Confirmed Last Taken Type ipratropium 0.5 mg-albuterol 3 mg 3 ml inhalation Q6H wheezing #360 08/04/20 10/03/21 10/04/21 Rx (2.5 mg base)/3 mL nebulization mL soln levothyroxine 25 mcg capsule 25 mcg PO DAILY 08/04/20 10/03/21 10/04/21 History citalopram 20 mg tablet 20 mg PO DAILY 12/11/20 10/03/21 10/04/21 History clopidogrel 75 mg tablet 75 mg PO DAILY #90 tabs 02/13/21 10/03/21 09/28/21 Rx furosemide 40 mg tablet (Lasix) 40 mg PO DAILY #90 tabs 02/13/21 10/03/21 10/04/21 Rx nitroglycerin 0.4 mg sublingual 0.4 mg sublingual Q5M PRN Chest 02/13/21 10/03/21 10/04/21 Rx tablet (Nitrostat) Pain #25 tabs potassium chloride 10 mEq 10 meq PO DAILY #90 caps 02/13/21 10/03/21 10/04/21 Rx capsule,extended release pravastatin 40 mg tablet 40 mg PO DAILY #90 tabs 02/13/21 10/03/21 10/04/21 Rx insulin detemir U-100 100 unit/mL See Rx Instructions SUBCUT BEDTIME 07/11/21 10/03/21 10/04/21 History (3 mL) subcutaneous pen pantoprazole 40 mg tablet,delayed 40 mg PO BID 12 weeks #126 tabs 08/23/21 10/03/21 10/04/21 Rx release (Protonix) Diabetic Shoes with 3 sets of #1 ea 09/26/21 09/26/21 10/04/21 Rx insoles sucralfate 100 mg/mL oral 1 g PO BID 10/03/21 10/03/21 10/04/21 History suspension (Carafate) Allergies Allergy/AdvReac Type Severity Reaction Status Date / Time aspirin Allergy Stomach Verified 10/05/21 09:20 Cramps codeine Allergy ADR-Halluci Verified 10/05/21 09:20 nating digoxin Allergy BLISERS IN Verified 10/05/21 09:20 MOUTH Sulfa (Sulfonamide Allergy ALGY-Hives Verified 10/05/21 09:20 Antibiotics) tetanus and diphtheria Allergy ADR-Vomitin Verified 10/05/21 09:20 toxoids g Current Medications Generic Name Dose Route Start Last Admin Trade Name Virgilioq PRN Reason Stop Dose Admin Sodium Chloride 1,000 mls @ 30 mls/hr 10/05/21 09:15 10/05/21 09:39 Sodium Chloride 0.9% IV 10/06/21 09:14 30 mls/hr .Q24H UZAIR Administration PFSH Anesthesia Medical History Anemia Bleeding duodenal ulcer Chronic atrial fibrillation Chronic pancreatitis Coronary artery disease due to type 2 diabetes mellitus Diabetic peripheral neuropathy Diastolic CHF GI bleed History of colon polyps Hyperlipidemia Hypertension Hypoxemia Lower gastrointestinal hemorrhage 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, N0, M0 Nail fungus Pancreatic cancer Pneumonia Poorly controlled type 2 diabetes mellitus Lantus, Humalog initiated Restrictive lung disease Sleep apnea Type 2 diabetes mellitus Urinary retention Surgical History H/O: hysterectomy History of appendectomy History of cholecystectomy History of esophagogastroduodenoscopy (EGD) 03/15/2019: EGD with biopsy Findings: Duodenal ulceration, most likely source of her bleed History of thoracentesis S/P ablation of atrial fibrillation Status post colonoscopy with polypectomy 03/15/2019: Colonoscopy with polypectomy Findings: 2 cm sessile polyp in ascending colon removed with cold biopsy forceps Moderate diverticulosis sigmoid colon Grade 4 hemorrhoids Family History Mother CAD (coronary artery disease) Family/Other Cancer Father Chronic kidney disease (CKD) Brother Dementia Diabetes Family history of premature coronary artery disease Hypertension Sister Hypertension Social History Smoking and tobacco status: former smoker Quit status (tobacco): has quit using tobacco Year quit tobacco: 2013 PPD x 55 Years Second hand smoke exposure: No Alcohol intake: never Lives independently: Yes Household members: spouse Housing: House Marital status: Current occupational status: retired History of recent travel: No Current gender identity: Female Female Reproductive History Date of last menstrual period: 06/02/20 Data Anesthesia Cardiac Studies: Echocardiogram Ultrasound 03/02/20 Holter Monitor 09/18/19
--- NOTE | 2021-10-05 10:19 | P.HP_ITS ---
Providers/Chief Complaint Primary Care Provider: BÁRBARA Ruvalcaba Chief Complaint: Gastrointestinal hemorrhage History of Present Illness Radha Rose is a 81 year old female who is well-known to me. She is here for colonoscopy after a GI bleed. I attempted a colonoscopy on her while she was in the hospital but her colon was not prepped well enough. I did perform an EGD on her and identified radiation-induced duodenitis. I treated this with 6 weeks of Protonix and her pain and bleeding have resolved. No other changes since her last H&P Review of Systems General: Reports: 10 or more systems reviewed and unremarkable except in HPI and below Medications/Allergies Home Medications Medication Instructions Recorded Confirmed Last Taken Type ipratropium 0.5 mg-albuterol 3 mg 3 ml inhalation Q6H wheezing #360 08/04/20 10/03/21 10/04/21 Rx (2.5 mg base)/3 mL nebulization mL soln levothyroxine 25 mcg capsule 25 mcg PO DAILY 08/04/20 10/03/21 10/04/21 History citalopram 20 mg tablet 20 mg PO DAILY 12/11/20 10/03/21 10/04/21 History clopidogrel 75 mg tablet 75 mg PO DAILY #90 tabs 02/13/21 10/03/21 09/28/21 Rx furosemide 40 mg tablet (Lasix) 40 mg PO DAILY #90 tabs 02/13/21 10/03/21 10/04/21 Rx nitroglycerin 0.4 mg sublingual 0.4 mg sublingual Q5M PRN Chest 02/13/21 10/03/21 10/04/21 Rx tablet (Nitrostat) Pain #25 tabs potassium chloride 10 mEq 10 meq PO DAILY #90 caps 02/13/21 10/03/21 10/04/21 Rx capsule,extended release pravastatin 40 mg tablet 40 mg PO DAILY #90 tabs 02/13/21 10/03/21 10/04/21 Rx insulin detemir U-100 100 unit/mL See Rx Instructions SUBCUT BEDTIME 07/11/21 10/03/21 10/04/21 History (3 mL) subcutaneous pen pantoprazole 40 mg tablet,delayed 40 mg PO BID 12 weeks #126 tabs 08/23/21 10/03/21 10/04/21 Rx release (Protonix) Diabetic Shoes with 3 sets of #1 ea 09/26/21 09/26/21 10/04/21 Rx insoles sucralfate 100 mg/mL oral 1 g PO BID 10/03/21 10/03/21 10/04/21 History suspension (Carafate) Allergies Allergy/AdvReac Type Severity Reaction Status Date / Time aspirin Allergy Stomach Verified 10/05/21 09:20 Cramps codeine Allergy ADR-Halluci Verified 10/05/21 09:20 nating digoxin Allergy BLISERS IN Verified 10/05/21 09:20 MOUTH Sulfa (Sulfonamide Allergy ALGY-Hives Verified 10/05/21 09:20 Antibiotics) tetanus and diphtheria Allergy ADR-Vomitin Verified 10/05/21 09:20 toxoids g PFSH Acute PFSH: Medical History Anemia Bleeding duodenal ulcer Chronic atrial fibrillation Chronic pancreatitis Coronary artery disease due to type 2 diabetes mellitus Diabetic peripheral neuropathy Diastolic CHF GI bleed History of colon polyps Hyperlipidemia Hypertension Hypoxemia Lower gastrointestinal hemorrhage 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, N0, M0 Nail fungus Pancreatic cancer Pneumonia Poorly controlled type 2 diabetes mellitus Lantus, Humalog initiated Restrictive lung disease Sleep apnea Type 2 diabetes mellitus Urinary retention Surgical History H/O: hysterectomy History of appendectomy History of cholecystectomy History of esophagogastroduodenoscopy (EGD) 03/15/2019: EGD with biopsy Findings: Duodenal ulceration, most likely source of her bleed History of thoracentesis S/P ablation of atrial fibrillation Status post colonoscopy with polypectomy 03/15/2019: Colonoscopy with polypectomy Findings: 2 cm sessile polyp in ascending colon removed with cold biopsy forceps Moderate diverticulosis sigmoid colon Grade 4 hemorrhoids Family History Mother CAD (coronary artery disease) Family/Other Cancer Father Chronic kidney disease (CKD) Brother Dementia Diabetes Family history of premature coronary artery disease Hypertension Sister Hypertension Social History Smoking and tobacco status: former smoker Quit status (tobacco): has quit using tobacco Year quit tobacco: 2013 PPD x 55 Years Second hand smoke exposure: No Alcohol intake: never Lives independently: Yes Household members: spouse Housing: House Marital status: Current occupational status: retired History of recent travel: No Current gender identity: Female Female Reproductive History: Date of last menstrual period: 06/02/20 Vitals/I&O/Wt Last Vital Signs Temp 98.6 F 10/05/21 09:31 Pulse 61 10/05/21 09:31 Resp 18 10/05/21 09:31 BP 147/85 10/05/21 09:31 Pulse Ox 95 10/05/21 09:31 O2 Del Method 10/05/21 09:31 O2 Flow Rate 4 10/05/21 09:31 Physical Exam Narrative: General : Patient is well developed , no acute distress, oriented x3 Head : Normal cephalic, a-traumatic. Ears : Pinnae and external canal are normal. Hearing is normal. Eyes : PERRLA, Sclera and injection are normal. No conjunctival discharge. Nose : Mucous membranes are without erythema. Throat : buccal mucosa is normal, gums are without significant recession or hypertrophy. Lungs : Equal chest rise bilaterally, no use of accessory muscles, trachea is midline. Cor : Rate and rhythm are normal. Abdomen : Soft, ND, NT, no g/r/m Extremities : No edema, no cyanosis or clubbing, dorsalis pedis pulses are present bilaterally, non-tender to palpation of calves. Upper extremities are normal bilaterally. Back : non-tender to palpation, no CVA tenderness. Neuro : CN II - XII intact, Upper and lower extremities have equal and full strength A&P Assessment and plan (1) GI bleed: Status: Acute (2) Anemia: Status: Acute Plan Colonoscopy The risks and benefits of the procedure, including bleeding, infection, intestinal perforation requiring surgery, missed lesion, or explained to the patient. He is understanding of the risks and wishes to proceed. Attestations Medical Necessity Statement*: Patient will be discharged home after the procedure Coding Level of Care Code Acute [employer] Super[employer] for Ruth Alfredo Diagnoses GI bleed K92.2 Anemia D64.9
[2021-10-05 11:23] VITALS: BP 100/51; PULSE 62; RESP 18; TEMP 36.5; O2SAT 99
[2021-10-05 11:36] VITALS: BP 99/52; PULSE 60; RESP 18; TEMP 36.1; O2SAT 99
[2021-10-05 11:40] VITALS: BP 121/61
--- NOTE | 2021-10-05 12:49 | ANE.PACU2 ---
Inpatient post-anesthesia follow up: Airway intact: Yes Vital signs: Temperature 97 F Pulse Rate 60 Respiratory Rate 18 Blood Pressure 121/61 Pulse Oximetry 99 Oxygen Delivery Me thod Nasal Cannula Oxygen Flow Rate 4 Fraction of Inspir ed Oxygen Hydration adequate: Yes Nausea and vomiting: No Pain level: 1 Mental status: Baseline
== END 2021-10-05 11:56 | disposition home or self-care (01) ==
PROVIDERS: PCP Nurse Practitioner Family; Visit Provider Surgery
PROC: 0DJD8ZZ Inspection of Lower Intestinal Tract, Via Natural or Artificial Opening Endoscopic (ICD-10-PCS; CPT 45378; principal; 2021-10-05 10:45)
DX: K92.2 Gastrointestinal hemorrhage, unspecified (principal); D64.9 Anemia, unspecified; D12.2 Benign neoplasm of ascending colon; D12.4 Benign neoplasm of descending colon; J44.9 Chronic obstructive pulmonary disease, unspecified; Z99.81 Dependence on supplemental oxygen; Z95.0 Presence of cardiac pacemaker; K76.0 Fatty (change of) liver, not elsewhere classified; Z85.07 Personal history of malignant neoplasm of pancreas; E11.9 Type 2 diabetes mellitus without complications; E78.5 Hyperlipidemia, unspecified; E66.01 Morbid (severe) obesity due to excess calories; Z68.34 Body mass index [BMI] 34.0-34.9, adult; Z79.4 Long term (current) use of insulin; I48.20 Chronic atrial fibrillation, unspecified; I50.30 Unspecified diastolic (congestive) heart failure; G47.30 Sleep apnea, unspecified; Z87.891 Personal history of nicotine dependence
CPT/HCPCS: 45380; 45385; 88305; J2704; J7030

== ENCOUNTER 2021-10-19 06:39 | Outpatient (CLI) | payer MEDICARE, SELFPAY ==
--- NOTE | 2021-10-19 14:15 | PFTS_ITS ---
Date of Study:10/19/21 Date of Dictation: 10/23/2021 MECHANICS: Postbronchodilator forced vital capacity (FVC) is reduced. Postbronchodilator forced expiratory volume in one second (FEV1) is moderately reduced. FEV1/FVC is normal. There is no significant response to bronchodilator.. FLOW VOLUME LOOP: Normal. LUNG VOLUMES: Not measured DIFFUSING CAPACITY FOR CARBON MONOXIDE: Severely reduced . INTERPRETATION: The postbronchodilator spirometry showed moderate restriction.? There is no significant postbronchodilator response.? Lung volumes not measured.? There is severe gas transfer defect out of proportion to restriction seen on spirometry suggestive of coexisting pulmonary vascular disease.? Clinical correlation recommended. MTDD
== END 2021-10-19 06:40 | disposition home or self-care (01) ==
LOC: RT 06:40
PROVIDERS: PCP Nurse Practitioner Family; Visit Provider Internal Medicine Critical Care Medicine
DX: J98.4 Other disorders of lung (principal)
CPT/HCPCS: 94060; 94729; J7611

== ENCOUNTER → 2021-10-25 16:17 | Outpatient (BNVA) | payer MEDICARE, SELFPAY | PROVIDERS: PCP Nurse Practitioner Family; Visit Provider Surgery | DX: Z09 Encounter for follow-up examination after completed treatment for conditions other than malignant neoplasm (principal); D36.9 Benign neoplasm, unspecified site | CPT/HCPCS: 99212 ==

== ENCOUNTER → 2021-12-12 11:29 | Outpatient (BNVA) | payer MEDICARE, SELFPAY | PROVIDERS: PCP Nurse Practitioner Family; Visit Provider Podiatrist Foot & Ankle Surgery | DX: E11.8 Type 2 diabetes mellitus with unspecified complications (principal); E11.42 Type 2 diabetes mellitus with diabetic polyneuropathy; L60.3 Nail dystrophy; I73.9 Peripheral vascular disease, unspecified; M20.41 Other hammer toe(s) (acquired), right foot; Z79.4 Long term (current) use of insulin; Z99.3 Dependence on wheelchair; Z99.81 Dependence on supplemental oxygen | CPT/HCPCS: 11721 ==

== ENCOUNTER 2022-02-13 13:52 | Oncology outpatient (recurring) (ONCR) | payer MEDICARE, SELFPAY ==
[2022-02-13 14:38] LABS: Basophils % 0.4 %; Eosinophils # 0.1 10^3/uL (0.0-0.8); Eosinophils % 1.3 %; Hematocrit 40.1 % (37.0-47.0); Lymphocytes # 1.1 10^3/uL (0.8-4.8); Lymphocytes % 11.8 %; Mean Corpuscular HGB Conc 27.4 g/dL (30.0-36.0); Mean Corpuscular Hemoglobin 23.5 pg (28.0-34.0); Mean Corpuscular Volume 85.5 fl (81-99); Mean Platelet Volume 9.9 fL (7.4-10.4); Monocytes # 0.5 10^3/uL (0.2-0.9); Monocytes % 5.3 %; Neutrophils # 7.61 10^3/uL (1.8-7.7); Neutrophils % 80.9 %; Nucleated Red Blood Cells % 0 %; Platelet Count 303 10^3/cmm (130-400); Red Blood Count 4.69 10^6/uL (4.1-5.3); Red Cell Distribution Width 20.3 % (12.1-15.1); White Blood Count 9.4 10^3/uL (4.0-10.0)
[2022-02-13 15:09] LABS: Alanine Aminotransferase 6 U/L (0-33); Albumin Level 3.3 g/dL (3.5-5.2); Alkaline Phosphatase 81 U/L (35-105); Anion Gap 14.2 (5-19); Aspartate Amino Transferase 13 U/L (0-32); Blood Urea Nitrogen 16 mg/dL (8-23); Cancer Antigen 19 9 15.05 U/mL (0-35); Carbon Dioxide 25 mmol/L (22-29); Chloride 104 mmol/L (98-107); Glucose 153 mg/dL (65-115); Osmolality Calculated 292 mOsm/kg (285-295); Potassium 4.2 mmol/L (3.5-5.1); Sodium 139 mmol/L (136-145); Total Bilirubin 0.3 mg/dL (0.15-1.2); Total Protein 7.3 g/dL (6.6-8.7)
[2022-02-13 15:42] LABS: Carcinoembryonic Antigen 1.2 ng/mL (0.0-4.7)
[2022-02-13 16:01] LABS: Chol HDL Ratio 3.33 mg/dL (0.0-4.40); Cholesterol 110 mg/dL (0-200); HDL Cholesterol 33 mg/dL (60-100); Iron 28 ug/dL (37-145); LDL Cholesterol Calculated 50 mg/dL (50-129); Percent Saturation 9.5 % (20-50); Total Iron Binding Capacity 294 mcg/dl; Triglycerides 136 mg/dL (0-150); Unsaturated Iron Binding 266 ug/dL (112-347); VLDL Cholestrol Calculation 27 mg/dL (0-30)
[2022-02-13 17:17] LABS: Estmated Average Glucose 111; Hemoglobin A1C 5.5 % (4.0-6.0)
== END 2022-03-10 23:59 | disposition home or self-care (01) ==
PROVIDERS: PCP Nurse Practitioner Family; Visit Provider Internal Medicine Medical Oncology
DX: Z08 Encounter for follow-up examination after completed treatment for malignant neoplasm (principal); Z85.51 Personal history of malignant neoplasm of bladder; R07.89 Other chest pain; R10.30 Lower abdominal pain, unspecified; K59.00 Constipation, unspecified; D50.9 Iron deficiency anemia, unspecified; Z79.899 Other long term (current) drug therapy; Z90.6 Acquired absence of other parts of urinary tract; Z92.21 Personal history of antineoplastic chemotherapy; Z87.891 Personal history of nicotine dependence; Z92.3 Personal history of irradiation
CPT/HCPCS: 36415; 80053; 80061; 82378; 83036; 83540; 83550; 85025; 86301; 99214

== ENCOUNTER 2022-02-16 06:29 | Outpatient (CLI) | payer MEDICARE, SELFPAY ==
[2022-02-16] MEDS: iohexol 350 mg/mL 500 mL Btl (per mL) IV (07:05)
[2022-02-16] MEDS: iohexol 350 mg/mL 500 mL Btl (per mL) PO (07:05)
--- NOTE | 2022-02-16 08:00 | CT_ITS ---
WS: [id number] EXAMINATION: CT abdomen pelvis w con* [id number] REASON FOR EXAM: ampullary carcinoma COMPARISON: 08/14/2021 ORDER DATE: 02/16/2022 6:41 AM TOTAL EXAM DLP: 1122.[address] scans at [facility] use at least one of these dose optimization techniques: automated e xposure control; mA and/or kV adjustment per patient size (includes targeted exams where dose is matc hed to clinical indication); or iterative reconstruction. TECHNIQUE: Transaxial imaging through the abdomen and pelvis was performed with 2-D reformats followi ng the intravenous administration of Omnipaque 350 95 ml FINDINGS:Mild diffuse fatty infiltration the liver. Normal portal vein and splenic vein. 5 mm and 10 mm hypodensities in the spleen consistent with cysts, no evidence of change. Small esophageal hiatal hernia. Oral contrast is distributed throughout the bowel. No evidence of high-grade small or large b owel obstruction. Sigmoid diverticulosis. No evidence of acute diverticulitis. A few air-fluid levels in the transverse colon. Fatty atrophy of the pancreas. Small fat-containing umbilical hernia. Mild rectosigmoid constipation. Disc space narrowing L5-S1. Mild interstitial thickening in the lung bases. Tiny trace of LEFT pleural fluid. Prior postoperative cholecystectomy. Pneumobilia stable from previous. Stable infrarenal saccular abdominal aortic aneur ysm measuring 3.2 CM. Prior appendectomy and hysterectomy. LEFT renal cyst measuring 5.0 cm unchanged . No hydronephrosis in either kidney. CT/CT abdomen pelvis w con* [id number] IMPRESSION: 1. No significant change from previous study 2. Mild diffuse fatty infiltration of the liver. 3. Prior cholecystectomy with pneumobilia. 4. Mild distal rectosigmoid constipation. 5. Stable saccular infrarenal abdominal aortic aneurysm. 6. Stable prior appendectomy and hysterectomy.
== END 2022-02-16 06:30 | disposition home or self-care (01) ==
LOC: RAD 06:30
PROVIDERS: PCP Nurse Practitioner Family; Visit Provider Internal Medicine Medical Oncology
DX: C24.1 Malignant neoplasm of ampulla of Vater (principal); K76.0 Fatty (change of) liver, not elsewhere classified; K59.00 Constipation, unspecified; I71.40 Abdominal aortic aneurysm, without rupture, unspecified
CPT/HCPCS: 74177; Q9967

== ENCOUNTER → 2022-03-20 11:14 | Outpatient (BNVA) | payer MEDICARE, SELFPAY | PROVIDERS: PCP Nurse Practitioner Family; Visit Provider Podiatrist Foot & Ankle Surgery | DX: E11.8 Type 2 diabetes mellitus with unspecified complications (principal); E11.42 Type 2 diabetes mellitus with diabetic polyneuropathy; L60.3 Nail dystrophy; I73.9 Peripheral vascular disease, unspecified; M20.41 Other hammer toe(s) (acquired), right foot; M20.42 Other hammer toe(s) (acquired), left foot; Z79.4 Long term (current) use of insulin | CPT/HCPCS: 11721 ==

== ENCOUNTER → 2022-03-29 09:15 | Outpatient (BNVA) | payer MEDICARE, SELFPAY | PROVIDERS: PCP Nurse Practitioner Family; Visit Provider Internal Medicine Pulmonary Disease | DX: R06.02 Shortness of breath (principal); J98.4 Other disorders of lung; G47.30 Sleep apnea, unspecified; I25.10 Atherosclerotic heart disease of native coronary artery without angina pectoris; Z87.891 Personal history of nicotine dependence | CPT/HCPCS: 99214 ==

== ENCOUNTER 2022-04-24 13:13 | Outpatient (CLI) | payer MEDICARE, SELFPAY ==
--- NOTE | 2022-04-24 13:30 | USCV_ITS ---
Radha Rose Age: 82 Gender: F : 1940 Exam Date: 04/24/2022 13:49 Ordering Phys: Jayce Diaz MD Technologist: Lyle Humphries Exam Location: [facility] [place] Indication: Restrictive lung disease BP: / 66 HR: 59 Rhythm: Sinus Technical Quality: Adequate MEASUREMENTS (Male / Female) Normal Values 2D ECHO LV Diastolic Diameter PLAX 3.0 cm 4.2 - 5.9 / 3.9 - 5.3 cm LV Systolic Diameter PLAX 1.8 cm IVS Diastolic Thickness 1.0 cm 0.6 - 1.0 / 0.6 - 0.9 cm IVS Systolic Thickness 1.5 cm LVPW Diastolic Thickness 1.2 cm 0.6 - 1.0 / 0.6 - 0.9 cm LVPW Systolic Thickness 1.0 cm LVOT Diameter 1.9 cm LV Ejection Fraction 2D Teich 70.0 % LV Ejection Fraction MOD 2C 66.4 % LV Ejection Fraction 2C AL 67.9 % LA Diameter 3.9 cm LA Width 3.4 cm LA Height 6.2 cm RA Width 3.5 cm RA Height 5.3 cm Aorta at Sinotubular Diameter 2.2 cm IVC Diameter 1.8 cm M-MODE Aortic Annulus Diameter 3.5 cm LA Ao Ratio MM 1.3 MV E Point Septal Separation 0.4 cm DOPPLER AV Peak Velocity 123.0 cm/s LVOT Peak Velocity 88.0 cm/s AV Area Cont Eq vti 1.9 cm squared AV Area Cont Eq pk 2.1 cm squared MV Peak Velocity 134.0 cm/s MV Area PHT 6.9 cm squared Mitral E to A Ratio 2.3 MV E' Velocity 48.0 cm/s Mitral E to MV E' Ratio 9.1 Mitral E to LV E' Lateral Ratio 7.1 Mitral E to LV E' Septal Ratio 12.9 TR Peak Velocity 410.9 cm/s TR Peak Gradient 67.5 mmHg TR Mean Velocity 316.8 cm/s TR Mean Gradient 43.3 mmHg TR Velocity Time Integral 102.6 cm Right Atrial Pressure 3.0 mmHg Pulmonary Artery Systolic Pressu 70.5 mmHg PV Peak Velocity 119.0 cm/s RV Acceleration Time 0.1 s RV Ejection Time 0.3 s RV AcT/ET 0.3 FINDINGS Left Ventricle Normal left ventricular size, systolic function and wall thickness, with no regional wall motion abnormalities. Left ventricular ejection fraction is estimated at 65 %. Restrictive flling pattern with severely elevated filling pressure. Right Ventricle Normal right ventricular size and systolic function. Right ventricular systolic pressure 52 mmHg. Catheter/pacemaker wire visualized in the right ventricle. Right Atrium Mildly increased right atrial size. Left Atrium Moderately increased left atrial size. Mitral Valve Structurally normal mitral valve. No mitral valve stenosis. Trace mitral valve regurgitation. Aortic Valve Structurally normal trileaflet aortic valve. No aortic valve stenosis. No aortic valve regurgitation. Tricuspid Valve Structurally normal tricuspid valve. No tricuspid valve stenosis. Trace tricuspid valve regurgitation. Pulmonic Valve Pulmonic valve not well visualized. No pulmonary valve stenosis. Trace pulmonary valve regurgitation. Pericardium No pericardial effusion. Aorta Normal size aortic root and proximal ascending aorta. IVC Normal IVC dimension with >50% respiratory change of the inferior vena cava. CONCLUSIONS 1. Normal left ventricular size, systolic function and wall thickness, with no regional wall motion abnormalities. Left ventricular ejection fraction is estimated at 65 %. Restrictive flling pattern with severely elevated filling pressure. 2. Moderate pulmonary hypertension with pulmonary artery pressure estimated at 52 mm Hg. 3. When compared to study dated 03/02/2020, pulmonary artery pressure seems to have increased. Angela Irizarry MD (Electronically Signed) Final Date: 25 April 2022 20:54 S
== END 2022-04-24 13:14 | disposition home or self-care (01) ==
LOC: RAD 13:15
PROVIDERS: PCP Nurse Practitioner Family; Visit Provider Internal Medicine Pulmonary Disease
DX: J98.4 Other disorders of lung (principal); I27.20 Pulmonary hypertension, unspecified
CPT/HCPCS: 93306

== ENCOUNTER → 2022-05-02 15:22 | Outpatient (BNVA) | payer MEDICARE, SELFPAY | PROVIDERS: PCP Nurse Practitioner Family; Visit Provider Surgery | DX: C24.1 Malignant neoplasm of ampulla of Vater (principal); K86.1 Other chronic pancreatitis; R10.9 Unspecified abdominal pain; K21.9 Gastro-esophageal reflux disease without esophagitis; K59.00 Constipation, unspecified | CPT/HCPCS: 99214 ==

== ENCOUNTER → 2022-06-27 10:49 | Outpatient (BNVA) | payer MEDICARE, OTHER, SELFPAY | PROVIDERS: PCP Nurse Practitioner Family; Visit Provider Podiatrist Foot & Ankle Surgery | DX: I73.9 Peripheral vascular disease, unspecified (principal); E11.42 Type 2 diabetes mellitus with diabetic polyneuropathy; L60.3 Nail dystrophy; M20.41 Other hammer toe(s) (acquired), right foot; M20.42 Other hammer toe(s) (acquired), left foot; Z79.4 Long term (current) use of insulin | CPT/HCPCS: 11721 ==

== ENCOUNTER → 2022-07-02 09:49 | Outpatient (BNVA) | payer MEDICARE, OTHER, SELFPAY | PROVIDERS: PCP Nurse Practitioner Family; Referring Provider Surgery; Visit Provider Internal Medicine | DX: E11.9 Type 2 diabetes mellitus without complications (principal); K86.1 Other chronic pancreatitis; B35.1 Tinea unguium; R79.81 Abnormal blood-gas level; Z79.4 Long term (current) use of insulin | CPT/HCPCS: 99214 ==

== ENCOUNTER → 2022-09-12 10:56 | Outpatient (BNVA) | payer MEDICARE, OTHER, SELFPAY | PROVIDERS: PCP Nurse Practitioner Family; Visit Provider Podiatrist Foot & Ankle Surgery | DX: E11.42 Type 2 diabetes mellitus with diabetic polyneuropathy (principal); L60.3 Nail dystrophy; I73.9 Peripheral vascular disease, unspecified; M20.41 Other hammer toe(s) (acquired), right foot; M20.42 Other hammer toe(s) (acquired), left foot; Z79.4 Long term (current) use of insulin | CPT/HCPCS: 11721 ==

== ENCOUNTER → 2022-09-27 09:22 | Outpatient (BNVA) | payer MEDICARE, OTHER, SELFPAY | PROVIDERS: PCP Nurse Practitioner Family; Visit Provider Internal Medicine Pulmonary Disease | DX: I27.22 Pulmonary hypertension due to left heart disease; J98.4 Other disorders of lung; D50.9 Iron deficiency anemia, unspecified; Z87.891 Personal history of nicotine dependence; Z95.5 Presence of coronary angioplasty implant and graft; Z95.0 Presence of cardiac pacemaker | CPT/HCPCS: 99214 ==

== ENCOUNTER → 2022-09-28 09:13 | Outpatient (BNVA) | payer MEDICARE, OTHER, SELFPAY | PROVIDERS: PCP Nurse Practitioner Family; Visit Provider Internal Medicine Cardiovascular Disease | DX: I27.22 Pulmonary hypertension due to left heart disease (principal); I48.20 Chronic atrial fibrillation, unspecified; R79.81 Abnormal blood-gas level; K86.1 Other chronic pancreatitis; D50.9 Iron deficiency anemia, unspecified; C24.1 Malignant neoplasm of ampulla of Vater; E78.5 Hyperlipidemia, unspecified; E11.65 Type 2 diabetes mellitus with hyperglycemia; J98.4 Other disorders of lung; R10.9 Unspecified abdominal pain; K29.80 Duodenitis without bleeding; Z87.891 Personal history of nicotine dependence | CPT/HCPCS: 99213 ==

== ENCOUNTER 2022-11-05 15:27 | Outpatient (CLI) | payer MEDICARE, SELFPAY ==
--- NOTE | 2022-11-05 16:00 | CT_ITS ---
WS: [id number] CT CHEST, ABDOMEN AND PELVIS WITH CONTRAST. HISTORY: restaging, ampulla of Vater carcinoma. TECHNIQUE: Contiguous 5 mm axial imaging performed through the chest, abdomen and pelvis with IV cont rast, oral contrast has been provided. Coronal and sagittal reformats chest. Coronal and sagittal ref ormats through the abdomen and pelvis. All CT scans at [facility] use at least one of these d ose optimization techniques: automated exposure control; mA and/or kV adjustment per patient size (in cludes targeted exams where dose is matched to clinical indication); or iterative reconstruction. CONTRAST: Omnipaque 350; 100 mL IV. DLP: 1001.41 mGy.cm COMPARISON: 02/16/2022, 08/14/2021 and 12/11/[address]: LEFT subclavian single-lead defibrillator. Chronic emphysematous changes with interstitial thickening. Interstitial thickening has become more prominent since 12/11/2020. New bilateral pleural effusions. Very small LEFT pleural effusion and small RIGHT pleural effusion. There is very mild pleu ral nodularity on the RIGHT. These nodules were not present on the prior exam. No pulmonary mass. No dense consolidation or pneumonia. Heart is moderately enlarged. Very small pericardial effusion. Mode rate atherosclerosis aorta. Infrarenal abdominal aortic aneurysm at 3.2 x 3.3 cm with very slight inc rease in size since 2020. There is a large amount of asymmetric thrombus. Visualized central pulmonar y artery is normal. Subcarinal lymph node with calcification is unchanged. Small hiatal hernia. Abdomen CT: Liver is normal size. Small amount of pneumobilia. Prior cholecystectomy. Normal portal v ein. Marked pancreatic atrophy is diffuse. No bile duct dilatation. Normal size spleen. There are few areas of decreased attenuation scattered within the spleen which also appear to have been present on prior exams. Renal atrophy with no obstruction. LEFT renal cyst measures 4.9 cm.1 Mild diffuse soft tissue edema and anasarca predominantly posteriorly. Normal-appearing stomach and small bowel. No colon obstruction. Prior appendectomy. No ascites. No ad enopathy. Bilateral prominence of the ovarian veins with calcifications. Pelvic CT: No free fluid or adenopathy. Prior hysterectomy. Urinary bladder is negative. Bones are osteopenic. No destructive bone lesions are identified. IMPRESSION: 1. New bilateral pleural effusions, RIGHT is small but slightly greater than the LEFT. There is also very mild nodularity involving the RIGHT pleura which should be further evaluated for possible metast atic disease. 2. Mild emphysema with progression since 2020. Progression of interstitial thickening may be related to fluid overload. No pneumonia. 3. Enlarged heart. 4. Prior cholecystectomy. 5. No ascites or adenopathy within the abdomen and pelvis. 4. Very slight increase in size of the infrarenal aortic aneurysm now measuring 3.2 x 3.3 cm.
[2022-11-05] MEDS: iohexol 350 mg/mL 500 mL Btl (per mL) PO (16:52)
[2022-11-05] MEDS: iohexol 350 mg/mL 500 mL Btl (per mL) IV (16:53)
== END 2022-11-05 15:28 | disposition home or self-care (01) ==
PROVIDERS: PCP Nurse Practitioner Family; Visit Provider Nurse Practitioner Family
DX: C24.1 Malignant neoplasm of ampulla of Vater (principal); J90 Pleural effusion, not elsewhere classified; R91.8 Other nonspecific abnormal finding of lung field; J43.9 Emphysema, unspecified; Z90.49 Acquired absence of other specified parts of digestive tract; I51.7 Cardiomegaly; I71.43 Infrarenal abdominal aortic aneurysm, without rupture
CPT/HCPCS: 71260; 74177; Q9967

== ENCOUNTER 2022-11-07 09:00 | Oncology outpatient (recurring) (ONCR) | payer MEDICARE, SELFPAY ==
[2022-10-24 14:30] VITALS: BP 132/69; PULSE 86; RESP 18; TEMP 36.9; O2SAT 86
[2022-10-24 15:01] LABS: Basophils % 0.3 %; Eosinophils # 0.1 10^3/uL (0.0-0.8); Hematocrit 33.6 % (37.0-47.0); Hemoglobin 9.7 g/dL (11.5-15.3); Lymphocytes # 0.9 10^3/uL (0.8-4.8); Mean Corpuscular HGB Conc 28.9 g/dL (30.0-36.0); Mean Corpuscular Hemoglobin 25.3 pg (28.0-34.0); Mean Corpuscular Volume 87.5 fl (81-99); Mean Platelet Volume 9.8 fL (7.4-10.4); Monocytes # 0.4 10^3/uL (0.2-0.9); Neutrophils # 5.86 10^3/uL (1.8-7.7); Neutrophils % 80.4 %; Nucleated Red Blood Cells % 0 %; Platelet Count 203 10^3/cmm (130-400); Red Blood Count 3.84 10^6/uL (4.1-5.3); Red Cell Distribution Width 18.2 % (12.1-15.1); White Blood Count 7.3 10^3/uL (4.0-10.0)
[2022-10-24 15:25] LABS: Estmated Average Glucose 100; Hemoglobin A1C 5.1 % (4.0-6.0)
[2022-10-24 15:29] LABS: Carcinoembryonic Antigen 1.4 ng/mL (0.0-4.7)
[2022-10-24 15:32] LABS: Alanine Aminotransferase < 5 U/L (0-33); Albumin Level 3.5 g/dL (3.5-5.2); Alkaline Phosphatase 63 U/L (35-105); Anion Gap 13.3 (5-19); Aspartate Amino Transferase 10 U/L (0-32); Blood Urea Nitrogen 14 mg/dL (8-23); Calcium 8.8 mg/dL (8.5-10.5); Carbon Dioxide 25 mmol/L (22-29); Chloride 107 mmol/L (98-107); Globulin 3.1 g/dL (1.3-4.6); Glucose 140 mg/dL (65-115); Iron 32 ug/dL (37-145); Osmolality Calculated 295 mOsm/kg (285-295); Potassium 4.3 mmol/L (3.5-5.1); Sodium 141 mmol/L (136-145); Total Bilirubin 0.4 mg/dL (0.15-1.2); Total Iron Binding Capacity 265 mcg/dl; Total Protein 6.6 g/dL (6.6-8.7); Unsaturated Iron Binding 233 ug/dL (112-347)
[2022-10-24 20:05] LABS: Thyroid Stimulating Hormone 2.51 uIU/mL (0.27-4.20)
[2022-11-02 11:00] VITALS: BP 108/55; PULSE 61; RESP 19; TEMP 36.8; O2SAT 96
[2022-11-02] MEDS: sodium chloride 0.9% 250 ML 75 ML IV (11:28)
[2022-11-02] MEDS: iron sucrose 200 MG in sodium chloride 0.9% (100 ml) 100 ML 220 MG IV (11:32)
[2022-11-02 12:20] VITALS: BP 143/67; PULSE 61; RESP 18; TEMP 36.3; O2SAT 95
--- NOTE | 2022-11-02 15:07 | US_ITS ---
WS: [id number] INDICATION: RIGHT trapezius lump TECHNIQUE: Ultrasound soft tissue area of concern FINDINGS: Ultrasound soft tissue area of concern RIGHT trapezius. Normal underlying subcutaneous soft tissues and musculature. No enlarged lymph nodes. No evidence of drainable fluid collection or absce ss. No visualized abnormalities in the area of concern. IMPRESSION: No visualized abnormalities in the area of concern.
[2022-11-05] MEDS: iron sucrose 200 MG in sodium chloride 0.9% (100 ml) 100 ML 220 MG IV (14:36)
[2022-11-05 16:09] VITALS: BP 136/75; PULSE 60; O2SAT 96
[2022-11-07 10:00] VITALS: BP 145/79; PULSE 60; RESP 18; TEMP 36.8; O2SAT 93
[2022-11-07] MEDS: sodium chloride 0.9% 250 ML 75 ML IV (10:01)
[2022-11-07] MEDS: iron sucrose 200 MG in sodium chloride 0.9% (100 ml) 100 ML 220 MG IV (10:03)
[2022-11-07 10:40] VITALS: BP 146/71; PULSE 60; RESP 19; TEMP 36.1; O2SAT 94
== END 2022-11-08 23:59 | disposition home or self-care (01) ==
PROVIDERS: Nurse Practitioner Family; PCP Nurse Practitioner Family; Visit Provider Internal Medicine Medical Oncology
DX: C24.1 Malignant neoplasm of ampulla of Vater (principal)
CPT/HCPCS: 36415; 71260; 74177; 76882; 80053; 82378; 83036; 83540; 83550; 84443; 85025; 86301; 96365; 99214; J1756; J7050; Q9967

== ENCOUNTER 2022-11-13 14:00 | Oncology outpatient (recurring) (ONCR) | payer MEDICARE, OTHER, SELFPAY ==
[2022-11-09 10:34] VITALS: BP 147/64; PULSE 60; RESP 18; TEMP 35.9; O2SAT 95
[2022-11-09] MEDS: sodium chloride 0.9% 250 ML 75 ML IV (10:40)
[2022-11-09] MEDS: iron sucrose 200 MG in sodium chloride 0.9% (100 ml) 100 ML 220 MG IV (10:44)
[2022-11-09 11:50] VITALS: BP 149/67; PULSE 60; RESP 18; TEMP 35.9; O2SAT 96
[2022-11-13] MEDS: sodium chloride 0.9% 250 ML 75 ML IV (14:45)
[2022-11-13] MEDS: iron sucrose 200 MG in sodium chloride 0.9% (100 ml) 100 ML 220 MG IV (14:45)
[2022-11-13 15:00] VITALS: BP 117/72; PULSE 60; RESP 17; TEMP 36.7; O2SAT 91
[2022-11-13 15:40] VITALS: BP 125/77; PULSE 60; RESP 17; TEMP 36.6; O2SAT 98
== END 2022-12-08 23:59 | disposition home or self-care (01) ==
PROVIDERS: PCP Nurse Practitioner Family; Visit Provider Internal Medicine Medical Oncology
DX: D50.9 Iron deficiency anemia, unspecified (principal)
CPT/HCPCS: 96365; J1756; J7050

== ENCOUNTER 2022-11-24 05:39 | Outpatient (CLI) | payer MEDICARE, OTHER, SELFPAY ==
--- NOTE | 2022-11-24 10:30 | PETR_ITS ---
PROCEDURE INFORMATION: Exam: PET/CT Skull Base to Mid-thigh Exam date and time: 11/24/2022 11:22 AM Age: 82 years old Clinical indication: Condition or disease; Primary cancer: Ampulla of vater carcinoma; Initial oncological staging assessment LABS AND CLINICAL REPORTS: Glucose: 86 mg/dl Treatment strategy for malignancy (PET staging): Restaging (PS) TECHNIQUE: Imaging protocol: Following at least four-hour fasting and following the injection of radiopharmaceutical, low dose CT images were obtained. Then, PET images were obtained. Attenuation corrected images were constructed using the CT scan. Fused images of PET and CT were reviewed. The standardized uptake values (SUV) reported below are maximum values within a region of interest, expressed in gm/ml. Exam includes orbital meatal line to mid-thigh. Radiopharmaceutical: 11.56 mCi F-18 FDG (Fluorodeoxyglucose), IV. Time of imaging post radiopharmaceutical administration: 1 hour Injection site: Left antecubital COMPARISON: CT chest abdpel w/*[id number] 11/05/2022 4:41 PM FINDINGS: Tubes, catheters and devices: A pacemaker lead is present. Brain: Visualized brain has normal physiologic uptake. A mild degree of cerebral volume loss is present. Pharynx: No abnormal uptake. Larynx: No abnormal uptake. Lungs, pleura and trachea: No abnormal uptake. Moderate right and small left pleural effusions appears similar. Assessment of the lungs is limited by respiratory motion artifact. No pulmonary nodules or masses are identified. Heart: Normal physiologic uptake. Small pericardial effusion. Mediastinal space: No abnormal uptake. Liver: No abnormal uptake. Calcified granulomas in the liver are noted. Mild intrahepatic biliary ductal gas. Gallbladder and bile ducts: No abnormal uptake. Cholecystectomy clips are present. Pancreas: No abnormal uptake. No pancreatic ductal dilatation. Spleen: No abnormal uptake. Adrenal glands: No abnormal uptake. Kidneys and ureters: Normal physiologic uptake. A non radiotracer avid simple appearing cyst in the left renal superior pole measures 5.5 x 4.6 cm. Stomach and bowel: No abnormal uptake. There are scattered colonic diverticula. There is mild fat stranding surrounding the rectum for example on CT series 3, image 138 without abnormal uptake. Mild physiologic uptake in the region of the anus appears to be present, SUV max 5.1. Intraperitoneal and retroperitoneal spaces: A minimal degree of free fluid in the pelvis is noted. Urinary bladder: Numerous small foci gas identified in the urinary bladder, some of which may be within the wall while additional gas appears to be present within the lumen. Mild fat stranding surrounds the urinary bladder. Vasculature: No abnormal uptake. There are diffuse atherosclerotic changes. A 3.3 cm infrarenal abdominal aortic aneurysm is noted. Lymph nodes: No abnormal uptake. No lymphadenopathy in the head, neck, chest, abdomen, pelvis, and extremities. Bones/joints: No abnormal uptake in the visualized axial and appendicular skeleton. A suture anchor in the left humeral greater tuberosity is present. [id number]-[id number] diffuse degenerative vertebral body spondylosis is present. Soft tissues: Benign appearing uptake in the region of the right distal teres minor muscle, SUV max 4.0. METRICS: Mediastinal blood pool: SUV max 2.1 [id number] IMPRESSION: 1. No evidence of radiotracer avid malignancy. 2. New foci of gas in the region of the urinary bladder, some which may be intraluminal while additional gas may be within the wall. Assessment of the urinary bladder is limited by PET-CT and the wall of the urinary bladder is limited without intraluminal contrast. The possibility of emphysematous cystitis related to gas-forming infectious involvement cannot be excluded from this exam. Recent instrumentation of the urinary bladder may alternatively account for this appearance. Correlation with clinical findings and history is recommended. 3. Mild fat stranding surrounding the rectum is noted without significant uptake, possibly related to mild proctitis. 4. Similar moderate right and small left pleural effusions. 5. Colonic diverticulosis. 6. Simple appearing left renal cyst. 7. Additional nonurgent findings as detailed above.
== END 2022-11-24 05:40 | disposition home or self-care (01) ==
LOC: RAD 11-26 05:39
PROVIDERS: PCP Nurse Practitioner Family; Visit Provider Nurse Practitioner Family
DX: C24.1 Malignant neoplasm of ampulla of Vater (principal); Z95.0 Presence of cardiac pacemaker
CPT/HCPCS: 78815; A9552

== ENCOUNTER 2022-11-28 09:24 | Outpatient (CLI) | payer MEDICARE, OTHER, SELFPAY ==
[2022-11-28 09:48] LABS: Specific Gravity, Urine 1.025 (1.005-1.030); Urine Appearance Cloudy (CLEAR); Urine Color Dark Yellow (Yellow); pH Urine 6 (5-7)
[2022-11-28 09:49] LABS: Add Urine Microscopic? YES; Bilirubin Urine Neg (Negative); Blood Urine 3+ (Negative); Glucose Urine UA Norm (Normal); Ketones Urine Negative (Negative); Leukocyte Esterase Urine Trace (Negative); Nitrate Urine Positive (Negative); Protein Urine 1+ (Negative); Urobilinogen Urine 1 mg/dL (Negative)
[2022-11-28 09:57] LABS: RBC Urine 15-25 /hpf (0-2); WBC Urine 15-25 /hpf (0-5)
[2022-11-28 09:58] LABS: Bacteria Urine 1+ /hpf; Hyaline Casts Urine 0-4 /lpf; Mucus Urine TRACE /hpf
[2022-11-28 10:00] LABS: Add Urine Culture? Yes; Oval Fat Bodies Urine 1+ /hpf
== END 2022-11-28 09:25 | disposition home or self-care (01) ==
PROVIDERS: Nurse Practitioner Family; PCP Nurse Practitioner Family; Visit Provider Internal Medicine
DX: R30.0 Dysuria (principal)
CPT/HCPCS: 81001; 87086

== ENCOUNTER → 2022-12-10 09:47 | Outpatient (BNVA) | payer MEDICARE, OTHER, SELFPAY | PROVIDERS: PCP Nurse Practitioner Family; Visit Provider Podiatrist Foot & Ankle Surgery | DX: E11.42 Type 2 diabetes mellitus with diabetic polyneuropathy (principal); L60.3 Nail dystrophy; I73.9 Peripheral vascular disease, unspecified; M20.41 Other hammer toe(s) (acquired), right foot; M20.42 Other hammer toe(s) (acquired), left foot; Z79.84 Long term (current) use of oral hypoglycemic drugs | CPT/HCPCS: 11721 ==

== ENCOUNTER → 2023-01-04 10:29 | Outpatient (BNVA) | payer MEDICARE, OTHER, SELFPAY | PROVIDERS: PCP Nurse Practitioner Family; Visit Provider Internal Medicine | DX: E11.59 Type 2 diabetes mellitus with other circulatory complications; Z79.4 Long term (current) use of insulin; R79.81 Abnormal blood-gas level; R39.15 Urgency of urination; R07.9 Chest pain, unspecified; W19.XXXA Unspecified fall, initial encounter; X58.XXXA Exposure to other specified factors, initial encounter; Z79.890 Hormone replacement therapy | CPT/HCPCS: 99215 ==

== ENCOUNTER 2023-01-04 11:13 | Emergency (ER) | payer MEDICARE, OTHER, SELFPAY ==
[2023-01-04 11:24] VITALS: BP 126/72; PULSE 60; RESP 22; TEMP 36.4; O2SAT 87; BMI 25.0
[2023-01-04 11:51] LABS: Basophils % 0.5 %; Eosinophils # 0.1 10^3/uL (0.0-0.8); Hematocrit 37.5 % (36-47); Lymphocytes # 1.1 10^3/uL (0.8-4.8); Lymphocytes % 13.3 %; Mean Corpuscular HGB Conc 30.9 g/dL (30-55); Mean Corpuscular Hemoglobin 30.5 pg (27-33); Mean Corpuscular Volume 98.7 fl (85-98); Mean Platelet Volume 9.7 fL (7.4-10.4); Monocytes # 0.4 10^3/uL (0.2-0.9); Monocytes % 5.1 %; Neutrophils # 6.47 10^3/uL (1.8-7.7); Neutrophils % 79.9 %; Nucleated Red Blood Cells % 0 %; Platelet Count 171 10^3/cmm (157-399); Red Cell Distribution Width 16.1 % (12.1-15.1)
--- NOTE | 2023-01-04 12:05 | W.ED.ABDPA2 ---
HPI - Abdominal Pain General: Chief Complaint: Abdominal Pain Stated Complaint: Jamie sent Time Seen by Provider: 01/04/23 11:32 Source: patient Mode of arrival: ambulatory History of Present Illness: 82-year-old female presents emergency room with suprapubic discomfort. Having nausea and vomiting and diarrhea denies any hematochezia melena hematemesis cough nemesis. No fever sweats or chills. Recently had a course of antibiotics for UTI. MD elicited complaint: abdominal pain Onset (ago): day(s) Pain Consistency: constant Location: Suprapubic Quality: cramping Exacerbating factors: nothing Relieving factors: nothing Associated Symptoms: Reports GI cramping and dysuria; Denies anorexia, belching, bloating, change in bowel habits, change in stool character, chills, coffee ground emesis, constipation, diarrhea, dyspepsia, excessive flatus, fever(s), heartburn, hematochezia, hematuria, hematemesis, fecal incontinence, loose stools, melena, nausea, poor appetite, syncope and vomiting Review of Systems Const: Denies: fever(s) or chills Card: Denies: syncope Resp: Denies: dyspnea GI: Reports: GI cramping; Denies: nausea, vomiting, hematemesis, coffee ground emesis, heartburn, diarrhea, constipation, bloating, belching, excessive flatus, fecal incontinence, change in bowel habits, change in stool character, hematochezia or melena : Reports: dysuria; Denies: hematuria Musc: Denies: neck pain or back pain Skin/Breast: Denies: rash PFSH ED PFSH: Medical History Anemia Bleeding duodenal ulcer Chronic atrial fibrillation Chronic pancreatitis Coronary artery disease due to type 2 diabetes mellitus Diabetic peripheral neuropathy Diastolic CHF History of colon polyps Hyperlipidemia Hypertension Hypoxemia Lower gastrointestinal hemorrhage 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, N0, M0 Nail fungus Pneumonia Restrictive lung disease Sleep apnea Type 2 diabetes mellitus Urinary retention Surgical History H/O: hysterectomy History of appendectomy History of cholecystectomy History of esophagogastroduodenoscopy (EGD) 03/15/2019: EGD with biopsy Findings: Duodenal ulceration, most likely source of her bleed History of thoracentesis S/P ablation of atrial fibrillation Status post colonoscopy with polypectomy 03/15/2019: Colonoscopy with polypectomy Findings: 2 cm sessile polyp in ascending colon removed with cold biopsy forceps Moderate diverticulosis sigmoid colon Grade 4 hemorrhoids Family History Mother CAD (coronary artery disease) Family/Other Cancer Father Chronic kidney disease (CKD) Brother Dementia Diabetes Family history of premature coronary artery disease Hypertension Sister Hypertension Social History Smoking and tobacco/nicotine status: former use of tobacco/nicotine Quit status (tobacco/nicotine): has quit using Year quit tobacco: 2013 - PPD x 55 Years Second hand smoke exposure: No Alcohol intake: never Substance/Drug Use: never Lives independently: Yes Household members: spouse Housing: House Marital status: Current occupational status: retired Do you think of yourself as: Straight/Heterosexual Current gender identity: Female Physical Exam Const: COMMON NORMALS: no acute distress GENERAL APPEARANCE: cooperative and comfortable ORIENTATION/CONSCIOUSNESS: Yes awake, Yes oriented to person, Yes oriented to place and Yes oriented to time HENMT: COMMON NORMALS: normocephalic, atraumatic and hearing grossly normal bilaterally HEAD & SCALP: normocephalic and atraumatic Resp: COMMON NORMALS: normal respiratory effort, No retractions, No use of accessory muscles and clear to auscultation bilaterally AUSCULTATION: clear to auscultation bilaterally Cardio: COMMON NORMALS: regular rate, regular rhythm and No murmurs present (Cardio) RATE: regular rate RHYTHM: regular rhythm GI: COMMON NORMALS: Soft to palpation and No hepatosplenomegaly present AUSCULTATION: Yes normoactive bowel sounds PALPATION: Yes Soft to palpation, No Tenderness to palpation present (GI), No Guarding due to palpation present (GI) and Yes No hepatosplenomegaly present Extremity: COMMON NORMALS: normal to inspection, capillary refill normal, no clubbing, cyanosis or edema, no calf tenderness and no pedal edema Neuro: SENSORIUM/ORIENTATION: Yes oriented to person, Yes oriented to place and Yes oriented to time Skin: COMMON NORMALS: no rashes or lesions noted GENERAL SKIN EXAM: no rashes or lesions noted Course Vital Signs: Vital signs: Vital Signs Temperature 97.6 F 01/04/23 11:24 Pulse Rate 60 01/04/23 11:24 Respiratory Rate 22 H 01/04/23 11:24 Blood Pressure 126/72 01/04/23 11:24 Pulse Oximetry 87 L 01/04/23 11:24 Oxygen Delivery Me thod Room Air 01/04/23 11:24 Oxygen Flow Rate 3 01/04/23 11:24 MDM - Abdominal Pain Medical Decision Making No leukocytosis chest x-ray shows interstitial fibrosis but no acute process. Patient still does have persistent cystitis. We will start on oral antibiotics culture urine. Patient is chronically hypoxic and is on supplemental oxygen at home continue this as well follow-up with primary care. Medical Records I reviewed the patient's medical records. Lab Data I reviewed the patient's lab results. 01/04/23 11:45 01/04/23 11:45 Labs/Radiology: Laboratory Results WBC 8.10 10^3/uL (3.29-11.43) 01/04/23 11:45 RBC 3.80 10^6/uL (3.85-5.65) L 01/04/23 11:45 Hgb 11.60 g/dL (11.27-16.99) 01/04/23 11:45 Hct 37.5 % (36-47) 01/04/23 11:45 MCV 98.7 fl (85-98) H 01/04/23 11:45 MCH 30.5 pg (27-33) 01/04/23 11:45 MCHC 30.9 g/dL (30-55) 01/04/23 11:45 RDW 16.1 % (12.1-15.1) H 01/04/23 11:45 Plt Count 171 10^3/cmm (157-399) 01/04/23 11:45 MPV 9.7 fL (7.4-10.4) 01/04/23 11:45 Neut % (Auto) 79.9 % 01/04/23 11:45 Lymph % (Auto) 13.3 % 01/04/23 11:45 Hanson % (Auto) 5.1 % 01/04/23 11:45 Eos % (Auto) 1.0 % 01/04/23 11:45 Baso % (Auto) 0.5 % 01/04/23 11:45 Neut # (Auto) 6.47 10^3/uL (1.8-7.7) 01/04/23 11:45 Lymph # (Auto) 1.1 10^3/uL (0.8-4.8) 01/04/23 11:45 Hanson # (Auto) 0.4 10^3/uL (0.2-0.9) 01/04/23 11:45 Eos # (Auto) 0.1 10^3/uL (0.0-0.8) 01/04/23 11:45 Baso # (Auto) 0.0 10^3/uL (0.0-0.1) 01/04/23 11:45 Nucleated RBC % (auto) 0 % 01/04/23 11:45 Nucleated RBCs # 0.0 /100WBC 01/04/23 11:45 Sodium 141 mmol/L (136-145) 01/04/23 11:45 Potassium 4.4 mmol/L (3.5-5.1) 01/04/23 11:45 Chloride 104 mmol/L (98-107) 01/04/23 11:45 Carbon Dioxide 28 mmol/L (22-29) 01/04/23 11:45 Anion Gap 13.4 (5-19) 01/04/23 11:45 BUN 18 mg/dL (8-23) 01/04/23 11:45 Creatinine 0.7 mg/dL (0.5-0.9) 01/04/23 11:45 GFR Calculation Not Reportable 01/04/23 11:45 Glucose 126 mg/dL (65-115) H 01/04/23 11:45 Calculated Osmolality 295 mOsm/kg (285-295) 01/04/23 11:45 Calcium 9.2 mg/dL (8.5-10.5) 01/04/23 11:45 Total Bilirubin 0.4 mg/dL (0.15-1.2) 01/04/23 11:45 AST 10 U/L (0-32) 01/04/23 11:45 ALT 6 U/L (0-33) 01/04/23 11:45 Alkaline Phosphatase 68 U/L (35-105) 01/04/23 11:45 Troponin T Baseline 22 ng/L (0-10) H 01/04/23 11:45 Troponin T 120 Minute 20.29 ng/L (0-10) H 01/04/23 13:26 Delta Troponin T -1.71 ABS# (0-10) L 01/04/23 13:26 Total Protein 6.9 g/dL (6.6-8.7) 01/04/23 11:45 Albumin 3.7 g/dL (3.5-5.2) 01/04/23 11:45 Globulin 3.2 g/dL (1.3-4.6) 01/04/23 11:45 Lipase 12 U/L (13-60) L 01/04/23 11:45 Urine Color Yellow (Yellow) 01/04/23 14:03 Urine Appearance Sl hazy (CLEAR) A 01/04/23 14:03 Urine pH 6.5 (5-7) 01/04/23 14:03 Ur Specific [place] 1.005 (1.005-1.030) 01/04/23 14:03 Urine Protein Trace (Negative) 01/04/23 14:03 Urine Glucose (UA) Norm (Normal) 01/04/23 14:03 Urine Ketones 1+ (Negative) H 01/04/23 14:03 Urine Blood 2+ (Negative) H 01/04/23 14:03 Urine Nitrate Positive (Negative) H 01/04/23 14:03 Urine Bilirubin Neg (Negative) 01/04/23 14:03 Urine Urobilinogen Norm mg/dL (Negative) 01/04/23 14:03 Ur Leukocyte Esterase Trace (Negative) H 01/04/23 14:03 Urine RBC 0-4 /hpf (0-2) H 01/04/23 14:03 Urine WBC 25-40 /hpf (0-5) H 01/04/23 14:03 Ur Squamous Epith Cells 0-4 /hpf (0-5) H 01/04/23 14:03 Amorphous Sediment Not Reportable 01/04/23 14:03 Urine Bacteria 2+ /hpf (NONE) H 01/04/23 14:03 All radiology interpretation(s) finalized by discharge Discharge Plan Discharge Patient Disposition: Home Clinical Impression: Cystitis Condition: Stable Prescriptions: New nitrofurantoin macrocrystal 100 mg capsule 100 mg PO BID 7 Days Qty: 14 0RF Rx Instructions: must administer with a meal/food No Action Nitrostat 0.4 mg tablet, sublingual 0.4 mg SUBLINGUAL Q5M PRN (Reason: Chest Pain) Qty: 25 3RF (DME) Diabetic Shoes with 3 sets of insoles See Rx Instructions .Route .MEDSUPPLY Qty: 1 0RF Rx Instructions: As directed by HOME pantoprazole [Protonix] 40 mg tablet,delayed release (DR/EC) 40 mg PO BID Qty: 60 11RF Lasix 40 mg tablet 40 mg PO QAM clopidogrel 75 mg tablet 75 mg PO QAM citalopram 20 mg tablet 20 mg PO QPM acetaminophen 500 mg Tablet 1,000 mg PO BID levothyroxine 25 mcg tablet 25 mcg PO QAM Levemir FlexPen 100 unit/mL (3 mL) insulin pen 28 unit SUBCUT QPM potassium chloride 10 mEq capsule, extended release 10 meq PO QAM ipratropium-albuterol 0.5 mg-3 mg(2.5 mg base)/3 mL solution for nebulization 3 ml inhalation Q6H PRN (Reason: Shortness Of Breath) pravastatin 40 mg tablet 40 mg PO QAM Lantus Solostar U-100 Insulin 100 unit/mL (3 mL) insulin pen 28 unit SUBCUT QPM ondansetron 4 mg tablet,disintegrating 4 mg PO Q8H PRN (Reason: Nausea) Discharge Orders: Discharge ED (Routine); Ordered 01/04/23 Ordered By: Denis Estrada Referrals: Grace Willett FNP [Primary Care Provider] - Discharge Diet: Usual diet Discharge Activity: Increase activity as tolerated Patient Instructions: Opioid Safety, Pain Management Activity Restrictions/Additional Instructions: Thank you for choosing [facility] for your healthcare needs today. Please realize this is an emergency room and that we are providing you with a medical screening exam and this may not be complete and all inclusive of all the testing and or work up that you may need to determine your ailment or severity of your illness. It is very important that you follow up as instructed or that you return to the Emergency Department should you have concerns or if your condition changes or worsens in any way. You are found to have a mild bladder infection started on Macrobid 1 pill twice daily for 7 days. Coding Level of Care Code ED Mmd Unit Teacher for Ruth Alfredo
--- NOTE | 2023-01-04 12:06 | CT_ITS ---
WS: [id number] CT ABDOMEN AND PELVIS WITH CONTRAST HISTORY: abd pain, history of pancreatic cancer. TECHNIQUE: Imaging performed of the abdomen and pelvis with IV contrast. Single phase imaging of the abdomen. Coronal and sagittal reformats are submitted. All CT scans at [facility] use at [facility] one of these dose optimization techniques: automated exposure control; mA and/or kV adjustment per patient size (includes targeted exams where dose is matched to clinical indication); or iterative re construction. IV CONTRAST: Omnipaque 350; 100 mL IV. Oral contrast: No DLP: 724.12 mGy.cm COMPARISON: 05/31/2020, 11/05/2022 and 02/16/2022 Lower thorax: Chronic emphysematous changes at the lung bases. There is interstitial thickening and v liyah small bilateral pleural effusions, RIGHT greater than LEFT. Small pericardial effusion. Heart mod erately enlarged. Small hiatal hernia. Liver/biliary system: Liver is enlarged and heterogeneous with hepatic steatosis. Variable density wi thin the liver but no mass identified. No bile duct dilatation. There is mild pneumobilia centrally. Normal portal vein. Gallbladder: Cholecystectomy. Pancreas: Diffuse atrophy of the pancreas. Surgical clips are noted near the pancreatic head. There i s no recurrent mass identified. The pancreatic duct is very slightly prominent but similar to prior s tudies. Spleen: Normal spleen. There are several low-attenuation masses within the spleen. These were present on the most recent studies. Adrenal glands: Normal. Right kidney: Mild cortical thinning. No obstruction. Left kidney: Mild cortical thinning. Stable LEFT renal cyst. No obstruction. Aorta: Atherosclerotic changes are advanced throughout the aorta. The saccular aneurysm within the in frarenal aorta is reidentified extending over a length of 2.9 cm. Saccular aneurysm extends to the LE FT of the aorta. Partially calcified aneurysm. There is contrast enhancement within the thrombus in t he aneurysm sac. This has been described on prior studies and not significantly progressed. Maximum t ransverse diameter of 3.3 cm. Diameter is similar to the prior study from 11/05/2022. Additional ather osclerotic changes within the SMA and celiac axis. Lymphadenopathy: None. Free fluid: None. GI tract: No obstruction. Mild diverticular disease without acute diverticulitis. Abdominal wall: Fat containing umbilical hernia. Pelvis: There is air in the urinary bladder which is probably from recent catheterization. Bones: Unremarkable. IMPRESSION: 1. No acute abdominal or pelvic abnormalities are identified. 2. 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 There is contrast enhancement within the thrombus in the saccular aneurysm. This is similar to prior studies. No rupture. 3. Prior cholecystectomy. Small amount of pneumobilia. 4. Mild renal atrophy. 5. No adenopathy or free fluid.
--- NOTE | 2023-01-04 12:08 | ECG_ITS ---
[facility] Test Date: 2023-01-04 Pat Name: Radha Rose Department: Room: Gender: Female Portfolio Architect: : 1940 Requested By: Denis Waters Order Number: [id number] Laverne MD: Angela Irizarry M.D. Measurements Intervals [place] Rate: 60 P: 0 HI: 0 QRS: -82 QRSD: 152 T: 92 QT: 482 QTc: 482 Interpretive Statements ELECTRONIC VENTRICULAR PACEMAKER ABNORMAL RHYTHM ECG Compared to ECG 08/14/2021 09:00:59 No significant changes Electronically Signed On 01-04-2023 16:25:59 CDT by Angela Irizarry M.D. [id number]
--- NOTE | 2023-01-04 12:08 | XR_ITS ---
WS: [id number] Exam: XR chest 1V portable [id number] Date/Time of Exam: 01/04/2023 12:11 PM Reason For Exam: dyspnea/cough Comparison 06/28/2022. Widespread chronic interstitial changes and honeycombing noted. No acute infiltrate. The lungs are fu lly expanded. Normal cardiomediastinal silhouette for technique. An ICD superimposes the LEFT chest. Rotator cuff anchoring screw in the LEFT humeral head. Bony structures are otherwise unremarkable. IMPRESSION: 1. Widespread interstitial fibrosis and honeycombing. No acute process identified.
[2023-01-04 12:13] LABS: Alanine Aminotransferase 6 U/L (0-33); Albumin Level 3.7 g/dL (3.5-5.2); Alkaline Phosphatase 68 U/L (35-105); Anion Gap 13.4 (5-19); Aspartate Amino Transferase 10 U/L (0-32); Blood Urea Nitrogen 18 mg/dL (8-23); Calcium 9.2 mg/dL (8.5-10.5); Carbon Dioxide 28 mmol/L (22-29); Chloride 104 mmol/L (98-107); Creatinine Clr Calc Pharmacy 50.4889; Globulin 3.2 g/dL (1.3-4.6); Glucose 126 mg/dL (65-115); Lipase 12 U/L (13-60); Osmolality Calculated 295 mOsm/kg (285-295); Potassium 4.4 mmol/L (3.5-5.1); Sodium 141 mmol/L (136-145); Total Bilirubin 0.4 mg/dL (0.15-1.2); Total Protein 6.9 g/dL (6.6-8.7)
[2023-01-04 12:28] LABS: Troponin(5th) Baseline 22 ng/L (0-10)
[2023-01-04] MEDS: iohexol 350 mg/mL 500 mL Btl (per mL) IV (13:19)
--- NOTE | 2023-01-04 14:21 | ECG_ITS ---
[facility] Test Date: 2023-01-04 Pat Name: Radha Rose Department: Room: Gender: Female Music Industry Intern: : 1940 Requested By: Denis Waters Order Number: [id number] Laverne MD: Angela Irizarry M.D. Measurements Intervals [place] Rate: 59 P: 0 CT: 0 QRS: -82 QRSD: 157 T: 90 QT: 489 QTc: 488 Interpretive Statements ELECTRONIC VENTRICULAR PACEMAKER ABNORMAL RHYTHM ECG Compared to ECG 01/04/2023 12:21:44 No significant changes Electronically Signed On 01-04-2023 16:27:49 CDT by Angela Irizarry M.D. [id number]
[2023-01-04 14:25] LABS: Troponin 5 2HR 20.29 ng/L (0-10); Troponin 5 2HR Delta -1.71 ABS# (0-10)
[2023-01-04 14:39] LABS: Add Urine Microscopic? YES; Bilirubin Urine Neg (Negative); Blood Urine 2+ (Negative); Glucose Urine UA Norm (Normal); Ketones Urine 1+ (Negative); Leukocyte Esterase Urine Trace (Negative); Nitrate Urine Positive (Negative); Protein Urine Trace (Negative); Specific Gravity, Urine 1.005 (1.005-1.030); Urine Appearance SL Hazy (CLEAR); Urine Color Yellow (Yellow); Urobilinogen Urine Norm (Negative); pH Urine 6.5 (5-7)
[2023-01-04 14:40] LABS: Add Urine Culture? Yes; Bacteria Urine 2+ /hpf; RBC Urine 0-4 /hpf (0-2); Squamous Epithelial Cell Urine 0-4 /hpf (0-5); WBC Urine 25-40 /hpf (0-5)
== END 2023-01-04 16:07 | disposition home or self-care (01) ==
PROVIDERS: Emergency Provider Family Medicine; PCP Nurse Practitioner Family
DX: N30.90 Cystitis, unspecified without hematuria (principal); Z79.02 Long term (current) use of antithrombotics/antiplatelets; Z79.4 Long term (current) use of insulin; I25.10 Atherosclerotic heart disease of native coronary artery without angina pectoris; E11.42 Type 2 diabetes mellitus with diabetic polyneuropathy; I11.0 Hypertensive heart disease with heart failure; I50.30 Unspecified diastolic (congestive) heart failure; E78.5 Hyperlipidemia, unspecified; Z85.068 Personal history of other malignant neoplasm of small intestine; Z87.891 Personal history of nicotine dependence; E11.59 Type 2 diabetes mellitus with other circulatory complications; R39.15 Urgency of urination; R07.9 Chest pain, unspecified; W19.XXXA Unspecified fall, initial encounter; X58.XXXA Exposure to other specified factors, initial encounter; Z79.890 Hormone replacement therapy; R79.81 Abnormal blood-gas level
CPT/HCPCS: 36415; 71045; 74177; 80053; 81001; 83690; 84484; 85025; 87077; 87086; 87186; 93005; 99215; 99285; Q9967

== ENCOUNTER → 2023-01-24 15:22 | Outpatient (BNVA) | payer MEDICARE, OTHER, SELFPAY | PROVIDERS: PCP Nurse Practitioner Family; Visit Provider Internal Medicine Pulmonary Disease | DX: J96.11 Chronic respiratory failure with hypoxia (principal); I27.22 Pulmonary hypertension due to left heart disease; J98.4 Other disorders of lung; D50.9 Iron deficiency anemia, unspecified; Z99.81 Dependence on supplemental oxygen; Z95.5 Presence of coronary angioplasty implant and graft; Z87.891 Personal history of nicotine dependence | CPT/HCPCS: 99214 ==

== ENCOUNTER → 2023-03-13 13:36 | Outpatient (BNVA) | payer MEDICARE, SELFPAY | PROVIDERS: PCP Nurse Practitioner Family; Visit Provider Podiatrist Foot & Ankle Surgery | DX: E11.42 Type 2 diabetes mellitus with diabetic polyneuropathy (principal); L60.3 Nail dystrophy; I73.9 Peripheral vascular disease, unspecified; M20.41 Other hammer toe(s) (acquired), right foot; M20.42 Other hammer toe(s) (acquired), left foot; Z79.4 Long term (current) use of insulin | CPT/HCPCS: 11721 ==

== ENCOUNTER → 2023-07-17 15:12 | Outpatient (BNVA) | payer MEDICARE, SELFPAY | PROVIDERS: PCP Nurse Practitioner Family; Visit Provider Podiatrist Foot & Ankle Surgery | DX: E11.42 Type 2 diabetes mellitus with diabetic polyneuropathy (principal); L60.3 Nail dystrophy; I73.9 Peripheral vascular disease, unspecified; Z79.4 Long term (current) use of insulin | CPT/HCPCS: 11721; 99213 ==

== ENCOUNTER → 2023-07-25 13:53 | Outpatient (BNVA) | payer MEDICARE, SELFPAY | PROVIDERS: PCP Nurse Practitioner Family; Visit Provider Internal Medicine Pulmonary Disease | DX: R06.02 Shortness of breath (principal); J96.11 Chronic respiratory failure with hypoxia; I27.22 Pulmonary hypertension due to left heart disease; J98.4 Other disorders of lung; D50.9 Iron deficiency anemia, unspecified; Z87.891 Personal history of nicotine dependence | CPT/HCPCS: 99214 ==

== ENCOUNTER → 2023-09-27 09:11 | Outpatient (BNVA) | payer MEDICARE, SELFPAY | PROVIDERS: PCP Nurse Practitioner Family; Visit Provider Internal Medicine Cardiovascular Disease | DX: I48.20 Chronic atrial fibrillation, unspecified (principal); E78.5 Hyperlipidemia, unspecified; I27.22 Pulmonary hypertension due to left heart disease; E11.59 Type 2 diabetes mellitus with other circulatory complications; Z79.4 Long term (current) use of insulin; K29.80 Duodenitis without bleeding; W88.8XXA Exposure to other ionizing radiation, initial encounter; K21.9 Gastro-esophageal reflux disease without esophagitis; K86.1 Other chronic pancreatitis; R10.9 Unspecified abdominal pain; J98.4 Other disorders of lung; R79.81 Abnormal blood-gas level; I25.10 Atherosclerotic heart disease of native coronary artery without angina pectoris; Z87.891 Personal history of nicotine dependence; I11.0 Hypertensive heart disease with heart failure; I50.30 Unspecified diastolic (congestive) heart failure | CPT/HCPCS: 99214 ==

== ENCOUNTER → 2023-10-23 15:14 | Outpatient (BNVA) | payer MEDICARE, SELFPAY | PROVIDERS: PCP Nurse Practitioner Family; Visit Provider Podiatrist Foot & Ankle Surgery | DX: E11.42 Type 2 diabetes mellitus with diabetic polyneuropathy (principal); L60.3 Nail dystrophy; I73.9 Peripheral vascular disease, unspecified; Z79.4 Long term (current) use of insulin | CPT/HCPCS: 11721 ==

== ENCOUNTER → 2024-01-22 15:08 | Outpatient (BNVA) | payer MEDICARE, SELFPAY | PROVIDERS: PCP Nurse Practitioner Family; Visit Provider Podiatrist Foot & Ankle Surgery | DX: E11.42 Type 2 diabetes mellitus with diabetic polyneuropathy (principal); L60.3 Nail dystrophy; I73.9 Peripheral vascular disease, unspecified; Z79.4 Long term (current) use of insulin | CPT/HCPCS: 11721 ==

== ENCOUNTER 2024-03-27 09:40 | Inpatient (IN) | payer MEDICARE, SELFPAY ==
[2024-03-27] VITALS (10 sets, daily range): BP systolic 102–163; BP diastolic 51–89; PULSE 56–62; RESP 15–22; TEMP 36.1–36.7; O2SAT 90–99; BMI 25.7
--- NOTE | 2024-03-27 09:41 | ECG_ITS ---
[facility] Test Date: 2024-03-27 Pat Name: Radha Rose Department: Room: Gender: Female Advanced Practice Nurse Psychotherapist: : 1940 Requested By: Uvaldo Simons Order Number: [id number] Laverne MD: ROSE MARY GRIJALVA Measurements Intervals [place] Rate: 60 P: 0 MN: 0 QRS: -81 QRSD: 150 T: 101 QT: 463 QTc: 463 Interpretive Statements ELECTRONIC VENTRICULAR PACEMAKER ABNORMAL RHYTHM ECG Compared to ECG 01/04/2023 14:21:31 No significant changes Electronically Signed On 03-27-2024 23:22:02 SEO ASSISTANT by ROSE MARY GRIJALVA [id number]
--- NOTE | 2024-03-27 09:51 | XRR_ITS ---
PROCEDURE INFORMATION: Exam: XR Chest Exam date and time: 03/27/2024 10:00 AM Age: 84 years old Clinical indication: Other: Chest pain TECHNIQUE: Imaging protocol: Radiologic exam of the chest. Views: 1 view. COMPARISON: CR XR chest 1V portable [id number] 01/04/2023 12:15 PM FINDINGS: Tubes, catheters and devices: Single lead left-sided cardiac pacer device. Lungs: Diffuse increase in interstitial lung markings with perhaps more focal densities in the right middle lobe. Pleural spaces: Perhaps small right pleural effusion. Heart/Mediastinum: Unremarkable. No cardiomegaly. Bones/joints: Unremarkable. XR/XR chest 1V portable [id number] IMPRESSION: 1. Questionable focal airspace disease in the right middle lobe which could represent infection in the correct clinical setting. 2. Superimposed diffuse interstitial lung markings similar to prior comparisons which could represent pneumonitis, inflammation, evolving CHF. Correlate clinically. 3. Small right pleural effusion.
[2024-03-27 10:30] LABS: Basophils % 0.5 %; Eosinophils # 0.1 10^3/uL (0.0-0.8); Eosinophils % 0.9 %; Hematocrit 34.9 % (36-47); Lymphocytes # 0.7 10^3/uL (0.8-4.8); Lymphocytes % 11.7 %; Mean Corpuscular HGB Conc 29.8 g/dL (30-55); Mean Corpuscular Hemoglobin 29.1 pg (27-33); Mean Corpuscular Volume 97.8 fl (85-98); Mean Platelet Volume 9.8 fL (7.4-10.4); Monocytes # 0.3 10^3/uL (0.2-0.9); Monocytes % 5.7 %; Neutrophils # 4.73 10^3/uL (1.8-7.7); Nucleated Red Blood Cells % 0 %; Platelet Count 159 10^3/cmm (157-399); Red Blood Count 3.57 10^6/uL (3.85-5.65); Red Cell Distribution Width 15.5 % (12.1-15.1); White Blood Count 5.83 10^3/uL (3.29-11.43)
[2024-03-27 10:52] LABS: Troponin(5th) Baseline 22 ng/L (0-10)
[2024-03-27 11:23] LABS: Alanine Aminotransferase 6 U/L (0-33); Albumin Level 3.7 g/dL (3.5-5.2); Alkaline Phosphatase 66 U/L (35-105); Anion Gap 13.4 (5-19); Aspartate Amino Transferase 11 U/L (0-32); Blood Urea Nitrogen 20 mg/dL (8-23); Calcium 8.9 mg/dL (8.5-10.5); Carbon Dioxide 27 mmol/L (22-29); Chloride 105 mmol/L (98-107); Globulin 2.9 g/dL (1.3-4.6); Glucose 127 mg/dL (65-115); Osmolality Calculated 296 mOsm/kg (285-295); Potassium 4.4 mmol/L (3.5-5.1); Sodium 141 mmol/L (136-145); Total Bilirubin 0.5 mg/dL (0.15-1.2); Total Protein 6.6 g/dL (6.6-8.7)
[2024-03-27 11:49] LABS: ABG PCO2 41.1 mmHg (35-45); ABG PH Result 7.43 (7.35-7.45); Alveolar-Arterial Oxygen Gradi 19.4 mmHg (5-10); Arterial Blood Gas Hematocrit 31.8 % (37-47); Base Excess ABG 2.6 mmol/L (-2.0-2.0); Blood Gas Allen Test Pos; Blood Gas Operator Identificat CAK; Blood Gas Sample Site Radial, left; Blood Gas Sample Type Arterial; Carboxyhemoglobin 1.4 %THgb (0.4-20.1); HCO3 ABG 27.2 mmol/L (22-26); HGB O2 Sat 85.7 % (95-100); Ionized Calcium Level - ABG 1.2 mmol/L (1.1-1.4); Oxygen Device NC; Oxygen Saturation ABG 87.8; PO2 ABG 54.9 mmHg (80.0-100.0); PO2 FiO2 Ratio Arterial Blood 152; Potassium Level - ABG 4.1 mmol/L (3.5-5.0); Total Hemoglobin 10.4 g/dL (12-16)
--- NOTE | 2024-03-27 11:52 | ECG_ITS ---
[facility] Test Date: 2024-03-27 Pat Name: aRdha Rose Department: Room: Gender: Female Credit Risk Associate: : 1940 Requested By: Joie Jones Order Number: [id number] Reading MD: ROES MARY GRIJALVA Measurements Intervals [place] Rate: 63 P: 0 ID: 0 QRS: -82 QRSD: 147 T: 101 QT: 468 QTc: 483 Interpretive Statements ELECTRONIC VENTRICULAR PACEMAKER ABNORMAL RHYTHM ECG Compared to ECG 03/27/2024 09:43:52 No significant changes Electronically Signed On 03-27-2024 23:32:25 VAULT ATTENDANT by ROSE MARY GRIJALVA [id number]
--- NOTE | 2024-03-27 11:53 | ED_ITS ---
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 She is been having some right pleuritic chest pain. No increased cough. She normally is on 3-1/2 L and they were unable to get her oxygen saturations above 90 in clinic so they sent her to the emergency room. On exam here she has wheeze and her lungs are very tight. She does have increased oxygen requirements. Is also been complaining of some epigastric pain. No altered mental status. No focal motor deficits. No known fevers. Related Data Home Medications Medication Instructions Recorded Confirmed acetaminophen 500 mg tablet 1,000 mg PO BID 01/04/23 01/22/24 citalopram 20 mg tablet 20 mg PO QPM 01/04/23 01/22/24 furosemide 40 mg tablet (Lasix) 40 mg PO QAM 01/04/23 01/22/24 insulin detemir U-100 100 unit/mL 28 unit SUBCUT QPM 01/04/23 01/22/24 (3 mL) subcutaneous pen (Levemir FlexPen) insulin glargine 100 unit/mL (3 28 unit SUBCUT QPM 01/04/23 01/22/24 mL) subcutaneous pen (Lantus Solostar U-100 Insulin) ipratropium 0.5 mg-albuterol 3 mg 3 ml inhalation Q6H PRN Shortness 01/04/23 01/22/24 (2.5 mg base)/3 mL nebulization Of Breath soln levothyroxine 25 mcg tablet 25 mcg PO QAM 01/04/23 01/22/24 ondansetron 4 mg disintegrating 4 mg PO Q8H PRN Nausea 01/04/23 01/22/24 tablet potassium chloride 10 mEq 10 meq PO QAM 01/04/23 01/22/24 capsule,extended release pravastatin 40 mg tablet 40 mg PO QAM 01/04/23 01/22/24 Previous Rx's Medication Instructions Recorded nitroglycerin 0.4 mg sublingual 0.4 mg sublingual Q5M PRN Chest 02/13/21 tablet (Nitrostat) Pain #25 tabs Diabetic Shoes with 3 sets of #1 ea 09/26/21 insoles pantoprazole 40 mg tablet,delayed 40 mg PO BID #60 tabs 07/24/22 release (Protonix) budesonide-formoterol HFA 80 2 puff inhalation BID #10.2 grams 07/25/23 mcg-4.5 mcg/actuation aerosol inhaler (Symbicort) clopidogrel 75 mg tablet See Rx Instructions .Route 12/25/23 .COMPLEX #90 tabs Allergies Allergy/AdvReac Type Severity Reaction Status Date / Time codeine Allergy ADR-Halluci Verified 01/22/24 15:14 nating digoxin Allergy BLISERS IN Verified 01/22/24 15:14 MOUTH Sulfa (Sulfonamide Allergy ALGY-Hives Verified 01/22/24 15:14 Antibiotics) tetanus and diphtheria Allergy ADR-Vomitin Verified 01/22/24 15:14 toxoids g Review of Systems 2 Narrative: Constitutional symptoms: Negative except as documented in HPI. Skin symptoms: Negative except as documented in HPI. Eye symptoms: Negative except as documented in HPI. ENMT symptoms: Negative except as documented in HPI. Respiratory symptoms: Negative except as documented in HPI. Cardiovascular symptoms: Negative except as documented in HPI. Gastrointestinal symptoms: Negative except as documented in HPI. Genitourinary symptoms: Negative except as documented in HPI. Musculoskeletal symptoms: Negative except as documented in HPI. Neurologic symptoms: Negative except as documented in HPI. Psychiatric symptoms: Negative except as documented in HPI. Endocrine symptoms: Negative except as documented in HPI. 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, N0, M0 Hypoxemia Nail fungus Hyperlipidemia Hypertension Chronic pancreatitis Coronary artery disease due to type 2 diabetes mellitus Sleep apnea Anemia History of colon polyps Pneumonia Diabetic peripheral neuropathy Chronic atrial fibrillation Type 2 diabetes mellitus Restrictive lung disease Diastolic CHF Surgical History History of cholecystectomy Status post colonoscopy with polypectomy 03/15/2019: Colonoscopy with polypectomy Findings: 2 cm sessile polyp in ascending colon removed with cold biopsy forceps Moderate diverticulosis sigmoid colon Grade 4 hemorrhoids History of esophagogastroduodenoscopy (EGD) 03/15/2019: EGD with biopsy Findings: Duodenal ulceration, most likely source of her bleed History of thoracentesis H/O: hysterectomy History of appendectomy S/P ablation of atrial fibrillation Family History Mother CAD (coronary artery disease) Family/Other Cancer Father Chronic kidney disease (CKD) Brother Dementia Diabetes Family history of premature coronary artery disease Hypertension Sister Hypertension Social History Smoking and tobacco/nicotine status: former use of tobacco/nicotine Quit status (tobacco/nicotine): has quit using Year quit tobacco: 2013 - PPD x 55 Years Second hand smoke exposure: No Alcohol intake: never Substance/Drug Use: never Lives independently: Yes Household members: spouse Housing: House Marital status: Current occupational status: retired Do you think of yourself as: Straight/Heterosexual Current gender identity: Female Physical Exam 2 Narrative: EXAM NARRATIVE: General: Alert, moderate distress. Skin: Warm, dry. Head: Normocephalic, atraumatic. Neck: Supple, trachea midline. Eye: Extraocular movements are intact. Ears, nose, mouth and throat: Oral mucosa moist. Cardiovascular: Regular rate and rhythm, Normal peripheral perfusion. Respiratory: coarse, scattered wheeze, moderate increased wob. tachypnea, prolonged expiratory phase. breath sounds are equal, Symmetrical chest wall expansion. Gastrointestinal: Soft, Nontender, Non distended, Normal bowel sounds. Musculoskeletal: Normal ROM, no deformity. Neurological: Alert and oriented to person, place, time, and situation, No focal neurological deficit observed. Psychiatric: Cooperative, appropriate mood & affect. Course 2 Vital Signs: Vital signs: Vital Signs Temperature 98.1 F 03/27/24 09:48 Pulse Rate 62 03/27/24 09:48 Respiratory Rate 19 H 03/27/24 09:48 Blood Pressure 102/66 03/27/24 09:48 Pulse Oximetry 93 03/27/24 09:48 Oxygen Delivery Me thod Nasal Cannula 03/27/24 09:48 Oxygen Flow Rate 4 03/27/24 09:48 MDM - Chest Pain Medical Decision Making Differential diagnosis for patient with shortness of breath includes but is not limited to and based on the above HPI, review of systems and physical exam: Pneumonia. Bronchitis. Asthma or COPD with acute exacerbation. Acute coronary syndrome / NC. Pulmonary embolism. Anxiety. Congestive heart failure. Viral infections including influenza and Covid-19. Atrial fibrillation. Anxiety. Pleural effusion. Pneumothorax. Orders placed to evaluate differential diagnosis based on the above differential, HPI and physical exam EKG: Time 1150. Rate 63. Normal sinus rhythm, No ST-T changes, no ectopy, paced rhythm, this was reviewed and interpreted by myself the emergency room physician at 1155 Chest x-ray: Concern for a right sided infiltrate. This would be consistent with the patient's symptoms. This was reviewed and interpreted by myself the emergency room physician. I also reviewed the radiology report. Lab Review: Laboratory results were reviewed and interpreted by myself the emergency room physician. No leukocytosis. No anemia. No renal failure. Lactic acid is not elevated. LFTs are normal. Initial troponin is at her baseline at 22. I reviewed the patient's medical record. Reexamination: Patient continues to have increased oxygen requirements and pleuritic chest pain. No altered mental status. No focal motor deficits. We discussed admission. She and her agree. Consultation: I spoke with Dr. Anglin who is on-call for the hospitalist service who agrees to admission. Assessment and plan: Acute on chronic hypoxemic respiratory failure COPD with acute exacerbation Community-acquired pneumonia Pleuritic chest pain ?IV Solu-Medrol, IV doxycycline and IV Rocephin. 2 updrafts. -I discussed the patient with the hospitalist on-call who is admitting the patient. - Discussed findings and plan with patient. Answered any questions. - All laboratory values were reviewed and interpreted personally by myself, the ER physician - All imaging was reviewed and interpreted personally by myself, the ER physician. - Evaluation and treatment of this problem were appropriate in the emergency setting Lab Data 03/27/24 10:23 03/27/24 10:23 Radiology Impressions Chest X-Ray 03/27/24 09:51 IMPRESSION: 1. Questionable focal airspace disease in the right middle lobe which could represent infection in the correct clinical setting. 2. Superimposed diffuse interstitial lung markings similar to prior comparisons which could represent pneumonitis, inflammation, evolving CHF. Correlate clinically. 3. Small right pleural effusion. Laboratory Results WBC 5.83 10^3/uL (3.29-11.43) 03/27/24 10:23 RBC 3.57 10^6/uL (3.85-5.65) L 03/27/24 10:23 Hgb 10.40 g/dL (11.27-16.99) L 03/27/24 10:23 Hct 34.9 % (36-47) L 03/27/24 10:23 MCV 97.8 fl (85-98) 03/27/24 10:23 MCH 29.1 pg (27-33) 03/27/24 10:23 MCHC 29.8 g/dL (30-55) L 03/27/24 10:23 RDW 15.5 % (12.1-15.1) H 03/27/24 10:23 Plt Count 159 10^3/cmm (157-399) 03/27/24 10:23 MPV 9.8 fL (7.4-10.4) 03/27/24 10:23 Neut % (Auto) 81.0 % 03/27/24 10:23 Lymph % (Auto) 11.7 % 03/27/24 10:23 [place] % (Auto) 5.7 % 03/27/24 10:23 Eos % (Auto) 0.9 % 03/27/24 10:23 Baso % (Auto) 0.5 % 03/27/24 10:23 Neut # (Auto) 4.73 10^3/uL (1.8-7.7) 03/27/24 10:23 Lymph # (Auto) 0.7 10^3/uL (0.8-4.8) L 03/27/24 10:23 [place] # (Auto) 0.3 10^3/uL (0.2-0.9) 03/27/24 10:23 Eos # (Auto) 0.1 10^3/uL (0.0-0.8) 03/27/24 10:23 Baso # (Auto) 0.0 10^3/uL (0.0-0.1) 03/27/24 10:23 Nucleated RBC % (auto) 0 % 03/27/24 10:23 Nucleated RBCs # 0.0 /100WBC 03/27/24 10:23 Specimen Type Arterial 03/27/24 11:38 Sample Site Radial, left 03/27/24 11:38 ABG pH 7.43 (7.35-7.45) 03/27/24 11:38 ABG pCO2 41.1 mmHg (35-45) 03/27/24 11:38 ABG pO2 54.9 mmHg (80.0-100.0) L 03/27/24 11:38 ABG PO2/FiO2 Ratio 152 03/27/24 11:38 ABG HCO3 27.2 mmol/L (22-26) H 03/27/24 11:38 ABG O2 Saturation 87.8 03/27/24 11:38 ABG Base Excess 2.6 mmol/L (-2.0-2.0) H 03/27/24 11:38 Mitchell Test Pos 03/27/24 11:38 A-a O2 Gradient 19.4 mmHg (5-10) H 03/27/24 11:38 Hematocrit 31.8 % (37-47) L 03/27/24 11:38 Hgb O2 Saturation 85.7 % (95-100) L 03/27/24 11:38 Carboxyhemoglobin 1.4 %THgb (0.4-20.1) 03/27/24 11:38 Methemoglobin 1.0 % (0.4-1.5) 03/27/24 11:38 Total Hemoglobin 10.4 g/dL (12-16) L 03/27/24 11:38 Sodium 142.0 mmol/L (131-143) 03/27/24 11:38 Potassium 4.1 mmol/L (3.5-5.0) 03/27/24 11:38 Glucose 140.0 mg/dL (70-115) H 03/27/24 11:38 Ionized Calcium 1.2 mmol/L (1.1-1.4) 03/27/24 11:38 O2 Delivery Device Nc 03/27/24 11:38 O2 Liters/Min 4.0 % 03/27/24 11:38 FiO2 36.0 % 03/27/24 11:38 Speech Correction Assistant ID Cak 03/27/24 11:38 Sodium 141 mmol/L (136-145) 03/27/24 10:23 Potassium 4.4 mmol/L (3.5-5.1) 03/27/24 10:23 Chloride 105 mmol/L (98-107) 03/27/24 10:23 Carbon Dioxide 27 mmol/L (22-29) 03/27/24 10:23 Anion Gap 13.4 (5-19) 03/27/24 10:23 BUN 20 mg/dL (8-23) 03/27/24 10:23 Creatinine 0.7 mg/dL (0.5-0.9) 03/27/24 10:23 GFR Calculation Not Reportable 03/27/24 10:23 Glucose 127 mg/dL (65-115) H 03/27/24 10:23 Calculated Osmolality 296 mOsm/kg (285-295) H 03/27/24 10:23 Lactic Acid 1.4 mmol/L (0.5-2.2) 03/27/24 10:23 Calcium 8.9 mg/dL (8.5-10.5) 03/27/24 10:23 Total Bilirubin 0.5 mg/dL (0.15-1.2) 03/27/24 10:23 AST 11 U/L (0-32) 03/27/24 10:23 ALT 6 U/L (0-33) 03/27/24 10:23 Alkaline Phosphatase 66 U/L (35-105) 03/27/24 10:23 Troponin T Baseline 22 ng/L (0-10) H 03/27/24 10:23 Total Protein 6.6 g/dL (6.6-8.7) 03/27/24 10:23 Albumin 3.7 g/dL (3.5-5.2) 03/27/24 10:23 Globulin 2.9 g/dL (1.3-4.6) 03/27/24 10:23 All radiology interpretation(s) finalized by discharge Discharge Plan Discharge Patient Disposition: Admitted As Inpatient Admit Provider: Duane Anglin Clinical Impression: Community acquired bacterial pneumonia, COPD with acute exacerbation, Acute on chronic hypoxic respiratory failure, Pleuritic chest pain Condition: Stable Coding Level of Care Code ED Employee Training Specialist for Ruth Alfredo
[2024-03-27] MEDS: methylPREDNISolone sod succ 125 mg/2 mL INJ IVP (11:55)
[2024-03-27 12:01] LABS: Lactic Sepsis W/Reflex 1.4 mmol/L (0.5-2.2)
[2024-03-27 12:14] LABS: NT Pro B Type Natriuretic Pept 4692 pg/mL (0-450)
[2024-03-27] MEDS: cefTRIAXone 1,000 mg SDV 1000 MG IVP (12:14)
[2024-03-27] MEDS: doxycycline 100 MG in sodium chloride 0.9% (plus) 100 ML IV ×2 (12:22→23:31)
[2024-03-27 12:52] LABS: Troponin 5 2HR 21.07 ng/L (0-10)
[2024-03-27 12:54] LABS: Troponin 5 2HR Delta -0.93 ABS# (0-10)
--- NOTE | 2024-03-27 13:07 | P.HP_ITS ---
Providers/Chief Complaint 2 Admitting Physician: Duane Anglin Primary Care Provider: BÁRBARA Ruvalcaba Chief Complaint: chest pain History of Present Illness Pleasant 84-year-old lady with history of congestive heart failure, restrictive lung disease, chronically on 3-1/2 L of oxygen at home, history of DM2, HTN, HLD, atrial fibrillation, pacemaker, former smoker, other medical problems presented to ER due to dyspnea, cough, some epigastric pain, some right-sided pleuritic pain. ER physician is finding her dyspneic with diminished air entry and wheezing. With increased oxygen requirement up to 4 L compared to her usual 3-1/2. With also some reported epigastric pain. Her also reports her having had worsening lower extremity edema despite taking her diuretic for her congestive heart failure. Troponin EKG series to assess, baseline troponin is 22. Paced rhythm on EKG. Chest x-ray with questionable focal airspace disease in the right middle lobe which could represent infection. Superimposed diffuse interstitial lung markings similar to prior comparison possibly pneumonitis inflammation, involving CHF. Small right pleural effusion. also reports she has been having episodes of feeling anxious. Review of Systems 2 Const: Reports: malaise; Denies: fever(s), chills or body aches ENMT: Denies: throat pain Card: Reports: chest pain; Denies: edema, pre-syncope or dyspnea on exertion Resp: Reports: dyspnea and productive cough; Denies: hemoptysis GI: Reports: abdominal pain (Epigastric pain); Denies: nausea, vomiting, diarrhea, constipation, hematochezia or melena : Denies: flank pain, urinary frequency or hematuria Musc: Denies: back pain, joint swelling or joint redness Skin/Breast: Denies: rash or new lesions Medications/Allergies Home Medications Medication Instructions Recorded Confirmed Last Taken Type nitroglycerin 0.4 mg sublingual 0.4 mg sublingual Q5M PRN Chest 02/13/21 03/27/24 10/04/21 Rx tablet (Nitrostat) Pain #25 tabs Diabetic Shoes with 3 sets of #1 ea 09/26/21 03/27/24 10/04/21 Rx insoles pantoprazole 40 mg tablet,delayed 40 mg PO BID #60 tabs 07/24/22 03/27/24 03/27/24 Rx release (Protonix) acetaminophen 500 mg tablet 1,000 mg PO BID PRN pain or temp 01/04/23 03/27/24 01/04/23 History citalopram 20 mg tablet 20 mg PO QPM 01/04/23 03/27/24 03/26/24 History furosemide 40 mg tablet (Lasix) 40 mg PO QAM 01/04/23 03/27/24 03/27/24 History insulin glargine 100 unit/mL (3 28 unit SUBCUT QPM 01/04/23 03/27/24 03/26/24 History mL) subcutaneous pen (Lantus Solostar U-100 Insulin) ipratropium 0.5 mg-albuterol 3 mg 3 ml inhalation Q6H PRN Shortness 01/04/23 03/27/24 Unknown History (2.5 mg base)/3 mL nebulization Of Breath soln levothyroxine 25 mcg tablet 25 mcg PO QAM 01/04/23 03/27/24 03/27/24 History potassium chloride 10 mEq 10 meq PO QAM 01/04/23 03/27/24 03/27/24 History capsule,extended release pravastatin 40 mg tablet 40 mg PO QAM 01/04/23 03/27/24 03/27/24 History budesonide-formoterol HFA 80 2 puff inhalation BID #10.2 grams 07/25/23 03/27/24 03/27/24 Rx mcg-4.5 mcg/actuation aerosol inhaler (Symbicort) clopidogrel 75 mg tablet 75 mg PO DAILY 03/27/24 03/27/24 03/27/24 History hydrocodone 5 mg-acetaminophen 325 1 tab PO TID PRN Pain 03/27/24 03/27/24 Unknown History mg tablet insulin detemir U-100 100 unit/mL 12 unit SUBCUT QPM 03/27/24 03/27/24 03/26/24 History (3 mL) subcutaneous pen Allergies Allergy/AdvReac Type Severity Reaction Status Date / Time codeine Allergy ADR-Halluci Verified 01/22/24 15:14 nating digoxin Allergy BLISERS IN Verified 01/22/24 15:14 MOUTH Sulfa (Sulfonamide Allergy ALGY-Hives Verified 01/22/24 15:14 Antibiotics) tetanus and diphtheria Allergy ADR-Vomitin Verified 01/22/24 15:14 toxoids g PFSH Acute 2 PFSH: Medical History Lower gastrointestinal hemorrhage Urinary retention Bleeding duodenal ulcer 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, N0, M0 Hypoxemia Nail fungus Hyperlipidemia Hypertension Chronic pancreatitis Coronary artery disease due to type 2 diabetes mellitus Sleep apnea Anemia History of colon polyps Pneumonia Diabetic peripheral neuropathy Chronic atrial fibrillation Type 2 diabetes mellitus Restrictive lung disease Diastolic CHF Surgical History History of cholecystectomy Status post colonoscopy with polypectomy 03/15/2019: Colonoscopy with polypectomy Findings: 2 cm sessile polyp in ascending colon removed with cold biopsy forceps Moderate diverticulosis sigmoid colon Grade 4 hemorrhoids History of esophagogastroduodenoscopy (EGD) 03/15/2019: EGD with biopsy Findings: Duodenal ulceration, most likely source of her bleed History of thoracentesis H/O: hysterectomy History of appendectomy S/P ablation of atrial fibrillation Family History Mother CAD (coronary artery disease) Family/Other Cancer Father Chronic kidney disease (CKD) Brother Dementia Diabetes Family history of premature coronary artery disease Hypertension Sister Hypertension Social History Smoking and tobacco/nicotine status: former use of tobacco/nicotine Quit status (tobacco/nicotine): has quit using Year quit tobacco: 2013 PPD x 55 Years Second hand smoke exposure: No Alcohol intake: never Substance/Drug Use: never Lives independently: Yes Household members: spouse Housing: House Marital status: Current occupational status: retired Do you think of yourself as: Straight/Heterosexual Current gender identity: Female Vitals/I&O/Wt Last Vital Signs Temp 98.1 F 03/27/24 09:48 Pulse 60 03/27/24 12:35 Resp 22 H 03/27/24 12:30 BP 148/64 03/27/24 12:35 Pulse Ox 97 03/27/24 12:35 O2 Del Method Nasal Cannula 03/27/24 12:30 O2 Flow Rate 4 03/27/24 12:30 Weight last 48 hrs Weight 65.771 kg Physical Exam 2 Const: COMMON NORMALS: patient oriented x3 and alert GENERAL APPEARANCE: c ooperative ORIENTATION/CONSCIOUSNESS: Yes awake HENMT: COMMON NORMALS: oropharynx normal Neck/C-Spine: COMMON NORMALS: no JVD Resp: COMMON NORMALS: normal respiratory effort and clear to auscultation bilaterally AUSCULTATION: diminished lung sounds Cardio: COMMON NORMALS: no JVD, regular rhythm, S1 normal heart sound present, S2 normal heart sound present and No murmurs present (Cardio) RHYTHM: regular rhythm HEART SOUNDS: S1 normal heart sound present and S2 normal heart sound present GI: COMMON NORMALS: Normal to inspection, nondistended, normoactive bowel sounds present, Soft to palpation and non-tender PALPATION: Yes Soft to palpation Extremity: COMMON NORMALS: no joint enlargement and no pedal edema Neuro: COMMON NORMALS: patient oriented x3 and moves all extremities S ENSORIUM/ORIENTATION: Yes alert Skin: COMMON NORMALS: no rashes or lesions noted GENERAL SKIN EXAM: no rashes or lesions noted Data 03/27/24 10:23 03/27/24 10:23 Micro: Microbiology 03/27/24 12:13 Blood Culture - Preliminary Blood SPECIMEN COLLECTED 03/27/24 12:01 Blood Culture - Preliminary Blood SPECIMEN COLLECTED A&P Assessment and plan (1) Community acquired bacterial pneumonia: With cough, dyspnea, malaise, pleuritic pain, trace pleural effusion is noted. Reviewed vitals, CBC, ABG, chest x-ray, blood cultures have been collected. Reviewed ER provider note, discussed with ER provider. Requested respiratory viral panel, nasal MRSA, sputum culture, Legionella urine antigen and bacterial urine antigens. Maintain oxygen support, wean down as tolerating. Currently on 4 L, normally on around 3-1/2. RT consultation. Ceftriaxone, doxycycline for community-acquired pneumonia. For now with bronchial component with diminished air entry with known small airway disease, will continue with Solu-Medrol 30 mg IV every 8 hours, reassess condition, titrate down as tolerating. Monitor for risk of hyperglycemia, hypertension, gastritis, encephalopathy with IV steroid. Reviewed D-dimer, noted abnormal 1.37. Will assess for possible PE. Consider reassessment imaging of small right pleural effusion. (2) Small airways disease: With noted exacerbation, with diminished air entry bilaterally, continue with IV steroids for now as above. Breathing treatments. Collect sputum culture. Treat pneumonia. Oxygen support, wean down as tolerating. (3) Acute CHF: Acutely decompensated diastolic congestive heart failure, with history of pulmonary hypertension, on Lasix at home, fluid restriction 1.5 L, despite that progressive lower extremity edema. Worsening hypoxia. NT-proBNP elevated 4692. Will transition Lasix to IV 40 mg twice daily push. Monitor for risk of electrolyte deficiency with IV diuretic, risk of hypovolemia, kidney dysfunction. Reassess chemistry. Check magnesium. Complete troponin EKG series. On my interpretation paced rhythm, pending official read. Assess TTE. Cautious diuresis with suspected component of congestive heart failure. Monitor vitals. Monitor for risk of hypotension. Hold off antihypertensives for now. Plan Epigastric pain: Reported on presentation. Possible gastritis? Continue PPI. Antiemetic as needed. Check lipase. Monitor for risk of worsening gastritis with steroid. Will switch PPI to IV formulation for now. Anxiety: Has been having episodes of intermittent anxiety. Discussed with her and her adding small dose of Xanax as needed. DM2: Continue insulin Lantus, sliding scale, POC glucose checks. Consult carbohydrate diet. HTN: Monitor blood pressures with diuresis. Cardiac diet. A-fib: Continue Plavix, not on anticoagulation with history of GI bleed. Currently bradycardic. Monitor on telemetry. Status post PPM Other medical problems Attestations 2 Medical Necessity Statement*: Admission of over 2 midnights anticipated. Management of community-acquired pneumonia with worsening hypoxia compared to baseline with underlying small airway disease, pulmonary hypertension with acute decompensated congestive heart failure and a lady with multiple comorbidities as above. and High MDM includes amount and/or complexity of data reviewed/ordered [ previous or external records, resulted lab(s)/test(s), ordered lab(s)/test(s), independent historian, independent test interpretation and other healthcare professional discussion] and described risk of complication, morbidity or mortality of management as documented Diagnoses Community acquired bacterial pneumonia J15.9 Small airways disease J98.4 Acute CHF I50.9
--- NOTE | 2024-03-27 14:20 | USCV_ITS ---
Radha Rose Age: 84 Gender: F : 1940 Exam Date: 03/27/2024 17:21 Ordering Phys: Duane Anglin MD Technologist: Lyle Humphries [place] [facility] [place]: chf BP: 138 / 89 HR: 60 Rhythm: Sinus Technical Quality: Adequate MEASUREMENTS (Male / Female) Normal Values 2D ECHO LV Diastolic Diameter PLAX 3.6 cm 4.2 - 5.9 / 3.9 - 5.3 cm IVS Diastolic Thickness 1.6 cm 0.6 - 1.0 / 0.6 - 0.9 cm IVS Systolic Thickness 1.4 cm LVPW Diastolic Thickness 1.4 cm 0.6 - 1.0 / 0.6 - 0.9 cm LVPW Systolic Thickness 2.2 cm LVOT Diameter 2.0 cm LV Ejection Fraction 2D Teich 69.0 % LV Ejection Fraction MOD 4C 63.7 % LV Ejection Fraction MOD 2C 77.4 % LV Ejection Fraction 2C AL 76.9 % LA Diameter 4.7 cm RA Systolic Volume 4C AL 52.8 ml RA Systolic Volume 4C MOD 51.3 ml LA Sys Volume AL 83.3 cm cubed LA Sys Volume Index AL 48.3 cm cubed/m squared Aorta at Sinotubular Diameter 2.3 cm IVC Diameter 2.2 cm M-MODE LA Ao Ratio MM 1.9 AV Cusp Separation MM 1.9 cm DOPPLER AV Peak Velocity 95.7 cm/s LVOT Peak Velocity 81.0 cm/s AV Area Cont Eq vti 2.9 cm squared AV Area Cont Eq pk 2.7 cm squared MV Peak Velocity 110.0 cm/s MV Area PHT 7.4 cm squared Mitral E to A Ratio 2.4 TV Peak Velocity 457.0 cm/s TR Peak Velocity 517.0 cm/s TR Peak Gradient 106.9 mmHg TR Mean Velocity 417.0 cm/s TR Mean Gradient 72.6 mmHg TR Velocity Time Integral 180.2 cm PV Peak Velocity 107.7 cm/s RV Ejection Time 0.3 s FINDINGS Left Ventricle Normal left ventricular size, systolic function and wall thickness, with no regional wall motion abnormalities. Left ventricular ejection fraction is estimated at 55%. Grade II/IV diastolic dysfunction, moderately elevated filling pressures. Right Ventricle Catheter/pacemaker wire visualized in the right ventricle. Right Atrium Catheter/pacemaker wire in the right atrial cavity. 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 Left Atrium Moderately increased left atrial size. Mitral Valve Structurally normal mitral valve. No mitral valve stenosis. Moderate mitral valve regurgitation. Trace mitral valve regurgitation. Aortic Valve Structurally normal aortic valve without significant sclerosis or stenosis. There is no aortic regurgitation. Tricuspid Valve [id number] tricuspid valve regurgitation. Pulmonic Valve Mild pulmonary valve regurgitation. Pericardium Normal pericardium without effusion. Aorta Normal ascending aorta dimension. IVC Moderately dilated IVC. CONCLUSIONS Normal left ventricular size, systolic function and wall thickness, with no regional wall motion abnormalities. Left ventricular ejection fraction is estimated at 55%. Grade II/IV diastolic dysfunction, moderately elevated filling pressures. Catheter/pacemaker wire visualized in the right ventricle. Catheter/pacemaker wire in the right atrial cavity. 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 Moderately increased left atrial size. [id number] tricuspid valve regurgitation. Structurally normal mitral valve. No mitral valve stenosis. Moderate mitral valve regurgitation. Trace mitral valve regurgitation. There is no pericardial effusion. Right atrial pressure is around 20 mm of mercury. Van Law MD (Electronically Signed) Final Date: 27 March 2024 22:38 S
[2024-03-27 14:53] LABS: D Dimer 1.37 ug/mLFEU (0-0.59)
--- NOTE | 2024-03-27 15:01 | CTR_ITS ---
PROCEDURE INFORMATION: Exam: CTA Chest With Contrast Exam date and time: 03/28/2024 3:31 AM Age: 84 years old Clinical indication: Abnormal findings; Abnormal diagnostic tests; Elevated d-dimer; Shortness of breath; Prior surgery; Surgery date: 6+ months; Surgery type: Gb. Pancreas; Patient HX: SOB with dimer of 1.37. History of chf and pancreatic cancer. ; Additional info: Assess for possible pe TECHNIQUE: Imaging protocol: Computed tomographic angiography of the chest with contrast. Exam focused on the arteries. 3D rendering (Not supervised by radiologist): MIP and/or 3D reconstructed images were created by the technologist. Radiation optimization: All CT scans at this facility use at least one of these dose optimization techniques: automated exposure control; mA and/or kV adjustment per patient size (includes targeted exams where dose is matched to clinical indication); or iterative reconstruction. Contrast material: OMNI 350; Contrast volume: 65 ml; Contrast route: INTRAVENOUS (IV); COMPARISON: CT angio chest PE protcl [id number] 12/11/2020 10:19 AM RADIATION DOSE METRICS: Total DLP (mGy-cm): 386.95 FINDINGS: Pulmonary arteries: There are no filling defects involving the pulmonary arteries. Aorta: There is poor opacification of the thoracic aorta limiting evaluation. There is calcific plaque involving the thoracic aorta and coronary arteries. Lungs: Mild pulmonary emphysematous changes present. There are scattered areas of ground-glass opacities throughout the lungs with interlobular septal thickening suggesting superimposed pulmonary edema. Pleural spaces: There is a moderate right pleural effusion. Trace left pleural effusion. Heart: The heart is enlarged. Lymph nodes: Unremarkable. No enlarged lymph nodes. Gallbladder and biliary ducts: Visualized portions of the upper abdomen demonstrates incompletely imaged pneumobilia. Bones/joints: Multilevel degenerative changes involve the spine. Soft tissues: Unremarkable. CT/CT angio chest PE protcl [id number] IMPRESSION: 1. Negative exam for pulmonary embolus. 2. Atherosclerosis with coronary artery calcification. 3. Cardiomegaly associated with moderate right pleural effusion and mild pulmonary edema. 4. Mild pulmonary emphysematous changes.
[2024-03-27] MEDS: enoxaparin 40 mg/0.4 mL Syringe SUBCUT (15:21)
[2024-03-27] MEDS: ipratropium-albuterol 3 mL Neb INHALATION ×2 (15:30→21:58)
--- NOTE | 2024-03-27 15:52 | ECG_ITS ---
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
[2024-03-27 16:01] LABS: MRSA PCR OZH (swab) NOT DETECTED (Not Detecte)
[2024-03-27] MEDS: methylPREDNISolone sod succ 40 mg/mL INJ 30 MG IVP (17:14)
[2024-03-27] MEDS: pantoprazole 40 mg SDV IVP (17:14)
[2024-03-27] MEDS: FUROsemide 10 mg/mL SDV 4mL 40 MG IVP (17:14)
[2024-03-27 17:15] LABS: Troponin 5 6HR 19.33 ng/L (0-10)
[2024-03-27 17:18] LABS: Troponin 5 6HR Delta -2.67 ng/L (0-12)
[2024-03-27 19:05] LABS: Adenovirus Not Detected (NOT DETECT); Chlamydia Pneumoniae Not Detected (NOT DETECT); Coronavirus 229E,HKU1,NL63,OC4 Not Detected (NOT DETECT); Human Metapneumovirus Not Detected (NOT DETECT); Human Rhinovirus/Enterovirus Not Detected (NOT DETECT); Influenza A Not Detected (NOT DETECT); Influenza A H1 Not Detected (NOT DETECT); Influenza A H1-2009 Not Detected (NOT DETECT); Influenza A H3 Not Detected (NOT DETECT); Influenza B Not Detected (NOT DETECT); Mycoplasma Pneumoniae Not Detected (NOT DETECT); Parainfluenza Virus Type 1 Not Detected (NOT DETECT); Parainfluenza Virus Type 2 Not Detected (NOT DETECT); Parainfluenza Virus Type 3 Not Detected (NOT DETECT); Parainfluenza Virus Type 4 Not Detected (NOT DETECT); Respiratory Syncytial Virus A Not Detected (NOT DETECT); Respiratory Syncytial Virus B Not Detected (NOT DETECT); SARS-COV-2 Not Detected (NOT DETECT)
[2024-03-27] MEDS: ondansetron 2 mg/ML SDV 2 mL 4 MG IVP (22:12)
[2024-03-28] VITALS (12 sets, daily range): BP systolic 112–150; BP diastolic 54–70; PULSE 60–88; RESP 16–21; TEMP 36.4–37.1; O2SAT 90–98
[2024-03-28] MEDS: methylPREDNISolone sod succ 40 mg/mL INJ 30 MG IVP ×3 (02:42→17:24)
[2024-03-28] MEDS: pantoprazole 40 mg SDV IVP ×2 (02:43→17:24)
[2024-03-28] MEDS: iohexol 350 mg/mL 500 mL Btl (per mL) IV (03:38)
[2024-03-28] MEDS: FUROsemide 10 mg/mL SDV 4mL 40 MG IVP ×2 (04:05→17:24)
[2024-03-28 04:56] LABS: Hematocrit 34.6 % (36-47); Lymphocytes # 0.3 10^3/uL (0.8-4.8); Lymphocytes % 6.5 %; Mean Corpuscular HGB Conc 28.9 g/dL (30-55); Mean Corpuscular Hemoglobin 28.4 pg (27-33); Mean Corpuscular Volume 98.3 fl (85-98); Monocytes # 0.1 10^3/uL (0.2-0.9); Monocytes % 2.6 %; Neutrophils # 4.49 10^3/uL (1.8-7.7); Neutrophils % 90.5 %; Nucleated Red Blood Cells % 0 %; Platelet Count 156 10^3/cmm (157-399); Red Blood Count 3.52 10^6/uL (3.85-5.65); Red Cell Distribution Width 15.5 % (12.1-15.1); White Blood Count 4.96 10^3/uL (3.29-11.43)
[2024-03-28 05:15] LABS: Anion Gap 19.4 (5-19); Blood Urea Nitrogen 22 mg/dL (8-23); Carbon Dioxide 22 mmol/L (22-29); Chloride 100 mmol/L (98-107); Creatinine Clr Calc Pharmacy 43.9351; Glucose 212 mg/dL (65-115); Osmolality Calculated 294 mOsm/kg (285-295); Potassium 4.4 mmol/L (3.5-5.1); Sodium 137 mmol/L (136-145)
[2024-03-28 05:17] LABS: Magnesium 1.8 mg/dL (1.7-2.3)
[2024-03-28] MEDS: ipratropium-albuterol 3 mL Neb INHALATION ×3 (08:08→20:01)
[2024-03-28] MEDS: ondansetron 2 mg/ML SDV 2 mL 4 MG IVP (08:11)
[2024-03-28] MEDS: acetaminophen 325 mg Tablet 650 MG PO (08:11)
[2024-03-28] MEDS: cefTRIAXone 1,000 mg SDV 1000 MG IVP (08:11)
--- NOTE | 2024-03-28 11:01 | PC.CHAP ---
Pastoral Care Encounter/Spiritual Assessment Type of Contact [] Declined cat dog or other pet groomer visit [] Patient/Family/Request visit [] Outpatient visit [] Follow-up visit [] Physician referral [] Code/Alert [x] Routine visit [] Staff referral [] Actively dying [] Patient sleeping [] Family support [] [] Out of room [] Palliative care [] [] Receiving care in room [] Pre-surgical visit [] Trauma [] Long length of stay [] ICU visit [] Other: Relational/Emotional Strength [x] Patient feels connected with others/family/visitors/staff [] Distress [] Loneliness/isolation [] Abandonment Spirituality of Patient [x] Person of Yolis [x] Attends Religious of their [place] [x] Believes in Prayer [] Reads Bible or Religion materials [] There are Spiritual issues to be addressed Chiropractor Sole Practitioner Interventions [x] Prayer [x] Active listening [x] Non-anxious presence [] Spiritual/emotional support [] Crisis/trauma care [] Spiritual counseling [] Bereavement support [] Provided bereavement packet [] Provided Bible/devotional materials [] Provided toy/stuffed animal, coloring book to patient or family member [] Provided Communion [] Anointing/[place] [] Salvation [] Completed spiritual assessment [] Other: Impact on Illness or Injury [] Angry [] Fearful [] Anxious [] Often cries [] Exhaustion [] Unable to work [] Unable to attend pentecostal [] Unable to walk/stand [] Unable to read [] Unable to drive [] Unable to eat/drink [] Unable to sleep [] Unable to be with family [] Patient intubated [] Other: Summary Prayer Time spent with patient 15 Min
[2024-03-28] MEDS: doxycycline 100 MG in sodium chloride 0.9% (plus) 100 ML IV ×2 (11:38→22:35)
--- NOTE | 2024-03-28 13:37 | P.PN_ITS ---
Subjective 2 Subjective: Seen today. Resting comfortably in recliner. Currently being diuresed. Urine output charted overnight. However patient states she is peeing a lot. Vitals/I&O/Wt Last Vital Signs Temp 98.7 F 03/28/24 12:00 Pulse 62 03/28/24 12:00 Resp 16 03/28/24 12:00 BP 150/64 03/28/24 12:00 Pulse Ox 92 03/28/24 12:00 O2 Del Method Nasal Cannula 03/28/24 12:00 O2 Flow Rate 3 03/28/24 08:08 03/27/24 03/28/24 03/28/24 22:59 06:59 14:59 Intake Total 340 / 340 100 / 440 400 / 400 Balance 340 / 340 100 / 440 400 / 400 Weight last 48 hrs Weight 65.771 kg Weight 65.771 kg Physical Exam 2 Narrative: Trace edema bilateral lower extremities Const: COMMON NORMALS: patient oriented x3 and alert GENERAL APPEARANCE: c ooperative ORIENTATION/CONSCIOUSNESS: Yes awake HENMT: COMMON NORMALS: oropharynx normal Neck/C-Spine: COMMON NORMALS: no JVD Resp: COMMON NORMALS: normal respiratory effort and clear to auscultation bilaterally AUSCULTATION: clear to auscultation bilaterally and diminished lung sounds Cardio: COMMON NORMALS: no JVD, regular rhythm, S1 normal heart sound present, S2 normal heart sound present and No murmurs present (Cardio) RHYTHM: regular rhythm HEART SOUNDS: S1 normal heart sound present and S2 normal heart sound present GI: COMMON NORMALS: Normal to inspection, nondistended, normoactive bowel sounds present, Soft to palpation and non-tender PALPATION: Yes Soft to palpation Extremity: COMMON NORMALS: no joint enlargement and no pedal edema Neuro: COMMON NORMALS: patient oriented x3 and moves all extremities S ENSORIUM/ORIENTATION: Yes alert Skin: COMMON NORMALS: no rashes or lesions noted GENERAL SKIN EXAM: no rashes or lesions noted Data 03/28/24 03:53 03/28/24 03:53 Micro: Microbiology 03/27/24 12:13 Blood Culture - Preliminary Blood NEGATIVE TO DATE 03/27/24 12:01 Blood Culture - Preliminary Blood NEGATIVE TO DATE 03/27/24 18:36 Legionella Urinary Antigen - Final Urine,Voided Bacterial Antigens - Final A&P Assessment and plan (1) Community acquired bacterial pneumonia: With cough, dyspnea, malaise, pleuritic pain, trace pleural effusion is noted. Reviewed vitals, CBC, ABG, chest x-ray, blood cultures have been collected. Reviewed ER provider note, discussed with ER provider. Requested respiratory viral panel, nasal MRSA, sputum culture, Legionella urine antigen and bacterial urine antigens. Maintain oxygen support, wean down as tolerating. Currently on 4 L, normally on around 3-1/2. RT consultation. Ceftriaxone, doxycycline for community-acquired pneumonia. For now with bronchial component with diminished air entry with known small airway disease, will continue with Solu-Medrol 30 mg IV every 8 hours, reassess condition, titrate down as tolerating. Monitor for risk of hyperglycemia, hypertension, gastritis, encephalopathy with IV steroid. Reviewed D-dimer, noted abnormal 1.37. Will assess for possible PE. Consider reassessment imaging of small right pleural effusion. (2) Small airways disease: With noted exacerbation, with diminished air entry bilaterally, continue with IV steroids for now as above. Breathing treatments. Collect sputum culture. Treat pneumonia. Oxygen support, wean down as tolerating. (3) Acute CHF: Acutely decompensated diastolic congestive heart failure, with history of pulmonary hypertension, on Lasix at home, fluid restriction 1.5 L, despite that progressive lower extremity edema. Worsening hypoxia. NT-proBNP elevated 4692. Will transition Lasix to IV 40 mg twice daily push. Monitor for risk of electrolyte deficiency with IV diuretic, risk of hypovolemia, kidney dysfunction. Reassess chemistry. Check magnesium. Complete troponin EKG series. On my interpretation paced rhythm, pending official read. Assess TTE. Cautious diuresis with suspected component of congestive heart failure. Monitor vitals. Monitor for risk of hypotension. Hold off antihypertensives for now. Plan Epigastric pain: Reported on presentation. Possible gastritis? Continue PPI. Antiemetic as needed. Check lipase. Monitor for risk of worsening gastritis with steroid. Will switch PPI to IV formulation for now. Anxiety: Has been having episodes of intermittent anxiety. Discussed with her and her adding small dose of Xanax as needed. DM2: Continue insulin Lantus, sliding scale, POC glucose checks. Consult carbohydrate diet. HTN: Monitor blood pressures with diuresis. Cardiac diet. A-fib: Continue Plavix, not on anticoagulation with history of GI bleed. Currently bradycardic. Monitor on telemetry. Status post PPM Other medical problems 03/28/2024 -Continue to diurese patient. Will need accurate urine output. Will discuss with nursing staff. ? Echo resulted: Normal left ventricular size, systolic function and wall thickness, with no regional wall motion abnormalities. Left ventricular ejection fraction is estimated at 55%. Grade II/IV diastolic dysfunction, moderately elevated filling pressures. Catheter/pacemaker wire visualized in the right ventricle. Catheter/pacemaker wire in the right atrial cavity. 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 ? Cultures pending at this time ? Will recheck chest x-ray in AM. Attestations 2 Medical Necessity Statement*: Admission of over 2 midnights anticipated. Management of community-acquired pneumonia with worsening hypoxia compared to baseline with underlying small airway disease, pulmonary hypertension with acute decompensated congestive heart failure and a lady with multiple comorbidities as above. Diagnoses Community acquired bacterial pneumonia J15.9 Small airways disease J98.4 Acute CHF I50.9
[2024-03-28] MEDS: enoxaparin 40 mg/0.4 mL Syringe SUBCUT (17:24)
[2024-03-28 21:01] LABS: Glucose Point of Care 268 mg/dL (70-110)
[2024-03-28] MEDS: insulin lispro 100 unit/1 mL SUBCUT (21:24)
[2024-03-28] MEDS: benzonatate 100 mg Capsule 200 MG PO (22:33)
[2024-03-29] VITALS (12 sets, daily range): BP systolic 115–133; BP diastolic 53–82; PULSE 59–65; RESP 17–20; TEMP 36.5–36.8; O2SAT 91–99
[2024-03-29] MEDS: methylPREDNISolone sod succ 40 mg/mL INJ 30 MG IVP ×3 (02:08→17:03)
[2024-03-29] MEDS: pantoprazole 40 mg SDV IVP ×2 (04:21→15:44)
[2024-03-29] MEDS: FUROsemide 10 mg/mL SDV 4mL 40 MG IVP ×2 (04:21→15:44)
[2024-03-29] MEDS: ondansetron 2 mg/ML SDV 2 mL 4 MG IVP (04:34)
[2024-03-29 04:45] LABS: Basophils % 0.1 %; Hematocrit 33.5 % (36-47); Lymphocytes # 0.3 10^3/uL (0.8-4.8); Lymphocytes % 2.7 %; Mean Corpuscular HGB Conc 29.9 g/dL (30-55); Mean Corpuscular Hemoglobin 29.5 pg (27-33); Mean Corpuscular Volume 98.8 fl (85-98); Mean Platelet Volume 10.6 fL (7.4-10.4); Monocytes # 0.2 10^3/uL (0.2-0.9); Monocytes % 2.2 %; Neutrophils % 94.6 %; Nucleated Red Blood Cells % 0 %; Platelet Count 151 10^3/cmm (157-399); Red Blood Count 3.39 10^6/uL (3.85-5.65); Red Cell Distribution Width 15.9 % (12.1-15.1); White Blood Count 10.26 10^3/uL (3.29-11.43)
[2024-03-29 05:08] LABS: Anion Gap 15.2 (5-19); Blood Urea Nitrogen 31 mg/dL (8-23); Calcium 9.2 mg/dL (8.5-10.5); Carbon Dioxide 26 mmol/L (22-29); Chloride 98 mmol/L (98-107); Creatinine Clr Calc Pharmacy 35.9469; Glucose 165 mg/dL (65-115); Osmolality Calculated 290 mOsm/kg (285-295); Potassium 4.2 mmol/L (3.5-5.1); Sodium 135 mmol/L (136-145)
[2024-03-29 06:44] LABS: Glucose Point of Care 189 mg/dL (70-110)
--- NOTE | 2024-03-29 08:00 | XRR_ITS ---
PROCEDURE INFORMATION: Exam: XR Chest Exam date and time: 03/29/2024 1:46 PM Age: 84 years old Clinical indication: Shortness of breath; Prior surgery; Surgery date: 6+ months; Surgery type: Cardiac stents x 5, pacemaker; Patient HX: Pleural effusions; SOB TECHNIQUE: Imaging protocol: Radiologic exam of the chest. Views: 1 view. COMPARISON: CT angio chest PE protcl [id number] 03/28/2024 3:31 AM FINDINGS: Tubes, catheters and devices: Left-sided pacemaker noted. Lungs: Emphysematous changes. Atelectatic changes in lower lungs. Pleural spaces: Small pleural effusions, right more than left. No pneumothorax. Heart/Mediastinum: Cardiomegaly. Bones/joints: Minimal spondylotic changes of the spine. Paguate screw in left proximal humerus noted. XR/XR chest 1V portable [id number] IMPRESSION: Small pleural effusions and atelectasis/airspace opacities in lower lobes, right more than left.
[2024-03-29] MEDS: ipratropium-albuterol 3 mL Neb INHALATION ×3 (08:14→20:35)
[2024-03-29] MEDS: insulin lispro 100 unit/1 mL SUBCUT ×4 (08:45→21:06)
[2024-03-29] MEDS: cefTRIAXone 1,000 mg SDV 1000 MG IVP (08:45)
[2024-03-29 11:43] LABS: Glucose Point of Care 175 mg/dL (70-110)
[2024-03-29] MEDS: doxycycline 100 MG in sodium chloride 0.9% (plus) 100 ML IV ×2 (12:18→22:55)
--- NOTE | 2024-03-29 15:19 | P.PN_ITS ---
Vitals/I&O/Wt Last Vital Signs Temp 97.7 F 03/29/24 12:00 Pulse 61 03/29/24 14:06 Resp 18 03/29/24 14:06 BP 115/53 03/29/24 12:00 Pulse Ox 99 03/29/24 14:06 O2 Del Method Nasal Cannula 03/29/24 14:06 O2 Flow Rate 3 03/29/24 14:06 03/29/24 03/29/24 03/29/24 06:59 14:59 22:59 Intake Total 100 / 620 340 / 340 Output Total 1100 / 1900 1250 / 1250 Balance -1000 / -1280 -910 / -910 Weight last 48 hrs Weight 65.771 kg Weight 65.771 kg Physical Exam 2 Narrative: Trace edema bilateral lower extremities Const: COMMON NORMALS: patient oriented x3 and alert GENERAL APPEARANCE: c ooperative ORIENTATION/CONSCIOUSNESS: Yes awake HENMT: COMMON NORMALS: oropharynx normal Neck/C-Spine: COMMON NORMALS: no JVD Resp: COMMON NORMALS: normal respiratory effort and clear to auscultation bilaterally AUSCULTATION: clear to auscultation bilaterally and diminished lung sounds Cardio: COMMON NORMALS: no JVD, regular rhythm, S1 normal heart sound present, S2 normal heart sound present and No murmurs present (Cardio) RHYTHM: regular rhythm HEART SOUNDS: S1 normal heart sound present and S2 normal heart sound present GI: COMMON NORMALS: Normal to inspection, nondistended, normoactive bowel sounds present, Soft to palpation and non-tender PALPATION: Yes Soft to palpation Extremity: COMMON NORMALS: no joint enlargement and no pedal edema Neuro: COMMON NORMALS: patient oriented x3 and moves all extremities S ENSORIUM/ORIENTATION: Yes alert Skin: COMMON NORMALS: no rashes or lesions noted GENERAL SKIN EXAM: no rashes or lesions noted Urinary Catheter Management: Alanis: Cath Placed During This Visit: yes Reason for Continuing Indwelling Catheter: Accurate Measurement of Urinary Output in Critically Ill Patients Urinary Catheter Date of Insertion: 03/28/24 Urinary Catheter Time of Insertion: 17:00 Data 03/29/24 04:19 03/29/24 04:19 Micro: Microbiology 03/27/24 12:13 Blood Culture - Preliminary Blood NEGATIVE TO DATE 03/27/24 12:01 Blood Culture - Preliminary Blood NEGATIVE TO DATE 03/27/24 18:36 Legionella Urinary Antigen - Final Urine,Voided Bacterial Antigens - Final A&P Assessment and plan (1) Community acquired bacterial pneumonia: With cough, dyspnea, malaise, pleuritic pain, trace pleural effusion is noted. Reviewed vitals, CBC, ABG, chest x-ray, blood cultures have been collected. Reviewed ER provider note, discussed with ER provider. Requested respiratory viral panel, nasal MRSA, sputum culture, Legionella urine antigen and bacterial urine antigens. Maintain oxygen support, wean down as tolerating. Currently on 4 L, normally on around 3-/2. RT consultation. Ceftriaxone, doxycycline for community-acquired pneumonia. For now with bronchial component with diminished air entry with known small airway disease, will continue with Solu-Medrol 30 mg IV every 8 hours, reassess condition, titrate down as tolerating. Monitor for risk of hyperglycemia, hypertension, gastritis, encephalopathy with IV steroid. Reviewed D-dimer, noted abnormal 1.37. Will assess for possible PE. Consider reassessment imaging of small right pleural effusion. (2) Small airways disease: With noted exacerbation, with diminished air entry bilaterally, continue with IV steroids for now as above. Breathing treatments. Collect sputum culture. Treat pneumonia. Oxygen support, wean down as tolerating. (3) Acute CHF: Acutely decompensated diastolic congestive heart failure, with history of pulmonary hypertension, on Lasix at home, fluid restriction 1.5 L, despite that progressive lower extremity edema. Worsening hypoxia. NT-proBNP elevated 4692. Will transition Lasix to IV 40 mg twice daily push. Monitor for risk of electrolyte deficiency with IV diuretic, risk of hypovolemia, kidney dysfunction. Reassess chemistry. Check magnesium. Complete troponin EKG series. On my interpretation paced rhythm, pending official read. Assess TTE. Cautious diuresis with suspected component of congestive heart failure. Monitor vitals. Monitor for risk of hypotension. Hold off antihypertensives for now. Plan Epigastric pain: Reported on presentation. Possible gastritis? Continue PPI. Antiemetic as needed. Check lipase. Monitor for risk of worsening gastritis with steroid. Will switch PPI to IV formulation for now. Anxiety: Has been having episodes of intermittent anxiety. Discussed with her and her adding small dose of Xanax as needed. DM2: Continue insulin Lantus, sliding scale, POC glucose checks. Consult carbohydrate diet. HTN: Monitor blood pressures with diuresis. Cardiac diet. A-fib: Continue Plavix, not on anticoagulation with history of GI bleed. Currently bradycardic. Monitor on telemetry. Status post PPM Other medical problems 03/28/2024 -Continue to diurese patient. Will need accurate urine output. Will discuss with nursing staff. ? Echo resulted: Normal left ventricular size, systolic function and wall thickness, with no regional wall motion abnormalities. Left ventricular ejection fraction is estimated at 55%. Grade II/IV diastolic dysfunction, moderately elevated filling pressures. Catheter/pacemaker wire visualized in the right ventricle. Catheter/pacemaker wire in the right atrial cavity. 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 ? Cultures pending at this time ? Will recheck chest x-ray in AM. 03/29/2024 Blood cultures negative to date ? Continue Lasix. ? Plan to discharge in a.m. -Continue home medications. ? Restart Plavix, levothyroxine, pravastatin Attestations 2 Medical Necessity Statement*: Admission of over 2 midnights anticipated. Management of community-acquired pneumonia with worsening hypoxia compared to baseline with underlying small airway disease, pulmonary hypertension with acute decompensated congestive heart failure and a lady with multiple comorbidities as above. Diagnoses Community acquired bacterial pneumonia J15.9 Small airways disease J98.4 Acute CHF I50.9
[2024-03-29] MEDS: enoxaparin 40 mg/0.4 mL Syringe SUBCUT (15:44)
[2024-03-29 16:39] LABS: Glucose Point of Care 256 mg/dL (70-110)
[2024-03-29 20:54] LABS: Glucose Point of Care 216 mg/dL (70-110)
[2024-03-30] VITALS (8 sets, daily range): BP systolic 114–144; BP diastolic 44–80; PULSE 54–86; RESP 17–18; TEMP 36.4–36.6; O2SAT 92–96
[2024-03-30] MEDS: pantoprazole 40 mg SDV IVP (02:23)
[2024-03-30] MEDS: methylPREDNISolone sod succ 40 mg/mL INJ 30 MG IVP ×2 (02:23→11:11)
[2024-03-30] MEDS: FUROsemide 10 mg/mL SDV 4mL 40 MG IVP (03:32)
[2024-03-30 04:33] LABS: Eosinophils % 0.1 %; Hematocrit 31.6 % (36-47); Lymphocytes # 0.3 10^3/uL (0.8-4.8); Lymphocytes % 2.5 %; Mean Corpuscular HGB Conc 30.7 g/dL (30-55); Mean Corpuscular Hemoglobin 28.8 pg (27-33); Mean Corpuscular Volume 93.8 fl (85-98); Mean Platelet Volume 10.4 fL (7.4-10.4); Monocytes # 0.3 10^3/uL (0.2-0.9); Neutrophils # 9.37 10^3/uL (1.8-7.7); Nucleated Red Blood Cells % 0 %; Platelet Count 151 10^3/cmm (157-399); Red Blood Count 3.37 10^6/uL (3.85-5.65); Red Cell Distribution Width 15.6 % (12.1-15.1); White Blood Count 9.97 10^3/uL (3.29-11.43)
[2024-03-30 04:51] LABS: Anion Gap 17.8 (5-19); Blood Urea Nitrogen 31 mg/dL (8-23); Calcium 9.7 mg/dL (8.5-10.5); Carbon Dioxide 28 mmol/L (22-29); Chloride 96 mmol/L (98-107); Creatinine Clr Calc Pharmacy 39.5416; Glucose 175 mg/dL (65-115); Osmolality Calculated 297 mOsm/kg (285-295); Potassium 3.8 mmol/L (3.5-5.1); Sodium 138 mmol/L (136-145)
[2024-03-30] MEDS: levothyroxine 25 mcg Tablet PO (05:13)
[2024-03-30] MEDS: atorvastatin 40 mg Tablet PO (05:13)
[2024-03-30 07:11] LABS: Glucose Point of Care 190 mg/dL (70-110)
[2024-03-30] MEDS: insulin lispro 100 unit/1 mL SUBCUT (08:20)
[2024-03-30] MEDS: cefTRIAXone 1,000 mg SDV 1000 MG IVP (08:20)
[2024-03-30] MEDS: clopidogrel 75 mg Tablet PO (08:20)
[2024-03-30] MEDS: ipratropium-albuterol 3 mL Neb INHALATION (08:39)
[2024-03-30] MEDS: doxycycline 100 MG in sodium chloride 0.9% (plus) 100 ML IV (11:11)
[2024-03-30 11:13] LABS: Glucose Point of Care 140 mg/dL (70-110)
--- NOTE | 2024-03-30 16:26 | P.DS_ITS ---
Discharge Providers Date of Admission: 03/27/24 11:41 Date of Discharge: March 30, 2024 Attending Provider at Admission: Duane Anglin Attending Provider at Discharge: Shi Johns MD Primary Care Provider: BÁRBARA Ruvalcaba Diagnoses at Discharge Discharge Diagnosis (1) Community acquired bacterial pneumonia: Status: Acute (2) Small airways disease: Status: Acute (3) Acute CHF: Status: Acute Reason for Visit Reason for Visit: chest pain Hospital Course Hospital Course 84-year-old lady with history of congestive heart failure, restrictive lung disease, chronically on 3-1/2 L of oxygen at home, history of DM2, HTN, HLD, atrial fibrillation, pacemaker, presented to ER due to dyspnea, increasing lower extremity edema and right-sided pleuritic pain. Troponin series was not concerning for ACS. CT of the chest was negative for PE. There was cardiomegaly associated with moderate left pleural effusion and mild pulmonary edema.. She was admitted to the hospital due to concern for CHF. Echocardiogram showed LVEF of 55%, grade 2 out of 4 diastolic dysfunction with moderately elevated filling pressures. Patient has a previously known pacemaker, pacer wire was thought to have a small echogenic mass, most likely fibrous tissue. Patient states that she was aware of this finding and has been evaluated in the past. States that this was attributed to a fall in the past. Blood cultures were negative. She did not show any signs of infective endocarditis. She is recommended to follow-up with cardiology as outpatient for the above findings. For her acute on chronic diastolic CHF exacerbation she received diuresis with IV Lasix which has been transitioned to oral Lasix at the time of discharge. Patient typically takes 40 mg of p.o. Lasix, this has been increased to 40 mg p.o. twice daily Lasix at the time of discharge. She is recommended to follow- up with cardiology as an outpatient within 1 week. For possibility of pneumonia she was also treated with ceftriaxone and doxycycline during her admission course here. This has been transitioned to oral levofloxacin for additional 4 days at the time of discharge Physical Exam Narrative: General: No acute distress, AO x3 HEENT: PERRLA, pupils bilaterally equal and reactive, pallors not present Chest: Normal vesicular breath sounds, no added sounds, equal good air entry bilaterally CVS: S1-S2 regular, no murmurs, no tachycardia, no gallops, no rubs Abdomen: Soft, nontender, no organomegaly, bowel sounds present Neuro: No focal deficits, no facial deformity, AO x3, power 5/5 in all limbs Extremities: Improving lower extremity edema Urinary Catheter Management: Alanis: Cath Placed During This Visit: yes Reason for Continuing Indwelling Catheter: Other Urinary Catheter Date of Insertion: 03/28/24 Urinary Catheter Time of Insertion: 17:00 Discharge Data Studies Completed and Pending Completed Studies During Hospitalization Category Date Time Status CTA chest [CT angio chest PE protcl [id number]] Routine Cat Scan 03/27/24 15:01 Completed XR chest 1V portable [id number] Routine Exams 03/29/24 08:00 Completed XR chest 1V portable [id number] Urgent Exams 03/27/24 09:51 Completed CV. echo complete* [id number] Routine Ultrasound 03/27/24 14:20 Completed Pending at discharge Category Date Time Status Blood Culture Stat Lab 03/27/24 12:13 Results Radiology Impressions Chest CTA 03/27/24 15:01 IMPRESSION: 1. Negative exam for pulmonary embolus. 2. Atherosclerosis with coronary artery calcification. 3. Cardiomegaly associated with moderate right pleural effusion and mild pulmonary edema. 4. Mild pulmonary emphysematous changes. Chest X-Ray 03/29/24 08:00 IMPRESSION: Small pleural effusions and atelectasis/airspace opacities in lower lobes, right more than left. Laboratory Results WBC 9.97 10^3/uL (3.29-11.43) 03/30/24 03:32 RBC 3.37 10^6/uL (3.85-5.65) L 03/30/24 03:32 Hgb 9.70 g/dL (11.27-16.99) L 03/30/24 03:32 Hct 31.6 % (36-47) L 03/30/24 03:32 MCV 93.8 fl (85-98) D 03/30/24 03:32 MCH 28.8 pg (27-33) 03/30/24 03:32 MCHC 30.7 g/dL (30-55) 03/30/24 03:32 RDW 15.6 % (12.1-15.1) H 03/30/24 03:32 Plt Count 151 10^3/cmm (157-399) L 03/30/24 03:32 MPV 10.4 fL (7.4-10.4) 03/30/24 03:32 Neut % (Auto) 94.0 % 03/30/24 03:32 Lymph % (Auto) 2.5 % 03/30/24 03:32 Gosper % (Auto) 3.0 % 03/30/24 03:32 Eos % (Auto) 0.1 % 03/30/24 03:32 Baso % (Auto) 0.0 % 03/30/24 03:32 Neut # (Auto) 9.37 10^3/uL (1.8-7.7) H 03/30/24 03:32 Lymph # (Auto) 0.3 10^3/uL (0.8-4.8) L 03/30/24 03:32 Gosper # (Auto) 0.3 10^3/uL (0.2-0.9) 03/30/24 03:32 Eos # (Auto) 0.0 10^3/uL (0.0-0.8) 03/30/24 03:32 Baso # (Auto) 0.0 10^3/uL (0.0-0.1) 03/30/24 03:32 Nucleated RBC % (auto) 0 % 03/30/24 03:32 Nucleated RBCs # 0.0 /100WBC 03/30/24 03:32 D-Dimer 1.37 ug/mLFEU (0-0.59) H 03/27/24 10:23 Specimen Type Arterial 03/27/24 11:38 Sample Site Radial, left 03/27/24 11:38 ABG pH 7.43 (7.35-7.45) 03/27/24 11:38 ABG pCO2 41.1 mmHg (35-45) 03/27/24 11:38 ABG pO2 54.9 mmHg (80.0-100.0) L 03/27/24 11:38 ABG PO2/FiO2 Ratio 152 03/27/24 11:38 ABG HCO3 27.2 mmol/L (22-26) H 03/27/24 11:38 ABG O2 Saturation 87.8 03/27/24 11:38 ABG Base Excess 2.6 mmol/L (-2.0-2.0) H 03/27/24 11:38 Mitchell Test Pos 01/17/25 11:38 A-a O2 Gradient 19.4 mmHg (5-10) H 03/27/24 11:38 Hematocrit 31.8 % (37-47) L 03/27/24 11:38 Hgb O2 Saturation 85.7 % (95-100) L 03/27/24 11:38 Carboxyhemoglobin 1.4 %THgb (0.4-20.1) 03/27/24 11:38 Methemoglobin 1.0 % (0.4-1.5) 03/27/24 11:38 Total Hemoglobin 10.4 g/dL (12-16) L 03/27/24 11:38 Sodium 142.0 mmol/L (131-143) 03/27/24 11:38 Potassium 4.1 mmol/L (3.5-5.0) 03/27/24 11:38 Glucose 140.0 mg/dL (70-115) H 03/27/24 11:38 Ionized Calcium 1.2 mmol/L (1.1-1.4) 03/27/24 11:38 O2 Delivery Device Nc 03/27/24 11:38 O2 Liters/Min 4.0 % 03/27/24 11:38 FiO2 36.0 % 03/27/24 11:38 Recreation [employer] A[employer] Teacher ID Cak 03/27/24 11:38 Sodium 138 mmol/L (136-145) 03/30/24 03:32 Potassium 3.8 mmol/L (3.5-5.1) 03/30/24 03:32 Chloride 96 mmol/L (98-107) L 03/30/24 03:32 Carbon Dioxide 28 mmol/L (22-29) 03/30/24 03:32 Anion Gap 17.8 (5-19) 03/30/24 03:32 BUN 31 mg/dL (8-23) H 03/30/24 03:32 Creatinine 1.0 mg/dL (0.5-0.9) H 03/30/24 03:32 GFR Calculation Not Reportable 03/30/24 03:32 Glucose 175 mg/dL (65-115) H 03/30/24 03:32 POC Glucose 140 mg/dL (70-110) H 03/30/24 11:04 Calculated Osmolality 297 mOsm/kg (285-295) H 03/30/24 03:32 Lactic Acid 1.4 mmol/L (0.5-2.2) 03/27/24 10:23 Calcium 9.7 mg/dL (8.5-10.5) 03/30/24 03:32 Magnesium 1.8 mg/dL (1.7-2.3) 03/28/24 03:53 Total Bilirubin 0.5 mg/dL (0.15-1.2) 03/27/24 10:23 AST 11 U/L (0-32) 03/27/24 10:23 ALT 6 U/L (0-33) 03/27/24 10:23 Alkaline Phosphatase 66 U/L (35-105) 03/27/24 10:23 Troponin T Baseline 22 ng/L (0-10) H 03/27/24 10:23 Troponin T 120 Minute 21.07 ng/L (0-10) H 03/27/24 12:28 Delta Troponin T -0.93 ABS# (0-10) L 03/27/24 12:28 Troponin T Hi Sens 6Hr 19.33 ng/L (0-10) H 03/27/24 16:27 Troponin T Hi Sens 6Hr Delta -2.67 ng/L (0-12) L 03/27/24 16:27 NT-Pro-B Natriuret Pep 4692 pg/mL (0-450) H 03/27/24 10:23 Total Protein 6.6 g/dL (6.6-8.7) 03/27/24 10:23 Albumin 3.7 g/dL (3.5-5.2) 03/27/24 10:23 Globulin 2.9 g/dL (1.3-4.6) 03/27/24 10:23 Nasal MRSA (PCR) Not detected (Not Detecte) 03/27/24 14:35 Adenovirus (PCR) Not detected (NOT DETECT) 03/27/24 14:35 C. pneumoniae DNA (PCR) Not detected (NOT DETECT) 03/27/24 14:35 Coronavirus 229E (PCR) Not detected (NOT DETECT) 03/27/24 14:35 Human Metapneumovir PCR Not detected (NOT DETECT) 03/27/24 14:35 Influenza A (H1) PCR Not detected (NOT DETECT) 03/27/24 14:35 Influ A (H1/09) PCR Not detected (NOT DETECT) 03/27/24 14:35 Influenza A (H3) PCR Not detected (NOT DETECT) 03/27/24 14:35 Influenza Type A (PCR) Not detected (NOT DETECT) 03/27/24 14:35 Influenza Type B (PCR) Not detected (NOT DETECT) 03/27/24 14:35 M. pneumoniae (PCR) Not detected (NOT DETECT) 03/27/24 14:35 Parainfluenza 1 (PCR) Not detected (NOT DETECT) 03/27/24 14:35 Parainfluenza 2 (PCR) Not detected (NOT DETECT) 03/27/24 14:35 Parainfluenza 3 (PCR) Not detected (NOT DETECT) 03/27/24 14:35 Parainfluenza 4 (PCR) Not detected (NOT DETECT) 03/27/24 14:35 RSV Type A (PCR) Not detected (NOT DETECT) 03/27/24 14:35 RSV Type B (PCR) Not detected (NOT DETECT) 03/27/24 14:35 Entero/Rhino (PCR) Not detected (NOT DETECT) 03/27/24 14:35 SARS-CoV-2 (PCR) Not detected (NOT DETECT) 03/27/24 14:35 Vitals Last Vital Signs Temp 97.7 F 03/30/24 14:57 Pulse 54 L 03/30/24 14:57 Resp 18 03/30/24 14:57 BP 144/44 03/30/24 14:57 Pulse Ox 93 03/30/24 14:57 O2 Del Method Nasal Cannula 03/30/24 11:40 O2 Flow Rate 3 03/30/24 08:00 Discharge Plan Discharge Patient Disposition: Home Condition: Stable Prescriptions: New levofloxacin 750 mg tablet 750 mg PO DAILY 4 Days Qty: 4 0RF Continued Nitrostat 0.4 mg tablet, sublingual 0.4 mg SUBLINGUAL Q5M PRN (Reason: Chest Pain) Qty: 25 3RF (DME) Diabetic Shoes with 3 sets of insoles See Rx Instructions .Route .MEDSUPPLY Qty: 1 0RF Rx Instructions: As directed by HOME budesonide-formoterol [Symbicort] 80-4.5 mcg/actuation HFA aerosol inhaler 2 puff inhalation BID Qty: 10.2 3RF Rx Instructions: 340 B pantoprazole [Protonix] 40 mg tablet,delayed release (DR/EC) 40 mg PO BID Qty: 60 11RF citalopram 20 mg tablet 20 mg PO QPM acetaminophen 500 mg Tablet 1,000 mg PO BID PRN (Reason: pain or temp) levothyroxine 25 mcg tablet 25 mcg PO QAM potassium chloride 10 mEq capsule, extended release 10 meq PO QAM ipratropium-albuterol 0.5 mg-3 mg(2.5 mg base)/3 mL solution for nebulization 3 ml inhalation Q6H PRN (Reason: Shortness Of Breath) pravastatin 40 mg tablet 40 mg PO QAM insulin glargine [Lantus Solostar U-100 Insulin] 100 unit/mL (3 mL) insulin pen 28 unit SUBCUT QPM insulin detemir U-100 100 unit/mL (3 mL) Insulin Pen 12 unit SUBCUT QPM clopidogrel 75 mg tablet 75 mg PO DAILY hydrocodone-acetaminophen 5-325 mg tablet 1 tab PO TID PRN (Reason: Pain) Changed furosemide [Lasix] 40 mg tablet 40 mg PO BID 15 Days Qty: 30 0RF Discharge Orders: Discharge Order (Routine); Ordered 03/30/24 Ordered By: Shi Johns Referrals: Grace Willett FNP [Primary Care Provider] - (We have notified your physician's clinic of the need for a follow-up appointment to be scheduled. If you have not heard from them within the next 2 business days, please call them directly.) Charity Lacy FNP [Nurse Practitioner] - 7-10 days (fup for CHF- needs to be reassed within 7-10 days We have notified your physician's clinic of the need for a follow-up appointment to be scheduled. If you have not heard from them within the next 2 business days, please call them directly. ) Discharge Diet: Cardiac Discharge Activity: Resume usual activity Patient Instructions: Levofloxacin (By mouth) (Levaquin, Levaquin Leva-sukhwinder), Pneumonia (GEN), CHF Stoplight, Opioid Safety Discharge Attestations Time Spent in Discharge Care*: greater than 30 min Quality Metrics Clinical Quality Measures [ No reported AMI, CVA or VTE this stay] Coding Level of Care Code Acute Code for Chg Fwd Diagnoses Community acquired bacterial pneumonia J15.9 Small airways disease J98.4 Acute CHF I50.9
== END 2024-03-30 14:59 | disposition home or self-care (01) | DRG 193 ==
LOC: ER 11:53 → MEDSURG 12:12
PROVIDERS: Internal Medicine; Physician Assistant; Admitting Provider Internal Medicine; Emergency Provider Emergency Medicine; PCP Nurse Practitioner Family; Visit Provider Student in an Organized Health Care Education/Training Program
DX: J15.9 Unspecified bacterial pneumonia (principal); I50.33 Acute on chronic diastolic (congestive) heart failure; I48.20 Chronic atrial fibrillation, unspecified; K86.1 Other chronic pancreatitis; I11.0 Hypertensive heart disease with heart failure; J98.4 Other disorders of lung; Z99.81 Dependence on supplemental oxygen; E11.42 Type 2 diabetes mellitus with diabetic polyneuropathy; E11.59 Type 2 diabetes mellitus with other circulatory complications; E78.5 Hyperlipidemia, unspecified; Z95.0 Presence of cardiac pacemaker; Z79.4 Long term (current) use of insulin; Z79.02 Long term (current) use of antithrombotics/antiplatelets; Z79.891 Long term (current) use of opiate analgesic; Z87.891 Personal history of nicotine dependence; Z88.2 Allergy status to sulfonamides; Z88.7 Allergy status to serum and vaccine; Z85.89 Personal history of malignant neoplasm of other organs and systems; K29.70 Gastritis, unspecified, without bleeding; T38.0X5A Adverse effect of glucocorticoids and synthetic analogues, initial encounter; R09.02 Hypoxemia; F41.9 Anxiety disorder, unspecified; I27.20 Pulmonary hypertension, unspecified; Z90.49 Acquired absence of other specified parts of digestive tract; I25.10 Atherosclerotic heart disease of native coronary artery without angina pectoris
CPT/HCPCS: 36415; 36416; 36600; 51702; 71045; 71275; 80048; 80051; 80053; 82330; 82805; 82962; 83605; 83735; 83880; 84484; 85025; 85378; 86403; 87040; 87449; 87486; 87581; 87633; 93005; 93306; 94640; 94664; 96365; 96372; 96375; 99285; J0696; J1650; J1815; J1940; J2405; J2470; J2919; J3490

== ENCOUNTER → 2024-04-09 16:04 | Outpatient (BNVA) | payer MEDICARE, SELFPAY | PROVIDERS: PCP Nurse Practitioner Family; Visit Provider Nurse Practitioner Family | DX: I50.9 Heart failure, unspecified (principal); I51.7 Cardiomegaly | CPT/HCPCS: 36415; 71046; 80048; 83880; 85025; 99213 ==

== ENCOUNTER → 2024-05-20 12:40 | Outpatient (BNVA) | payer MEDICARE, SELFPAY | PROVIDERS: PCP Nurse Practitioner Family; Visit Provider Podiatrist Foot & Ankle Surgery | DX: E11.42 Type 2 diabetes mellitus with diabetic polyneuropathy (principal); L60.3 Nail dystrophy; I73.9 Peripheral vascular disease, unspecified; Z79.4 Long term (current) use of insulin; E11.8 Type 2 diabetes mellitus with unspecified complications | CPT/HCPCS: 11721 ==

== ENCOUNTER → 2024-06-16 14:56 | Outpatient (BNVA) | payer MEDICARE, SELFPAY | PROVIDERS: PCP Nurse Practitioner Family; Visit Provider Internal Medicine Cardiovascular Disease | DX: I48.91 Unspecified atrial fibrillation (principal); I11.0 Hypertensive heart disease with heart failure; I50.33 Acute on chronic diastolic (congestive) heart failure; I25.10 Atherosclerotic heart disease of native coronary artery without angina pectoris; E11.9 Type 2 diabetes mellitus without complications; Z79.4 Long term (current) use of insulin; G47.30 Sleep apnea, unspecified | CPT/HCPCS: 99214 ==

== ENCOUNTER → 2024-08-19 12:56 | Outpatient (BNVA) | payer MEDICARE, SELFPAY | PROVIDERS: PCP Nurse Practitioner Family; Visit Provider Podiatrist Foot & Ankle Surgery | DX: E11.42 Type 2 diabetes mellitus with diabetic polyneuropathy (principal); L60.3 Nail dystrophy; I73.9 Peripheral vascular disease, unspecified; Z79.4 Long term (current) use of insulin | CPT/HCPCS: 11721 ==

== ENCOUNTER → 2024-12-09 15:59 | Outpatient (BNVA) | payer MEDICARE, SELFPAY | PROVIDERS: PCP Nurse Practitioner Family; Visit Provider Internal Medicine Cardiovascular Disease | DX: I11.0 Hypertensive heart disease with heart failure (principal); I50.9 Heart failure, unspecified; I48.91 Unspecified atrial fibrillation; I25.10 Atherosclerotic heart disease of native coronary artery without angina pectoris; J98.4 Other disorders of lung; G47.30 Sleep apnea, unspecified; J84.10 Pulmonary fibrosis, unspecified; Z87.891 Personal history of nicotine dependence | CPT/HCPCS: 99214 ==

== ENCOUNTER → 2025-02-10 13:33 | Outpatient (BNVA) | payer MEDICARE, SELFPAY | PROVIDERS: PCP Nurse Practitioner Family; Visit Provider Podiatrist Foot & Ankle Surgery | DX: E11.42 Type 2 diabetes mellitus with diabetic polyneuropathy (principal); L60.3 Nail dystrophy; E11.8 Type 2 diabetes mellitus with unspecified complications; I73.9 Peripheral vascular disease, unspecified; Z79.4 Long term (current) use of insulin | CPT/HCPCS: 11721 ==